=== PATIENT | male | born 1970 | race Hispanic/Latino ===

== ENCOUNTER → 2020-02-02 | Day surgery (SDC) | payer MEDICARE, OTHER ==
[~2020-02-02] MED LIST: ACETAMINOPHEN 1000 MG/100 ML 100 ML IV ONE; Aspirin PO; BUPIVACAINE HCL 0.5% INJ 30 ML VIAL INJ ONE; BYSTOLIC10 MG PO; CEFAZOLIN SOD 1 GM VIAL ONE; DEXTROSE 5% 250ML 250 ML IV ONE; FENTANYL CITRATE/PF 100MCG/2 ML INJ ONE; HEPARIN SOD (PORCINE) 1000 UNIT/ML 30ML ONE; HEPARIN SOD (PORCINE) 5,000 UNIT/ML VIAL ONE; LIDOCAINE HCL 2% LOCAL INJ 5 ML SDV VIAL INJ ONE; LOPRESSOR25 MG PO; LOVASTATIN10 MG PO; METFORMIN HCL500 MG PO; MIDAZOLAM HCL 2 MG/2 ML VIAL ONE; ONDANSETRON HCL INJ 2MG/ML 2ML 2 MG/ML VIAL ONE; PEPCID20 MG PO; PRINIVIL10 MG PO; PROPOFOL IV EMULSION 10 MG/ML 20 ML VIAL ONE; PROTAMINE SULFATE 10 MG/ML 5 ML VIAL ONE; SEVOFLURANE INHAL SOLN 250 ML PEN BTL ONE; SODIUM CHLORIDE 0.9% 500ML 500 ML ONE; THROMBIN FOR SOLN 5,000 UNIT VIAL ONE; VANCOMYCIN 1GM/NS 250 ML 250 ML ONE; ZOCOR40 MG PO
--- OUTSIDE RECORDS SUMMARY | 2020-02-02 11:19 | XMS REPORT | Clinical Summary ---
Author Author [facility] ict Organization [facility] Address Unknown Phone Unavailable Care Team Providers Care Wholesale Account Executive Name Role Phone PCP Unavailable Allergies No Known Allergies Medications End Date Status Medication Sig Dispensed Refills Start Date Active amLODIPine (NORVASC) 10 Take 10 mg by 0 mg tablet mouth daily. Active lovastatin 10 mg tablet Take 40 mg by 0 mouth at bedtime nightly. Active glimepiride (AMARYL) 1 mg Take 1 tablet 30 tablet 0 tabletIndications: KATHLEEN by mouth 8 (acute kidney injury) every morning (before breakfast). Active Problems Problem Noted Date LLQ pain 01/20/2018 Acute renal failure 01/20/2018 KATHLEEN (acute kidney injury) 01/20/2018 Diabetes mellitus type 2 in obese 01/20/2018 Back pain 07/08/2014 Cough 02/06/2014 Diarrhea Hyperkalemia Social History Date Tobacco Use Types Packs/Day Years Used Never Smoker Drinks/Week oz/Week Comments Alcohol Use OCCASSIONAL Yes Sex Assigned at Date Recorded Not on file Industry Job Start Date Occupation Not on file Not on file Not on file Travel End Travel History Travel Start No recent travel history available. Last Filed Vital Signs Not on file Plan of Treatment Health Maintenance Due Date Last Done Comments DM Foot Exam (Yearly) 1989 DM Retinal Exam (Yearly) 1989 DM HGBA1C (Yearly) 01/20/2019 01/20/2018 DM Microalbumin Urine 01/21/2019 01/21/2018, 12/28, 01/21/2018, Scrn (Yearly) Additional history exists IMM Influenza Seasonal 06/28/2020 Oct to November (>/= 19 yrs) Results Not on fileafter 02/01/2019 Insurance Type Payer Benefit Subscriber ID Effective Phone Address Plan / Dates Group [facility] CHOICE xxxxxxxxx 2016-P [phone] [id number] [place] [address] [employer] SELF-PAY SELF-PAY xxxxxx 2016-5 [id number] [place] [address] Guarantor Name Account Relation to Date of Phone Billin g Address Type Patient MORGAN NUNEZ Personal/F Head of 1970 [address] (Home) [place], [place] [address] (Self) Advance Directives Date Inactivated Comments Code Status Date Activated 01/22/2018 8:18 PM Full Code 01/20/2018 3:11 PM
--- OUTSIDE RECORDS SUMMARY | 2020-02-02 11:19 | XMS REPORT | Clinical Summary ---
Author Author [facility] Address Unknown Phone Unavailable Care Team Providers Care Tool Crib Manager Name Role Phone Brandon--Shabbir Langford PCP Allergies No Known Allergies Medications End Date Status Medication Sig Dispensed Refills Start Date Active aspirin 81 MG EC tablet Take 81 mg by 0 mouth daily. Active glimepiride (AMARYL) 4 MG Take 4 mg by 0 tablet mouth every morning before breakfast. Active losartan (COZAAR) 50 MG Take 50 mg by 0 tablet mouth daily. Active sodium bicarbonate 650 MG Take 4 0 tablet tablets by mouth 2 (two) times daily. Active cloNIDine (CATAPRES-TTS) Place 1 patch 0 0.1 mg/24 hr patch onto the skin once a week. Active cloNIDine HCl (CATAPRES) Take 0.1 mg 0 0.1 MG tablet by mouth 2 (two) times daily. Active folic acid (FOLVITE) 1 MG Take 1 mg by 0 tablet mouth daily. Active acetaminophen (TYLENOL) Take 500 mg 0 500 MG tablet by mouth every 6 (six) hours as needed for Pain. Active Problems Problem Noted Date ESRD (end stage renal disease) on dialysis 0 Hypertension 05/17/2019 Last Assessment & Plan: Blood pressure management per primary c are. Diabetes mellitus 05/17/2019 Last Assessment & Plan: He will require aggressive blood glucos e control per primary care. CKD (chronic kidney disease) 05/17/2019 Last Assessment & Plan: Chronic kidney disease secondary to HTN /DM. At this time he does not require diaylsis. Obesity 05/17/2019 Last Assessment & Plan: His current BMI is 42. We will set his goal BMI at 40. He will meet with our transplant nursing instructor for assistance with dieting and weight loss. Encounters Care Team Description Date Type Specialty Irwin Ashton MD ESRD (end stage renal disease) on dialys is (HCC) 01/11/2020 Office Visit Cardiology Flores Sims MD Rana, Abbas Aba Bucker, MD ESRD (end stage renal disease) on dialys is (HCC) (Primary Dx) 05/17/2019 Office Visit Transplant Flores Sims MD 05/17/2019 Office Visit Transplant Ethan Muñoz 04/28/2019 Abstract Transplant after 02/01/2019 Social History Date Tobacco Use Types Packs/Day Years Used Never Smoker Smokeless Tobacco: Never Used Sex Assigned at Date Recorded Not on file Industry Job Start Date Occupation Not on file Not on file Not on file Travel End Travel History Travel Start No recent travel history available. Last Filed Vital Signs Time Taken Vital Sign Reading 01/11/2020 1:27 PM CDT Blood Pressure 178/82 01/11/2020 1:27 PM CDT Pulse 71 01/11/2020 1:27 PM CDT Temperature 37 C (98.6 F) 01/11/2020 1:27 PM CDT Respiratory Rate 18 01/11/2020 1:27 PM CDT Oxygen Saturation 98% - Inhaled Oxygen - Concentration 01/11/2020 1:27 PM CDT Weight 110.7 kg (244 lb) 01/11/2020 1:27 PM CDT Height 165.1 cm (5' 5") 01/11/2020 1:27 PM CDT Body Mass Index 40.6 Plan of Treatment Health Maintenance Due Date Last Done Comments PNEUMOCOCCAL VACCINE 2-64 1976 YEARS AT RISK (1 of 3 - PCV13) HEMOGLOBIN A1C 05/17/2019 INFLUENZA VACCINE (Season 05/29/2020 Ended) Results Not on fileafter 02/01/2019 Insurance Payer Benefit Subscriber ID Type Phone Address Plan / Group [employer] xxxxxxxxx Trans plant [facility] [place] [facility] xxxxxxxxx [employer] (Home) [place] [address]
--- OUTSIDE RECORDS SUMMARY | 2020-02-02 11:20 | XMS REPORT ---
Author Author [facility] Organization [facility] Address Unknown Phone Unavailable Care Team Providers Care Devulcanizer Tender Name Role Phone Unavailable Unavailable Payers Payer Name Policy Type Policy Number Effective Date Expiration D ate Problems This patient has no known problems. Allergies, Adverse Reactions, Alerts Allergy Name Allergy Type Status Severity Reaction(s) Onset Date Inacti ve Date Treating Clinician Comments No Known Allergies DA Active U 2019-04-12 00:00:00 No Known Allergies DA Active U 2015-09-11 00:00:00 Medications This patient has no known medications. Encounters Start Date/Time End Date/Time Encounter Type Admission Type [facility] Care Department Encounter ID 2018-01-21 03:35:12 Inpatient [facility] [id number] 2019-11-01 07:38:00 2019-11-01 07:38:00 Outpatient [facility] [id number] 2019-09-06 05:07:00 2019-09-06 05:07:00 [id number] 2018-01-20 09:54:57 2018-01-20 09:54:57 Emergency [facility] [id number] 2018-01-20 07:54:55 2018-01-20 07:54:55 Outpatient [facility] [id number] 2018-01-20 00:00:00 2018-01-20 00:00:00 Emergency [facility] [id number] Results Test Description Test Time Test Comments Text Results Atomic Results Result Comments GLUBED 2019-10-24 19:56:00 GLUBED (test code = GLUBED) 162 mg/dL 74-106 Perf ormed by certified liquefied natural gas operator at [facility] [id number] 17:20:00* Test Item Value Reference Range Comments GLUBED (test code = GLUBED) 138 mg/dL 74-106 Perf ormed by certified liquefied natural gas operator at [facility] BASIC METABOLIC [id number] 13:53:00* Test Item Value Reference Range Comments SODIUM (test code = NA) 139 mmol/L 136-145 POTASSIUM (test code = K) 4.9 mmol/L 3.5-5.1 CHLORIDE (test code = CL) 101.0 mmol/L 98-107 CARBON DIOXIDE (test code = CO2) 26.0 mmol/L 21-32 ANION GAP (test code = GAP) 16.9 10-20 GLUCOSE (test code = GLU) 159 mg/dL 74-106 BLOOD UREA NITROGEN (test code = BUN) 57 mg/dL 7-18 GLOMERULAR FILTRATION RATE (test code = GFR) 4 mL/min >=6 0 Estimated GFR by using Modified MDRD formula.Chronic kidney disease is defined as either kidney damageor GFR <60 mL/min/1.73 m2 for >3 months. CREATININE (test code = CREAT) 13.40 mg/dL 0.7-1.3 BUN/CREATININE RATIO (test code = BUN/CREA) 4.3 10-2 0 CALCIUM (test code = CA) 7.4 mg/dL 8.5-10.1 BASIC METABOLIC [id number] 13:48:00* Test Item Value Reference Range Comments SODIUM (test code = NA) 139 mmol/L 136-145 POTASSIUM (test code = K) 4.9 mmol/L 3.5-5.1 CHLORIDE (test code = CL) 101.0 mmol/L 98-107 CARBON DIOXIDE (test code = CO2) mmol/L 21-32 ANION GAP (test code = GAP) 10-20 GLUCOSE (test code = GLU) mg/dL 74-106 BLOOD UREA NITROGEN (test code = BUN) mg/dL 7-18 GLOMERULAR FILTRATION RATE (test code = GFR) mL/min >=6 0 CREATININE (test code = CREAT) mg/dL 0.7-1.3 BUN/CREATININE RATIO (test code = BUN/CREA) 10-2 0 CALCIUM (test code = CA) mg/dL 8.5-10.1 CBC W/AUTO [id number] 13:42:00* Test Item Value Reference Range Comments WHITE BLOOD CELL (test code = WBC) 9.5 K/mm3 4.5-12.5 RED BLOOD CELL (test code = RBC) 3.91 mill/mm3 4.0-5.8 HEMOGLOBIN (test code = HGB) 11.7 gram/dL 13.0-17.5 HEMATOCRIT (test code = HCT) 37.4 % 42.0-52.0 MEAN CELL VOLUME (test code = MCV) 95.7 fL 80-98 MEAN CELL HGB (test code = MCH) 29.9 picogram 27.0-33.0 MEAN CELL HGB CONCETRATION (test code = MCHC) 31.3 gram/dL 33 .0-36.0 RED CELL DISTRIBUTION WIDTH (test code = RDW) 14.7 % 11 .6-16.2 RED CELL DISTRIBUTION WIDTH SD (test code = RDW-SD) 51.6 fL 37.0-51.0 PLATELET COUNT (test code = PLT) 217 K/mm3 150-450 MEAN PLATELET VOLUME (test code = MPV) 10.2 fL 6.7-11.0 NEUTROPHIL % (test code = NT%) 67.5 % 39.0-69.0 IMMATURE GRANULOCYTE % (test code = IG%) 0.6 % 0.0-5.0 LYMPHOCYTE % (test code = LY%) 14.2 % 25.0-55.0 MONOCYTE % (test code = MO%) 10.5 % 0.0-10.0 EOSINOPHIL % (test code = EO%) 6.7 % 0.0-5.0 BASOPHIL % (test code = BA%) 0.5 % 0.0-1.0 NUCLEATED RBC % (test code = NRBC%) 0.0 % 0-0 NEUTROPHIL # (test code = NT#) 6.39 K/mm3 1.8-7.7 IMMATURE GRANULOCYTE # (test code = IG#) 0.06 x10 3/uL 0-0.03 LYMPHOCYTE # (test code = LY#) 1.34 K/mm3 1.0-5.0 MONOCYTE # (test code = MO#) 0.99 K/mm3 0-0.8 EOSINOPHIL # (test code = EO#) 0.63 K/mm3 0.0-0.5 BASOPHIL # (test code = BA#) 0.05 K/mm3 0.0-0.2 NUCLEATED RBC # (test code = NRBC#) 0.00 K/mm3 0.0-0.1 MANUAL DIFF REQUIRED (test code = MDIFF) NO [id number] 11:49:00* Test Item Value Reference Range Comments GLUBED (test code = GLUBED) 139 mg/dL 74-106 Perf ormed by certified liquefied natural gas operator at [facility] [id number] 06:20:00* Test Item Value Reference Range Comments GLUBED (test code = GLUBED) 86 mg/dL 74-106 Perf ormed by certified liquefied natural gas operator at [facility] [id number] 20:24:00* Test Item Value Reference Range Comments GLUBED (test code = GLUBED) 148 mg/dL 74-106 Perf ormed by certified liquefied natural gas operator at [facility] [id number] 17:03:00* Test Item Value Reference Range Comments GLUBED (test code = GLUBED) 103 mg/dL 74-106 Perf ormed by certified liquefied natural gas operator at [facility] [id number] 13:08:00* Test Item Value Reference Range Comments GLUBED (test code = GLUBED) 97 mg/dL 74-106 Perf ormed by certified liquefied natural gas operator at [facility] [id number] 06:50:00* Test Item Value Reference Range Comments GLUBED (test code = GLUBED) 115 mg/dL 74-106 Perf ormed by certified liquefied natural gas operator at [facility] BASIC METABOLIC [id number] 05:20:00* Test Item Value Reference Range Comments SODIUM (test code = NA) 140 mmol/L 136-145 POTASSIUM (test code = K) 3.9 mmol/L 3.5-5.1 CHLORIDE (test code = CL) 104.0 mmol/L 98-107 CARBON DIOXIDE (test code = CO2) 26.0 mmol/L 21-32 ANION GAP (test code = GAP) 13.9 10-20 GLUCOSE (test code = GLU) 138 mg/dL 74-106 BLOOD UREA NITROGEN (test code = BUN) 49 mg/dL 7-18 RESULT VERIFIED BY REPEAT ANALYSIS GLOMERULAR FILTRATION RATE (test code = GFR) 5 mL/min >=6 0 Estimated GFR by using Modified MDRD formula.Chronic kidney disease is defined as either kidney damageor GFR <60 mL/min/1.73 m2 for >3 months. CREATININE (test code = CREAT) 11.30 mg/dL 0.7-1.3 BUN/CREATININE RATIO (test code = BUN/CREA) 4.3 10-2 0 CALCIUM (test code = CA) 7.7 mg/dL 8.5-10.1 THYROID PROFILE [id number] 05:20:00* Test Item Value Reference Range Comments T3 UPTAKE (test code = T3UP) 34.0 % 30.0-40.0 T4 (THYROXINE) (test code = T4) 7.6 ug/dL 4.5-13.9 T7 (FREE THYROXINE INDEX) (test code = T7) 2.58 FTI 1.3-5 .1 THYROID STIMULATING HORMONE (test code = TSH) 3.080 uIU/mL 0. 36-3.74 TSH REFERENCE RANGES: EUTHYROID: 0.35 - 4.3 mIU/mL HYPO : > 5.5 mIU/mL HYPER : < 0.35 mIU/mL BASIC METABOLIC [id number] 05:03:00* Test Item Value Reference Range Comments SODIUM (test code = NA) 140 mmol/L 136-145 POTASSIUM (test code = K) 3.9 mmol/L 3.5-5.1 CHLORIDE (test code = CL) 104.0 mmol/L 98-107 CARBON DIOXIDE (test code = CO2) mmol/L 21-32 ANION GAP (test code = GAP) 10-20 GLUCOSE (test code = GLU) mg/dL 74-106 BLOOD UREA NITROGEN (test code = BUN) mg/dL 7-18 GLOMERULAR FILTRATION RATE (test code = GFR) mL/min >=6 0 CREATININE (test code = CREAT) mg/dL 0.7-1.3 BUN/CREATININE RATIO (test code = BUN/CREA) 10-2 0 CALCIUM (test code = CA) mg/dL 8.5-10.1 THYROID PROFILE [id number] 05:03:00* Test Item Value Reference Range Comments T3 UPTAKE (test code = T3UP) % 30.0-40.0 T4 (THYROXINE) (test code = T4) ug/dL 4.5-13.9 T7 (FREE THYROXINE INDEX) (test code = T7) FTI 1.3-5 .1 THYROID STIMULATING HORMONE (test code = TSH) uIU/mL 0. 36-3.74 [id number] 04:51:00* Test Item Value Reference Range Comments GLYCOSYLATED HEMOGLOBIN (HA1C) (test code = GLYHGB) 5.6 % HbA1 SUGGESTED DIAGNOSIS: HbA1C (%) Diabetic >6.4Prediabetes 5.7 - 6.4Normal <5.7 ESTIMATED AVERAGE GLUCOSE (test code = EAG) 114 MG/DL CBC W/AUTO [id number] 04:29:00* Test Item Value Reference Range Comments WHITE BLOOD CELL (test code = WBC) 10.7 K/mm3 4.5-12.5 RED BLOOD CELL (test code = RBC) 4.20 mill/mm3 4.0-5.8 HEMOGLOBIN (test code = HGB) 12.7 gram/dL 13.0-17.5 HEMATOCRIT (test code = HCT) 39.7 % 42.0-52.0 MEAN CELL VOLUME (test code = MCV) 94.5 fL 80-98 MEAN CELL HGB (test code = MCH) 30.2 picogram 27.0-33.0 MEAN CELL HGB CONCETRATION (test code = MCHC) 32.0 gram/dL 33 .0-36.0 RED CELL DISTRIBUTION WIDTH (test code = RDW) 15.0 % 11 .6-16.2 RED CELL DISTRIBUTION WIDTH SD (test code = RDW-SD) 51.6 fL 37.0-51.0 PLATELET COUNT (test code = PLT) 215 K/mm3 150-450 MEAN PLATELET VOLUME (test code = MPV) 10.4 fL 6.7-11.0 NEUTROPHIL % (test code = NT%) 65.3 % 39.0-69.0 IMMATURE GRANULOCYTE % (test code = IG%) 0.4 % 0.0-5.0 LYMPHOCYTE % (test code = LY%) 15.1 % 25.0-55.0 MONOCYTE % (test code = MO%) 12.1 % 0.0-10.0 EOSINOPHIL % (test code = EO%) 6.6 % 0.0-5.0 BASOPHIL % (test code = BA%) 0.5 % 0.0-1.0 NUCLEATED RBC % (test code = NRBC%) 0.0 % 0-0 NEUTROPHIL # (test code = NT#) 6.96 K/mm3 1.8-7.7 IMMATURE GRANULOCYTE # (test code = IG#) 0.04 x10 3/uL 0-0.03 LYMPHOCYTE # (test code = LY#) 1.61 K/mm3 1.0-5.0 MONOCYTE # (test code = MO#) 1.29 K/mm3 0-0.8 EOSINOPHIL # (test code = EO#) 0.70 K/mm3 0.0-0.5 BASOPHIL # (test code = BA#) 0.05 K/mm3 0.0-0.2 NUCLEATED RBC # (test code = NRBC#) 0.00 K/mm3 0.0-0.1 [id number] 21:05:00* Test Item Value Reference Range Comments GLUBED (test code = GLUBED) 169 mg/dL 74-106 Perf ormed by certified liquefied natural gas operator at [facility] - MRI BRAIN W/O [id number] 21:03:00 FAX: Shabbir Chopra [phone] [place]: B St: [facility] FAX: Keny Hairston [phone] Name: ZACH GUZMAN [facility] : 1970 Age/S: 49/M [address] Unit #: [id number] Loc: V.2065 [place] [address] Phys: Keny Green MD Acct: [id number] Dis Date: Status: ADM IN PHONE #: [phone] Exam Date: 10/22/20192035 FAX #: [phone] Reason: RT SIDE WEAKNESS EXAMS: CPT CODE: [id number] MRI BRAIN W/O CONTRAST [id number] REASON FOR EXAM: RT SIDE WEAKNESS Exam Order Date: 10/22/2019 11:07 PM Attending MPatrice: Keny Dominguez MD Procedure: - MRI BRAIN W/O CONTRAST Comparison: Noncontrast CT of the brain the previous evening FINDINGS: Axial, sagittal, and coronal images of the head were obtained using T1, T2 weighted, inver rachele recovery, diffusion weighted, and gradient echo sequences. No intrav enous gadolinium was given. The sagittal images show normal pituitary, cerebellum, and brain stem. No evidence of suprasellar mass. The axial T2, inversion recovery, and gradient echo images show no evidence of intra or extra axial mass. The ventricles, cisterns, and sulci are unremarkable. No evidence of hemorrhage. The cerebellar pontine angle area is within normal limits. There is no evidence of mass n oted. The axial T1 images show no evidence of mass. No acute infarction is seen. There are microvascular ischemic changes of t he periventricular white matter. The coronal images show normal op tic chiasm. IMPRESSION: No acute intracranial process. 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 Location: RR at 2103 Reported and signed by: Chino Loredo MD PAGE 1 Signed Report (CONTINUED) FAX: Marilyn Shabbir Duncan [phone] [place]: St: [facility] FAX: Keny Hairston [phone] Name: LESLY GUZMAN ANNIEZoe REYNOSO [facility] : 1970 Age/S: 49 /M [address] [facility] Unit #: [id number] Loc: [place] [address] Phys: Keny Green MD Acct: [id number] Dis Date: atus: ADM IN PHONE #: [phone] Exam Date : 10/22/20192035 FAX #: [phone] Reason: RT S TEQUILA WEAKNESS EXAMS: CPT CODE: [id number] MRI BRAIN W/O CONTRAST [id number] <Continued> CC: Shabbir Duncan MD; Keny Green Technologist: [place] RT(R)(MR) Trnscrd Date/Time/By: 10/22/2019 (2102) : By: [email or web address] Orig Print D/T: S: 10/22/2019 (2105) PAGE 2 Signed Report [id number] 18:15:00* Test Item Value Reference Range Comments GLUBED (test code = GLUBED) 154 mg/dL 74-106 Perf ormed by certified liquefied natural gas operator at [facility] AG HEPAT B [id number] 15:11:00* Test Item Value Reference Range Comments AG HEPAT B SURF (test code = HBSAG) Nonreactive Index Nonreactiv e BASIC METABOLIC [id number] 14:49:00* Test Item Value Reference Range Comments SODIUM (test code = NA) 144 mmol/L 136-145 POTASSIUM (test code = K) 4.6 mmol/L 3.5-5.1 CHLORIDE (test code = CL) 107.0 mmol/L 98-107 CARBON DIOXIDE (test code = CO2) 24.0 mmol/L 21-32 ANION GAP (test code = GAP) 17.6 10-20 GLUCOSE (test code = GLU) 167 mg/dL 74-106 BLOOD UREA NITROGEN (test code = BUN) 64 mg/dL 7-18 GLOMERULAR FILTRATION RATE (test code = GFR) 4 mL/min >=6 0 Estimated GFR by using Modified MDRD formula.Chronic kidney disease is defined as either kidney damageor GFR <60 mL/min/1.73 m2 for >3 months. CREATININE (test code = CREAT) 13.40 mg/dL 0.7-1.3 BUN/CREATININE RATIO (test code = BUN/CREA) 4.8 10-2 0 CALCIUM (test code = CA) 7.0 mg/dL 8.5-10.1 BASIC METABOLIC [id number] 14:45:00* Test Item Value Reference Range Comments SODIUM (test code = NA) 144 mmol/L 136-145 POTASSIUM (test code = K) 4.6 mmol/L 3.5-5.1 CHLORIDE (test code = CL) 107.0 mmol/L 98-107 CARBON DIOXIDE (test code = CO2) mmol/L 21-32 ANION GAP (test code = GAP) 10-20 GLUCOSE (test code = GLU) mg/dL 74-106 BLOOD UREA NITROGEN (test code = BUN) mg/dL 7-18 GLOMERULAR FILTRATION RATE (test code = GFR) mL/min >=6 0 CREATININE (test code = CREAT) mg/dL 0.7-1.3 BUN/CREATININE RATIO (test code = BUN/CREA) 10-2 0 CALCIUM (test code = CA) 7.0 mg/dL 8.5-10.1 BASIC METABOLIC [id number] 14:44:00* Test Item Value Reference Range Comments SODIUM (test code = NA) 144 mmol/L 136-145 POTASSIUM (test code = K) 4.6 mmol/L 3.5-5.1 CHLORIDE (test code = CL) 107.0 mmol/L 98-107 CARBON DIOXIDE (test code = CO2) mmol/L 21-32 ANION GAP (test code = GAP) 10-20 GLUCOSE (test code = GLU) mg/dL 74-106 BLOOD UREA NITROGEN (test code = BUN) mg/dL 7-18 GLOMERULAR FILTRATION RATE (test code = GFR) mL/min >=6 0 CREATININE (test code = CREAT) mg/dL 0.7-1.3 BUN/CREATININE RATIO (test code = BUN/CREA) 10-2 0 CALCIUM (test code = CA) mg/dL 8.5-10.1 CBC W/AUTO [id number] 14:12:00* Test Item Value Reference Range Comments WHITE BLOOD CELL (test code = WBC) 10.7 K/mm3 4.5-12.5 RED BLOOD CELL (test code = RBC) 4.05 mill/mm3 4.0-5.8 HEMOGLOBIN (test code = HGB) 12.2 gram/dL 13.0-17.5 HEMATOCRIT (test code = HCT) 38.2 % 42.0-52.0 MEAN CELL VOLUME (test code = MCV) 94.3 fL 80-98 MEAN CELL HGB (test code = MCH) 30.1 picogram 27.0-33.0 MEAN CELL HGB CONCETRATION (test code = MCHC) 31.9 gram/dL 33 .0-36.0 RED CELL DISTRIBUTION WIDTH (test code = RDW) 15.0 % 11 .6-16.2 RED CELL DISTRIBUTION WIDTH SD (test code = RDW-SD) 51.8 fL 37.0-51.0 PLATELET COUNT (test code = PLT) 204 K/mm3 150-450 MEAN PLATELET VOLUME (test code = MPV) 10.1 fL 6.7-11.0 NEUTROPHIL % (test code = NT%) 70.1 % 39.0-69.0 IMMATURE GRANULOCYTE % (test code = IG%) 0.5 % 0.0-5.0 LYMPHOCYTE % (test code = LY%) 14.2 % 25.0-55.0 MONOCYTE % (test code = MO%) 10.9 % 0.0-10.0 EOSINOPHIL % (test code = EO%) 3.9 % 0.0-5.0 BASOPHIL % (test code = BA%) 0.4 % 0.0-1.0 NUCLEATED RBC % (test code = NRBC%) 0.0 % 0-0 NEUTROPHIL # (test code = NT#) 7.50 K/mm3 1.8-7.7 IMMATURE GRANULOCYTE # (test code = IG#) 0.05 x10 3/uL 0-0.03 LYMPHOCYTE # (test code = LY#) 1.52 K/mm3 1.0-5.0 MONOCYTE # (test code = MO#) 1.17 K/mm3 0-0.8 EOSINOPHIL # (test code = EO#) 0.42 K/mm3 0.0-0.5 BASOPHIL # (test code = BA#) 0.04 K/mm3 0.0-0.2 NUCLEATED RBC # (test code = NRBC#) 0.00 K/mm3 0.0-0.1 MANUAL DIFF REQUIRED (test code = MDIFF) NO [id number] 13:15:00* Test Item Value Reference Range Comments GLUBED (test code = GLUBED) 168 mg/dL 74-106 Perf ormed by certified liquefied natural gas operator at [facility] [id number] 06:40:00* Test Item Value Reference Range Comments GLUBED (test code = GLUBED) 195 mg/dL 74-106 Perf ormed by certified liquefied natural gas operator at [facility] URINALYSIS [id number] 21:24:00* Test Item Value Reference Range Comments UA COLOR (test code = COLU) Light-Yellow YELLOW UA APPEARANCE (test code = APPU) CLEAR CLEAR UA GLUCOSE DIPSTICK (test code = DGLUU) 1000 (3+) mg/dL NEGATIVE UA BILIRUBIN DIPSTICK (test code = BILU) NEGATIVE mg/dL NEGATIV E UA KETONE DIPSTICK (test code = KETU) TRACE mg/dL NEGATIVE UA SPECIFIC GRAVITY (test code = SGU) 1.021 1.001-1.03 5 UA BLOOD DIPSTICK (test code = VARGAS) 0.1 mg/dL (1+) mg/dL NEGATIV E UA PH DIPSTICK (test code = KELLI) 6.5 5.0-8.0 UA PROTEIN DIPSTICK (test code = PROU) 600 (3+) mg/dL NEGATIVE UA UROBILINIOGEN DIPSTICK (test code = URO) Normal mg/dL NEGA TIVE UA NITRITE DIPSTICK (test code = SUSAN) NEGATIVE NEGATIVE UA LEUKOCYTE ESTERASE W REFLEX (test code = LEUUR) NEGATIVE Jose Luis/ uL NEGATIVE UA WBC (test code = WBCU) 11-20 per HPF 0-5 UA RBC (test code = RBCU) 3-5 #/HPF 0-5 UA EPITHELIAL CELLS (test code = EPIU) FEW per HPF FEW UA BACTERIA (test code = BACU) FEW #/HPF NONE UA MUCUS (test code = MUCU) FEW #/LPF FEW Urine Source? Clean CatchHEPATIC FUNCTION [id number] 21:08:00* Test Item Value Reference Range Comments TOTAL PROTEIN (test code = PROT) 7.8 gram/dL 6.4-8.2 ALBUMIN (test code = ALB) 3.4 g/dL 3.4-5.0 GLOBULIN (test code = GLOB) 4.4 gram/dL 2.7-4.2 ALBUMIN/GLOBULIN RATIO (test code = A/G) 0.8 0.75-1. 50 BILIRUBIN TOTAL (test code = BILT) 0.50 mg/dL 0.0-1.0 BILIRUBIN DIRECT (test code = BILD) 0.17 mg/dL 0.0-0.20 SGOT/AST (test code = AST) 10 IUnit/L 15-37 SGPT/ALT (test code = ALT) 17 IUnit/L 12-78 ALKALINE PHOSPHATASE TOTAL (test code = ALKP) 90 IUnit/L 45 -117 Note change in reference range due to change in reagent. [id number] 21:08:00* Test Item Value Reference Range Comments LIPASE (test code = LIP) 250 U/L 73.0-393.0 [id number] 21:08:00* Test Item Value Reference Range Comments TROPONIN-I (test code = TROPI) <0.015 ng/mL 0-0.045 BASIC METABOLIC [id number] 21:03:00* Test Item Value Reference Range Comments SODIUM (test code = NA) 141 mmol/L 136-145 POTASSIUM (test code = K) 4.3 mmol/L 3.5-5.1 CHLORIDE (test code = CL) 105.0 mmol/L 98-107 CARBON DIOXIDE (test code = CO2) 23.0 mmol/L 21-32 ANION GAP (test code = GAP) 17.3 10-20 GLUCOSE (test code = GLU) 255 mg/dL 74-106 BLOOD UREA NITROGEN (test code = BUN) 60 mg/dL 7-18 GLOMERULAR FILTRATION RATE (test code = GFR) 4 mL/min >=6 0 Estimated GFR by using Modified MDRD formula.Chronic kidney disease is defined as either kidney damageor GFR <60 mL/min/1.73 m2 for >3 months. CREATININE (test code = CREAT) 12.90 mg/dL 0.7-1.3 BUN/CREATININE RATIO (test code = BUN/CREA) 4.7 10-2 0 CALCIUM (test code = CA) 7.6 mg/dL 8.5-10.1 PROTHROMBIN [id number] 21:00:00* Test Item Value Reference Range Comments PROTHROMBIN TIME PATIENT (test code = PTP) 11.2 seconds 9.0-1 4.0 INTERNATIONAL NORMAL RATIO (test code = INR) 0.9 0.8 -1.2 The therapeutic range for oral anticoagulant therapy formost indications is an international normalized ratio (INR)of between 2.0 and 3.0. The recommended therapeutic INRrange for various clinical situations is listed below: Clinical Situation INR range Pulmonary e mbolism treatment (2.0-3.0)Venous thrombosis treatmentVenous thrombosis prophylaxis (high risk surgery)Prevention of systemic embolism from: Acute myocardial infarction Valvular heart disease Atrial fibrillation Mechanical prosthetic heart valves (2.5-3.5) IS PATIENT ON ANTICOAGULANTS? NTHROMBOPLASTIN TIME [id number] 21:00:00* Test Item Value Reference Range Comments THROMBOPLASTIN TIME PARTIAL (test code = PTT) 37.0 seconds 25 .0-36.5 IS PATIENT ON ANTICOAGULANTS? NBASIC METABOLIC [id number] 20:57:00* Test Item Value Reference Range Comments SODIUM (test code = NA) 141 mmol/L 136-145 POTASSIUM (test code = K) 4.3 mmol/L 3.5-5.1 CHLORIDE (test code = CL) 105.0 mmol/L 98-107 CARBON DIOXIDE (test code = CO2) mmol/L 21-32 ANION GAP (test code = GAP) 10-20 GLUCOSE (test code = GLU) mg/dL 74-106 BLOOD UREA NITROGEN (test code = BUN) mg/dL 7-18 GLOMERULAR FILTRATION RATE (test code = GFR) mL/min >=6 0 CREATININE (test code = CREAT) mg/dL 0.7-1.3 BUN/CREATININE RATIO (test code = BUN/CREA) 10-2 0 CALCIUM (test code = CA) mg/dL 8.5-10.1 - CT ABD PELVIS [id number] 20:52:00 Name: ZACH GUZMAN [facility] : 1970 Age/S: 49 / M [address] [facility] Unit #: [id number] Loc: [place] [address] Phys: Sung Persaudmartina CHAN Acct: [id number] Dis Date: Status: REG ER PHONE #: [phone] Exam Date: 10/21/20192046 FAX #: [phone] Reason: abd pain EXAMS: CPT CODE: [id number] CT ABD PELVIS W/CONT 39566 REASON FOR EXAM: abd pain EXAM ORDER DATE: 10/21/2019 6:02 PM Ordering: Shantel Persaud DO Attending:Shantel Persaud DO Location: PROCEDURE: - CT ABD PELVIS W/CONT COMPARISON: FINDINGS: CT images of the abdomen and pelvis were obtained with IV and without oral contrast at 5mm. Dose modulation, iterative reconstruction, and/or weight based adjustment of the MA/KV was utilized to reduce the radiation dose to as low as reasonably achievable. Intravenous contrast: 100cc of Omnipaque 370. The liver, spleen, pancreas are grossly within normal limits. The gallbladder is unremarkable by CT The kidneys are within normal limits. The urinary bladder is partially contracted The colon, small bowel, and stomach are within normal limits without evidence of obstruction. The appendix is unremarkable. A peritoneal dialysis catheter noted. No evidence of free air or free fluid. IMPRESSION: Small pericardial effusion. No acute findings in the abdomen at 2051 Reported and signed by: Ralf Jamison M.D. PAGE 1 Signed Report (CONTINUED) Name: ZACH GUZMAN [facility] : 1970 Age/S: 49 / M [address] [facility] Unit #: [id number] Loc: [place] [address] Phys: Shantel Persaud DO Acct: [id number] Dis Date: Status: REG ER PHONE #: [phone] Exam Date: 10/21/20192046 FAX #: [phone] Reason: abd pain EXAMS: CPT CODE: [id number] CT ABD PELVIS W/CONT 45717 < Continued> CC: Shabbir Duncan MD; Shantel Persaud DO Technologist:PHAM STEPHEN RT(R) CT CTDI: DLP: Trnscb Date/Time: 10/21/2019 (2051) JevonL Orig Print D/T: S: 10/21/2019 (2054) PAGE 2 Signed Report CBC W/AUTO [id number] 20:35:00* Test Item Value Reference Range Comments WHITE BLOOD CELL (test code = WBC) 11.3 K/mm3 4.5-12.5 RED BLOOD CELL (test code = RBC) 4.32 mill/mm3 4.0-5.8 HEMOGLOBIN (test code = HGB) 13.1 gram/dL 13.0-17.5 HEMATOCRIT (test code = HCT) 41.2 % 42.0-52.0 MEAN CELL VOLUME (test code = MCV) 95.4 fL 80-98 MEAN CELL HGB (test code = MCH) 30.3 picogram 27.0-33.0 MEAN CELL HGB CONCETRATION (test code = MCHC) 31.8 gram/dL 33 .0-36.0 RED CELL DISTRIBUTION WIDTH (test code = RDW) 14.9 % 11 .6-16.2 RED CELL DISTRIBUTION WIDTH SD (test code = RDW-SD) 52.6 fL 37.0-51.0 PLATELET COUNT (test code = PLT) 198 K/mm3 150-450 MEAN PLATELET VOLUME (test code = MPV) 9.8 fL 6.7-11.0 NEUTROPHIL % (test code = NT%) 75.6 % 39.0-69.0 IMMATURE GRANULOCYTE % (test code = IG%) 0.4 % 0.0-5.0 LYMPHOCYTE % (test code = LY%) 11.6 % 25.0-55.0 MONOCYTE % (test code = MO%) 8.3 % 0.0-10.0 EOSINOPHIL % (test code = EO%) 3.8 % 0.0-5.0 BASOPHIL % (test code = BA%) 0.3 % 0.0-1.0 NUCLEATED RBC % (test code = NRBC%) 0.0 % 0-0 NEUTROPHIL # (test code = NT#) 8.50 K/mm3 1.8-7.7 IMMATURE GRANULOCYTE # (test code = IG#) 0.05 x10 3/uL 0-0.03 LYMPHOCYTE # (test code = LY#) 1.31 K/mm3 1.0-5.0 MONOCYTE # (test code = MO#) 0.93 K/mm3 0-0.8 EOSINOPHIL # (test code = EO#) 0.43 K/mm3 0.0-0.5 BASOPHIL # (test code = BA#) 0.03 K/mm3 0.0-0.2 NUCLEATED RBC # (test code = NRBC#) 0.00 K/mm3 0.0-0.1 MANUAL DIFF REQUIRED (test code = MDIFF) NO - CT HEAD/BRAIN W/O [id number] 20:11:00 Name: ZACH GUZMAN [facility] : 1970 Age/S: 49 / M [address] [facility] Unit #: [id number] Loc: [place] [address] Phys: Shantel Persaud DO Acct: [id number] Dis Date: Status: REG ER PHONE #: [phone] Exam Date: 10/21/20191944 FAX #: [phone] Reason: Headache EXAMS: CPT CODE: [id number] CT HEAD/BRAIN W/O CONT 72108 REASON FOR EXAM: Headache EXAM ORDER DATE: 10/21/2019 5:45 PM Ordering: Shantel Persaud DO Attending:Shantel Persaud DO Location: PROCEDURE: - CT HEAD/BRAIN W/O CONT COMPARISON: FINDINGS: CT images of the brain were obtained without IV contrast. Dose modulation, iterative reconstruction, and/or weight based adjustment of the MA/KV was utilized to reduce the radiation dose to as low as reasonably achievable. The brain parenchyma is within normal limits. The easley-white matter delineation is unremarkable. The ventricles, cisterns, and sulci are unremarkable. There is no evidence of hemorrhage, mass, mass effect. There is no evidence of acute infarct. The calvarium is intact. 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 No acute findings at 2010 Reported and signed by: Ralf Jamison M.D. CC: Shabbir Duncan MD; Shantel Persaud DO Technologist:Estella REIS(R); PHAM Almaraz CTDI: DLP: Trnscb Date/Time: 10/21/2019 (2010) Junior Orig Print D/T: S: 10/21/2019 (2013) PAGE 1 Signed Report [id number] 10:08:00* Test Item Value Reference Range Comments GLUBED (test code = GLUBED) 113 mg/dL 74-106 Perf ormed by certified liquefied natural gas operator at [facility] [id number] 11:20:00* Test Item Value Reference Range Comments GLUBED (test code = GLUBED) 234 mg/dL 74-106 Perf ormed by certified liquefied natural gas operator at [facility] BASIC METABOLIC [id number] 09:43:00* Test Item Value Reference Range Comments SODIUM (test code = NA) 140 mmol/L 136-145 POTASSIUM (test code = K) 3.8 mmol/L 3.5-5.1 CHLORIDE (test code = CL) 105.0 mmol/L 98-107 CARBON DIOXIDE (test code = CO2) 26.0 mmol/L 21-32 ANION GAP (test code = GAP) 12.8 10-20 GLUCOSE (test code = GLU) 158 mg/dL 74-106 BLOOD UREA NITROGEN (test code = BUN) 41 mg/dL 7-18 RESULT VERIFIED BY REPEAT ANALYSIS GLOMERULAR FILTRATION RATE (test code = GFR) 8 mL/min >=6 0 Estimated GFR by using Modified MDRD formula.Chronic kidney disease is defined as either kidney damageor GFR <60 mL/min/1.73 m2 for >3 months. CREATININE (test code = CREAT) 7.30 mg/dL 0.7-1.3 BUN/CREATININE RATIO (test code = BUN/CREA) 5.6 10-2 0 CALCIUM (test code = CA) 7.1 mg/dL 8.5-10.1 CBC W/O [id number] 07:59:00* Test Item Value Reference Range Comments WHITE BLOOD CELL (test code = WBC) 12.6 K/mm3 4.5-12.5 RED BLOOD CELL (test code = RBC) 3.00 mill/mm3 4.0-5.8 HEMOGLOBIN (test code = HGB) 9.0 gram/dL 13.0-17.5 HEMATOCRIT (test code = HCT) 27.5 % 42.0-52.0 MEAN CELL VOLUME (test code = MCV) 91.7 fL 80-98 MEAN CELL HGB (test code = MCH) 30.0 picogram 27.0-33.0 MEAN CELL HGB CONCETRATION (test code = MCHC) 32.7 gram/dL 33 .0-36.0 RED CELL DISTRIBUTION WIDTH (test code = RDW) 12.5 % 11 .6-16.2 PLATELET COUNT (test code = PLT) 200 K/mm3 150-450 MEAN PLATELET VOLUME (test code = MPV) 10.2 fL 6.7-11.0 [id number] 07:52:00* Test Item Value Reference Range Comments GLUBED (test code = GLUBED) 153 mg/dL 74-106 Perf ormed by certified liquefied natural gas operator at [facility] [id number] 21:11:00* Test Item Value Reference Range Comments GLUBED (test code = GLUBED) 140 mg/dL 74-106 Perf ormed by certified liquefied natural gas operator at [facility] [id number] 21:11:00* Test Item Value Reference Range Comments GLUBED (test code = GLUBED) 336 mg/dL 74-106 Perf ormed by certified liquefied natural gas operator at [facility] [id number] 15:51:00* Test Item Value Reference Range Comments GLUBED (test code = GLUBED) 304 mg/dL 74-106 Perf ormed by certified liquefied natural gas operator at [facility] BASIC METABOLIC [id number] 11:17:00* Test Item Value Reference Range Comments SODIUM (test code = NA) 141 mmol/L 136-145 POTASSIUM (test code = K) 4.1 mmol/L 3.5-5.1 CHLORIDE (test code = CL) 107.0 mmol/L 98-107 CARBON DIOXIDE (test code = CO2) 22.0 mmol/L 21-32 ANION GAP (test code = GAP) 16.1 10-20 GLUCOSE (test code = GLU) 198 mg/dL 74-106 BLOOD UREA NITROGEN (test code = BUN) 80 mg/dL 7-18 GLOMERULAR FILTRATION RATE (test code = GFR) 5 mL/min >=6 0 Estimated GFR by using Modified MDRD formula.Chronic kidney disease is defined as either kidney damageor GFR <60 mL/min/1.73 m2 for >3 months. CREATININE (test code = CREAT) 10.50 mg/dL 0.7-1.3 BUN/CREATININE RATIO (test code = BUN/CREA) 7.6 10-2 0 CALCIUM (test code = CA) 6.2 mg/dL 8.5-10.1 Results called to [id number] by V.LAB.QD 08/26/19 1116Critical results verified and read back by Nurse? YES CBC W/O [id number] 10:33:00* Test Item Value Reference Range Comments WHITE BLOOD CELL (test code = WBC) 14.5 K/mm3 4.5-12.5 RED BLOOD CELL (test code = RBC) 2.93 mill/mm3 4.0-5.8 HEMOGLOBIN (test code = HGB) 8.9 gram/dL 13.0-17.5 HEMATOCRIT (test code = HCT) 26.3 % 42.0-52.0 MEAN CELL VOLUME (test code = MCV) 89.8 fL 80-98 MEAN CELL HGB (test code = MCH) 30.4 picogram 27.0-33.0 MEAN CELL HGB CONCETRATION (test code = MCHC) 33.8 gram/dL 33 .0-36.0 RED CELL DISTRIBUTION WIDTH (test code = RDW) 12.7 % 11 .6-16.2 PLATELET COUNT (test code = PLT) 217 K/mm3 150-450 MEAN PLATELET VOLUME (test code = MPV) 11.1 fL 6.7-11.0 [id number] 07:19:00* Test Item Value Reference Range Comments GLUBED (test code = GLUBED) 186 mg/dL 74-106 Perf ormed by certified liquefied natural gas operator at [facility] [id number] 01:25:00* Test Item Value Reference Range Comments GLUBED (test code = GLUBED) 301 mg/dL 74-106 Perf ormed by certified liquefied natural gas operator at [facility] [id number] 20:51:00* Test Item Value Reference Range Comments GLUBED (test code = GLUBED) 353 mg/dL 74-106 Perf ormed by certified liquefied natural gas operator at [facility] [id number] 20:51:00* Test Item Value Reference Range Comments GLUBED (test code = GLUBED) 294 mg/dL 74-106 Perf ormed by certified liquefied natural gas operator at [facility] - US GUIDANCE VASC [id number] 13:23:00 [facility] 1970 Age/S: 49 / M [address] Unit #: [id number] Loc: [place] [address] Phys: Keny Green MD Acct: [id number] Dis Date: Status: ADM IN PHONE #: [phone] Exam Date: 08/24/2019 1100 FAX #: [phone] Reason: EXAMS: CPT CODE: [id number] US GUIDANCE VASC ACCESS [id number] Fluoro Time: DAP (Gy m2): Air Kerma (mGy): EXAM: Insertion of a tunneled hemodialysis catheter with sonographic and fluoroscopic guidance and conscious sedation; CPT: 69081, 07632, 74249, 61349; INFORMATION: End-stage renal disease; TECHNIQUE AND FINDINGS: Conscious sedation start time: 1024 hours; completion time: 1100 hours; Under physician supervision 2 mg of Versed and 50 mcg of fentanyl were administered intravenously for sedation. The patient's heart rate, blood pressure and pulse oximetry were continuously monitored by a trained registered nurse. Physician yhyc-jz-fpkk sedation time was 36 minutes. Benefits and risks of the procedure including risks of hemorrhage and infection, were explained to the patient and informed consent was obtained. The patient was placed supine on the fluoroscopy table and sonography of the right neck region was performed. It demonstrated a patent and compressible right internal jugular vein. Sonographic images were stored in PACS. Co nscious sedation was initiated with Versed and Fentanyl. The patient's ski n in the right neck and chest region was then prepped and draped in the us ual sterile fashion, using all elements of maximal sterile barrier techniq ue. Xylocaine was administered and using real-time sonographic guidance the right internal jugular vein was accessed with a micropuncture sys tem, followed by insertion of an 035 guidewire. Under fluoroscopic guidanc e, sequential dilatation was performed followed by insertion of a 15 Frenc h peel-away sheath. A subcutaneous tunnel was then created in the usual st erile fashion and a 15 Lao tunneled hemodialysis catheter was inserted and positioned fluoroscopically with its tip in the cranial aspect of the right atrium. Good blood return was noticed; the catheter was sutured to the skin and flushed with heparinized saline. There were no com plications. IMPRESSION: Successful insertion of a tunnel ed hemodialysis catheter with sonographic and fluoroscopic guidance and conscious sedation. Fluoroscopy Time: 57 s ec PAGE 1 Signed Report (CONTINUED ) Name: ZACH GUZMAN [facility] D OB: 1970 Age/S: 49 / M [address] Unit #: [id number] Loc: [place] [address] Phys: Oumar Green MD Acct: [id number] Dis Date: Status: ADM IN PHONE #: [phone] Exam Date: 08/24/2019 1100 FAX #: [phone] Reason: EXAMS: CPT CODE: [id number] US GUIDANCE V ASC ACCESS 75698 Fluoro Time: DAP (Gy m2): Air Kerma (mGy): <Continued> CAK : 13 mGy DAP : 5260 mGy sq cm Location code: [facility] at 1323 Reported and signed by: Melquiades Lane M.D. CC: Shabbir Duncan MD; Keny Green Technologist: Saleem Benito RT(R) Trnnhb Date/Time: 08/25/2019 (1323) tPENG Orig Print D/T: S: 08/25/2019 (1326) PAGE 2 Signed Report - SP FLUORO GUID CTRL ACC [id number] 13:23:00 Name: ZACH GUZMAN [facility] : 1970 Age/S: 49 / M [address] [facility] Unit #: [id number] Loc: [place] [address] Phys: Keny Green MD Acct: [id number] Dis Date: Status: ADM IN PHONE #: [phone] Exam Date: 08/24/2019 1100 FAX #: [phone] Reason: EXAMS: CPT CODE: [id number] SP FLUORO GUID CTRL ACC DEV 02615 Fluoro Time: 57 DAP (Gy m2): 5.2 Air Kerma (mGy): 14 EXAM: Insertion of a tunneled hemodialysis catheter with sonographic and fluoroscopic guidance and conscious sedation; CPT: 45307, 95312, 31513, 37913; INFORMATION: End-stage renal disease; TECHNIQUE AND FINDINGS: Conscious sedation start time: 1024 hours; completion time: 1100 hours; Under physician supervision 2 mg of Versed and 50 mcg of fentanyl were administered intravenously for sedation. The patient's heart rate, blood pressure and pulse oximetry were continuously monitored by a trained registered nurse. Physician lqqd-kg-fqao sedation time was 36 minutes. Benefits and risks of the procedure including risks of hemorrhage and infection, were explained to the patient and informed consent was obtained. The patient was placed supine on the fluoroscopy table and sonography of the right neck region was performed. It demonstrated a patent and compressible right internal jugular vein. Sonographic images were stored in PACS. Co nscious sedation was initiated with Versed and Fentanyl. The patient's ski n in the right neck and chest region was then prepped and draped in the us ua sterile fashion, using all elements of maximal sterile barrier techniq ue. Xylocaine was administered and using real-time sonographic guidance the right internal jugular vein was accessed with a micropuncture sys tem, followed by insertion of an 035 guidewire. Under fluoroscopic guidanc e, sequential dilatation was performed followed by insertion of a 15 Frenc h peel-away sheath. A subcutaneous tunnel was then created in the usual st erile fashion and a 15 Lao tunneled hemodialysis catheter was inserted and positioned fluoroscopically with its tip in the cranial aspect of the right atrium. Good blood return was noticed; the catheter was sutured to the skin and flushed with heparinized saline. There were no com plications. IMPRESSION: Successful insertion of a tunnel ed hemodialysis catheter with sonographic and fluoroscopic guidance and conscious sedation. Fluoroscopy Time: 57 s ec PAGE 1 Signed Report (CONTINUED ) Name: REGINA NUNEZZACH [facility] SP D OB: 1970 Age/S: 49 / M [address] [facility]: [id number] Loc: [place] [address] Phys: Oumar Green MD Acct: [id number] Dis Date: Status: ADM IN PHONE #: [phone] Exam Date: 08/24/2019 1100 FAX #: Reason: EXAMS: CPT CODE: [id number] SP FLUORO GUID CTRL ACC DEV 42523 Fluoro Time: 57 DAP (Gy m2): 5.2 Air Kerma (mGy): 14 <Continued> CAK : 13 mGy DAP : 5260 mGy sq cm Location code: [facility] at 1323 Reported and signed by: Melquiades Lane M.D. CC: Shabbir Duncan MD; Keny Green Technologist: Saleem Benito RT(R) Trnscb Date/Time: 08/25/2019 (1323) t.GRW Orig Print D/T: S: 08/25/2019 (1529) PAGE 2 Signed Report GLUBED 2019-08-25 11:13:00* Test Item Value Reference Range Comments GLUBED (test code = GLUBED) 222 mg/dL 74-106 Perf ormed by certified liquefied natural gas operator at [facility] [id number] 07:34:00* Test Item Value Reference Range Comments GLUBED (test code = GLUBED) 162 mg/dL 74-106 Perf ormed by certified liquefied natural gas operator at [facility] AB HEPATITIS B [id number] 07:12:00* Test Item Value Reference Range Comments AB HEPATITIS B SURFACE (test code = HBSAB) Non Reactive () Non Reactive: Inconsistent with immunity, less than 10 mIU/mL Reactive: Consistent with immunity, greater than 9.9 mIU/mLPerformed At: [facility] [id number] Sloan MD Ph:[phone] HEPATITIS B CORE ANTIBODY,[id number] 07:12:00* Test Item Value Reference Range Comments HEPATITIS B CORE ANTIBODY,TOT (test code = HBCAB) Negative Negative Performed At: [facility] [id number] Sloan MD Ph:[phone] RENAL FUNCTION [id number] 06:24:00* Test Item Value Reference Range Comments SODIUM (test code = NA) 141 mmol/L 136-145 POTASSIUM (test code = K) 4.3 mmol/L 3.5-5.1 CHLORIDE (test code = CL) 110.0 mmol/L 98-107 CARBON DIOXIDE (test code = CO2) 22.0 mmol/L 21-32 ANION GAP (test code = GAP) 13.3 10-20 GLUCOSE (test code = GLU) 169 mg/dL 74-106 BLOOD UREA NITROGEN (test code = BUN) 78 mg/dL 7-18 RESULT VERIFIED BY REPEAT ANALYSIS CREATININE (test code = CREAT) 9.60 mg/dL 0.7-1.3 ALBUMIN (test code = ALB) 2.5 g/dL 3.4-5.0 CALCIUM (test code = CA) 6.7 mg/dL 8.5-10.1 PHOSPHORUS (test code = PHOS) 6.9 mg/dL 2.5-4.9 FE W/TOTAL IRON BINDING CAP.2019-08-25 06:24:00* Test Item Value Reference Range Comments SERUM IRON (test code = IRON) 58 ug/dL 50-175 TOTAL IRON BINDING CAPACITY (test code = TIBC) 221 mcg/dL 2 50-450 IRON SATURATION (test code = FESAT) 26.24 % 13-45 [id number] 06:24:00* Test Item Value Reference Range Comments FERRITIN (test code = LEONARDO) 287 ng/mL 8-388 RENAL FUNCTION [id number] 06:09:00* Test Item Value Reference Range Comments SODIUM (test code = NA) 141 mmol/L 136-145 POTASSIUM (test code = K) 4.3 mmol/L 3.5-5.1 CHLORIDE (test code = CL) 110.0 mmol/L 98-107 CARBON DIOXIDE (test code = CO2) mmol/L 21-32 ANION GAP (test code = GAP) 10-20 GLUCOSE (test code = GLU) mg/dL 74-106 BLOOD UREA NITROGEN (test code = BUN) mg/dL 7-18 CREATININE (test code = CREAT) mg/dL 0.7-1.3 ALBUMIN (test code = ALB) g/dL 3.4-5.0 CALCIUM (test code = CA) mg/dL 8.5-10.1 PHOSPHORUS (test code = PHOS) mg/dL 2.5-4.9 FE W/TOTAL IRON BINDING CAP.2019-08-25 06:09:00* Test Item Value Reference Range Comments SERUM IRON (test code = IRON) ug/dL 50-175 TOTAL IRON BINDING CAPACITY (test code = TIBC) mcg/dL 2 50-450 IRON SATURATION (test code = FESAT) % 13-45 [id number] 06:09:00* Test Item Value Reference Range Comments FERRITIN (test code = LEONARDO) ng/mL 8-388 CBC W/AUTO [id number] 05:48:00* Test Item Value Reference Range Comments WHITE BLOOD CELL (test code = WBC) 9.9 K/mm3 4.5-12.5 RED BLOOD CELL (test code = RBC) 2.88 mill/mm3 4.0-5.8 HEMOGLOBIN (test code = HGB) 8.7 gram/dL 13.0-17.5 HEMATOCRIT (test code = HCT) 26.0 % 42.0-52.0 MEAN CELL VOLUME (test code = MCV) 90.3 fL 80-98 MEAN CELL HGB (test code = MCH) 30.2 picogram 27.0-33.0 MEAN CELL HGB CONCETRATION (test code = MCHC) 33.5 gram/dL 33 .0-36.0 RED CELL DISTRIBUTION WIDTH (test code = RDW) 12.7 % 11 .6-16.2 RED CELL DISTRIBUTION WIDTH SD (test code = RDW-SD) 41.9 fL 37.0-51.0 PLATELET COUNT (test code = PLT) 174 K/mm3 150-450 MEAN PLATELET VOLUME (test code = MPV) 10.7 fL 6.7-11.0 NEUTROPHIL % (test code = NT%) 77.1 % 39.0-69.0 IMMATURE GRANULOCYTE % (test code = IG%) 0.5 % 0.0-5.0 LYMPHOCYTE % (test code = LY%) 9.2 % 25.0-55.0 MONOCYTE % (test code = MO%) 10.5 % 0.0-10.0 EOSINOPHIL % (test code = EO%) 2.3 % 0.0-5.0 BASOPHIL % (test code = BA%) 0.4 % 0.0-1.0 NUCLEATED RBC % (test code = NRBC%) 0.0 % 0-0 NEUTROPHIL # (test code = NT#) 7.66 K/mm3 1.8-7.7 IMMATURE GRANULOCYTE # (test code = IG#) 0.05 x10 3/uL 0-0.03 LYMPHOCYTE # (test code = LY#) 0.91 K/mm3 1.0-5.0 MONOCYTE # (test code = MO#) 1.04 K/mm3 0-0.8 EOSINOPHIL # (test code = EO#) 0.23 K/mm3 0.0-0.5 BASOPHIL # (test code = BA#) 0.04 K/mm3 0.0-0.2 NUCLEATED RBC # (test code = NRBC#) 0.00 K/mm3 0.0-0.1 MANUAL DIFF REQUIRED (test code = MDIFF) NO [id number] 20:00:00* Test Item Value Reference Range Comments GLUBED (test code = GLUBED) 118 mg/dL 74-106 Perf ormed by certified liquefied natural gas operator at [facility] [id number] 14:16:00* Test Item Value Reference Range Comments TROPONIN-I (test code = TROPI) <0.015 ng/mL 0-0.045 COMMENTS TO LITIGATION SECRETARY: COLLECT 3 HOURS AFTER PREVIOUS [id number] 12:15:00* Test Item Value Reference Range Comments GLUBED (test code = GLUBED) 81 mg/dL 74-106 Perf ormed by certified liquefied natural gas operator at [facility] - XR CHEST 1 [id number] 11:30:00 FAX: Shabbir Chopra [phone] [place]: B St: [facility] FAX: Keny Hairston [facility] [phone] Name: ZACH GUZMAN [facility] : 1970 Age/S: 49/M [address] Unit #: [id number] Loc: [place] [address] Phys: Melquiades Lane MD Acct: [id number] Dis Date: Status: ADM IN PHONE #: [phone] Exam Date: 08/24/2019 1108 FAX #: [phone] Reason: ESRD; [facility]; EXAMS: CPT CODE: [id number] XR CHEST 1 V 90362 REASON FOR EXAM: ESRD; [facility]; Exam Order Date: 08/24/2019 11:09 AM Ordering Chance: Melquiades Lane MD PROCEDURE: - XR CHEST 1 V COMPARISON: Chest x-ray the previous day FINDINGS: The lungs are clear. There is no pleural effusion or pneumothorax. Pulmonary vascularity is within normal limits. Cardiomediastinal silhouette is normal prominent but stable in size. The mediastinal contours are within normal limits. Interval placement of right IJ dialysis catheter proximal SVC. Degenerative changes are present in the spine. The visualized upper abdomen is within normal limits. IMPRESSION: No pneumothorax following placement of right IJ dialysis catheter into the proximal SVC. Lungs are clear. Location: [facility] at 1130 Reported and signed by: Samuel Loredo MD CC: Shabbir Duncan MD; [place] Technologist: Lidia REIS(R); Malinda Patel(R) Trnscrd Date/Time/By: 08/24/2019 (1130) : By: [email or web address] [facility] Print D/T: S: 08/24/2019 (2419) PAGE 1 Signed Report [id number] 10:08:00* Test Item Value Reference Range Comments PHOSPHORUS (test code = PHOS) 8.1 mg/dL 2.5-4.9 BASIC METABOLIC [id number] 09:47:00* Test Item Value Reference Range Comments SODIUM (test code = NA) 143 mmol/L 136-145 POTASSIUM (test code = K) 5.3 mmol/L 3.5-5.1 CHLORIDE (test code = CL) 112.0 mmol/L 98-107 CARBON DIOXIDE (test code = CO2) 17.0 mmol/L 21-32 ANION GAP (test code = GAP) 19.3 10-20 GLUCOSE (test code = GLU) 69 mg/dL 74-106 BLOOD UREA NITROGEN (test code = BUN) 110 mg/dL 7-18 GLOMERULAR FILTRATION RATE (test code = GFR) 5 mL/min >=6 0 Estimated GFR by using Modified MDRD formula.Chronic kidney disease is defined as either kidney damageor GFR <60 mL/min/1.73 m2 for >3 months. CREATININE (test code = CREAT) 11.70 mg/dL 0.7-1.3 BUN/CREATININE RATIO (test code = BUN/CREA) 9.4 10-2 0 CALCIUM (test code = CA) 6.3 mg/dL 8.5-10.1 Results called to [id number] by XIMENA 08/24/19 0945Critical results verified and read back by Nurse? YES PROTHROMBIN [id number] 08:51:00* Test Item Value Reference Range Comments PROTHROMBIN TIME PATIENT (test code = PTP) 12.1 seconds 9.0-1 4.0 INTERNATIONAL NORMAL RATIO (test code = INR) 1.0 0.8 -1.2 The therapeutic range for oral anticoagulant therapy formost indications is an international normalized ratio (INR)of between 2.0 and 3.0. The recommended therapeutic INRrange for various clinical situations is listed below: Clinical Situation INR range Pulmonary e mbolism treatment (2.0-3.0)Venous thrombosis treatmentVenous thrombosis prophylaxis (high risk surgery)Prevention of systemic embolism from: Acute myocardial infarction Valvular heart disease Atrial fibrillation Mechanical prosthetic heart valves (2.5-3.5) IS PATIENT ON ANTICOAGULANTS? NTHROMBOPLASTIN TIME [id number] 08:51:00* Test Item Value Reference Range Comments THROMBOPLASTIN TIME PARTIAL (test code = PTT) 32.6 seconds 25 .0-36.5 IS PATIENT ON ANTICOAGULANTS? NBASIC METABOLIC [id number] 08:49:00* Test Item Value Reference Range Comments SODIUM (test code = NA) 143 mmol/L 136-145 POTASSIUM (test code = K) 5.3 mmol/L 3.5-5.1 CHLORIDE (test code = CL) 112.0 mmol/L 98-107 CARBON DIOXIDE (test code = CO2) mmol/L 21-32 ANION GAP (test code = GAP) 10-20 GLUCOSE (test code = GLU) mg/dL 74-106 BLOOD UREA NITROGEN (test code = BUN) mg/dL 7-18 GLOMERULAR FILTRATION RATE (test code = GFR) mL/min >=6 0 CREATININE (test code = CREAT) mg/dL 0.7-1.3 BUN/CREATININE RATIO (test code = BUN/CREA) 10-2 0 CALCIUM (test code = CA) mg/dL 8.5-10.1 CBC W/AUTO [id number] 08:14:00* Test Item Value Reference Range Comments WHITE BLOOD CELL (test code = WBC) 11.6 K/mm3 4.5-12.5 RED BLOOD CELL (test code = RBC) 2.87 mill/mm3 4.0-5.8 HEMOGLOBIN (test code = HGB) 8.7 gram/dL 13.0-17.5 HEMATOCRIT (test code = HCT) 27.3 % 42.0-52.0 MEAN CELL VOLUME (test code = MCV) 95.1 fL 80-98 MEAN CELL HGB (test code = MCH) 30.3 picogram 27.0-33.0 MEAN CELL HGB CONCETRATION (test code = MCHC) 31.9 gram/dL 33 .0-36.0 RED CELL DISTRIBUTION WIDTH (test code = RDW) 13.0 % 11 .6-16.2 RED CELL DISTRIBUTION WIDTH SD (test code = RDW-SD) 44.7 fL 37.0-51.0 PLATELET COUNT (test code = PLT) 182 K/mm3 150-450 MEAN PLATELET VOLUME (test code = MPV) 10.7 fL 6.7-11.0 NEUTROPHIL % (test code = NT%) 76.4 % 39.0-69.0 IMMATURE GRANULOCYTE % (test code = IG%) 0.5 % 0.0-5.0 LYMPHOCYTE % (test code = LY%) 6.7 % 25.0-55.0 MONOCYTE % (test code = MO%) 11.4 % 0.0-10.0 EOSINOPHIL % (test code = EO%) 4.7 % 0.0-5.0 BASOPHIL % (test code = BA%) 0.3 % 0.0-1.0 NUCLEATED RBC % (test code = NRBC%) 0.0 % 0-0 NEUTROPHIL # (test code = NT#) 8.85 K/mm3 1.8-7.7 IMMATURE GRANULOCYTE # (test code = IG#) 0.06 x10 3/uL 0-0.03 LYMPHOCYTE # (test code = LY#) 0.78 K/mm3 1.0-5.0 MONOCYTE # (test code = MO#) 1.32 K/mm3 0-0.8 EOSINOPHIL # (test code = EO#) 0.54 K/mm3 0.0-0.5 BASOPHIL # (test code = BA#) 0.04 K/mm3 0.0-0.2 NUCLEATED RBC # (test code = NRBC#) 0.00 K/mm3 0.0-0.1 MANUAL DIFF REQUIRED (test code = MDIFF) NO [id number] 07:32:00* Test Item Value Reference Range Comments GLUBED (test code = GLUBED) 91 mg/dL 74-106 Perf ormed by certified liquefied natural gas operator at [facility] [id number] 07:32:00* Test Item Value Reference Range Comments GLUBED (test code = GLUBED) 52 mg/dL 74-106 Perf ormed by certified liquefied natural gas operator at [facility] AG HEPAT B [id number] 05:31:00* Test Item Value Reference Range Comments AG HEPAT B SURF (test code = HBSAG) Nonreactive Index Nonreactiv e [id number] 02:00:00* Test Item Value Reference Range Comments TROPONIN-I (test code = TROPI) <0.015 ng/mL 0-0.045 COMMENTS TO LITIGATION SECRETARY: COLLECT 3 HOURS AFTER PREVIOUS [id number] 01:50:00* Test Item Value Reference Range Comments POTASSIUM (test code = K) 5.2 mmol/L 3.5-5.1 [id number] 23:23:00* Test Item Value Reference Range Comments GLUBED (test code = GLUBED) 145 mg/dL 74-106 Perf ormed by certified liquefied natural gas operator at [facility] [id number] 20:37:00* Test Item Value Reference Range Comments GLUBED (test code = GLUBED) 48 mg/dL 74-106 Perf ormed by certified liquefied natural gas [facility]~ [id number] 20:37:00* Test Item Value Reference Range Comments GLUBED (test code = GLUBED) 40 mg/dL 74-106 Perf ormed by certified liquefied natural gas operator [facility]~ BASIC METABOLIC [id number] 17:18:00* Test Item Value Reference Range Comments SODIUM (test code = NA) 144 mmol/L 136-145 POTASSIUM (test code = K) 6.2 mmol/L 3.5-5.1 Result s called to [id number] by [facility] 08/23/19 1717Critical results verified and read back by Nurse? Y CHLORIDE (test code = CL) 118.0 mmol/L 98-107 CARBON DIOXIDE (test code = CO2) 17.0 mmol/L 21-32 ANION GAP (test code = GAP) 15.2 10-20 GLUCOSE (test code = GLU) 59 mg/dL 74-106 BLOOD UREA NITROGEN (test code = BUN) 119 mg/dL 7-18 GLOMERULAR FILTRATION RATE (test code = GFR) 4 mL/min >=6 0 Estimated GFR by using Modified MDRD formula.Chronic kidney disease is defined as either kidney damageor GFR <60 mL/min/1.73 m2 for >3 months. CREATININE (test code = CREAT) 12.20 mg/dL 0.7-1.3 BUN/CREATININE RATIO (test code = BUN/CREA) 9.8 10-2 0 CALCIUM (test code = CA) 5.6 mg/dL 8.5-10.1 Results called to [id number] by [facility] 08/23/19 1717Critical results verified and read back by Nurse? Y [id number] 17:18:00* Test Item Value Reference Range Comments TROPONIN-I (test code = TROPI) <0.015 ng/mL 0-0.045 [id number] 16:52:00* Test Item Value Reference Range Comments MAGNESIUM (test code = MAG) 2.1 mg/dL 1.8-2.4 CBC W/O [id number] 16:29:00* Test Item Value Reference Range Comments WHITE BLOOD CELL (test code = WBC) 10.8 K/mm3 4.5-12.5 RED BLOOD CELL (test code = RBC) 2.66 mill/mm3 4.0-5.8 HEMOGLOBIN (test code = HGB) 8.2 gram/dL 13.0-17.5 HEMATOCRIT (test code = HCT) 25.6 % 42.0-52.0 MEAN CELL VOLUME (test code = MCV) 96.2 fL 80-98 MEAN CELL HGB (test code = MCH) 30.8 picogram 27.0-33.0 MEAN CELL HGB CONCETRATION (test code = MCHC) 32.0 gram/dL 33 .0-36.0 RED CELL DISTRIBUTION WIDTH (test code = RDW) 13.1 % 11 .6-16.2 PLATELET COUNT (test code = PLT) 170 K/mm3 150-450 MEAN PLATELET VOLUME (test code = MPV) 10.4 fL 6.7-11.0 - XR CHEST 1 [id number] 15:45:00 FAX: Jose Daniel Godwin MD [place]: [address] St: REG FAX: Marilyn LangfordShabbir [phone] Name: ZACH GUZMAN [facility] : 1970 Age/S: 49/M [address] [facility] Unit #: [id number] Loc: [place] [address] Phys: Jose Daniel Godwin MD Acct: [id number] Dis Date: Status: REG ER PHONE #: [phone] Exam Date: 08/23/2019 1544 FAX #: [phone] Reason: CHEST PAIN EXAMS: CPT CODE: [id number] XR CHEST 1 V 13108 REASON FOR EXAM: CHEST PAIN EXAM ORDER DATE: 08/23/2019 3:35 PM Ordering: Jose Daniel Godwin MD Attending:Jose Daniel Godwin MD Location:[facility] PROCEDURE: - XR CHEST 1 V COMPARISON: 04/12/2019 FINDINGS: Portable AP frontal view of the chest obtained at 3:42 PM shows clear lungs without evidence of consolidation. There is no evidence of effusion. The heart size is within normal limits. Pulmonary vasculatures are unremarkable. IMPRESSION: No active disease. at 7028 Reported and signed by: Ralf Jamison M.D. CC: Jose Daniel Godwin MD; Shabbir Duncan MD Technologist: DENNIS KEITA RDMS(AB,[employer]AM MEMBER) Trnscrd Date/Time/By: 08/23/2019 (1546) : By: Junior Orig Print D/T: S: 08/23/2019 (1549) PAGE 1 Signed Report COMPREHENSIVE METABOLIC [id number] 15:05:00* Test Item Value Reference Range Comments SODIUM (test code = NA) 142 mmol/L 136-145 POTASSIUM (test code = K) 5.4 mmol/L 3.5-5.1 CHLORIDE (test code = CL) 112.0 mmol/L 98-107 CARBON DIOXIDE (test code = CO2) 21.0 mmol/L 21-32 ANION GAP (test code = GAP) 14.4 10-20 GLUCOSE (test code = GLU) 145 mg/dL 74-106 BLOOD UREA NITROGEN (test code = BUN) 83 mg/dL 7-18 GLOMERULAR FILTRATION RATE (test code = GFR) 7 mL/min >=6 0 Estimated GFR by using Modified MDRD formula.Chronic kidney disease is defined as either kidney damageor GFR <60 mL/min/1.73 m2 for >3 months. CREATININE (test code = CREAT) 8.10 mg/dL 0.7-1.3 BUN/CREATININE RATIO (test code = BUN/CREA) 10.2 10-2 0 TOTAL PROTEIN (test code = PROT) 6.6 gram/dL 6.4-8.2 ALBUMIN (test code = ALB) 2.8 g/dL 3.4-5.0 GLOBULIN (test code = GLOB) 3.8 gram/dL 2.7-4.2 ALBUMIN/GLOBULIN RATIO (test code = A/G) 0.7 0.75-1. 50 CALCIUM (test code = CA) 6.5 mg/dL 8.5-10.1 BILIRUBIN TOTAL (test code = BILT) 0.50 mg/dL 0.0-1.0 SGOT/AST (test code = AST) 10 IUnit/L 15-37 SGPT/ALT (test code = ALT) 14 IUnit/L 12-78 ALKALINE PHOSPHATASE TOTAL (test code = ALKP) 78 IUnit/L 45 -117 Note change in reference range due to change in reagent. COMPREHENSIVE METABOLIC [id number] 14:59:00* Test Item Value Reference Range Comments SODIUM (test code = NA) 142 mmol/L 136-145 POTASSIUM (test code = K) 5.4 mmol/L 3.5-5.1 CHLORIDE (test code = CL) 112.0 mmol/L 98-107 CARBON DIOXIDE (test code = CO2) mmol/L 21-32 ANION GAP (test code = GAP) 10-20 GLUCOSE (test code = GLU) mg/dL 74-106 BLOOD UREA NITROGEN (test code = BUN) mg/dL 7-18 GLOMERULAR FILTRATION RATE (test code = GFR) mL/min >=6 0 CREATININE (test code = CREAT) mg/dL 0.7-1.3 BUN/CREATININE RATIO (test code = BUN/CREA) 10-2 0 TOTAL PROTEIN (test code = PROT) gram/dL 6.4-8.2 ALBUMIN (test code = ALB) g/dL 3.4-5.0 GLOBULIN (test code = GLOB) gram/dL 2.7-4.2 ALBUMIN/GLOBULIN RATIO (test code = A/G) 0.75-1. 50 CALCIUM (test code = CA) mg/dL 8.5-10.1 BILIRUBIN TOTAL (test code = BILT) mg/dL 0.0-1.0 SGOT/AST (test code = AST) IUnit/L 15-37 SGPT/ALT (test code = ALT) IUnit/L 12-78 ALKALINE PHOSPHATASE TOTAL (test code = ALKP) IUnit/L 45 -117 CBC W/AUTO [id number] 14:53:00* Test Item Value Reference Range Comments WHITE BLOOD CELL (test code = WBC) 7.7 K/mm3 4.5-12.5 RED BLOOD CELL (test code = RBC) 3.15 mill/mm3 4.0-5.8 HEMOGLOBIN (test code = HGB) 9.6 gram/dL 13.0-17.5 HEMATOCRIT (test code = HCT) 29.0 % 42.0-52.0 MEAN CELL VOLUME (test code = MCV) 92.1 fL 80-98 MEAN CELL HGB (test code = MCH) 30.5 picogram 27.0-33.0 MEAN CELL HGB CONCETRATION (test code = MCHC) 33.1 gram/dL 33 .0-36.0 RED CELL DISTRIBUTION WIDTH (test code = RDW) 13.2 % 11 .6-16.2 RED CELL DISTRIBUTION WIDTH SD (test code = RDW-SD) 44.9 fL 37.0-51.0 PLATELET COUNT (test code = PLT) 161 K/mm3 150-450 MEAN PLATELET VOLUME (test code = MPV) 11.7 fL 6.7-11.0 NEUTROPHIL % (test code = NT%) 69.3 % 39.0-69.0 IMMATURE GRANULOCYTE % (test code = IG%) 0.4 % 0.0-5.0 LYMPHOCYTE % (test code = LY%) 13.7 % 25.0-55.0 MONOCYTE % (test code = MO%) 10.6 % 0.0-10.0 EOSINOPHIL % (test code = EO%) 5.6 % 0.0-5.0 BASOPHIL % (test code = BA%) 0.4 % 0.0-1.0 NUCLEATED RBC % (test code = NRBC%) 0.0 % 0-0 NEUTROPHIL # (test code = NT#) 5.32 K/mm3 1.8-7.7 IMMATURE GRANULOCYTE # (test code = IG#) 0.03 x10 3/uL 0-0.03 LYMPHOCYTE # (test code = LY#) 1.05 K/mm3 1.0-5.0 MONOCYTE # (test code = MO#) 0.81 K/mm3 0-0.8 EOSINOPHIL # (test code = EO#) 0.43 K/mm3 0.0-0.5 BASOPHIL # (test code = BA#) 0.03 K/mm3 0.0-0.2 NUCLEATED RBC # (test code = NRBC#) 0.00 K/mm3 0.0-0.1 CBC W/AUTO [id number] 20:25:00* Test Item Value Reference Range Comments WHITE BLOOD CELL (test code = WBC) 8.2 K/mm3 4.5-12.5 RED BLOOD CELL (test code = RBC) 2.30 mill/mm3 4.0-5.8 HEMOGLOBIN (test code = HGB) 7.2 gram/dL 13.0-17.5 HEMATOCRIT (test code = HCT) 22.4 % 42.0-52.0 MEAN CELL VOLUME (test code = MCV) 97.4 fL 80-98 MEAN CELL HGB (test code = MCH) 31.3 picogram 27.0-33.0 MEAN CELL HGB CONCETRATION (test code = MCHC) 32.1 gram/dL 33 .0-36.0 RED CELL DISTRIBUTION WIDTH (test code = RDW) 13.1 % 11 .6-16.2 RED CELL DISTRIBUTION WIDTH SD (test code = RDW-SD) 46.1 fL 37.0-51.0 PLATELET COUNT (test code = PLT) 189 K/mm3 150-450 MEAN PLATELET VOLUME (test code = MPV) 11.3 fL 6.7-11.0 NEUTROPHIL % (test code = NT%) 68.5 % 39.0-69.0 IMMATURE GRANULOCYTE % (test code = IG%) 0.5 % 0.0-5.0 LYMPHOCYTE % (test code = LY%) 16.7 % 25.0-55.0 MONOCYTE % (test code = MO%) 8.5 % 0.0-10.0 EOSINOPHIL % (test code = EO%) 5.4 % 0.0-5.0 BASOPHIL % (test code = BA%) 0.4 % 0.0-1.0 NUCLEATED RBC % (test code = NRBC%) 0.0 % 0-0 NEUTROPHIL # (test code = NT#) 5.59 K/mm3 1.8-7.7 IMMATURE GRANULOCYTE # (test code = IG#) 0.04 x10 3/uL 0-0.03 LYMPHOCYTE # (test code = LY#) 1.36 K/mm3 1.0-5.0 MONOCYTE # (test code = MO#) 0.69 K/mm3 0-0.8 EOSINOPHIL # (test code = EO#) 0.44 K/mm3 0.0-0.5 BASOPHIL # (test code = BA#) 0.03 K/mm3 0.0-0.2 NUCLEATED RBC # (test code = NRBC#) 0.00 K/mm3 0.0-0.1 MANUAL DIFF REQUIRED (test code = MDIFF) NO [id number] 21:51:00* Test Item Value Reference Range Comments GLUBED (test code = GLUBED) 185 mg/dL 74-106 Perf ormed by certified liquefied natural gas operator at [facility] [id number] 12:15:00* Test Item Value Reference Range Comments GLUBED (test code = GLUBED) 130 mg/dL 74-106 Perf ormed by certified liquefied natural gas operator at [facility] BASIC METABOLIC [id number] 10:52:00* Test Item Value Reference Range Comments SODIUM (test code = NA) 142 mmol/L 136-145 POTASSIUM (test code = K) 4.5 mmol/L 3.5-5.1 CHLORIDE (test code = CL) 112.0 mmol/L 98-107 CARBON DIOXIDE (test code = CO2) 22.0 mmol/L 21-32 ANION GAP (test code = GAP) 12.5 10-20 GLUCOSE (test code = GLU) 169 mg/dL 74-106 BLOOD UREA NITROGEN (test code = BUN) 70 mg/dL 7-18 GLOMERULAR FILTRATION RATE (test code = GFR) 12 mL/min >=6 0 Estimated GFR by using Modified MDRD formula.Chronic kidney disease is defined as either kidney damageor GFR <60 mL/min/1.73 m2 for >3 months. CREATININE (test code = CREAT) 5.20 mg/dL 0.7-1.3 BUN/CREATININE RATIO (test code = BUN/CREA) 13.5 10-2 0 CALCIUM (test code = CA) 8.1 mg/dL 8.5-10.1 CBC W/AUTO [id number] 10:16:00* Test Item Value Reference Range Comments WHITE BLOOD CELL (test code = WBC) 9.5 K/mm3 4.5-12.5 RED BLOOD CELL (test code = RBC) 2.78 mill/mm3 4.0-5.8 HEMOGLOBIN (test code = HGB) 8.8 gram/dL 13.0-17.5 HEMATOCRIT (test code = HCT) 26.9 % 42.0-52.0 MEAN CELL VOLUME (test code = MCV) 96.8 fL 80-98 MEAN CELL HGB (test code = MCH) 31.7 picogram 27.0-33.0 MEAN CELL HGB CONCETRATION (test code = MCHC) 32.7 gram/dL 33 .0-36.0 RED CELL DISTRIBUTION WIDTH (test code = RDW) 12.7 % 11 .6-16.2 RED CELL DISTRIBUTION WIDTH SD (test code = RDW-SD) 44.9 fL 37.0-51.0 PLATELET COUNT (test code = PLT) 226 K/mm3 150-450 MEAN PLATELET VOLUME (test code = MPV) 11.0 fL 6.7-11.0 NEUTROPHIL % (test code = NT%) 71.5 % 39.0-69.0 IMMATURE GRANULOCYTE % (test code = IG%) 0.6 % 0.0-5.0 LYMPHOCYTE % (test code = LY%) 15.0 % 25.0-55.0 MONOCYTE % (test code = MO%) 9.0 % 0.0-10.0 EOSINOPHIL % (test code = EO%) 3.7 % 0.0-5.0 BASOPHIL % (test code = BA%) 0.2 % 0.0-1.0 NUCLEATED RBC % (test code = NRBC%) 0.0 % 0-0 NEUTROPHIL # (test code = NT#) 6.81 K/mm3 1.8-7.7 IMMATURE GRANULOCYTE # (test code = IG#) 0.06 x10 3/uL 0-0.03 LYMPHOCYTE # (test code = LY#) 1.43 K/mm3 1.0-5.0 MONOCYTE # (test code = MO#) 0.86 K/mm3 0-0.8 EOSINOPHIL # (test code = EO#) 0.35 K/mm3 0.0-0.5 BASOPHIL # (test code = BA#) 0.02 K/mm3 0.0-0.2 NUCLEATED RBC # (test code = NRBC#) 0.00 K/mm3 0.0-0.1 MANUAL DIFF REQUIRED (test code = MDIFF) NO [id number] 08:35:00* Test Item Value Reference Range Comments GLUBED (test code = GLUBED) 199 mg/dL 74-106 Perf ormed by certified liquefied natural gas operator at [facility] AG HEPAT B [id number] 22:13:00* Test Item Value Reference Range Comments AG HEPAT B SURF (test code = HBSAG) Nonreactive Index Nonreactiv e [id number] 19:36:00* Test Item Value Reference Range Comments GLUBED (test code = GLUBED) 214 mg/dL 74-106 Perf ormed by certified liquefied natural gas operator at [facility] UR CREATININE CLEARANCE [id number] 19:11:00* Test Item Value Reference Range Comments CREATININE CLEARANCE RESULT (test code = CREATCLR) 24 mL/min 100-120 CREATININE (test code = CREAT) 5.90 mg/dL 0.7-1.3 UR CREATININE RANDOM (test code = CREATU) 57.0 mg/dL 30-125 UR VOLUME 24HR (test code = VOL) 3525 mL/24hrs 9016-8910 VOLUME- 3525VOLUME CAME FROM 2 CONTAINERSUR CREATININE CLEARANCE [id number] 18:55:00* Test Item Value Reference Range Comments CREATININE CLEARANCE RESULT (test code = CREATCLR) mL/min 100-120 CREATININE (test code = CREAT) mg/dL 0.7-1.3 UR CREATININE RANDOM (test code = CREATU) mg/dL 30-125 UR VOLUME 24HR (test code = VOL) 3525 mL/24hrs 9932-1073 VOLUME- 3525VOLUME CAME FROM 2 [id number] 17:51:00* Test Item Value Reference Range Comments GLUBED (test code = GLUBED) 225 mg/dL 74-106 Perf ormed by certified liquefied natural gas operator at [facility] [id number] 15:58:00* Test Item Value Reference Range Comments GLUBED (test code = GLUBED) 218 mg/dL 74-106 Perf ormed by certified liquefied natural gas operator at [facility] [id number] 14:53:00* Test Item Value Reference Range Comments GLUBED (test code = GLUBED) 153 mg/dL 74-106 Perf ormed by certified liquefied natural gas operator at [facility] [id number] 11:11:00* Test Item Value Reference Range Comments GLUBED (test code = GLUBED) 136 mg/dL 74-106 Perf ormed by certified liquefied natural gas operator at [facility] [id number] 07:48:00* Test Item Value Reference Range Comments GLUBED (test code = GLUBED) 132 mg/dL 74-106 Perf ormed by certified liquefied natural gas operator at [facility] COMPREHENSIVE METABOLIC [id number] 05:55:00* Test Item Value Reference Range Comments SODIUM (test code = NA) 144 mmol/L 136-145 POTASSIUM (test code = K) 5.3 mmol/L 3.5-5.1 CHLORIDE (test code = CL) 117.0 mmol/L 98-107 CARBON DIOXIDE (test code = CO2) 18.0 mmol/L 21-32 ANION GAP (test code = GAP) 14.3 10-20 GLUCOSE (test code = GLU) 146 mg/dL 74-106 BLOOD UREA NITROGEN (test code = BUN) 78 mg/dL 7-18 GLOMERULAR FILTRATION RATE (test code = GFR) 12 mL/min >=6 0 Estimated GFR by using Modified MDRD formula.Chronic kidney disease is defined as either kidney damageor GFR <60 mL/min/1.73 m2 for >3 months. CREATININE (test code = CREAT) 5.30 mg/dL 0.7-1.3 BUN/CREATININE RATIO (test code = BUN/CREA) 14.7 10-2 0 TOTAL PROTEIN (test code = PROT) 6.5 gram/dL 6.4-8.2 ALBUMIN (test code = ALB) 3.2 g/dL 3.4-5.0 GLOBULIN (test code = GLOB) 3.3 gram/dL 2.7-4.2 ALBUMIN/GLOBULIN RATIO (test code = A/G) 1.0 0.75-1. 50 CALCIUM (test code = CA) 7.9 mg/dL 8.5-10.1 BILIRUBIN TOTAL (test code = BILT) 0.20 mg/dL 0.0-1.0 SGOT/AST (test code = AST) 10 IUnit/L 15-37 SGPT/ALT (test code = ALT) 22 IUnit/L 12-78 ALKALINE PHOSPHATASE TOTAL (test code = ALKP) 93 IUnit/L 45 -117 Note change in reference range due to change in reagent. COMPREHENSIVE METABOLIC [id number] 05:35:00* Test Item Value Reference Range Comments SODIUM (test code = NA) 144 mmol/L 136-145 POTASSIUM (test code = K) 5.3 mmol/L 3.5-5.1 CHLORIDE (test code = CL) 117.0 mmol/L 98-107 CARBON DIOXIDE (test code = CO2) mmol/L 21-32 ANION GAP (test code = GAP) 10-20 GLUCOSE (test code = GLU) mg/dL 74-106 BLOOD UREA NITROGEN (test code = BUN) mg/dL 7-18 GLOMERULAR FILTRATION RATE (test code = GFR) mL/min >=6 0 CREATININE (test code = CREAT) mg/dL 0.7-1.3 BUN/CREATININE RATIO (test code = BUN/CREA) 10-2 0 TOTAL PROTEIN (test code = PROT) gram/dL 6.4-8.2 ALBUMIN (test code = ALB) g/dL 3.4-5.0 GLOBULIN (test code = GLOB) gram/dL 2.7-4.2 ALBUMIN/GLOBULIN RATIO (test code = A/G) 0.75-1. 50 CALCIUM (test code = CA) mg/dL 8.5-10.1 BILIRUBIN TOTAL (test code = BILT) mg/dL 0.0-1.0 SGOT/AST (test code = AST) IUnit/L 15-37 SGPT/ALT (test code = ALT) IUnit/L 12-78 ALKALINE PHOSPHATASE TOTAL (test code = ALKP) IUnit/L 45 -117 CBC W/AUTO [id number] 05:04:00* Test Item Value Reference Range Comments WHITE BLOOD CELL (test code = WBC) 8.5 K/mm3 4.5-12.5 RED BLOOD CELL (test code = RBC) 2.69 mill/mm3 4.0-5.8 HEMOGLOBIN (test code = HGB) 8.2 gram/dL 13.0-17.5 HEMATOCRIT (test code = HCT) 25.7 % 42.0-52.0 MEAN CELL VOLUME (test code = MCV) 95.5 fL 80-98 MEAN CELL HGB (test code = MCH) 30.5 picogram 27.0-33.0 MEAN CELL HGB CONCETRATION (test code = MCHC) 31.9 gram/dL 33 .0-36.0 RED CELL DISTRIBUTION WIDTH (test code = RDW) 12.9 % 11 .6-16.2 RED CELL DISTRIBUTION WIDTH SD (test code = RDW-SD) 44.9 fL 37.0-51.0 PLATELET COUNT (test code = PLT) 220 K/mm3 150-450 MEAN PLATELET VOLUME (test code = MPV) 11.9 fL 6.7-11.0 NEUTROPHIL % (test code = NT%) 65.0 % 39.0-69.0 IMMATURE GRANULOCYTE % (test code = IG%) 0.5 % 0.0-5.0 LYMPHOCYTE % (test code = LY%) 18.6 % 25.0-55.0 MONOCYTE % (test code = MO%) 11.4 % 0.0-10.0 EOSINOPHIL % (test code = EO%) 4.3 % 0.0-5.0 BASOPHIL % (test code = BA%) 0.2 % 0.0-1.0 NUCLEATED RBC % (test code = NRBC%) 0.0 % 0-0 NEUTROPHIL # (test code = NT#) 5.50 K/mm3 1.8-7.7 IMMATURE GRANULOCYTE # (test code = IG#) 0.04 x10 3/uL 0-0.03 LYMPHOCYTE # (test code = LY#) 1.57 K/mm3 1.0-5.0 MONOCYTE # (test code = MO#) 0.96 K/mm3 0-0.8 EOSINOPHIL # (test code = EO#) 0.36 K/mm3 0.0-0.5 BASOPHIL # (test code = BA#) 0.02 K/mm3 0.0-0.2 NUCLEATED RBC # (test code = NRBC#) 0.00 K/mm3 0.0-0.1 [id number] 19:56:00* Test Item Value Reference Range Comments GLUBED (test code = GLUBED) 151 mg/dL 74-106 Perf ormed by certified liquefied natural gas operator at [facility] TROPONIN I [id number] 12:57:00* Test Item Value Reference Range Comments TROPONIN I RAPID (test code = TROPIRAP) 0.01 ng/mL <0.08 Please Note New Reference Range 0.00-0.079 ng/mL - Negative>or= 0.08 ng/mL - Positive The use of serial sampling and testing protocol is arecommended practice.An elevated troponin level alone is often not sufficient fordiagnosis of myocardial infarction. Troponin results obtained by different assays may vary.Evaluation of the extent of myocardial damage based onincrease of troponin would be valid only if similarmethodology is used. [id number] 12:23:00* Test Item Value Reference Range Comments GLUBED (test code = GLUBED) 46 mg/dL 74-106 Perf ormed by certified liquefied natural gas operator [facility] - CT ABD PELVIS W/O [id number] 11:51:00 Name: REGINA NUNEZJAYDEN [facility] : 1970 Age/S: 49 / M [address] [facility] Unit #: [id number] Loc: [place] [address] Phys: Keny Green MD Acct: [id number] Dis Date: Status: ADM IN PHONE #: [phone] Exam Date: 04/12/2019 1031 FAX #: [phone] Reason: RENAL FAILURE EXAMS: CPT CODE: [id number] CT ABD PELVIS W/O CONT 86267 HISTORY: Renal failure. COMPARISON: September 11, 2015 CT abdomen and pelvis: Stone protocol. Automated exposure control. CT ABDOMEN: The lung bases are clear. Dependent changes. Hepatic parenchyma is unremarkable on this noncontrast exam. The liver is not enlarged. Gallbladder is without radiopaque stones. The spleen is not enlarged either. Stomach is well distended with food and contrast and air. Noncontrast pancreas and adrenals are normal. Both kidneys are free from hydroureteronephrosis. No calyceal stones. Chronic perinephric fat stranding. No pathologic adenopathy. Unremarkable unopacified vasculature. No bowel obstruction or colitis or diverticulitis or enteritis. Constipation. CT PELVIS: Appendix is normal. Pelvic bowel loops are unobstructed. Constipation. Unr emarkable urinary bladder. The prostate is not enlarged. No pelvic patholo gic adenopathy. No free fluid or free air. No pelvic pathologic adenopathy . Subcutaneous tissues and the musculature are in appearance. No l ytic or blastic lesions are noted within the bony skeleton DJD. IMPRESSION: No hydroureteronephrosis. No calyceal stones. Chronic perinephric fat stranding. Unremarkable urinary bladder. Normal appendix without bowel obstruction or colitis or diverticulitis or enteritis. No free fluid or free air. PAGE 1 Signed Report (CONTINUED) Name: ZACH GUZMAN [facility] : 1970 Age/S: 49 / M [address] [facility] Unit #: [id number] Loc: [place] [address] Phys: Keny Green MD Acct: [id number] Dis Date: Status: ADM IN PHONE #: [phone] Exam Date: 04/12/2019 1031 FAX #: [phone] Reason: RENAL FAIL URE EXAMS: CPT CODE: [id number] CT ABD PELVIS W/O CONT 43296 <Continued> at 1151 Reported and signed by: Sourav Vail M.D. CC: Shabbir Duncan MD; Keny Green Technologist:Yoni Sun RT(R),(MR),(CT) CTDI: DLP: Trnscb Date/Time: 04/12/2019 (7671) [email or web address] Orig Print D/T: S: 04/12/2019 (8803) PAGE 2 Signed Report VITAMIN B12 2019-04-12 11:18:00* Test Item Value Reference Range Comments VITAMIN B12 (test code = VITB12) 431 pg/mL 193-986 FOLIC [id number] 11:18:00* Test Item Value Reference Range Comments FOLIC ACID (test code = FOL) 22.0 ng/mL 3.10-17.50 THYROID PROFILE [id number] 11:18:00* Test Item Value Reference Range Comments T3 UPTAKE (test code = T3UP) 36.0 % 30.0-40.0 T4 (THYROXINE) (test code = T4) 5.9 ug/dL 4.5-13.9 T7 (FREE THYROXINE INDEX) (test code = T7) 2.12 FTI 1.3-5 .1 THYROID STIMULATING HORMONE (test code = TSH) 2.050 uIU/mL 0. 36-3.74 TSH REFERENCE RANGES: EUTHYROID: 0.35 - 4.3 mIU/mL HYPO : > 5.5 mIU/mL HYPER : < 0.35 mIU/mL [id number] 11:14:00* Test Item Value Reference Range Comments GLUBED (test code = GLUBED) 138 mg/dL 74-106 Perf ormed by certified liquefied natural gas operator at [facility] FE W/TOTAL IRON BINDING CAP.2019-04-12 10:48:00* Test Item Value Reference Range Comments SERUM IRON (test code = IRON) 70 ug/dL 50-175 TOTAL IRON BINDING CAPACITY (test code = TIBC) 262 mcg/dL 2 50-450 IRON SATURATION (test code = FESAT) 26.72 % 13-45 [id number] 10:48:00* Test Item Value Reference Range Comments GLYCOSYLATED HEMOGLOBIN (HA1C) (test code = GLYHGB) 6.2 % HbA1 4.8-6.0 ESTIMATED AVERAGE GLUCOSE (test code = EAG) 131 MG/DL [id number] 10:45:00* Test Item Value Reference Range Comments CKMB (test code = CKMBT) 1.8 ng/mL 0-6.0 - US RETROPERITONEAL [id number] 10:10:00 Name: ZACH GUZMAN [facility] : 1970 Age/S: 49 / M [address] [facility] Unit #: [id number] Loc: [place] [address] 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 COMPARISON: CT scan from September 11, 2015 and ultrasound from same day. Both kidneys are hyperechogenic with slight loss of corticomedullary differentiation consistent with chronic medical renal disease. This appears worse from 2014 exam. No hydronephrosis or calyceal stones. No perinephric collections. Right kidney measured 13.4 x 7.1 x 7.1 cm. Left kidney measured 11.6 x 6.7 x 5.5 cm. Unremarkable urinary bladder distended incompletely. No wall thickening or mural nodules. IMPRESSION: Chronic medical renal disease with slight loss of corticomedullary differentiation without hydronephrosis or calyceal stones. Unremarkable incompletely distended urinary bladder. at 1010 Reported and signed by: Sourav holm M.D. CC: Shabbir Duncan MD; Shantel Persaud DO; Woodrow Carmichael NP Technologist: LESLI RAMOS RT(R),RDMS Trn scb Date/Time: 04/12/2019 (1010) t.SDR.TH4 Orig Print D/T : S: 04/12/2019 (1014) Probe: PAGE 1 Signed Report CBC W/O [id number] 07:51:00 * Test Item Value Reference Range Comments WHITE BLOOD CELL (test code = WBC) 9.2 K/mm3 4.5-12.5 RED BLOOD CELL (test code = RBC) 2.66 mill/mm3 4.0-5.8 HEMOGLOBIN (test code = HGB) 8.3 gram/dL 13.0-17.5 HEMATOCRIT (test code = HCT) 25.2 % 42.0-52.0 MEAN CELL VOLUME (test code = MCV) 94.7 fL 80-98 MEAN CELL HGB (test code = MCH) 31.2 picogram 27.0-33.0 MEAN CELL HGB CONCETRATION (test code = MCHC) 32.9 gram/dL 33 .0-36.0 RED CELL DISTRIBUTION WIDTH (test code = RDW) 12.8 % 11 .6-16.2 PLATELET COUNT (test code = PLT) 226 K/mm3 150-450 MEAN PLATELET VOLUME (test code = MPV) 11.5 fL 6.7-11.0 BASIC METABOLIC [id number] 07:43:00* Test Item Value Reference Range Comments SODIUM (test code = NA) 140 mmol/L 136-145 POTASSIUM (test code = K) 4.7 mmol/L 3.5-5.1 CHLORIDE (test code = CL) 112.0 mmol/L 98-107 CARBON DIOXIDE (test code = CO2) 19.0 mmol/L 21-32 ANION GAP (test code = GAP) 13.7 10-20 GLUCOSE (test code = GLU) 85 mg/dL 74-106 BLOOD UREA NITROGEN (test code = BUN) 80 mg/dL 7-18 GLOMERULAR FILTRATION RATE (test code = GFR) 10 mL/min >=6 0 Estimated GFR by using Modified MDRD formula.Chronic kidney disease is defined as either kidney damageor GFR <60 mL/min/1.73 m2 for >3 months. CREATININE (test code = CREAT) 5.90 mg/dL 0.7-1.3 BUN/CREATININE RATIO (test code = BUN/CREA) 13.6 10-2 0 CALCIUM (test code = CA) 7.8 mg/dL 8.5-10.1 [id number] 07:43:00* Test Item Value Reference Range Comments TROPONIN-I (test code = TROPI) <0.015 ng/mL 0-0.045 BASIC METABOLIC [id number] 07:33:00* Test Item Value Reference Range Comments SODIUM (test code = NA) 140 mmol/L 136-145 POTASSIUM (test code = K) 4.7 mmol/L 3.5-5.1 CHLORIDE (test code = CL) 112.0 mmol/L 98-107 CARBON DIOXIDE (test code = CO2) mmol/L 21-32 ANION GAP (test code = GAP) 10-20 GLUCOSE (test code = GLU) mg/dL 74-106 BLOOD UREA NITROGEN (test code = BUN) mg/dL 7-18 GLOMERULAR FILTRATION RATE (test code = GFR) mL/min >=6 0 CREATININE (test code = CREAT) mg/dL 0.7-1.3 BUN/CREATININE RATIO (test code = BUN/CREA) 10-2 0 CALCIUM (test code = CA) 7.8 mg/dL 8.5-10.1 [id number] 07:33:00* Test Item Value Reference Range Comments TROPONIN-I (test code = TROPI) ng/mL 0-0.045 - XR CHEST 1 [id number] 07:32:00 FAX: Wily Bustillo MD [phone] [place]: [address]: REG FAX: Woodrow Carmichael NP [phone] Name: ZACH GUZMAN [facility] : 1970 Age/S: 49/[facility] [address] [facility] #: [id number] Loc: [place] [address] Phys: Woodrow Carmichael NP Acct: [id number] Dis Date: Status: REG ER PHONE #: [phone] Exam Date: 04/12/2019721 FAX #: [phone] Reason: CHEST PAIN EXAMS: CPT CODE: [id number] XR CHEST 1 V 34963 HISTORY: CHEST PAIN TECHNIQUE: AP chest x-ray COMPARISON: None FINDINGS: No airspace consolidation or pleural effusion. Normal heart size. Mediastinal silhouette is unremarkable. Visualized osseous structures are grossly intact. IMPRESSION: No radiographic evidence of acute cardiopulmonary process. at 0732 Reported and signed by: Judy Addison D.O. CC: Wily Bustillo MD; Woodrow Carmichael NP chnologist: Vidya Ruth) Trnscrd Date/ Time/By: 04/12/2019 (0732) : By: [email or web address] Orig Print D/T: S: 04/12/20 19 (0728) PAGE 1 Signed Report TROPONIN I [id number] 07:18:00* Test Item Value Reference Range Comments TROPONIN I RAPID (test code = TROPIRAP) 0.00 ng/mL <0.08 Please Note New Reference Range 0.00-0.079 ng/mL - Negative>or= 0.08 ng/mL - Positive The use of serial sampling and testing protocol is arecommended practice.An elevated troponin level alone is often not sufficient fordiagnosis of myocardial infarction. Troponin results obtained by different assays may vary.Evaluation of the extent of myocardial damage based onincrease of troponin would be valid only if similarmethodology is used.
[2020-02-02 11:53] LABS: BASOPHILS # (AUTO) 0.1 (0.0-0.1); BASOPHILS % 0.5 % (0.0-1.0); EOSINOPHILS # (AUTO) 0.5 (0.0-0.4); EOSINOPHILS % 5.9 % (0.0-6.0); HEMATOCRIT 31.9 % (38.2-49.6); HEMOGLOBIN 10.3 g/dL (14.0-18.0); LYMPHOCYTES # (AUTO) 1.8 (1.0-3.2); LYMPHOCYTES % 20.1 % (18.0-39.1); MEAN CORPUSCULAR HEMOGLOBIN 29.2 pg (28-32); MEAN CORPUSCULAR HGB CONC 32.3 g/dL (31-35); MEAN CORPUSCULAR VOLUME 90.4 fL (81-99); MONOCYTES # (AUTO) 1.1 (0.2-0.8); MONOCYTES % 12.5 % (4.4-11.3); NEUTROPHILS # (AUTO) 5.6 (2.1-6.9); NEUTROPHILS % 60.7 % (38.7-80.0); PLATELET COUNT 222 x10e3/uL (140-360); RED BLOOD COUNT 3.53 x10e6/uL (4.3-5.7); RED CELL DISTRIBUTION WIDTH 16.8 % (11.7-14.4)
[2020-02-02 12:07] LABS: INR 0.97; PROTHROMBIN TIME 13.5 seconds (11.9-14.5)
[2020-02-02 12:08] LABS: PARTIAL THROMBOPLASTIN TIME 29.8 seconds (23.8-35.5)
[2020-02-02 12:16] LABS: ANION GAP 16.5 mmol/L (8-16); CALCIUM 9.5 mg/dL (8.4-10.2); CREATININE, SERUM 8.7 mg/dL (0.72-1.25); POTASSIUM 4.5 mmol/L (3.5-5.1)
[2020-02-02 18:00] VITALS: BP 163/84
--- NOTE | 2020-02-02 22:30 | Operative Report ---
DATE OF PROCEDURE: 02/02/2020 SURGEON: Iriwn Ashton MD PREOPERATIVE DIAGNOSES: End-stage renal failure, need for permanent dialysis access, hypertension, adult onset diabetes. POSTOPERATIVE DIAGNOSES: End-stage renal failure, need for permanent dialysis access, hypertension, adult onset diabetes. OPERATIVE PROCEDURE: Creation left brachial artery to cephalic vein AV fistula with transposition of cephalic vein to subcutaneous location. TRACK EQUIPMENT OPERATOR: Nursing. ANESTHESIA: General endotracheal. INDICATIONS: This is a very nice 49-year-old male with end-stage renal failure, who requires permanent dialysis access. Preoperative noninvasive mapping suggested that a left upper extremity fistula would be his best option. Prior to surgery, I described the operation to him and his . I told them that the risks of surgery would include , bleeding, infection, heart attack, stroke, pneumonia, prolonged ICU stay, mechanical ventilation, tracheostomy, permanent hand/limb muscle or nerve damage, hand/limb amputation, hand/limb chronic pain, a 10% to 15% chance of the fistula might not mature appropriately and require replacement, further surgery, a revision, etc. The patient and his each stated that they understood, no further question, and wanted to proceed. FINDINGS: Uneventful creation left brachial artery to cephalic vein AV fistula. There was an excellent thrill and bruit from the mid forearm to the shoulder at the completion of surgery. Outflow cephalic vein was of good caliber and quality in the forearm and in the upper arm. Radial artery pulse had a strong Doppler signal both prior to and at completion. DESCRIPTION OF PROCEDURE: The patient was taken to the operative room on February 02, 2020 and placed supine upon the operating room table. General endotracheal anesthesia was smoothly induced. The left upper extremity was sterilely prepped and draped in the usual fashion using an alcohol prewash and Betadine scrub and solution. Time-out was performed appropriately. An incision was made distal to the antebrachial crease. The cephalic vein was isolated and controlled as was the sand miller vein. The median antecubital vein was divided. The proximal valve in the forearm cephalic vein was disrupted. There was excellent backbleeding from the forearm vein and from the upper arm vein. A 4.0 mm dilator passed easily into the cephalic vein via the sand miller vein. The brachial, radial, and ulnar arteries were dissected from the surrounding tissues. The radial artery was the best site for anastomosis. It was isolated and controlled. The patient was systemically heparinized. Radial artery was opened longitudinally. It had excellent arterial inflow and backbleeding. A 3.0 mm dilator passed easily proximally and a 2.5 mm dilator passed easily distally. End-to-side anastomosis of the divided sand miller vein to the radial artery just beyond the bifurcation of the brachial into the radial and ulnar arteries was performed. Two running 7-0 Prolenes were used. Prior to completing the anastomosis, a 3.0 mm dilator passed easily proximally into the radial artery, a 2.5 mm dilator passed easily into the distal artery, and a 4.0 mm dilator passed easily into the sand miller vein. The anastomosis was completed uneventfully. Occluding instruments were removed. The fistula filled promptly. There was an excellent palpable thrill in the cephalic vein. The patient has been systemically heparinized using 1 mg/kg of heparin intravenously prior to occluding any another vascular structures. This was now reversed with a half dose of protamine. There was excellent hemostasis. The wound was closed in layers using absorbable suture. Local anesthetic (0.5% Marcaine) was administered. Sterile dressings were applied. Sponge, instrument, and needle counts were correct both prior to and after wound closure. Independent search of the operative field by both operating surgeons and nurse revealed no retained instruments or sponges. The patient tolerated the procedure well, was extubated in the operating room and taken to the recovery room in good condition. MD JENNIFER Thomas/MODL /[id number]
== END | disposition home or self-care (01) ==
LOC: OR 11:00
PROVIDERS: ATTEND Surgery
DX: E11.22 Type 2 diabetes mellitus with diabetic chronic kidney disease (principal); I12.0 Hypertensive chronic kidney disease with stage 5 chronic kidney disease or end stage renal disease; N18.6 End stage renal disease; K21.9 Gastro-esophageal reflux disease without esophagitis; Z79.82 Long term (current) use of aspirin; Z99.2 Dependence on renal dialysis
CPT/HCPCS: 36415; 36821; 80048; 82948; 85025; 85610; 85730; 87635; 93005; C1713; J0131; J0690; J1644 ×2; J2001; J2250; J2405; J2704; J2720; J3010; J3370; J7040; J7070

== ENCOUNTER 2020-02-19 17:19 | Inpatient (IN) | payer OTHER, MEDICARE ==
[~2020-02-19] VITALS: Ht 165.1 cm; Wt 109.8 kg
[~2020-02-19 17:19] MED LIST changes: -ACETAMINOPHEN 1000 MG/100 ML 100 ML IV ONE; -BUPIVACAINE HCL 0.5% INJ 30 ML VIAL INJ ONE; -CEFAZOLIN SOD 1 GM VIAL ONE; -DEXTROSE 5% 250ML 250 ML IV ONE; -FENTANYL CITRATE/PF 100MCG/2 ML INJ ONE; -HEPARIN SOD (PORCINE) 1000 UNIT/ML 30ML ONE; -HEPARIN SOD (PORCINE) 5,000 UNIT/ML VIAL ONE; -LIDOCAINE HCL 2% LOCAL INJ 5 ML SDV VIAL INJ ONE; -MIDAZOLAM HCL 2 MG/2 ML VIAL ONE; -ONDANSETRON HCL INJ 2MG/ML 2ML 2 MG/ML VIAL ONE; -PROPOFOL IV EMULSION 10 MG/ML 20 ML VIAL ONE; -PROTAMINE SULFATE 10 MG/ML 5 ML VIAL ONE; -SEVOFLURANE INHAL SOLN 250 ML PEN BTL ONE; -SODIUM CHLORIDE 0.9% 500ML 500 ML ONE; -THROMBIN FOR SOLN 5,000 UNIT VIAL ONE; -VANCOMYCIN 1GM/NS 250 ML 250 ML ONE
--- OUTSIDE RECORDS SUMMARY | 2020-02-19 17:24 | XMS REPORT | Clinical Summary ---
Author Author [facility] Organization [facility] Address Unknown Phone Unavailable Care Team Providers Care Top Tile Decorator Name Role Phone PCP Unavailable Allergies No [...] (>/= 19 yrs) Results Not on fileafter 02/18/2019 Insurance Type Payer Benefit Subscriber ID Effective Phone Address Plan / Dates Group [facility] CHOICE xxxxxxxxx 2016-P [phone] [id number] [place] [address] HC SELF-PAY SELF-PAY xxxxxx 2016-5 [address] [place] [address] Guarantor Name Account Relation to Date of Phone Billin g Address Type Patient MORGAN NUNEZ Personal/F Head of 1970 [address] (Home) [place], [place] [address] (Self) Advance Directives Date Inactivated Comments Code Status Date Activated 01/22/2018 8:18 PM Full Code 01/20/2018 3:11 PM
--- OUTSIDE RECORDS SUMMARY | 2020-02-19 17:24 | XMS REPORT | Clinical Summary ---
Author Author [email or web address] Address Unknown Phone Unavailable Care Team Providers Care Tail Board Man Name Role Phone Brandon--Shabbir Langford PCP Allergies [...] 41. He will meet with our transplant gas main fitter helper for assistance with dieting and weight loss. [...] Transplant Ethan Muñoz 04/28/2019 Abstract Transplant after 02/18/2019 Social History Date Tobacco Use Types Packs/Day [...] Body Mass Index 40.6 Plan of Treatment Care Team Description Date Type Specialty Irwin Ashton MD [address] [address] 02/22/2020 Video - Cardiology Telemedicine 03/06/2020 Office Visit Transplant Health Maintenance Due Date Last Done Comments PNEUMOCOCCAL VACCINE 2-64 1976 YEARS AT RISK (1 of 3 - PCV13) DIABETIC FOOT EXAM 1981 HEMOGLOBIN A1C 05/17/2019 INFLUENZA VACCINE (Season 05/29/2020 Ended) Results Not on fileafter 02/18/2019 Insurance Payer Benefit Subscriber ID Type Phone Address Plan / Group [employer] xxxxxxxxx Trans plant MGD CARE [facility] - [facility]GD UN xxxxxxxxx CARE COMMERCIAL [employer]CARE INDEMNITY
--- OUTSIDE RECORDS SUMMARY | 2020-02-19 17:25 | XMS REPORT ---
Author Author [facility] t Organization [facility] Address [address] [place] [address] Phone Unavailable Care Team Providers Care [employer] Supervisor Name Role Phone Unavailable Unavailable Payers Payer Name Policy Type Policy Number Effective Date Expiration Date S ource Problems Condition Name Condition Details Condition Category Status Onset Date Resolution Date Last Treatment Date Treating Clinician Comments Source LLQ pain LLQ pain Disease Active 2018-01-20 00:00:00 [facility] Acute renal failure Acute renal failure Disease Active 2018-01-20 00:00 :00 [facility] KATHLEEN (acute kidney injury) KATHLEEN (acute kidney injury) Disease Ac tive 2018-01-20 00:00:00 [facility] Diabetes mellitus type 2 in obese Diabetes mellitus type 2 in ob camilo Disease Active 2018-01-20 00:00:00 [facility] Back pain Back pain Disease Active 2014-07-08 00:00:00 [facility] Cough Cough Disease Active 2014-02-06 00:00:00 [facility] Diarrhea Diarrhea Disease Active [facility] Hyperkalemia Hyperkalemia Disease Active [facility] Allergies, Adverse Reactions, Alerts Allergy Name Allergy Type Status Severity Reaction(s) Onset Date Inacti ve Date Treating Clinician Comments Source No Known Allergies DA Active U 2019-04-12 00:00:00 [facility] No Known Allergies DA Active U 2015-09-11 00:00:00 [facility] Social History Social Habit Start Date Stop Date Quantity Comments Source Sex Assigned At [facility] Alcohol intake 2018-01-21 00:00:00 2018-01-21 00:00:00 [facility] Alcohol Comment 2014-07-06 00:00:00 2014-07-06 00:00:[address] [facility] Smoking Status Start Date Stop Date Source Never smoker [facility] Medications Ordered Medication Name Filled Medication Name Start Date Stop Da te Current Medication? Ordering Clinician Indication Dosage Frequency Signature (SIG) Comments Components Source amLODIPine (NORVASC) 10 mg tablet 2018-01-22 18:13:21 Yes 10mg QD Take 10 mg by mouth daily. [facility] lovastatin 10 mg tablet 2018-01-22 18:13:21 Yes 40mg Take 40 mg by mouth at bedtime nightly. [facility] glimepiride (AMARYL) 1 mg tablet 2018-01-22 00:00:00 Yes KATHLEEN (acute kidney injury) 1mg QD Take 1 tablet by mouth every morning (before br eakfast). [facility] Procedures This patient has no known procedures. Plan of Care Planned Activity Planned Date Details Comments Source [facility] Scheduled Test 2020-06-28 00:00:00 IMM Influenza Seas onal Jun to November (>/= 19 yrs) [code = IMM Influenza Seasonal Jun to November (>/= 19 yrs)] [facility] Scheduled Test 2019-01-21 00:00:00 DM Microalbumin Ur ine Scrn (Yearly) [code = DM Microalbumin Urine Scrn (Yearly)] [facility] Scheduled Test 2019-01-20 00:00:00 DM HGBA1C (Yearly) [code = DM HGBA1C (Yearly)] [facility] Scheduled Test 1989 00:00:00 DM Foot Exam (Year ly) [code = DM Foot Exam (Yearly)] [facility] Scheduled Test 1989 00:00:00 DM Retinal Exam (Y early) [code = DM Retinal Exam (Yearly)] [facility] Encounters Start Date/Time End Date/Time Encounter Type Admission Type [facility] Facility Care Department Encounter ID Source 2018-01-21 03:35:12 Inpatient [facility] [id number] [facility] 2019-11-01 07:38:00 2019-11-01 07:38:00 Outpatient [id number] 2019-09-06 05:07:00 2019-09-06 05:07:00 Outpatient [id number] 2018-01-20 09:54:57 2018-01-20 09:54:57 Emergency [facility] [id number] [facility] 2018-01-20 07:54:55 2018-01-20 07:54:55 Outpatient [facility] [id number] [facility] 2018-01-20 00:00:00 2018-01-20 00:00:00 Emergency [facility] [id number] [facility] Results Test Description Test Time Test Comments Results Result Comments Source GLUBED 2019-10-24 19:56:00 Test Item GLUBED (test code = GLUBED) 162 mg/dL 74-106 H Performed by certified hoist operator at [facility] [id number] 17:20:00* Test Item Value Reference Range Interpretation Comments GLUBED (test code = GLUBED) 138 mg/dL 74-106 H Performed by certified hoist operator at [facility] BASIC METABOLIC [id number] 13:53:00* Test Item Value Reference Range Interpretation Comments SODIUM (test code = NA) 139 mmol/L 136-145 N POTASSIUM (test code = K) 4.9 mmol/L 3.5-5.1 N CHLORIDE (test code = CL) 101.0 mmol/L 98-107 N CARBON DIOXIDE (test code = CO2) 26.0 mmol/L 21-32 N ANION GAP (test code = GAP) 16.9 10-20 N GLUCOSE (test code = GLU) 159 mg/dL 74-106 H BLOOD UREA NITROGEN (test code = BUN) 57 mg/dL 7-18 H GLOMERULAR FILTRATION RATE (test code = GFR) 4 mL/min >=60 Estimated GFR by using Modified MDRD formula.Chronic kidney disease is defined as either kidney damageor GFR <60 mL/min/1.73 m2 for >3 months. CREATININE (test code = CREAT) 13.40 mg/dL 0.7-1.3 H BUN/CREATININE RATIO (test code = BUN/CREA) 4.3 10-20 L CALCIUM (test code = CA) 7.4 mg/dL 8.5-10.1 L BASIC METABOLIC [id number] 13:48:00* Test Item Value Reference Range Interpretation Comments SODIUM (test code = NA) 139 mmol/L 136-145 N POTASSIUM (test code = K) 4.9 mmol/L 3.5-5.1 N CHLORIDE (test code = CL) 101.0 mmol/L 98-107 N CARBON DIOXIDE (test code = CO2) mmol/L 21-32 ANION GAP (test code = GAP) 10-20 GLUCOSE (test code = GLU) mg/dL 74-106 BLOOD UREA NITROGEN (test code = BUN) mg/dL 7-18 GLOMERULAR FILTRATION RATE (test code = GFR) mL/min >=60 CREATININE (test code = CREAT) mg/dL 0.7-1.3 BUN/CREATININE RATIO (test code = BUN/CREA) 10-20 CALCIUM (test code = CA) mg/dL 8.5-10.1 CBC W/AUTO [id number] 13:42:00* Test Item Value Reference Range Interpretation Comments WHITE BLOOD CELL (test code = WBC) 9.5 K/mm3 4.5-12.5 N RED BLOOD CELL (test code = RBC) 3.91 mill/mm3 4.0-5.8 L HEMOGLOBIN (test code = HGB) 11.7 gram/dL 13.0-17.5 L HEMATOCRIT (test code = HCT) 37.4 % 42.0-52.0 L MEAN CELL VOLUME (test code = MCV) 95.7 fL 80-98 N MEAN CELL HGB (test code = MCH) 29.9 picogram 27.0-33.0 N MEAN CELL HGB CONCETRATION (test code = MCHC) 31.3 gram/dL 33.0-36. 0 L RED CELL DISTRIBUTION WIDTH (test code = RDW) 14.7 % 11.6-16. 2 N RED CELL DISTRIBUTION WIDTH SD (test code = RDW-SD) 51.6 fL 37 .0-51.0 H PLATELET COUNT (test code = PLT) 217 K/mm3 150-450 N MEAN PLATELET VOLUME (test code = MPV) 10.2 fL 6.7-11.0 N NEUTROPHIL % (test code = NT%) 67.5 % 39.0-69.0 N IMMATURE GRANULOCYTE % (test code = IG%) 0.6 % 0.0-5.0 N LYMPHOCYTE % (test code = LY%) 14.2 % 25.0-55.0 L MONOCYTE % (test code = MO%) 10.5 % 0.0-10.0 H EOSINOPHIL % (test code = EO%) 6.7 % 0.0-5.0 H BASOPHIL % (test code = BA%) 0.5 % 0.0-1.0 N NUCLEATED RBC % (test code = NRBC%) 0.0 % 0-0 N NEUTROPHIL # (test code = NT#) 6.39 K/mm3 1.8-7.7 N IMMATURE GRANULOCYTE # (test code = IG#) 0.06 x10 3/uL 0-0.03 H LYMPHOCYTE # (test code = LY#) 1.34 K/mm3 1.0-5.0 N MONOCYTE # (test code = MO#) 0.99 K/mm3 0-0.8 H EOSINOPHIL # (test code = EO#) 0.63 K/mm3 0.0-0.5 H BASOPHIL # (test code = BA#) 0.05 K/mm3 0.0-0.2 N NUCLEATED RBC # (test code = NRBC#) 0.00 K/mm3 0.0-0.1 N MANUAL DIFF REQUIRED (test code = MDIFF) NO [id number] 11:49:00* Test Item Value Reference Range Interpretation Comments GLUBED (test code = GLUBED) 139 mg/dL 74-106 H Performed by certified hoist operator at [facility] [id number] 06:20:00* Test Item Value Reference Range Interpretation Comments GLUBED (test code = GLUBED) 86 mg/dL 74-106 N Performed by certified hoist operator at [facility] [id number] 20:24:00* Test Item Value Reference Range Interpretation Comments GLUBED (test code = GLUBED) 148 mg/dL 74-106 H Performed by certified hoist operator at [facility] [id number] 17:03:00* Test Item Value Reference Range Interpretation Comments GLUBED (test code = GLUBED) 103 mg/dL 74-106 N Performed by certified hoist operator at [facility] [id number] 13:08:00* Test Item Value Reference Range Interpretation Comments GLUBED (test code = GLUBED) 97 mg/dL 74-106 N Performed by certified hoist operator at [facility] [id number] 06:50:00* Test Item Value Reference Range Interpretation Comments GLUBED (test code = GLUBED) 115 mg/dL 74-106 H Performed by certified hoist operator at [facility] BASIC METABOLIC [id number] 05:20:00* Test Item Value Reference Range Interpretation Comments SODIUM (test code = NA) 140 mmol/L 136-145 N POTASSIUM (test code = K) 3.9 mmol/L 3.5-5.1 N CHLORIDE (test code = CL) 104.0 mmol/L 98-107 N CARBON DIOXIDE (test code = CO2) 26.0 mmol/L 21-32 N ANION GAP (test code = GAP) 13.9 10-20 N GLUCOSE (test code = GLU) 138 mg/dL 74-106 H BLOOD UREA NITROGEN (test code = BUN) 49 mg/dL 7-18 H RESULT VERIFIED BY REPEAT ANALYSIS GLOMERULAR FILTRATION RATE (test code = GFR) 5 mL/min >=60 Estimated GFR by using Modified MDRD formula.Chronic kidney disease is defined as either kidney damageor GFR <60 mL/min/1.73 m2 for >3 months. CREATININE (test code = CREAT) 11.30 mg/dL 0.7-1.3 H BUN/CREATININE RATIO (test code = BUN/CREA) 4.3 10-20 L CALCIUM (test code = CA) 7.7 mg/dL 8.5-10.1 L THYROID PROFILE [id number] 05:20:00* Test Item Value Reference Range Interpretation Comments T3 UPTAKE (test code = T3UP) 34.0 % 30.0-40.0 N T4 (THYROXINE) (test code = T4) 7.6 ug/dL 4.5-13.9 N T7 (FREE THYROXINE INDEX) (test code = T7) 2.58 FTI 1.3-5.1 N THYROID STIMULATING HORMONE (test code = TSH) 3.080 uIU/mL 0.36-3.7 4 N TSH REFERENCE RANGES: EUTHYROID: 0.35 - 4.3 mIU/mL HYPO : > 5.5 mIU/mL HYPER : < 0.35 mIU/mL BASIC METABOLIC [id number] 05:03:00* Test Item Value Reference Range Interpretation Comments SODIUM (test code = NA) 140 mmol/L 136-145 N POTASSIUM (test code = K) 3.9 mmol/L 3.5-5.1 N CHLORIDE (test code = CL) 104.0 mmol/L 98-107 N CARBON DIOXIDE (test code = CO2) mmol/L 21-32 ANION GAP (test code = GAP) 10-20 GLUCOSE (test code = GLU) mg/dL 74-106 BLOOD UREA NITROGEN (test code = BUN) mg/dL 7-18 GLOMERULAR FILTRATION RATE (test code = GFR) mL/min >=60 CREATININE (test code = CREAT) mg/dL 0.7-1.3 BUN/CREATININE RATIO (test code = BUN/CREA) 10-20 CALCIUM (test code = CA) mg/dL 8.5-10.1 THYROID PROFILE [id number] 05:03:00* Test Item Value Reference Range Interpretation Comments T3 UPTAKE (test code = T3UP) % 30.0-40.0 T4 (THYROXINE) (test code = T4) ug/dL 4.5-13.9 T7 (FREE THYROXINE INDEX) (test code = T7) FTI 1.3-5.1 THYROID STIMULATING HORMONE (test code = TSH) uIU/mL 0.36-3.7 4 [id number] 04:51:00* Test Item Value Reference Range Interpretation Comments GLYCOSYLATED HEMOGLOBIN (HA1C) (test code = GLYHGB) 5.6 % HbA1 SUGGESTED DIAGNOSIS: HbA1C (%) Diabetic >6.4Prediabetes 5.7 - 6.4Normal <5.7 ESTIMATED AVERAGE GLUCOSE (test code = EAG) 114 MG/DL CBC W/AUTO [id number] 04:29:00* Test Item Value Reference Range Interpretation Comments WHITE BLOOD CELL (test code = WBC) 10.7 K/mm3 4.5-12.5 N RED BLOOD CELL (test code = RBC) 4.20 mill/mm3 4.0-5.8 N HEMOGLOBIN (test code = HGB) 12.7 gram/dL 13.0-17.5 L HEMATOCRIT (test code = HCT) 39.7 % 42.0-52.0 L MEAN CELL VOLUME (test code = MCV) 94.5 fL 80-98 N MEAN CELL HGB (test code = MCH) 30.2 picogram 27.0-33.0 N MEAN CELL HGB CONCETRATION (test code = MCHC) 32.0 gram/dL 33.0-36. 0 L RED CELL DISTRIBUTION WIDTH (test code = RDW) 15.0 % 11.6-16. 2 N RED CELL DISTRIBUTION WIDTH SD (test code = RDW-SD) 51.6 fL 37 .0-51.0 H PLATELET COUNT (test code = PLT) 215 K/mm3 150-450 N MEAN PLATELET VOLUME (test code = MPV) 10.4 fL 6.7-11.0 N NEUTROPHIL % (test code = NT%) 65.3 % 39.0-69.0 N IMMATURE GRANULOCYTE % (test code = IG%) 0.4 % 0.0-5.0 N LYMPHOCYTE % (test code = LY%) 15.1 % 25.0-55.0 L MONOCYTE % (test code = MO%) 12.1 % 0.0-10.0 H EOSINOPHIL % (test code = EO%) 6.6 % 0.0-5.0 H BASOPHIL % (test code = BA%) 0.5 % 0.0-1.0 N NUCLEATED RBC % (test code = NRBC%) 0.0 % 0-0 N NEUTROPHIL # (test code = NT#) 6.96 K/mm3 1.8-7.7 N IMMATURE GRANULOCYTE # (test code = IG#) 0.04 x10 3/uL 0-0.03 H LYMPHOCYTE # (test code = LY#) 1.61 K/mm3 1.0-5.0 N MONOCYTE # (test code = MO#) 1.29 K/mm3 0-0.8 H EOSINOPHIL # (test code = EO#) 0.70 K/mm3 0.0-0.5 H BASOPHIL # (test code = BA#) 0.05 K/mm3 0.0-0.2 N NUCLEATED RBC # (test code = NRBC#) 0.00 K/mm3 0.0-0.1 N [id number] 21:05:00* Test Item Value Reference Range Interpretation Comments GLUBED (test code = GLUBED) 169 mg/dL 74-106 H Performed by certified hoist operator at [facility] - MRI BRAIN W/O [id number] 21:03:00 FAX: Shabbir Chopra [phone] [place]: St: ADM FAX: Y Keny Green [phone] Name: ZACH GUZMAN [facility] : 1970 Age/S: 49/M [address] [facility] Unit #: [id number] Loc: [place] [address] Phys: Keny Green MD Acct: [id number] Dis Date: Status: ADM IN PHONE #: [phone] Exam Date: 10/22/20192035 FAX #: [phone] Reason: RT SIDE WEAKNESS EXAMS: CPT CODE: [id number] MRI BRAIN W/O CONTRAST [id number] REASON FOR EXAM: RT SIDE WEAKNESS Exam Order Date: 10/22/2019 11:07 PM Attending M.D.: Keny Dominguez MD Procedure: - MRI BRAIN [...] are likely chr onic. Location: RR at 2102 Reported and signed by: Chino Loredo MD PAGE 1 Signed Report (CONTINUED) FAX: Shabbir Chopra [phone] [place]: St: ADM FAX: Keny Hairston [phone] Name: LESLY GUZMAN [facility]ES [facility] : 1970 Age/S: 49 /M [address] [facility] Unit #: [id number] Loc: [place] [address] Phys: Keny Green MD Acct: [id number] Dis Date: atus: ADM IN PHONE #: [phone] Exam Date : 10/22/20192035 FAX #: [phone] Reason: RT S TEQUILA WEAKNESS EXAMS: CPT CODE: [id number] MRI BRAIN W/O CONTRAST [id number] <Continued> CC: Shabbir Duncan MD; Keny Green Technologist: [place] RT(R)(MR) Trnscrd Date/Time/By: 10/22/2019 (2102) : By: [email or web address] Orig Print D/T: S: 10/22/2019 (2105) PAGE 2 Signed Report [id number] 18:15:00* Test Item Value Reference Range Interpretation Comments GLUBED (test code = GLUBED) 154 mg/dL 74-106 H Performed by certified hoist operator at [facility] AG HEPAT B [id number] 15:11:00* Test Item Value Reference Range Interpretation Comments AG HEPAT B SURF (test code = HBSAG) Nonreactive Index Nonreactive BASIC METABOLIC [id number] 14:49:00* Test Item Value Reference Range Interpretation Comments SODIUM (test code = NA) 144 mmol/L 136-145 N POTASSIUM (test code = K) 4.6 mmol/L 3.5-5.1 N CHLORIDE (test code = CL) 107.0 mmol/L 98-107 N CARBON DIOXIDE (test code = CO2) 24.0 mmol/L 21-32 N ANION GAP (test code = GAP) 17.6 10-20 N GLUCOSE (test code = GLU) 167 mg/dL 74-106 H BLOOD UREA NITROGEN (test code = BUN) 64 mg/dL 7-18 H GLOMERULAR FILTRATION RATE (test code = GFR) 4 mL/min >=60 Estimated GFR by using Modified MDRD formula.Chronic kidney disease is defined as either kidney damageor GFR <60 mL/min/1.73 m2 for >3 months. CREATININE (test code = CREAT) 13.40 mg/dL 0.7-1.3 H BUN/CREATININE RATIO (test code = BUN/CREA) 4.8 10-20 L CALCIUM (test code = CA) 7.0 mg/dL 8.5-10.1 L BASIC METABOLIC [id number] 14:45:00* Test Item Value Reference Range Interpretation Comments SODIUM (test code = NA) 144 mmol/L 136-145 N POTASSIUM (test code = K) 4.6 mmol/L 3.5-5.1 N CHLORIDE (test code = CL) 107.0 mmol/L 98-107 N CARBON DIOXIDE (test code = CO2) mmol/L 21-32 ANION GAP (test code = GAP) 10-20 GLUCOSE (test code = GLU) mg/dL 74-106 BLOOD UREA NITROGEN (test code = BUN) mg/dL 7-18 GLOMERULAR FILTRATION RATE (test code = GFR) mL/min >=60 CREATININE (test code = CREAT) mg/dL 0.7-1.3 BUN/CREATININE RATIO (test code = BUN/CREA) 10-20 CALCIUM (test code = CA) 7.0 mg/dL 8.5-10.1 L BASIC METABOLIC [id number] 14:44:00* Test Item Value Reference Range Interpretation Comments SODIUM (test code = NA) 144 mmol/L 136-145 N POTASSIUM (test code = K) 4.6 mmol/L 3.5-5.1 N CHLORIDE (test code = CL) 107.0 mmol/L 98-107 N CARBON DIOXIDE (test code = CO2) mmol/L 21-32 ANION GAP (test code = GAP) 10-20 GLUCOSE (test code = GLU) mg/dL 74-106 BLOOD UREA NITROGEN (test code = BUN) mg/dL 7-18 GLOMERULAR FILTRATION RATE (test code = GFR) mL/min >=60 CREATININE (test code = CREAT) mg/dL 0.7-1.3 BUN/CREATININE RATIO (test code = BUN/CREA) 10-20 CALCIUM (test code = CA) mg/dL 8.5-10.1 CBC W/AUTO [id number] 14:12:00* Test Item Value Reference Range Interpretation Comments WHITE BLOOD CELL (test code = WBC) 10.7 K/mm3 4.5-12.5 N RED BLOOD CELL (test code = RBC) 4.05 mill/mm3 4.0-5.8 N HEMOGLOBIN (test code = HGB) 12.2 gram/dL 13.0-17.5 L HEMATOCRIT (test code = HCT) 38.2 % 42.0-52.0 L MEAN CELL VOLUME (test code = MCV) 94.3 fL 80-98 N MEAN CELL HGB (test code = MCH) 30.1 picogram 27.0-33.0 N MEAN CELL HGB CONCETRATION (test code = MCHC) 31.9 gram/dL 33.0-36. 0 L RED CELL DISTRIBUTION WIDTH (test code = RDW) 15.0 % 11.6-16. 2 N RED CELL DISTRIBUTION WIDTH SD (test code = RDW-SD) 51.8 fL 37 .0-51.0 H PLATELET COUNT (test code = PLT) 204 K/mm3 150-450 N MEAN PLATELET VOLUME (test code = MPV) 10.1 fL 6.7-11.0 N NEUTROPHIL % (test code = NT%) 70.1 % 39.0-69.0 H IMMATURE GRANULOCYTE % (test code = IG%) 0.5 % 0.0-5.0 N LYMPHOCYTE % (test code = LY%) 14.2 % 25.0-55.0 L MONOCYTE % (test code = MO%) 10.9 % 0.0-10.0 H EOSINOPHIL % (test code = EO%) 3.9 % 0.0-5.0 N BASOPHIL % (test code = BA%) 0.4 % 0.0-1.0 N NUCLEATED RBC % (test code = NRBC%) 0.0 % 0-0 N NEUTROPHIL # (test code = NT#) 7.50 K/mm3 1.8-7.7 N IMMATURE GRANULOCYTE # (test code = IG#) 0.05 x10 3/uL 0-0.03 H LYMPHOCYTE # (test code = LY#) 1.52 K/mm3 1.0-5.0 N MONOCYTE # (test code = MO#) 1.17 K/mm3 0-0.8 H EOSINOPHIL # (test code = EO#) 0.42 K/mm3 0.0-0.5 N BASOPHIL # (test code = BA#) 0.04 K/mm3 0.0-0.2 N NUCLEATED RBC # (test code = NRBC#) 0.00 K/mm3 0.0-0.1 N MANUAL DIFF REQUIRED (test code = MDIFF) NO [id number] 13:15:00* Test Item Value Reference Range Interpretation Comments GLUBED (test code = GLUBED) 168 mg/dL 74-106 H Performed by certified hoist operator at [facility] [id number] 06:40:00* Test Item Value Reference Range Interpretation Comments GLUBED (test code = GLUBED) 195 mg/dL 74-106 H Performed by certified hoist operator at [facility] URINALYSIS [id number] 21:24:00* Test Item Value Reference Range Interpretation Comments UA COLOR (test code = COLU) Light-Yellow YELLOW UA APPEARANCE (test code = APPU) CLEAR CLEAR UA GLUCOSE DIPSTICK (test code = DGLUU) 1000 (3+) mg/dL NEGATIVE A UA BILIRUBIN DIPSTICK (test code = BILU) NEGATIVE mg/dL NEGATIVE UA KETONE DIPSTICK (test code = KETU) TRACE mg/dL NEGATIVE A UA SPECIFIC GRAVITY (test code = SGU) 1.021 1.001-1.035 UA BLOOD DIPSTICK (test code = VARGAS) 0.1 mg/dL (1+) mg/dL NEGATIVE A UA PH DIPSTICK (test code = KELLI) 6.5 5.0-8.0 UA PROTEIN DIPSTICK (test code = PROU) 600 (3+) mg/dL NEGATIVE A UA UROBILINIOGEN DIPSTICK (test code = URO) Normal mg/dL NEGATIVE UA NITRITE DIPSTICK (test code = SUSAN) NEGATIVE NEGATIVE UA LEUKOCYTE ESTERASE W REFLEX (test code = LEUUR) NEGATIVE Jose Luis/uL NEGATIVE UA WBC (test code = WBCU) 11-20 per HPF 0-5 A UA RBC (test code = RBCU) 3-5 #/HPF 0-5 UA EPITHELIAL CELLS (test code = EPIU) FEW per HPF FEW UA BACTERIA (test code = BACU) FEW #/HPF NONE A UA MUCUS (test code = MUCU) FEW #/LPF FEW Urine Source? Clean CatchHEPATIC FUNCTION [id number] 21:08:00* Test Item Value Reference Range Interpretation Comments TOTAL PROTEIN (test code = PROT) 7.8 gram/dL 6.4-8.2 N ALBUMIN (test code = ALB) 3.4 g/dL 3.4-5.0 N GLOBULIN (test code = GLOB) 4.4 gram/dL 2.7-4.2 H ALBUMIN/GLOBULIN RATIO (test code = A/G) 0.8 0.75-1.50 N BILIRUBIN TOTAL (test code = BILT) 0.50 mg/dL 0.0-1.0 N BILIRUBIN DIRECT (test code = BILD) 0.17 mg/dL 0.0-0.20 N SGOT/AST (test code = AST) 10 IUnit/L 15-37 L SGPT/ALT (test code = ALT) 17 IUnit/L 12-78 N ALKALINE PHOSPHATASE TOTAL (test code = ALKP) 90 IUnit/L 45-117 N Note change in reference range due to change in reagent. [id number] 21:08:00* Test Item Value Reference Range Interpretation Comments LIPASE (test code = LIP) 250 U/L 73.0-393.0 N [id number] 21:08:00* Test Item Value Reference Range Interpretation Comments TROPONIN-I (test code = TROPI) <0.015 ng/mL 0-0.045 N BASIC METABOLIC [id number] 21:03:00* Test Item Value Reference Range Interpretation Comments SODIUM (test code = NA) 141 mmol/L 136-145 N POTASSIUM (test code = K) 4.3 mmol/L 3.5-5.1 N CHLORIDE (test code = CL) 105.0 mmol/L 98-107 N CARBON DIOXIDE (test code = CO2) 23.0 mmol/L 21-32 N ANION GAP (test code = GAP) 17.3 10-20 N GLUCOSE (test code = GLU) 255 mg/dL 74-106 H BLOOD UREA NITROGEN (test code = BUN) 60 mg/dL 7-18 H GLOMERULAR FILTRATION RATE (test code = GFR) 4 mL/min >=60 Estimated GFR by using Modified MDRD formula.Chronic kidney disease is defined as either kidney damageor GFR <60 mL/min/1.73 m2 for >3 months. CREATININE (test code = CREAT) 12.90 mg/dL 0.7-1.3 H BUN/CREATININE RATIO (test code = BUN/CREA) 4.7 10-20 L CALCIUM (test code = CA) 7.6 mg/dL 8.5-10.1 L PROTHROMBIN [id number] 21:00:00* Test Item Value Reference Range Interpretation Comments PROTHROMBIN TIME PATIENT (test code = PTP) 11.2 seconds 9.0-14.0 N INTERNATIONAL NORMAL RATIO (test code = INR) 0.9 0.8-1.2 N The therapeutic range for oral anticoagulant therapy [...] (2.5-3.5) IS PATIENT ON ANTICOAGULANTS? NTHROMBOPLASTIN TIME [id number] 21:00:00* Test Item Value Reference Range Interpretation Comments THROMBOPLASTIN TIME PARTIAL (test code = PTT) 37.0 seconds 25.0-36. 5 H IS PATIENT ON ANTICOAGULANTS? NBASIC METABOLIC [id number] 20:57:00* Test Item Value Reference Range Interpretation Comments SODIUM (test code = NA) 141 mmol/L 136-145 N POTASSIUM (test code = K) 4.3 mmol/L 3.5-5.1 N CHLORIDE (test code = CL) 105.0 mmol/L 98-107 N CARBON DIOXIDE (test code = CO2) mmol/L 21-32 ANION GAP (test code = GAP) 10-20 GLUCOSE (test code = GLU) mg/dL 74-106 BLOOD UREA NITROGEN (test code = BUN) mg/dL 7-18 GLOMERULAR FILTRATION RATE (test code = GFR) mL/min >=60 CREATININE (test code = CREAT) mg/dL 0.7-1.3 BUN/CREATININE RATIO (test code = BUN/CREA) 10-20 CALCIUM (test code = CA) mg/dL 8.5-10.1 - CT ABD PELVIS [id number] 20:52:00 Name: ZACH GUZMAN [facility] : 1970 Age/S: 49 / M [address] [facility] Unit #: [id number] Loc: [place], [place] [address] Phys: Shantel Persaud DO Acct: [id number] Dis Date: Status: REG ER PHONE #: [phone] Exam Date: 10/21/20192046 FAX #: [phone] Reason: abd pain EXAMS: CPT CODE: [id number] CT ABD PELVIS W/CONT 02099 REASON FOR EXAM: abd pain EXAM ORDER [...] 1 Signed Report (CONTINUED) Name: ZACH GUZMAN [facility] : 1970 Age/S: 49 / M [address] [facility] Unit #: [id number] Loc: [place] [address] Phys: Shantel Persaud DO Acct: [id number] Dis Date: Status: REG ER PHONE #: [phone] Exam Date: 10/21/20192046 FAX #: [phone] Reason: abd pain EXAMS: CPT CODE: [id number] CT ABD PELVIS W/CONT 05805 < Continued> CC: Shabbir Duncan MD; Shantel Persaud DO Technologist:PHAM STEPHEN, RT(R) CT CTDI: DLP: Trnscb Date/Time: 10/21/2019 (2051) [email or web address] Orig Print D/T: S: 10/21/2019 (2054) PAGE 2 Signed Report CBC W/AUTO [id number] 20:35:00* Test Item Value Reference Range Interpretation Comments WHITE BLOOD CELL (test code = WBC) 11.3 K/mm3 4.5-12.5 N RED BLOOD CELL (test code = RBC) 4.32 mill/mm3 4.0-5.8 N HEMOGLOBIN (test code = HGB) 13.1 gram/dL 13.0-17.5 N HEMATOCRIT (test code = HCT) 41.2 % 42.0-52.0 L MEAN CELL VOLUME (test code = MCV) 95.4 fL 80-98 N MEAN CELL HGB (test code = MCH) 30.3 picogram 27.0-33.0 N MEAN CELL HGB CONCETRATION (test code = MCHC) 31.8 gram/dL 33.0-36. 0 L RED CELL DISTRIBUTION WIDTH (test code = RDW) 14.9 % 11.6-16. 2 N RED CELL DISTRIBUTION WIDTH SD (test code = RDW-SD) 52.6 fL 37 .0-51.0 H PLATELET COUNT (test code = PLT) 198 K/mm3 150-450 N MEAN PLATELET VOLUME (test code = MPV) 9.8 fL 6.7-11.0 N NEUTROPHIL % (test code = NT%) 75.6 % 39.0-69.0 H IMMATURE GRANULOCYTE % (test code = IG%) 0.4 % 0.0-5.0 N LYMPHOCYTE % (test code = LY%) 11.6 % 25.0-55.0 L MONOCYTE % (test code = MO%) 8.3 % 0.0-10.0 N EOSINOPHIL % (test code = EO%) 3.8 % 0.0-5.0 N BASOPHIL % (test code = BA%) 0.3 % 0.0-1.0 N NUCLEATED RBC % (test code = NRBC%) 0.0 % 0-0 N NEUTROPHIL # (test code = NT#) 8.50 K/mm3 1.8-7.7 H IMMATURE GRANULOCYTE # (test code = IG#) 0.05 x10 3/uL 0-0.03 H LYMPHOCYTE # (test code = LY#) 1.31 K/mm3 1.0-5.0 N MONOCYTE # (test code = MO#) 0.93 K/mm3 0-0.8 H EOSINOPHIL # (test code = EO#) 0.43 K/mm3 0.0-0.5 N BASOPHIL # (test code = BA#) 0.03 K/mm3 0.0-0.2 N NUCLEATED RBC # (test code = NRBC#) 0.00 K/mm3 0.0-0.1 N MANUAL DIFF REQUIRED (test code = MDIFF) NO - CT HEAD/BRAIN W/O [id number] 20:11:00 Name: ZACH GUZMAN [facility] : 1970 Age/S: 49 / M [address] [facility] Unit #: [id number] Loc: [place] [address] Phys: Shantel Persaud DO Acct: [id number] Dis Date: Status: REG ER PHONE #: [phone] Exam Date: 10/21/20191944 FAX #: [phone] Reason: Headache EXAMS: CPT CODE: [id number] CT HEAD/BRAIN W/O CONT 92254 REASON FOR EXAM: Headache EXAM ORDER DATE: [...] Almaraz CTDI: DLP: Trnscb Date/Time: 10/21/2019 (2010) t.VTL Orig Print D/T: S: 10/21/2019 (2013) PAGE 1 Signed Report [id number] 10:08:00* Test Item Value Reference Range Interpretation Comments GLUBED (test code = GLUBED) 113 mg/dL 74-106 H Performed by certified hoist operator at [facility] [id number] 11:20:00* Test Item Value Reference Range Interpretation Comments GLUBED (test code = GLUBED) 234 mg/dL 74-106 H Performed by certified hoist operator at [facility] BASIC METABOLIC [id number] 09:43:00* Test Item Value Reference Range Interpretation Comments SODIUM (test code = NA) 140 mmol/L 136-145 N POTASSIUM (test code = K) 3.8 mmol/L 3.5-5.1 N CHLORIDE (test code = CL) 105.0 mmol/L 98-107 N CARBON DIOXIDE (test code = CO2) 26.0 mmol/L 21-32 N ANION GAP (test code = GAP) 12.8 10-20 N GLUCOSE (test code = GLU) 158 mg/dL 74-106 H BLOOD UREA NITROGEN (test code = BUN) 41 mg/dL 7-18 H RESULT VERIFIED BY REPEAT ANALYSIS GLOMERULAR FILTRATION RATE (test code = GFR) 8 mL/min >=60 Estimated GFR by using Modified MDRD formula.Chronic kidney disease is defined as either kidney damageor GFR <60 mL/min/1.73 m2 for >3 months. CREATININE (test code = CREAT) 7.30 mg/dL 0.7-1.3 H BUN/CREATININE RATIO (test code = BUN/CREA) 5.6 10-20 L CALCIUM (test code = CA) 7.1 mg/dL 8.5-10.1 L CBC W/O [id number] 07:59:00* Test Item Value Reference Range Interpretation Comments WHITE BLOOD CELL (test code = WBC) 12.6 K/mm3 4.5-12.5 H RED BLOOD CELL (test code = RBC) 3.00 mill/mm3 4.0-5.8 L HEMOGLOBIN (test code = HGB) 9.0 gram/dL 13.0-17.5 L HEMATOCRIT (test code = HCT) 27.5 % 42.0-52.0 L MEAN CELL VOLUME (test code = MCV) 91.7 fL 80-98 N MEAN CELL HGB (test code = MCH) 30.0 picogram 27.0-33.0 N MEAN CELL HGB CONCETRATION (test code = MCHC) 32.7 gram/dL 33.0-36. 0 L RED CELL DISTRIBUTION WIDTH (test code = RDW) 12.5 % 11.6-16. 2 N PLATELET COUNT (test code = PLT) 200 K/mm3 150-450 N MEAN PLATELET VOLUME (test code = MPV) 10.2 fL 6.7-11.0 N [id number] 07:52:00* Test Item Value Reference Range Interpretation Comments GLUBED (test code = GLUBED) 153 mg/dL 74-106 H Performed by certified hoist operator at [facility] [id number] 21:11:00* Test Item Value Reference Range Interpretation Comments GLUBED (test code = GLUBED) 140 mg/dL 74-106 H Performed by certified hoist operator at [facility] [id number] 21:11:00* Test Item Value Reference Range Interpretation Comments GLUBED (test code = GLUBED) 336 mg/dL 74-106 H Performed by certified hoist operator at [facility] [id number] 15:51:00* Test Item Value Reference Range Interpretation Comments GLUBED (test code = GLUBED) 304 mg/dL 74-106 H Performed by certified hoist operator at [facility] BASIC METABOLIC [id number] 11:17:00* Test Item Value Reference Range Interpretation Comments SODIUM (test code = NA) 141 mmol/L 136-145 N POTASSIUM (test code = K) 4.1 mmol/L 3.5-5.1 N CHLORIDE (test code = CL) 107.0 mmol/L 98-107 N CARBON DIOXIDE (test code = CO2) 22.0 mmol/L 21-32 N ANION GAP (test code = GAP) 16.1 10-20 N GLUCOSE (test code = GLU) 198 mg/dL 74-106 H BLOOD UREA NITROGEN (test code = BUN) 80 mg/dL 7-18 H GLOMERULAR FILTRATION RATE (test code = GFR) 5 mL/min >=60 Estimated GFR by using Modified MDRD formula.Chronic kidney disease is defined as either kidney damageor GFR <60 mL/min/1.73 m2 for >3 months. CREATININE (test code = CREAT) 10.50 mg/dL 0.7-1.3 H BUN/CREATININE RATIO (test code = BUN/CREA) 7.6 10-20 L CALCIUM (test code = CA) 6.2 mg/dL 8.5-10.1 LL Res ults called to [id number] by V.[facility].S[facility]TON 08/26/19 1116Critical results verified and read back by Nurse? YES CBC W/O [id number] 10:33:00* Test Item Value Reference Range Interpretation Comments WHITE BLOOD CELL (test code = WBC) 14.5 K/mm3 4.5-12.5 H RED BLOOD CELL (test code = RBC) 2.93 mill/mm3 4.0-5.8 L HEMOGLOBIN (test code = HGB) 8.9 gram/dL 13.0-17.5 L HEMATOCRIT (test code = HCT) 26.3 % 42.0-52.0 L MEAN CELL VOLUME (test code = MCV) 89.8 fL 80-98 N MEAN CELL HGB (test code = MCH) 30.4 picogram 27.0-33.0 N MEAN CELL HGB CONCETRATION (test code = MCHC) 33.8 gram/dL 33.0-36. 0 N RED CELL DISTRIBUTION WIDTH (test code = RDW) 12.7 % 11.6-16. 2 N PLATELET COUNT (test code = PLT) 217 K/mm3 150-450 N MEAN PLATELET VOLUME (test code = MPV) 11.1 fL 6.7-11.0 H [id number] 07:19:00* Test Item Value Reference Range Interpretation Comments GLUBED (test code = GLUBED) 186 mg/dL 74-106 H Performed by certified hoist operator at [facility] [id number] 01:25:00* Test Item Value Reference Range Interpretation Comments GLUBED (test code = GLUBED) 301 mg/dL 74-106 H Performed by certified hoist operator at [facility] [id number] 20:51:00* Test Item Value Reference Range Interpretation Comments GLUBED (test code = GLUBED) 353 mg/dL 74-106 H Performed by certified hoist operator at [facility] [id number] 20:51:00* Test Item Value Reference Range Interpretation Comments GLUBED (test code = GLUBED) 294 mg/dL 74-106 H Performed by certified hoist operator at [facility] - US GUIDANCE VASC [id number] 13:23:00 Name: ZACH GUZMAN [facility] : 1970 Age/S: 49 / M [address] [facility] [id number] [place] [address] Phys: Keny Green MD Acct: [id number] Dis Date: Status: ADM IN PHONE #: [phone] Exam Date: 08/24/2019 1100 FAX #: [phone] Reason: EXAMS: CPT CODE: [id number] US GUIDANCE VASC ACCESS 05733 Fluoro Time: DAP (Gy m2): Air Kerma (mGy): EXAM: Insertion of a tunneled hemodialysis catheter with sonographic and fluoroscopic guidance and conscious sedation; CPT: 98690, 80846, 51178, 55120; INFORMATION: End-stage renal disease; TECHNIQUE AND FINDINGS: Conscious sedation start time: 1024 hours; completion time: 1100 hours; Under physician supervision 2 mg of Versed and 50 mcg of fentanyl were administered intravenously for sedation. The patient's heart rate, blood pressure and pulse oximetry were continuously monitored by a trained registered nurse. Physician phfi-if-lsxr sedation time was 36 minutes. Benefits and [...] usual st erile fashion and a 15 Armenian tunneled hemodialysis catheter was inserted and positioned [...] Signed Report (CONTINUED ) Name: REGINA NUNEZZACH [facility] SP D OB: 1970 Age/S: 49 / M [address] [facility] Unit #: [id number] Loc: [place] [address] Phys: Oumar Green MD Acct: [id number] Dis Date: Status: ADM IN PHONE #: [phone] Exam Date: 08/24/2019 1100 FAX #: [phone] Reason: EXAMS: CPT CODE: [id number] US GUIDANCE V ASC ACCESS 02521 Fluoro Time: DAP (Gy m2): Air Kerma (mGy): <Continued> CAK : 13 mGy DAP : 5260 mGy sq cm Location code: [facility] at 1323 Reported and signed by: Melquiades Lane M.D. CC: Shabbir Duncan MD; Keny Green Technologist: Saleem Benito RT(R) Trnscb Date/Time: 08/25/2019 (1323) t.GRW Orig Print D/T: S: 08/25/2019 (8408) PAGE 2 Signed Report - SP FLUORO GUID CTRL ACC [id number] 13:23:00 Name: ZACH GUZMAN [facility] : 1970 Age/S: 49 / M [address] [facility] [id number] Loc: [place] [address] Phys: Keny Green MD Acct: [id number] Dis Date: Status: ADM IN PHONE #: [phone] Exam Date: 08/24/2019 1100 FAX #: [phone] Reason: EXAMS: CPT CODE: [id number] SP FLUORO GUID CTRL ACC DEV 10645 Fluoro Time: 57 DAP (Gy m2): 5.2 Air Kerma (mGy): 14 EXAM: Insertion of a tunneled hemodialysis catheter with sonographic and fluoroscopic guidance and conscious sedation; CPT: 83464, 56318, 08459, 71834; INFORMATION: End-stage renal disease; TECHNIQUE AND FINDINGS: Conscious sedation start time: 1024 hours; completion time: 1100 hours; Under physician supervision 2 mg of Versed and 50 mcg of fentanyl were administered intravenously for sedation. The patient's heart rate, blood pressure and pulse oximetry were continuously monitored by a trained registered nurse. Physician ahfj-wh-wuma sedation time was 36 minutes. Benefits and [...] usual st erile fashion and a 15 Armenian tunneled hemodialysis catheter was inserted and positioned [...] 1 Signed Report (CONTINUED ) Name: REGINA NUNEZMEHRAN [facility] SP D OB: 1970 Age/S: 49 / M [address] [facility] Unit #: [id number] Loc: [place] [address] Phys: Oumar Green MD Acct: [id number] Dis Date: Status: ADM IN PHONE #: [phone] Exam Date: 08/24/2019 1100 FAX #: Reason: EXAMS: CPT CODE: [id number] SP FLUORO GUID CTRL ACC DEV 15198 Fluoro Time: 57 DAP (Gy m2): 5.2 Air Kerma (mGy): 14 <Continued> CAK : 13 mGy DAP : 5260 mGy sq cm Location code: [facility] at 1323 Reported and signed by: Melquiades Lane M.D. CC: Shabbir Duncan MD; Keny Green Technologist: Saleem Benito RT(R) Trnscb Date/Time: 08/25/2019 (1323) tNOAH.GRW Orig Print D/T: S: 08/25/2019 (4683) PAGE 2 Signed Report GLUBED 2019-08-25 11:13:00* Test Item Value Reference Range Interpretation Comments GLUBED (test code = GLUBED) 222 mg/dL 74-106 H Performed by certified hoist operator at [facility] [id number] 07:34:00* Test Item Value Reference Range Interpretation Comments GLUBED (test code = GLUBED) 162 mg/dL 74-106 H Performed by certified hoist operator at [facility] AB HEPATITIS B [id number] 07:12:00* Test Item Value Reference Range Interpretation Comments AB HEPATITIS B SURFACE (test code = HBSAB) Non Reactive () Non Reactive: Inconsistent with immunity, less than 10 mIU/mL Reactive: Consistent with immunity, greater than 9.9 mIU/mLPerformed At: [facility] [address] [id number] Sloan MD Ph:[phone] HEPATITIS B CORE ANTIBODY,[id number] 07:12:00* Test Item Value Reference Range Interpretation Comments HEPATITIS B CORE ANTIBODY,TOT (test code = HBCAB) Negative Nega tive Performed At: HD [facility] [address] [id number] Sloan MD Ph:[phone] RENAL FUNCTION [id number] 06:24:00* Test Item Value Reference Range Interpretation Comments SODIUM (test code = NA) 141 mmol/L 136-145 N POTASSIUM (test code = K) 4.3 mmol/L 3.5-5.1 N CHLORIDE (test code = CL) 110.0 mmol/L 98-107 H CARBON DIOXIDE (test code = CO2) 22.0 mmol/L 21-32 N ANION GAP (test code = GAP) 13.3 10-20 N GLUCOSE (test code = GLU) 169 mg/dL 74-106 H BLOOD UREA NITROGEN (test code = BUN) 78 mg/dL 7-18 H RESULT VERIFIED BY REPEAT ANALYSIS CREATININE (test code = CREAT) 9.60 mg/dL 0.7-1.3 H ALBUMIN (test code = ALB) 2.5 g/dL 3.4-5.0 L CALCIUM (test code = CA) 6.7 mg/dL 8.5-10.1 L PHOSPHORUS (test code = PHOS) 6.9 mg/dL 2.5-4.9 H FE W/TOTAL IRON BINDING CAP.2019-08-25 06:24:00* Test Item Value Reference Range Interpretation Comments SERUM IRON (test code = IRON) 58 ug/dL 50-175 N TOTAL IRON BINDING CAPACITY (test code = TIBC) 221 mcg/dL 250-450 L IRON SATURATION (test code = FESAT) 26.24 % 13-45 N [id number] 06:24:00* Test Item Value Reference Range Interpretation Comments FERRITIN (test code = LEONARDO) 287 ng/mL 8-388 N RENAL FUNCTION [id number] 06:09:00* Test Item Value Reference Range Interpretation Comments SODIUM (test code = NA) 141 mmol/L 136-145 N POTASSIUM (test code = K) 4.3 mmol/L 3.5-5.1 N CHLORIDE (test code = CL) 110.0 mmol/L 98-107 H CARBON DIOXIDE (test code = CO2) mmol/L [...] CAP.2019-08-25 06:09:00* Test Item Value Reference Range Interpretation Comments SERUM IRON (test code = IRON) ug/dL 50-175 TOTAL IRON BINDING CAPACITY (test code = TIBC) mcg/dL 250-450 IRON SATURATION (test code = FESAT) % 13-45 [id number] 06:09:00* Test Item Value Reference Range Interpretation Comments FERRITIN (test code = LEONARDO) ng/mL 8-388 CBC W/AUTO [id number] 05:48:00* Test Item Value Reference Range Interpretation Comments WHITE BLOOD CELL (test code = WBC) 9.9 K/mm3 4.5-12.5 N RED BLOOD CELL (test code = RBC) 2.88 mill/mm3 4.0-5.8 L HEMOGLOBIN (test code = HGB) 8.7 gram/dL 13.0-17.5 L HEMATOCRIT (test code = HCT) 26.0 % 42.0-52.0 L MEAN CELL VOLUME (test code = MCV) 90.3 fL 80-98 MEAN CELL HGB (test code = MCH) 30.2 picogram 27.0-33.0 N MEAN CELL HGB CONCETRATION (test code = MCHC) 33.5 gram/dL 33.0-36. 0 N RED CELL DISTRIBUTION WIDTH (test code = RDW) 12.7 % 11.6-16. 2 N RED CELL DISTRIBUTION WIDTH SD (test code = RDW-SD) 41.9 fL 37 .0-51.0 N PLATELET COUNT (test code = PLT) 174 K/mm3 150-450 N MEAN PLATELET VOLUME (test code = MPV) 10.7 fL 6.7-11.0 N NEUTROPHIL % (test code = NT%) 77.1 % 39.0-69.0 H IMMATURE GRANULOCYTE % (test code = IG%) 0.5 % 0.0-5.0 N LYMPHOCYTE % (test code = LY%) 9.2 % 25.0-55.0 L MONOCYTE % (test code = MO%) 10.5 % 0.0-10.0 H EOSINOPHIL % (test code = EO%) 2.3 % 0.0-5.0 N BASOPHIL % (test code = BA%) 0.4 % 0.0-1.0 N NUCLEATED RBC % (test code = NRBC%) 0.0 % 0-0 N NEUTROPHIL # (test code = NT#) 7.66 K/mm3 1.8-7.7 N IMMATURE GRANULOCYTE # (test code = IG#) 0.05 x10 3/uL 0-0.03 H LYMPHOCYTE # (test code = LY#) 0.91 K/mm3 1.0-5.0 L MONOCYTE # (test code = MO#) 1.04 K/mm3 0-0.8 H EOSINOPHIL # (test code = EO#) 0.23 K/mm3 0.0-0.5 N BASOPHIL # (test code = BA#) 0.04 K/mm3 0.0-0.2 N NUCLEATED RBC # (test code = NRBC#) 0.00 K/mm3 0.0-0.1 N MANUAL DIFF REQUIRED (test code = MDIFF) NO [id number] 20:00:00* Test Item Value Reference Range Interpretation Comments GLUBED (test code = GLUBED) 118 mg/dL 74-106 H Performed by certified hoist operator at [facility] [id number] 14:16:00* Test Item Value Reference Range Interpretation Comments TROPONIN-I (test code = TROPI) <0.015 ng/mL 0-0.045 N COMMENTS TO MANAGER HEALTH: COLLECT 3 HOURS AFTER PREVIOUS [id number] 12:15:00* Test Item Value Reference Range Interpretation Comments GLUBED (test code = GLUBED) 81 mg/dL 74-106 N Performed by certified hoist operator at [facility] - XR CHEST 1 [id number] 11:30:00 FAX: Shabbir Chopra [phone] [place]: St: ADM FAX: Keny Hairston [facility] [phone] Name: REGINA NUNEZZACH [facility] : 1970 Age/S: 49/M [address] [facility] Unit #: [id number] Loc: V.[address] [place] [address] Phys: Melquiades Lane MD Acct: [id number] Dis Date: Status: ADM IN PHONE #: [phone] Exam Date: 08/24/2019 1108 FAX #: [phone] Reason: ESRD; [facility]; EXAMS: CPT CODE: [id number] XR CHEST 1 V 68380 REASON FOR EXAM: ESRD; [facility]; Exam Order Date: 08/24/2019 11:09 AM Ordering M.D.: Melquiades Lane MD PROCEDURE: - XR CHEST [...] Lidia REIS(R); Malinda Patel(R) Trnscrd Date/Time/By: 08/24/2019 (0503) : By: [email or web address] Orig Print D/T: S: 08/24/2019 (7097) PAGE 1 Signed Report [id number] 10:08:00* Test Item Value Reference Range Interpretation Comments PHOSPHORUS (test code = PHOS) 8.1 mg/dL 2.5-4.9 H BASIC METABOLIC [id number] 09:47:00* Test Item Value Reference Range Interpretation Comments SODIUM (test code = NA) 143 mmol/L 136-145 N POTASSIUM (test code = K) 5.3 mmol/L 3.5-5.1 H CHLORIDE (test code = CL) 112.0 mmol/L 98-107 H CARBON DIOXIDE (test code = CO2) 17.0 mmol/L 21-32 L ANION GAP (test code = GAP) 19.3 10-20 N GLUCOSE (test code = GLU) 69 mg/dL 74-106 L BLOOD UREA NITROGEN (test code = BUN) 110 mg/dL 7-18 H GLOMERULAR FILTRATION RATE (test code = GFR) 5 mL/min >=60 Estimated GFR by using Modified MDRD formula.Chronic kidney disease is defined as either kidney damageor GFR <60 mL/min/1.73 m2 for >3 months. CREATININE (test code = CREAT) 11.70 mg/dL 0.7-1.3 H BUN/CREATININE RATIO (test code = BUN/CREA) 9.4 10-20 L CALCIUM (test code = CA) 6.3 mg/dL 8.5-10.1 LL Res ults called to [id number] by XIMENA 08/24/19 0945Critical results verified and read back by Nurse? YES PROTHROMBIN [id number] 08:51:00* Test Item Value Reference Range Interpretation Comments PROTHROMBIN TIME PATIENT (test code = PTP) 12.1 seconds 9.0-14.0 N INTERNATIONAL NORMAL RATIO (test code = INR) 1.0 0.8-1.2 N The therapeutic range for oral anticoagulant therapy [...] (2.5-3.5) IS PATIENT ON ANTICOAGULANTS? NTHROMBOPLASTIN TIME [id number] 08:51:00* Test Item Value Reference Range Interpretation Comments THROMBOPLASTIN TIME PARTIAL (test code = PTT) 32.6 seconds 25.0-36. 5 N IS PATIENT ON ANTICOAGULANTS? NBASIC METABOLIC [id number] 08:49:00* Test Item Value Reference Range Interpretation Comments SODIUM (test code = NA) 143 mmol/L 136-145 N POTASSIUM (test code = K) 5.3 mmol/L 3.5-5.1 H CHLORIDE (test code = CL) 112.0 mmol/L 98-107 H CARBON DIOXIDE (test code = CO2) mmol/L 21-32 ANION GAP (test code = GAP) 10-20 GLUCOSE (test code = GLU) mg/dL 74-106 BLOOD UREA NITROGEN (test code = BUN) mg/dL 7-18 GLOMERULAR FILTRATION RATE (test code = GFR) mL/min >=60 CREATININE (test code = CREAT) mg/dL 0.7-1.3 BUN/CREATININE RATIO (test code = BUN/CREA) 10-20 CALCIUM (test code = CA) mg/dL 8.5-10.1 CBC W/AUTO [id number] 08:14:00* Test Item Value Reference Range Interpretation Comments WHITE BLOOD CELL (test code = WBC) 11.6 K/mm3 4.5-12.5 N RED BLOOD CELL (test code = RBC) 2.87 mill/mm3 4.0-5.8 L HEMOGLOBIN (test code = HGB) 8.7 gram/dL 13.0-17.5 L HEMATOCRIT (test code = HCT) 27.3 % 42.0-52.0 L MEAN CELL VOLUME (test code = MCV) 95.1 fL 80-98 N MEAN CELL HGB (test code = MCH) 30.3 picogram 27.0-33.0 N MEAN CELL HGB CONCETRATION (test code = MCHC) 31.9 gram/dL 33.0-36. 0 L RED CELL DISTRIBUTION WIDTH (test code = RDW) 13.0 % 11.6-16. 2 N RED CELL DISTRIBUTION WIDTH SD (test code = RDW-SD) 44.7 fL 37 .0-51.0 N PLATELET COUNT (test code = PLT) 182 K/mm3 150-450 N MEAN PLATELET VOLUME (test code = MPV) 10.7 fL 6.7-11.0 N NEUTROPHIL % (test code = NT%) 76.4 % 39.0-69.0 H IMMATURE GRANULOCYTE % (test code = IG%) 0.5 % 0.0-5.0 N LYMPHOCYTE % (test code = LY%) 6.7 % 25.0-55.0 L MONOCYTE % (test code = MO%) 11.4 % 0.0-10.0 H EOSINOPHIL % (test code = EO%) 4.7 % 0.0-5.0 N BASOPHIL % (test code = BA%) 0.3 % 0.0-1.0 N NUCLEATED RBC % (test code = NRBC%) 0.0 % 0-0 N NEUTROPHIL # (test code = NT#) 8.85 K/mm3 1.8-7.7 H IMMATURE GRANULOCYTE # (test code = IG#) 0.06 x10 3/uL 0-0.03 H LYMPHOCYTE # (test code = LY#) 0.78 K/mm3 1.0-5.0 L MONOCYTE # (test code = MO#) 1.32 K/mm3 0-0.8 H EOSINOPHIL # (test code = EO#) 0.54 K/mm3 0.0-0.5 H BASOPHIL # (test code = BA#) 0.04 K/mm3 0.0-0.2 N NUCLEATED RBC # (test code = NRBC#) 0.00 K/mm3 0.0-0.1 N MANUAL DIFF REQUIRED (test code = MDIFF) NO [id number] 07:32:00* Test Item Value Reference Range Interpretation Comments GLUBED (test code = GLUBED) 91 mg/dL 74-106 N Performed by certified hoist operator at [facility] [id number] 07:32:00* Test Item Value Reference Range Interpretation Comments GLUBED (test code = GLUBED) 52 mg/dL 74-106 L Performed by certified hoist operator at [facility] AG HEPAT B [id number] 05:31:00* Test Item Value Reference Range Interpretation Comments AG HEPAT B SURF (test code = HBSAG) Nonreactive Index Nonreactive [id number] 02:00:00* Test Item Value Reference Range Interpretation Comments TROPONIN-I (test code = TROPI) <0.015 ng/mL 0-0.045 N COMMENTS TO MANAGER HEALTH: COLLECT 3 HOURS AFTER PREVIOUS [id number] 01:50:00* Test Item Value Reference Range Interpretation Comments POTASSIUM (test code = K) 5.2 mmol/L 3.5-5.1 H [id number] 23:23:00* Test Item Value Reference Range Interpretation Comments GLUBED (test code = GLUBED) 145 mg/dL 74-106 H Performed by certified hoist operator at [facility] [id number] 20:37:00* Test Item Value Reference Range Interpretation Comments GLUBED (test code = GLUBED) 48 mg/dL 74-106 LL [facility]~ [id number] 20:37:00* Test Item Value Reference Range Interpretation Comments GLUBED (test code = GLUBED) 40 mg/dL 74-106 LL [facility]~ BASIC METABOLIC [id number] 17:18:00* Test Item Value Reference Range Interpretation Comments SODIUM (test code = NA) 144 mmol/L 136-145 N POTASSIUM (test code = K) 6.2 mmol/L 3.5-5.1 HH Re sults called to [id number] by [facility] 08/23/19 1717Critical results verified and read back by Nurse? Y CHLORIDE (test code = CL) 118.0 mmol/L 98-107 H CARBON DIOXIDE (test code = CO2) 17.0 mmol/L 21-32 L ANION GAP (test code = GAP) 15.2 10-20 N GLUCOSE (test code = GLU) 59 mg/dL 74-106 L BLOOD UREA NITROGEN (test code = BUN) 119 mg/dL 7-18 H GLOMERULAR FILTRATION RATE (test code = GFR) 4 mL/min >=60 Estimated GFR by using Modified MDRD formula.Chronic kidney disease is defined as either kidney damageor GFR <60 mL/min/1.73 m2 for >3 months. CREATININE (test code = CREAT) 12.20 mg/dL 0.7-1.3 H BUN/CREATININE RATIO (test code = BUN/CREA) 9.8 10-20 L CALCIUM (test code = CA) 5.6 mg/dL 8.5-10.1 LL Res ults called to [id number] by [facility] 08/23/19 1717Critical results verified and read back by Nurse? Y [id number] 17:18:00* Test Item Value Reference Range Interpretation Comments TROPONIN-I (test code = TROPI) <0.015 ng/mL 0-0.045 N [id number] 16:52:00* Test Item Value Reference Range Interpretation Comments MAGNESIUM (test code = MAG) 2.1 mg/dL 1.8-2.4 N CBC W/O [id number] 16:29:00* Test Item Value Reference Range Interpretation Comments WHITE BLOOD CELL (test code = WBC) 10.8 K/mm3 4.5-12.5 N RED BLOOD CELL (test code = RBC) 2.66 mill/mm3 4.0-5.8 L HEMOGLOBIN (test code = HGB) 8.2 gram/dL 13.0-17.5 L HEMATOCRIT (test code = HCT) 25.6 % 42.0-52.0 L MEAN CELL VOLUME (test code = MCV) 96.2 fL 80-98 N MEAN CELL HGB (test code = MCH) 30.8 picogram 27.0-33.0 N MEAN CELL HGB CONCETRATION (test code = MCHC) 32.0 gram/dL 33.0-36. 0 L RED CELL DISTRIBUTION WIDTH (test code = RDW) 13.1 % 11.6-16. 2 N PLATELET COUNT (test code = PLT) 170 K/mm3 150-450 N MEAN PLATELET VOLUME (test code = MPV) 10.4 fL 6.7-11.0 N - XR CHEST 1 [id number] 15:45:00 FAX: Jose Daniel Godwin MD [place]: [address] St: [facility] FAX: America LangfordShabbir [phone] Name: ZACH GUZMAN [facility] : 1970 Age/S: 49/M [address] [facility] Unit #: [id number] Loc: [place] [address] Phys: Jose Daniel Godwin MD Acct: [id number] Dis Date: Status: REG ER PHONE #: [phone] Exam Date: 08/23/2019 1543 FAX #: [phone] Reason: CHEST PAIN EXAMS: CPT CODE: [id number] XR CHEST 1 V [id number] REASON FOR EXAM: CHEST PAIN EXAM ORDER DATE: 08/23/2019 3:35 PM Ordering: Jose Daniel Godwin MD Attending:Jose Daniel Godwin MD Location:[facility] [place], [place] PROCEDURE: - XR CHEST 1 V COMPARISON: 04/12/2019 FINDINGS: Portable AP frontal view of the chest obtained at 3:42 PM shows clear lungs without evidence of consolidation. There is no evidence of effusion. The heart size is within normal limits. Pulmonary vasculatures are unremarkable. IMPRESSION: No active disease. at 3377 Reported and signed by: Ralf Jamison M.D. CC: Jose Daniel Godwin MD; Shabbir Duncan MD Technologist: DENNIS KEITA RDMS(AB,CLOTH BLEACHING RANGE TENDER) Trnscrd Date/Time/By: 08/23/2019 (6376) : By: MaureenVTL Orig Print D/T: S: 08/23/2019 (1933) PAGE 1 Signed Report COMPREHENSIVE METABOLIC [id number] 15:05:00* Test Item Value Reference Range Interpretation Comments SODIUM (test code = NA) 142 mmol/L 136-145 N POTASSIUM (test code = K) 5.4 mmol/L 3.5-5.1 H CHLORIDE (test code = CL) 112.0 mmol/L 98-107 H CARBON DIOXIDE (test code = CO2) 21.0 mmol/L 21-32 N ANION GAP (test code = GAP) 14.4 10-20 N GLUCOSE (test code = GLU) 145 mg/dL 74-106 H BLOOD UREA NITROGEN (test code = BUN) 83 mg/dL 7-18 H GLOMERULAR FILTRATION RATE (test code = GFR) 7 mL/min >=60 Estimated GFR by using Modified MDRD formula.Chronic kidney disease is defined as either kidney damageor GFR <60 mL/min/1.73 m2 for >3 months. CREATININE (test code = CREAT) 8.10 mg/dL 0.7-1.3 H BUN/CREATININE RATIO (test code = BUN/CREA) 10.2 10-20 N TOTAL PROTEIN (test code = PROT) 6.6 gram/dL 6.4-8.2 N ALBUMIN (test code = ALB) 2.8 g/dL 3.4-5.0 L GLOBULIN (test code = GLOB) 3.8 gram/dL 2.7-4.2 N ALBUMIN/GLOBULIN RATIO (test code = A/G) 0.7 0.75-1.50 L CALCIUM (test code = CA) 6.5 mg/dL 8.5-10.1 L BILIRUBIN TOTAL (test code = BILT) 0.50 mg/dL 0.0-1.0 N SGOT/AST (test code = AST) 10 IUnit/L 15-37 L SGPT/ALT (test code = ALT) 14 IUnit/L 12-78 N ALKALINE PHOSPHATASE TOTAL (test code = ALKP) 78 IUnit/L 45-117 N Note change in reference range due to change in reagent. COMPREHENSIVE METABOLIC [id number] 14:59:00* Test Item Value Reference Range Interpretation Comments SODIUM (test code = NA) 142 mmol/L 136-145 N POTASSIUM (test code = K) 5.4 mmol/L 3.5-5.1 H CHLORIDE (test code = CL) 112.0 mmol/L 98-107 H CARBON DIOXIDE (test code = CO2) mmol/L 21-32 ANION GAP (test code = GAP) 10-20 GLUCOSE (test code = GLU) mg/dL 74-106 BLOOD UREA NITROGEN (test code = BUN) mg/dL 7-18 GLOMERULAR FILTRATION RATE (test code = GFR) mL/min >=60 CREATININE (test code = CREAT) mg/dL 0.7-1.3 BUN/CREATININE RATIO (test code = BUN/CREA) 10-20 TOTAL PROTEIN (test code = PROT) gram/dL 6.4-8.2 ALBUMIN (test code = ALB) g/dL 3.4-5.0 GLOBULIN (test code = GLOB) gram/dL 2.7-4.2 ALBUMIN/GLOBULIN RATIO (test code = A/G) 0.75-1.50 CALCIUM (test code = CA) mg/dL 8.5-10.1 BILIRUBIN TOTAL (test code = BILT) mg/dL 0.0-1.0 SGOT/AST (test code = AST) IUnit/L 15-37 SGPT/ALT (test code = ALT) IUnit/L 12-78 ALKALINE PHOSPHATASE TOTAL (test code = ALKP) IUnit/L 45-117 CBC W/AUTO [id number] 14:53:00* Test Item Value Reference Range Interpretation Comments WHITE BLOOD CELL (test code = WBC) 7.7 K/mm3 4.5-12.5 N RED BLOOD CELL (test code = RBC) 3.15 mill/mm3 4.0-5.8 L HEMOGLOBIN (test code = HGB) 9.6 gram/dL 13.0-17.5 L HEMATOCRIT (test code = HCT) 29.0 % 42.0-52.0 L MEAN CELL VOLUME (test code = MCV) 92.1 fL 80-98 MEAN CELL HGB (test code = MCH) 30.5 picogram 27.0-33.0 N MEAN CELL HGB CONCETRATION (test code = MCHC) 33.1 gram/dL 33.0-36. 0 N RED CELL DISTRIBUTION WIDTH (test code = RDW) 13.2 % 11.6-16. 2 N RED CELL DISTRIBUTION WIDTH SD (test code = RDW-SD) 44.9 fL 37 .0-51.0 N PLATELET COUNT (test code = PLT) 161 K/mm3 150-450 N MEAN PLATELET VOLUME (test code = MPV) 11.7 fL 6.7-11.0 H NEUTROPHIL % (test code = NT%) 69.3 % 39.0-69.0 H IMMATURE GRANULOCYTE % (test code = IG%) 0.4 % 0.0-5.0 N LYMPHOCYTE % (test code = LY%) 13.7 % 25.0-55.0 L MONOCYTE % (test code = MO%) 10.6 % 0.0-10.0 H EOSINOPHIL % (test code = EO%) 5.6 % 0.0-5.0 H BASOPHIL % (test code = BA%) 0.4 % 0.0-1.0 N NUCLEATED RBC % (test code = NRBC%) 0.0 % 0-0 N NEUTROPHIL # (test code = NT#) 5.32 K/mm3 1.8-7.7 N IMMATURE GRANULOCYTE # (test code = IG#) 0.03 x10 3/uL 0-0.03 N LYMPHOCYTE # (test code = LY#) 1.05 K/mm3 1.0-5.0 N MONOCYTE # (test code = MO#) 0.81 K/mm3 0-0.8 H EOSINOPHIL # (test code = EO#) 0.43 K/mm3 0.0-0.5 N BASOPHIL # (test code = BA#) 0.03 K/mm3 0.0-0.2 N NUCLEATED RBC # (test code = NRBC#) 0.00 K/mm3 0.0-0.1 N CBC W/AUTO [id number] 20:25:00* Test Item Value Reference Range Interpretation Comments WHITE BLOOD CELL (test code = WBC) 8.2 K/mm3 4.5-12.5 N RED BLOOD CELL (test code = RBC) 2.30 mill/mm3 4.0-5.8 L HEMOGLOBIN (test code = HGB) 7.2 gram/dL 13.0-17.5 L HEMATOCRIT (test code = HCT) 22.4 % 42.0-52.0 L MEAN CELL VOLUME (test code = MCV) 97.4 fL 80-98 N MEAN CELL HGB (test code = MCH) 31.3 picogram 27.0-33.0 N MEAN CELL HGB CONCETRATION (test code = MCHC) 32.1 gram/dL 33.0-36. 0 L RED CELL DISTRIBUTION WIDTH (test code = RDW) 13.1 % 11.6-16. 2 N RED CELL DISTRIBUTION WIDTH SD (test code = RDW-SD) 46.1 fL 37 .0-51.0 N PLATELET COUNT (test code = PLT) 189 K/mm3 150-450 N MEAN PLATELET VOLUME (test code = MPV) 11.3 fL 6.7-11.0 H NEUTROPHIL % (test code = NT%) 68.5 % 39.0-69.0 N IMMATURE GRANULOCYTE % (test code = IG%) 0.5 % 0.0-5.0 N LYMPHOCYTE % (test code = LY%) 16.7 % 25.0-55.0 L MONOCYTE % (test code = MO%) 8.5 % 0.0-10.0 N EOSINOPHIL % (test code = EO%) 5.4 % 0.0-5.0 H BASOPHIL % (test code = BA%) 0.4 % 0.0-1.0 N NUCLEATED RBC % (test code = NRBC%) 0.0 % 0-0 N NEUTROPHIL # (test code = NT#) 5.59 K/mm3 1.8-7.7 N IMMATURE GRANULOCYTE # (test code = IG#) 0.04 x10 3/uL 0-0.03 H LYMPHOCYTE # (test code = LY#) 1.36 K/mm3 1.0-5.0 N MONOCYTE # (test code = MO#) 0.69 K/mm3 0-0.8 N EOSINOPHIL # (test code = EO#) 0.44 K/mm3 0.0-0.5 N BASOPHIL # (test code = BA#) 0.03 K/mm3 0.0-0.2 N NUCLEATED RBC # (test code = NRBC#) 0.00 K/mm3 0.0-0.1 N MANUAL DIFF REQUIRED (test code = MDIFF) NO [id number] 21:51:00* Test Item Value Reference Range Interpretation Comments GLUBED (test code = GLUBED) 185 mg/dL 74-106 H Performed by certified hoist operator at [facility] [id number] 12:15:00* Test Item Value Reference Range Interpretation Comments GLUBED (test code = GLUBED) 130 mg/dL 74-106 H Performed by certified hoist operator at [facility] BASIC METABOLIC [id number] 10:52:00* Test Item Value Reference Range Interpretation Comments SODIUM (test code = NA) 142 mmol/L 136-145 N POTASSIUM (test code = K) 4.5 mmol/L 3.5-5.1 N CHLORIDE (test code = CL) 112.0 mmol/L 98-107 H CARBON DIOXIDE (test code = CO2) 22.0 mmol/L 21-32 N ANION GAP (test code = GAP) 12.5 10-20 N GLUCOSE (test code = GLU) 169 mg/dL 74-106 H BLOOD UREA NITROGEN (test code = BUN) 70 mg/dL 7-18 H GLOMERULAR FILTRATION RATE (test code = GFR) 12 mL/min >=60 Estimated GFR by using Modified MDRD formula.Chronic kidney disease is defined as either kidney damageor GFR <60 mL/min/1.73 m2 for >3 months. CREATININE (test code = CREAT) 5.20 mg/dL 0.7-1.3 H BUN/CREATININE RATIO (test code = BUN/CREA) 13.5 10-20 N CALCIUM (test code = CA) 8.1 mg/dL 8.5-10.1 L CBC W/AUTO [id number] 10:16:00* Test Item Value Reference Range Interpretation Comments WHITE BLOOD CELL (test code = WBC) 9.5 K/mm3 4.5-12.5 N RED BLOOD CELL (test code = RBC) 2.78 mill/mm3 4.0-5.8 L HEMOGLOBIN (test code = HGB) 8.8 gram/dL 13.0-17.5 L HEMATOCRIT (test code = HCT) 26.9 % 42.0-52.0 L MEAN CELL VOLUME (test code = MCV) 96.8 fL 80-98 N MEAN CELL HGB (test code = MCH) 31.7 picogram 27.0-33.0 N MEAN CELL HGB CONCETRATION (test code = MCHC) 32.7 gram/dL 33.0-36. 0 L RED CELL DISTRIBUTION WIDTH (test code = RDW) 12.7 % 11.6-16. 2 N RED CELL DISTRIBUTION WIDTH SD (test code = RDW-SD) 44.9 fL 37 .0-51.0 N PLATELET COUNT (test code = PLT) 226 K/mm3 150-450 N MEAN PLATELET VOLUME (test code = MPV) 11.0 fL 6.7-11.0 N NEUTROPHIL % (test code = NT%) 71.5 % 39.0-69.0 H IMMATURE GRANULOCYTE % (test code = IG%) 0.6 % 0.0-5.0 N LYMPHOCYTE % (test code = LY%) 15.0 % 25.0-55.0 L MONOCYTE % (test code = MO%) 9.0 % 0.0-10.0 N EOSINOPHIL % (test code = EO%) 3.7 % 0.0-5.0 N BASOPHIL % (test code = BA%) 0.2 % 0.0-1.0 N NUCLEATED RBC % (test code = NRBC%) 0.0 % 0-0 N NEUTROPHIL # (test code = NT#) 6.81 K/mm3 1.8-7.7 N IMMATURE GRANULOCYTE # (test code = IG#) 0.06 x10 3/uL 0-0.03 H LYMPHOCYTE # (test code = LY#) 1.43 K/mm3 1.0-5.0 N MONOCYTE # (test code = MO#) 0.86 K/mm3 0-0.8 H EOSINOPHIL # (test code = EO#) 0.35 K/mm3 0.0-0.5 N BASOPHIL # (test code = BA#) 0.02 K/mm3 0.0-0.2 N NUCLEATED RBC # (test code = NRBC#) 0.00 K/mm3 0.0-0.1 N MANUAL DIFF REQUIRED (test code = MDIFF) NO [id number] 08:35:00* Test Item Value Reference Range Interpretation Comments GLUBED (test code = GLUBED) 199 mg/dL 74-106 H Performed by certified hoist operator at [facility] AG HEPAT B [id number] 22:13:00* Test Item Value Reference Range Interpretation Comments AG HEPAT B SURF (test code = HBSAG) Nonreactive Index Nonreactive [id number] 19:36:00* Test Item Value Reference Range Interpretation Comments GLUBED (test code = GLUBED) 214 mg/dL 74-106 H Performed by certified hoist operator at [facility] UR CREATININE CLEARANCE [id number] 19:11:00* Test Item Value Reference Range Interpretation Comments CREATININE CLEARANCE RESULT (test code = CREATCLR) 24 mL/min 100 -120 L CREATININE (test code = CREAT) 5.90 mg/dL 0.7-1.3 H UR CREATININE RANDOM (test code = CREATU) 57.0 mg/dL 30-125 N UR VOLUME 24HR (test code = VOL) 3525 mL/24hrs [id number] VOLUME- 3525VOLUME CAME FROM 2 CONTAINERSUR CREATININE CLEARANCE [id number] 18:55:00* Test Item Value Reference Range Interpretation Comments CREATININE CLEARANCE RESULT (test code = CREATCLR) mL/min 100 -120 CREATININE (test code = CREAT) mg/dL 0.7-1.3 UR CREATININE RANDOM (test code = CREATU) mg/dL 30-125 UR VOLUME 24HR (test code = VOL) 3525 mL/24hrs 4013-9197 VOLUME- 3525VOLUME CAME FROM 2 [id number] 17:51:00* Test Item Value Reference Range Interpretation Comments GLUBED (test code = GLUBED) 225 mg/dL 74-106 H Performed by certified hoist operator at [facility] [id number] 15:58:00* Test Item Value Reference Range Interpretation Comments GLUBED (test code = GLUBED) 218 mg/dL 74-106 H Performed by certified hoist operator at [facility] [id number] 14:53:00* Test Item Value Reference Range Interpretation Comments GLUBED (test code = GLUBED) 153 mg/dL 74-106 H Performed by certified hoist operator at [facility] [id number] 11:11:00* Test Item Value Reference Range Interpretation Comments GLUBED (test code = GLUBED) 136 mg/dL 74-106 H Performed by certified hoist operator at [facility] [id number] 07:48:00* Test Item Value Reference Range Interpretation Comments GLUBED (test code = GLUBED) 132 mg/dL 74-106 H Performed by certified hoist operator at [facility] COMPREHENSIVE METABOLIC [id number] 05:55:00* Test Item Value Reference Range Interpretation Comments SODIUM (test code = NA) 144 mmol/L 136-145 N POTASSIUM (test code = K) 5.3 mmol/L 3.5-5.1 H CHLORIDE (test code = CL) 117.0 mmol/L 98-107 H CARBON DIOXIDE (test code = CO2) 18.0 mmol/L 21-32 L ANION GAP (test code = GAP) 14.3 10-20 N GLUCOSE (test code = GLU) 146 mg/dL 74-106 H BLOOD UREA NITROGEN (test code = BUN) 78 mg/dL 7-18 H GLOMERULAR FILTRATION RATE (test code = GFR) 12 mL/min >=60 Estimated GFR by using Modified MDRD formula.Chronic kidney disease is defined as either kidney damageor GFR <60 mL/min/1.73 m2 for >3 months. CREATININE (test code = CREAT) 5.30 mg/dL 0.7-1.3 H BUN/CREATININE RATIO (test code = BUN/CREA) 14.7 10-20 N TOTAL PROTEIN (test code = PROT) 6.5 gram/dL 6.4-8.2 N ALBUMIN (test code = ALB) 3.2 g/dL 3.4-5.0 L GLOBULIN (test code = GLOB) 3.3 gram/dL 2.7-4.2 N ALBUMIN/GLOBULIN RATIO (test code = A/G) 1.0 0.75-1.50 N CALCIUM (test code = CA) 7.9 mg/dL 8.5-10.1 L BILIRUBIN TOTAL (test code = BILT) 0.20 mg/dL 0.0-1.0 N SGOT/AST (test code = AST) 10 IUnit/L 15-37 L SGPT/ALT (test code = ALT) 22 IUnit/L 12-78 N ALKALINE PHOSPHATASE TOTAL (test code = ALKP) 93 IUnit/L 45-117 N Note change in reference range due to change in reagent. COMPREHENSIVE METABOLIC [id number] 05:35:00* Test Item Value Reference Range Interpretation Comments SODIUM (test code = NA) 144 mmol/L 136-145 N POTASSIUM (test code = K) 5.3 mmol/L 3.5-5.1 H CHLORIDE (test code = CL) 117.0 mmol/L 98-107 H CARBON DIOXIDE (test code = CO2) mmol/L 21-32 ANION GAP (test code = GAP) 10-20 GLUCOSE (test code = GLU) mg/dL 74-106 BLOOD UREA NITROGEN (test code = BUN) mg/dL 7-18 GLOMERULAR FILTRATION RATE (test code = GFR) mL/min >=60 CREATININE (test code = CREAT) mg/dL 0.7-1.3 BUN/CREATININE RATIO (test code = BUN/CREA) 10-20 TOTAL PROTEIN (test code = PROT) gram/dL 6.4-8.2 ALBUMIN (test code = ALB) g/dL 3.4-5.0 GLOBULIN (test code = GLOB) gram/dL 2.7-4.2 ALBUMIN/GLOBULIN RATIO (test code = A/G) 0.75-1.50 CALCIUM (test code = CA) mg/dL 8.5-10.1 BILIRUBIN TOTAL (test code = BILT) mg/dL 0.0-1.0 SGOT/AST (test code = AST) IUnit/L 15-37 SGPT/ALT (test code = ALT) IUnit/L 12-78 ALKALINE PHOSPHATASE TOTAL (test code = ALKP) IUnit/L 45-117 CBC W/AUTO [id number] 05:04:00* Test Item Value Reference Range Interpretation Comments WHITE BLOOD CELL (test code = WBC) 8.5 K/mm3 4.5-12.5 N RED BLOOD CELL (test code = RBC) 2.69 mill/mm3 4.0-5.8 L HEMOGLOBIN (test code = HGB) 8.2 gram/dL 13.0-17.5 L HEMATOCRIT (test code = HCT) 25.7 % 42.0-52.0 L MEAN CELL VOLUME (test code = MCV) 95.5 fL 80-98 N MEAN CELL HGB (test code = MCH) 30.5 picogram 27.0-33.0 N MEAN CELL HGB CONCETRATION (test code = MCHC) 31.9 gram/dL 33.0-36. 0 L RED CELL DISTRIBUTION WIDTH (test code = RDW) 12.9 % 11.6-16. 2 N RED CELL DISTRIBUTION WIDTH SD (test code = RDW-SD) 44.9 fL 37 .0-51.0 N PLATELET COUNT (test code = PLT) 220 K/mm3 150-450 N MEAN PLATELET VOLUME (test code = MPV) 11.9 fL 6.7-11.0 H NEUTROPHIL % (test code = NT%) 65.0 % 39.0-69.0 N IMMATURE GRANULOCYTE % (test code = IG%) 0.5 % 0.0-5.0 N LYMPHOCYTE % (test code = LY%) 18.6 % 25.0-55.0 L MONOCYTE % (test code = MO%) 11.4 % 0.0-10.0 H EOSINOPHIL % (test code = EO%) 4.3 % 0.0-5.0 N BASOPHIL % (test code = BA%) 0.2 % 0.0-1.0 N NUCLEATED RBC % (test code = NRBC%) 0.0 % 0-0 N NEUTROPHIL # (test code = NT#) 5.50 K/mm3 1.8-7.7 N IMMATURE GRANULOCYTE # (test code = IG#) 0.04 x10 3/uL 0-0.03 H LYMPHOCYTE # (test code = LY#) 1.57 K/mm3 1.0-5.0 N MONOCYTE # (test code = MO#) 0.96 K/mm3 0-0.8 H EOSINOPHIL # (test code = EO#) 0.36 K/mm3 0.0-0.5 N BASOPHIL # (test code = BA#) 0.02 K/mm3 0.0-0.2 N NUCLEATED RBC # (test code = NRBC#) 0.00 K/mm3 0.0-0.1 N [id number] 19:56:00* Test Item Value Reference Range Interpretation Comments GLUBED (test code = GLUBED) 151 mg/dL 74-106 H Performed by certified hoist operator at [facility] TROPONIN I [id number] 12:57:00* Test Item Value Reference Range Interpretation Comments TROPONIN I RAPID (test code = [...] be valid only if similarmethodology is used. [id number] 12:23:00* Test Item Value Reference Range Interpretation Comments GLUBED (test code = GLUBED) 46 mg/dL 74-106 LL [facility] - CT ABD PELVIS W/O [id number] 11:51:00 Name: ZACH GUZMAN [facility] : 1970 Age/S: 49 / M [address] [facility] Unit #: [id number] Loc: [place] [address] Phys: Keny Green MD Acct: [id number] Dis Date: Status: ADM IN PHONE #: [phone] Exam Date: 04/12/2019 1031 FAX #: [phone] Reason: RENAL FAILURE EXAMS: CPT CODE: [id number] CT ABD PELVIS W/O CONT 77277 HISTORY: Renal failure. COMPARISON: September 11, 2015 [...] air. PAGE 1 Signed Report (CONTINUED) Name: REGINA KAURZACH Navarrete [facility] : 1970 Age/S: 49 / M [address] [facility] Unit #: [id number] Loc: [place] [address] Phys: Keny Green MD Acct: [id number] Dis Date: Status: ADM IN PHONE #: [phone] Exam Date: 04/12/2019 1031 FAX #: [phone] Reason: RENAL FAIL URE EXAMS: CPT CODE: [id number] CT ABD PELVIS W/O CONT 70022 <Continued> at 1151 Reported and signed by: Sourav Vail M.D. CC: Shabbir Duncan MD; Keny Green Technologist:Yoni Sun RT(R),(MR),(CT) CTDI: DLP: Trnscb Date/Time: 04/12/2019 (9261) [email or web address] Orig Print D/T: S: 04/12/2019 (5885) PAGE 2 Signed Report VITAMIN B12 2019-04-12 11:18:00* Test Item Value Reference Range Interpretation Comments VITAMIN B12 (test code = VITB12) 431 pg/mL 193-986 N FOLIC [id number] 11:18:00* Test Item Value Reference Range Interpretation Comments FOLIC ACID (test code = FOL) 22.0 ng/mL 3.10-17.50 H THYROID PROFILE [id number] 11:18:00* Test Item Value Reference Range Interpretation Comments T3 UPTAKE (test code = T3UP) 36.0 % 30.0-40.0 N T4 (THYROXINE) (test code = T4) 5.9 ug/dL 4.5-13.9 N T7 (FREE THYROXINE INDEX) (test code = T7) 2.12 FTI 1.3-5.1 N THYROID STIMULATING HORMONE (test code = TSH) 2.050 uIU/mL 0.36-3.7 4 N TSH REFERENCE RANGES: EUTHYROID: 0.35 - 4.3 mIU/mL HYPO : > 5.5 mIU/mL HYPER : < 0.35 mIU/mL [id number] 11:14:00* Test Item Value Reference Range Interpretation Comments GLUBED (test code = GLUBED) 138 mg/dL 74-106 H Performed by certified hoist operator at [facility] FE W/TOTAL IRON BINDING CAP.2019-04-12 10:48:00* Test Item Value Reference Range Interpretation Comments SERUM IRON (test code = IRON) 70 ug/dL 50-175 N TOTAL IRON BINDING CAPACITY (test code = TIBC) 262 mcg/dL 250-450 N IRON SATURATION (test code = FESAT) 26.72 % 13-45 N [id number] 10:48:00* Test Item Value Reference Range Interpretation Comments GLYCOSYLATED HEMOGLOBIN (HA1C) (test code = GLYHGB) 6.2 % HbA1 4. 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 COMPARISON: CT scan [...] DO; Woodrow Carmichael NP Technologist: LESLI RAMOS RT(R),[facility] Date/Time: 04/12/2019 (1010) [email or web address] Orig Print D/T : S: 04/12/2019 (1014) Probe: PAGE 1 Signed Report CBC W/O [id number] 07:51:00 * Test Item Value Reference Range Interpretation Comments WHITE BLOOD CELL (test code = WBC) 9.2 K/mm3 4.5-12.5 N RED BLOOD CELL (test code = RBC) 2.66 mill/mm3 4.0-5.8 L HEMOGLOBIN (test code = HGB) 8.3 gram/dL 13.0-17.5 L HEMATOCRIT (test code = HCT) 25.2 % 42.0-52.0 L MEAN CELL VOLUME (test code = MCV) 94.7 fL 80-98 N MEAN CELL HGB (test code = MCH) 31.2 picogram 27.0-33.0 N MEAN CELL HGB CONCETRATION (test code = MCHC) 32.9 gram/dL 33.0-36. 0 L RED CELL DISTRIBUTION WIDTH (test code = RDW) 12.8 % 11.6-16. 2 N PLATELET COUNT (test code = PLT) 226 K/mm3 150-450 N MEAN PLATELET VOLUME (test code = MPV) 11.5 fL 6.7-11.0 H BASIC METABOLIC [id number] 07:43:00* Test Item Value Reference Range Interpretation Comments SODIUM (test code = NA) 140 mmol/L 136-145 N POTASSIUM (test code = K) 4.7 mmol/L 3.5-5.1 N CHLORIDE (test code = CL) 112.0 mmol/L 98-107 H CARBON DIOXIDE (test code = CO2) 19.0 mmol/L 21-32 L ANION GAP (test code = GAP) 13.7 10-20 N GLUCOSE (test code = GLU) 85 mg/dL 74-106 N BLOOD UREA NITROGEN (test code = BUN) 80 mg/dL 7-18 H GLOMERULAR FILTRATION RATE (test code = GFR) 10 mL/min >=60 Estimated GFR by using Modified MDRD formula.Chronic kidney disease is defined as either kidney damageor GFR <60 mL/min/1.73 m2 for >3 months. CREATININE (test code = CREAT) 5.90 mg/dL 0.7-1.3 H BUN/CREATININE RATIO (test code = BUN/CREA) 13.6 10-20 N CALCIUM (test code = CA) 7.8 mg/dL 8.5-10.1 L [id number] 07:43:00* Test Item Value Reference Range Interpretation Comments TROPONIN-I (test code = TROPI) <0.015 ng/mL 0-0.045 N BASIC METABOLIC [id number] 07:33:00* Test Item Value Reference Range Interpretation Comments SODIUM (test code = NA) 140 mmol/L 136-145 N POTASSIUM (test code = K) 4.7 mmol/L 3.5-5.1 N CHLORIDE (test code = CL) 112.0 mmol/L 98-107 H CARBON DIOXIDE (test code = CO2) mmol/L 21-32 ANION GAP (test code = GAP) 10-20 GLUCOSE (test code = GLU) mg/dL 74-106 BLOOD UREA NITROGEN (test code = BUN) mg/dL 7-18 GLOMERULAR FILTRATION RATE (test code = GFR) mL/min >=60 CREATININE (test code = CREAT) mg/dL 0.7-1.3 BUN/CREATININE RATIO (test code = BUN/CREA) 10-20 CALCIUM (test code = CA) 7.8 mg/dL 8.5-10.1 L [id number] 07:33:00* Test Item Value Reference Range Interpretation Comments TROPONIN-I (test code = TROPI) ng/mL 0-0.045 - XR CHEST 1 [id number] 07:32:00 FAX: Wily Bustillo MD [phone] [place]: St: [facility] FAX: Woodrow Carmichael NP [phone] Name: ZACH GUZMAN [facility] : 1970 Age/S: 49/M [address] [facility] Unit #: [id number] Loc: [place] [address] Phys: Woodrow Carmichael NP Acct: [id number] Dis Date: Status: REG ER PHONE #: [phone] Exam Date: 04/12/2019721 FAX #: [phone] Reason: CHEST PAIN EXAMS: CPT CODE: [id number] XR CHEST 1 V 97259 HISTORY: CHEST PAIN TECHNIQUE: AP chest x-ray COMPARISON: None FINDINGS: No airspace consolidation or pleural effusion. Normal heart size. Mediastinal silhouette is unremarkable. Visualized osseous structures are grossly intact. IMPRESSION: No radiographic evidence of acute cardiopulmonary process. at 0732 Reported and signed by: Judy Addison D.O. CC: Wily Bustillo MD; Woodrow Carmichael NP Te chnologist: Vidya Patel([place]) Trnscrd Date/ Time/By: 04/12/2019 (0732) : By: [email or web address] Orig Print D/T: S: 04/12/20 (0735) PAGE 1 Signed Report TROPONIN I [id number] 07:18:00* Test Item Value Reference Range Interpretation Comments TROPONIN I RAPID (test code = [...]
[2020-02-19] MEDS ORDERED: HYDRALAZINE HCL 20 MG/ML VIAL IV STA (17:30)
[2020-02-19 18:02] LABS: BASOPHILS % 0.4 % (0.0-1.0); EOSINOPHILS # (AUTO) 0.7 (0.0-0.4); EOSINOPHILS % 8.6 % (0.0-6.0); HEMATOCRIT 29.2 % (38.2-49.6); HEMOGLOBIN 9.3 g/dL (14.0-18.0); LYMPHOCYTES # (AUTO) 1.5 (1.0-3.2); LYMPHOCYTES % 18.4 % (18.0-39.1); MEAN CORPUSCULAR HEMOGLOBIN 30.2 pg (28-32); MEAN CORPUSCULAR HGB CONC 31.8 g/dL (31-35); MEAN CORPUSCULAR VOLUME 94.8 fL (81-99); MONOCYTES # (AUTO) 0.8 (0.2-0.8); MONOCYTES % 9.9 % (4.4-11.3); NEUTROPHILS % 62.3 % (38.7-80.0); PLATELET COUNT 168 x10e3/uL (140-360); RED BLOOD COUNT 3.08 x10e6/uL (4.3-5.7); RED CELL DISTRIBUTION WIDTH 16.3 % (11.7-14.4)
[2020-02-19 18:09] LABS: INR 0.98; PROTHROMBIN TIME 13.6 seconds (11.9-14.5)
[2020-02-19 18:16] LABS: ALBUMIN/GLOBULIN RATIO 1.1 (0.8-2.0); ANION GAP 20.4 mmol/L (8-16); CALCIUM 9.2 mg/dL (8.4-10.2); CREATININE, SERUM 13.76 mg/dL (0.72-1.25); POTASSIUM 4.4 mmol/L (3.5-5.1)
[2020-02-19 18:35] LABS: CLARITY,URINE CLEAR (CLEAR); COLOR,URINE YELLOW (YELLOW); KETONES,URINE NEGATIVE (NEGATIVE); LEUKOCYTE ESTERASE ,URINE TRACE (NEGATIVE); NITRITE,URINE NEGATIVE (NEGATIVE); PROTEIN,URINE DIPSTICK >=300 (NEGATIVE)
[2020-02-19 18:36] LABS: BILIRUBIN,URINE NEGATIVE (NEGATIVE); RBC,URINE 0-5 /HPF (0-5); URINE UROBILINOGEN 0.2 mg/dL (0.2 - 1); WBC,URINE (MAN) 21-50 /HPF (0-5)
[2020-02-19 18:37] LABS: BACTERIA,URINE RARE /HPF; EPITHELIAL CELLS,URINE FEW /LPF; TRANSITIONAL EPI CELLS,URINE FEW
[2020-02-19] MEDS ORDERED: IOPAMIDOL 370 MG/ML 200 ML INFUS..BTL INJ ONE (18:47)
[2020-02-19] MEDS ORDERED: SODIUM CHLORIDE 0.9% 50ML 50 ML ONE (18:47)
[2020-02-19] MEDS ORDERED: CEFTRIAXONE SOD 1 GM/NS 50 ML 50 ML IV ONE (19:20)
[2020-02-19] MEDS: CEFTRIAXONE SOD 1 GM/NS 50 ML 50 ML IV SCH (19:26)
[2020-02-19] MEDS ORDERED: HYDRALAZINE HCL 20 MG/ML VIAL IV PRN (19:30)
[2020-02-19] MEDS ORDERED: SODIUM CHLORIDE FLUSH 10 ML SYR INJ PRN (19:30)
--- OUTSIDE RECORDS SUMMARY | 2020-02-19 19:50 | XMS REPORT | Clinical Summary ---
Author Author [facility] Organization [facility] ict Address Unknown Phone Unavailable Care Team Providers Care Rate Analyst Name Role Phone PCP Unavailable Allergies No [...] Effective Phone Address Plan / Dates Group [facility] xxxxxxxxx 2016-P [phone] [id number] [place] [address] HC SELF-PAY SELF-PAY xxxxxx 2016-5 [address] [place] [address] Guarantor Name Account Relation to Date of Phone Billin g Address Type Patient MORGAN NUNEZ Personal/F Head of 1970 [address] (Home) [place], [place] [address] (Self) Advance Directives Date Inactivated Comments Code Status Date Activated 01/22/2018 8:18 PM Full Code 01/20/2018 3:11 PM
--- OUTSIDE RECORDS SUMMARY | 2020-02-19 19:50 | XMS REPORT | Clinical Summary ---
Author Author SH[facility]IR[facility] Beh[facility]St[facility] CenterBe[facility] CollegeH[facility] Address Unknown Phone Unavailable Care Team Providers Care Fine Arts Model Name Role Phone Brandon--Shabbir Langford PCP Allergies [...] 41. He will meet with our transplant leather finisher for assistance with dieting and weight loss. [...] Date Type Specialty Irwin Ashton MD One [address] [address] 02/22/2020 Video - Cardiology Telemedicine 03/06/2020 Office Visit Transplant Health Maintenance Due Date Last Done Comments PNEUMOCOCCAL VACCINE 2-64 1976 YEARS AT RISK (1 of 3 - PCV13) DIABETIC FOOT EXAM 1981 HEMOGLOBIN A1C 05/17/2019 INFLUENZA VACCINE (Season 05/29/2020 Ended) Results Not on fileafter 02/18/2019 Insurance Payer Benefit Subscriber ID Type Phone Address Plan / Group [employer] xxxxxxxxx Trans plant [facility] CARE [facility] - [facility] UN xxxxxxxxx CARE COMMERCIAL [employer] INDEMNITY
--- OUTSIDE RECORDS SUMMARY | 2020-02-19 19:50 | XMS REPORT ---
Author Author [facility] t Organization [facility] Address [address] [place] [address] Phone Unavailable Care Team Providers Care Museum Specialist Name Role Phone Unavailable Unavailable Payers Payer Name Policy Type Policy Number Effective Date Expiration Date S ource Problems Condition Name Condition Details Condition Category Status Onset Date Resolution Date Last Treatment Date Treating Clinician Comments Source LLQ pain LLQ pain Disease Active 2018-01-20 00:00:00 [facility] Acute renal failure Acute renal failure Disease Active 2018-01-20 00:00 :00 [facility] KATHLEEN (acute kidney injury) KATHLEEN (acute kidney injury) Disease Ac tive 2018-01-20 00:00:00 [facility] Diabetes mellitus type 2 in obese Diabetes mellitus type 2 in ob camilo Disease Active 2018-01-20 00:00:00 [facility] Back pain Back pain Disease Active 2014-07-08 00:00:00 [facility] Cough Cough Disease Active 2014-02-06 00:00:00 [facility] Diarrhea Diarrhea Disease Active [facility] Hyperkalemia Hyperkalemia Disease Active [facility] Allergies, Adverse Reactions, Alerts Allergy Name Allergy Type Status Severity Reaction(s) Onset Date Inacti ve Date Treating Clinician Comments Source No Known Allergies DA Active U 2019-04-12 00:00:00 [facility] No Known Allergies DA Active U 2015-09-11 00:00:00 [facility] Social History Social Habit Start Date Stop Date Quantity Comments Source Sex Assigned At [facility] Alcohol intake 2018-01-21 00:00:00 2018-01-21 00:00:00 [facility] Alcohol Comment 2014-07-06 00:00:00 2014-07-06 00:00:00 OCCASSIONAL [facility] Smoking Status Start Date Stop Date Source Never smoker [facility] Medications Ordered Medication Name Filled Medication Name Start Date Stop Da te Current Medication? Ordering Clinician Indication Dosage Frequency Signature (SIG) Comments Components Source amLODIPine (NORVASC) 10 mg tablet 2018-01-22 18:13:21 Yes 10mg QD Take 10 mg by mouth daily. [facility] lovastatin 10 mg tablet 2018-01-22 18:13:21 Yes 40mg Take 40 mg by mouth at bedtime nightly. [facility] glimepiride (AMARYL) 1 mg tablet 2018-01-22 00:00:00 Yes KATHLEEN (acute kidney injury) 1mg QD Take 1 tablet by mouth every morning (before br eakfast). [facility] Procedures This patient has no known procedures. Plan of Care Planned Activity Planned Date Details Comments Source Future Scheduled Test 2020-06-28 00:00:00 IMM Influenza Seas onal Jun to November (>/= 19 yrs) [code = IMM Influenza Seasonal Jun to November (>/= 19 yrs)] [facility] Scheduled Test 2019-01-21 00:00:00 DM Microalbumin Ur ine Scrn (Yearly) [code = DM Microalbumin Urine Scrn (Yearly)] [facility] Scheduled Test 2019-01-20 00:00:00 DM HGBA1C (Yearly) [code = DM HGBA1C (Yearly)] [facility] Scheduled Test 1989 00:00:00 DM Foot Exam (Year ly) [code = DM Foot Exam (Yearly)] [facility] Scheduled Test 1989 00:00:00 DM Retinal Exam (Y early) [code = DM Retinal Exam (Yearly)] [facility] Encounters Start Date/Time End Date/Time Encounter Type Admission Type [facility] Care Department Encounter ID Source 2018-01-21 03:35:12 Inpatient [facility] [id number] [facility] 2019-11-01 07:38:00 2019-11-01 07:38:00 Outpatient [facility] [facility] 2019-09-06 05:07:00 2019-09-06 05:07:00 Outpatient [id number] 2018-01-20 09:54:57 2018-01-20 09:54:57 Emergency [facility] [id number] [facility] 2018-01-20 07:54:55 2018-01-20 07:54:55 Outpatient [facility] [id number] [facility] 2018-01-20 00:00:00 2018-01-20 00:00:00 Emergency [facility] [id number] [facility] Results Test Description Test Time Test Comments Results Result Comments Source GLUBED 2019-10-24 19:56:00 Test Item GLUBED (test code = GLUBED) 162 mg/dL 74-106 H Performed by certified double needle operator at [facility] [id number] 17:20:00* Test Item Value Reference Range Interpretation Comments GLUBED (test code = GLUBED) 138 mg/dL 74-106 H Performed by certified double needle operator at [facility] BASIC METABOLIC [id number] 13:53:00* Test Item Value Reference Range Interpretation [...] CA) 7.4 mg/dL 8.5-10.1 L BASIC METABOLIC [id number] 13:48:00* Test Item Value Reference Range Interpretation [...] code = CA) mg/dL 8.5-10.1 CBC W/AUTO [id number] 13:42:00* Test Item Value Reference Range Interpretation [...] DIFF REQUIRED (test code = MDIFF) NO [id number] 11:49:00* Test Item Value Reference Range Interpretation Comments GLUBED (test code = GLUBED) 139 mg/dL 74-106 H Performed by certified double needle operator at [facility] [id number] 06:20:00* Test Item Value Reference Range Interpretation Comments GLUBED (test code = GLUBED) 86 mg/dL 74-106 N Performed by certified double needle operator at [facility] [id number] 20:24:00* Test Item Value Reference Range Interpretation Comments GLUBED (test code = GLUBED) 148 mg/dL 74-106 H Performed by certified double needle operator at [facility] [id number] 17:03:00* Test Item Value Reference Range Interpretation Comments GLUBED (test code = GLUBED) 103 mg/dL 74-106 N Performed by certified double needle operator at [facility] [id number] 13:08:00* Test Item Value Reference Range Interpretation Comments GLUBED (test code = GLUBED) 97 mg/dL 74-106 N Performed by certified double needle operator at [facility] [id number] 06:50:00* Test Item Value Reference Range Interpretation Comments GLUBED (test code = GLUBED) 115 mg/dL 74-106 H Performed by certified double needle operator at [facility] BASIC METABOLIC [id number] 05:20:00* Test Item Value Reference Range Interpretation [...] CA) 7.7 mg/dL 8.5-10.1 L THYROID PROFILE [id number] 05:20:00* Test Item Value Reference Range Interpretation [...] HYPER : < 0.35 mIU/mL BASIC METABOLIC [id number] 05:03:00* Test Item Value Reference Range Interpretation [...] code = CA) mg/dL 8.5-10.1 THYROID PROFILE [id number] 05:03:00* Test Item Value Reference Range Interpretation Comments T3 UPTAKE (test code = T3UP) % 30.0-40.0 T4 (THYROXINE) (test code = T4) ug/dL 4.5-13.9 T7 (FREE THYROXINE INDEX) (test code = T7) FTI 1.3-5.1 THYROID STIMULATING HORMONE (test code = TSH) uIU/mL 0.36-3.7 4 [id number] 04:51:00* Test Item Value Reference Range Interpretation Comments GLYCOSYLATED HEMOGLOBIN (HA1C) (test code = GLYHGB) 5.6 % HbA1 SUGGESTED DIAGNOSIS: HbA1C (%) Diabetic >6.4Prediabetes 5.7 - 6.4Normal <5.7 ESTIMATED AVERAGE GLUCOSE (test code = EAG) 114 MG/DL CBC W/AUTO [id number] 04:29:00* Test Item Value Reference Range Interpretation [...] code = NRBC#) 0.00 K/mm3 0.0-0.1 N [id number] 21:05:00* Test Item Value Reference Range Interpretation Comments GLUBED (test code = GLUBED) 169 mg/dL 74-106 H Performed by certified double needle operator at [facility] - MRI BRAIN W/O [id number] 21:03:00 FAX: Shabbir Chopra [phone] [place]: St: ADM FAX: [place] Keny Green [phone] Name: ZACH GUZMAN [facility] : 1970 Age/S: 49/M [address] [facility] Unit #: [id number] Loc: [place] [address] Phys: Keny Green MD Acct: [id number] Dis Date: Status: ADM IN PHONE #: [phone] Exam Date: 10/22/20192035 FAX #: [phone] Reason: RT SIDE WEAKNESS EXAMS: CPT CODE: [id number] MRI BRAIN W/O CONTRAST 98460 REASON FOR EXAM: RT SIDE WEAKNESS Exam [...] 1 Signed Report (CONTINUED) FAX: Shabbir Chopra [phone] [place]: St: ADM FAX: Keny Hairston [phone] Name: LESLY GUZMAN ANGELES [facility] : 1970 Age/S: 49 /M [address] [facility] Unit #: [id number] Loc: V[address] [place] [address] Phys: Keny Green MD Acct: [id number] Dis Date: St atus: ADM IN PHONE #: [phone] Exam Date : 10/22/20192035 FAX #: [phone] Reason: RT S TEQUILA WEAKNESS EXAMS: CPT CODE: [id number] MRI BRAIN W/O CONTRAST 88656 <Continued> CC: Shabbir Duncan MD; Keny Green Technologist: aSnta Banuelos RT(R)(MR) Trnscrd Date/Time/By: 10/22/2019 (2102) : By: MaureenRR31 Orig Print D/T: S: 10/22/2019 (2105) PAGE 2 Signed Report [id number] 18:15:00* Test Item Value Reference Range Interpretation Comments GLUBED (test code = GLUBED) 154 mg/dL 74-106 H Performed by certified double needle operator at [facility] AG HEPAT B [id number] 15:11:00* Test Item Value Reference Range Interpretation Comments AG HEPAT B SURF (test code = HBSAG) Nonreactive Index Nonreactive BASIC METABOLIC [id number] 14:49:00* Test Item Value Reference Range Interpretation [...] CA) 7.0 mg/dL 8.5-10.1 L BASIC METABOLIC [id number] 14:45:00* Test Item Value Reference Range Interpretation [...] CA) 7.0 mg/dL 8.5-10.1 L BASIC METABOLIC [id number] 14:44:00* Test Item Value Reference Range Interpretation [...] code = CA) mg/dL 8.5-10.1 CBC W/AUTO [id number] 14:12:00* Test Item Value Reference Range Interpretation [...] DIFF REQUIRED (test code = MDIFF) NO [id number] 13:15:00* Test Item Value Reference Range Interpretation Comments GLUBED (test code = GLUBED) 168 mg/dL 74-106 H Performed by certified double needle operator at [facility] [id number] 06:40:00* Test Item Value Reference Range Interpretation Comments GLUBED (test code = GLUBED) 195 mg/dL 74-106 H Performed by certified double needle operator at [facility] URINALYSIS [id number] 21:24:00* Test Item Value Reference Range Interpretation [...] W REFLEX (test code = LEUUR) NEGATIVE Joes Luis/uL NEGATIVE UA WBC (test code = WBCU) 11-20 per HPF 0-5 A UA RBC (test code = RBCU) 3-5 #/HPF 0-5 UA EPITHELIAL CELLS (test code = EPIU) FEW per HPF FEW UA BACTERIA (test code = BACU) FEW #/HPF NONE A UA MUCUS (test code = MUCU) FEW #/LPF FEW Urine Source? Clean CatchHEPATIC FUNCTION [id number] 21:08:00* Test Item Value Reference Range Interpretation [...] reference range due to change in reagent. [id number] 21:08:00* Test Item Value Reference Range Interpretation Comments LIPASE (test code = LIP) 250 U/L 73.0-393.0 N [id number] 21:08:00* Test Item Value Reference Range Interpretation Comments TROPONIN-I (test code = TROPI) <0.015 ng/mL 0-0.045 N BASIC METABOLIC [id number] 21:03:00* Test Item Value Reference Range Interpretation [...] = CA) 7.6 mg/dL 8.5-10.1 L PROTHROMBIN [id number] 21:00:00* Test Item Value Reference Range Interpretation [...] (2.5-3.5) IS PATIENT ON ANTICOAGULANTS? NTHROMBOPLASTIN TIME [id number] 21:00:00* Test Item Value Reference Range Interpretation Comments THROMBOPLASTIN TIME PARTIAL (test code = PTT) 37.0 seconds 25.0-36. 5 H IS PATIENT ON ANTICOAGULANTS? NBASIC METABOLIC [id number] 20:57:00* Test Item Value Reference Range Interpretation [...] CA) mg/dL 8.5-10.1 - CT ABD PELVIS [id number] 20:52:00 Name: ZACH GUZMAN [facility] : 1970 Age/S: 49 / M [address] [facility] Unit #: [id number] Loc: [place] [address] Phys: Shantel Persaud DO Acct: [id number] Dis Date: Status: REG ER PHONE #: [phone] Exam Date: 10/21/20192046 FAX #: [phone] Reason: abd pain EXAMS: CPT CODE: [id number] CT ABD PELVIS W/CONT 05379 REASON FOR EXAM: abd pain EXAM ORDER [...] 1 Signed Report (CONTINUED) Name: ZACH GUZMAN [facility] : 1970 Age/S: 49 / M [address] [facility] Unit #: [id number] Loc: [place], [place] [address] Phys: Shantel Persaud DO Acct: [id number] Dis Date: Status: REG ER PHONE #: [phone] Exam Date: 10/21/20192046 FAX #: [phone] Reason: abd pain EXAMS: CPT CODE: [id number] CT ABD PELVIS W/CONT 57465 < Continued> CC: Shabbir Duncan MD; Shantel Persaud DO Technologist:PHAM STEPHEN, RT(R) CT CTDI: DLP: Trnscb Date/Time: 10/21/2019 (2051) t.[email or web address].VTL Orig Print D/T: S: 10/21/2019 (2054) PAGE 2 Signed Report CBC W/AUTO [id number] 20:35:00* Test Item Value Reference Range Interpretation [...] = MDIFF) NO - CT HEAD/BRAIN W/O [id number] 20:11:00 Name: ZACH GUZMAN [facility] : 1970 Age/S: 49 / M [address] Unit #: [id number] Loc: [place] [address] Phys: Shantel Persaud DO Acct: [id number] Dis Date: Status: REG ER PHONE #: [phone] Exam Date: 10/21/20191944 FAX #: [phone] Reason: Headache EXAMS: CPT CODE: [id number] CT HEAD/BRAIN W/O CONT 24662 REASON FOR EXAM: Headache EXAM ORDER DATE: [...] Almaraz CTDI: DLP: Trnscb Date/Time: 10/21/2019 (2010) MaureenVTL Orig Print D/T: S: 10/21/2019 (2013) PAGE 1 Signed Report [id number] 10:08:00* Test Item Value Reference Range Interpretation Comments GLUBED (test code = GLUBED) 113 mg/dL 74-106 H Performed by certified double needle operator at [facility] [id number] 11:20:00* Test Item Value Reference Range Interpretation Comments GLUBED (test code = GLUBED) 234 mg/dL 74-106 H Performed by certified double needle operator at [facility] BASIC METABOLIC [id number] 09:43:00* Test Item Value Reference Range Interpretation [...] CA) 7.1 mg/dL 8.5-10.1 L CBC W/O [id number] 07:59:00* Test Item Value Reference Range Interpretation [...] code = MPV) 10.2 fL 6.7-11.0 N [id number] 07:52:00* Test Item Value Reference Range Interpretation Comments GLUBED (test code = GLUBED) 153 mg/dL 74-106 H Performed by certified double needle operator at [facility] [id number] 21:11:00* Test Item Value Reference Range Interpretation Comments GLUBED (test code = GLUBED) 140 mg/dL 74-106 H Performed by certified double needle operator at [facility] [id number] 21:11:00* Test Item Value Reference Range Interpretation Comments GLUBED (test code = GLUBED) 336 mg/dL 74-106 H Performed by certified double needle operator at [facility] [id number] 15:51:00* Test Item Value Reference Range Interpretation Comments GLUBED (test code = GLUBED) 304 mg/dL 74-106 H Performed by certified double needle operator at [facility] BASIC METABOLIC [id number] 11:17:00* Test Item Value Reference Range Interpretation [...] mg/dL 8.5-10.1 LL Res ults called to [id number] by V.LAB.QD 08/26/19 1116Critical results verified and read back by Nurse? YES CBC W/O [id number] 10:33:00* Test Item Value Reference Range Interpretation [...] code = MPV) 11.1 fL 6.7-11.0 H [id number] 07:19:00* Test Item Value Reference Range Interpretation Comments GLUBED (test code = GLUBED) 186 mg/dL 74-106 H Performed by certified double needle operator at [facility] [id number] 01:25:00* Test Item Value Reference Range Interpretation Comments GLUBED (test code = GLUBED) 301 mg/dL 74-106 H Performed by certified double needle operator at [facility] [id number] 20:51:00* Test Item Value Reference Range Interpretation Comments GLUBED (test code = GLUBED) 353 mg/dL 74-106 H Performed by certified double needle operator at [facility] [id number] 20:51:00* Test Item Value Reference Range Interpretation Comments GLUBED (test code = GLUBED) 294 mg/dL 74-106 H Performed by certified double needle operator at [facility] - US GUIDANCE VASC [id number] 13:23:00 Name: ZACH GUZMAN [facility] : 1970 Age/S: 49 / M [address] [facility] Unit #: [id number] Loc: [facility] [place] [address] Phys: Keny Green MD Acct: [id number] Dis Date: Status: ADM IN PHONE #: [phone] Exam Date: 08/24/2019 1100 FAX #: [phone] Reason: EXAMS: CPT CODE: [id number] US GUIDANCE VASC ACCESS 23179 Fluoro Time: DAP (Gy m2): Air Kerma (mGy): EXAM: Insertion of a tunneled hemodialysis catheter with sonographic and fluoroscopic guidance and conscious sedation; CPT: 72482, 16089, 14711, 05428; INFORMATION: End-stage renal disease; TECHNIQUE AND FINDINGS: Conscious sedation start time: 1024 hours; completion time: 1100 hours; Under physician supervision 2 mg of Versed and 50 mcg of fentanyl were administered intravenously for sedation. The patient's heart rate, blood pressure and pulse oximetry were continuously monitored by a trained registered nurse. Physician ffkj-ti-hlze sedation time was 36 minutes. Benefits and [...] usual st erile fashion and a 15 Moroccan tunneled hemodialysis catheter was inserted and positioned [...] Signed Report (CONTINUED ) Name: REGINA NUNEZMEHRAN [facility] SP D OB: 1970 Age/S: 49 / M [address] [facility] Unit #: [id number] Loc: [place] [address] Phys: Oumar Green MD Acct: [id number] Dis Date: Status: ADM IN PHONE #: [phone] Exam Date: 08/24/2019 1100 FAX #: Reason: EXAMS: CPT CODE: [id number] US GUIDANCE V ASC ACCESS 48836 Fluoro Time: DAP (Gy m2): Air Kerma (mGy): <Continued> CAK : 13 mGy DAP : 5260 mGy sq cm Location code: [facility] at 1323 Reported and signed by: Melquiades Lane M.D. CC: Shabbir Duncan MD; Keny Green Technologist: Saleem Benito RT(R) Trnscb Date/Time: 08/25/2019 (1323) t.GRW Orig Print D/T: S: 08/25/2019 (4516) PAGE 2 Signed Report - SP FLUORO GUID CTRL ACC [id number] 13:23:00 Name: ZACH GUZMAN [facility] : 1970 Age/S: 49 / M [address] [facility] Unit #: [id number] Loc: [place] [address] Phys: Keny Green MD Acct: [id number] Dis Date: Status: ADM IN PHONE #: [phone] Exam Date: 08/24/2019 1100 FAX #: [phone] Reason: EXAMS: CPT CODE: [id number] SP FLUORO GUID CTRL ACC DEV 55239 Fluoro Time: 57 DAP (Gy m2): 5.2 Air Kerma (mGy): 14 EXAM: Insertion of a tunneled hemodialysis catheter with sonographic and fluoroscopic guidance and conscious sedation; CPT: 46885, 29889, 88098, 46421; INFORMATION: End-stage renal disease; TECHNIQUE AND FINDINGS: Conscious sedation start time: 1024 hours; completion time: 1100 hours; Under physician supervision 2 mg of Versed and 50 mcg of fentanyl were administered intravenously for sedation. The patient's heart rate, blood pressure and pulse oximetry were continuously monitored by a trained registered nurse. Physician hbgc-ic-mvav sedation time was 36 minutes. Benefits and [...] usual st erile fashion and a 15 Moroccan tunneled hemodialysis catheter was inserted and positioned [...] Signed Report (CONTINUED ) Name: ZACH GUZMAN [facility] SP D OB: 1970 Age/S: 49 / M [address] [facility] Unit #: [id number] Loc: [place] [address] Phys: Oumar Green MD Acct: [id number] Dis Date: Status: ADM IN PHONE #: [phone] Exam Date: 08/24/2019 1100 FAX #: [phone] Reason: EXAMS: CPT CODE: [id number] SP FLUORO GUID CTRL ACC DEV 75744 Fluoro Time: 57 DAP (Gy m2): 5.2 Air Kerma (mGy): 14 <Continued> CAK : 13 mGy DAP : 5260 mGy sq cm Location code: [facility] at 1323 Reported and signed by: Melquiades Lane M.D. CC: Shabbir Duncan MD; Keny Green Technologist: Saleem REIS(R) Trnscb Date/Time: 08/25/2019 (1323) t.[email or web address].GRW Orig Print D/T: S: 08/25/2019 (9155) PAGE 2 Signed Report GLUBED 2019-08-25 11:13:00* Test Item Value Reference Range Interpretation Comments GLUBED (test code = GLUBED) 222 mg/dL 74-106 H Performed by certified double needle operator at [facility] [id number] 07:34:00* Test Item Value Reference Range Interpretation Comments GLUBED (test code = GLUBED) 162 mg/dL 74-106 H Performed by certified double needle operator at [facility] AB HEPATITIS B [id number] 07:12:00* Test Item Value Reference Range Interpretation Comments AB HEPATITIS B SURFACE (test code = HBSAB) Non Reactive () Non Reactive: Inconsistent with immunity, less than 10 mIU/mL Reactive: Consistent with immunity, greater than 9.9 mIU/mLPerformed At: [facility] [address] [id number] Sloan MD Ph:[phone] HEPATITIS B CORE ANTIBODY,[id number] 07:12:00* Test Item Value Reference Range Interpretation Comments HEPATITIS B CORE ANTIBODY,TOT (test code = HBCAB) Negative Nega tive Performed At: HD [facility] [address] [id number] Sloan MD Ph:[phone] RENAL FUNCTION [id number] 06:24:00* Test Item Value Reference Range Interpretation [...] code = FESAT) 26.24 % 13-45 N [id number] 06:24:00* Test Item Value Reference Range Interpretation Comments FERRITIN (test code = LEONARDO) 287 ng/mL 8-388 N RENAL FUNCTION [id number] 06:09:00* Test Item Value Reference Range Interpretation [...] SATURATION (test code = FESAT) % 13-45 [id number] 06:09:00* Test Item Value Reference Range Interpretation Comments FERRITIN (test code = LEONARDO) ng/mL 8-388 CBC W/AUTO [id number] 05:48:00* Test Item Value Reference Range Interpretation [...] DIFF REQUIRED (test code = MDIFF) NO [id number] 20:00:00* Test Item Value Reference Range Interpretation Comments GLUBED (test code = GLUBED) 118 mg/dL 74-106 H Performed by certified double needle operator at [facility] [id number] 14:16:00* Test Item Value Reference Range Interpretation Comments TROPONIN-I (test code = TROPI) <0.015 ng/mL 0-0.045 N COMMENTS TO INSTRUCTOR DECORATING: COLLECT 3 HOURS AFTER PREVIOUS [id number] 12:15:00* Test Item Value Reference Range Interpretation Comments GLUBED (test code = GLUBED) 81 mg/dL 74-106 N Performed by certified double needle operator at [facility] - XR CHEST 1 [id number] 11:30:00 FAX: Shabbir Chopra [phone] [place]: St: ADM FAX: Keny Hairston [facility] [phone] Name: REGINA NUNEZZACH [facility] : 1970 Age/S: 49/M [address] [facility] Unit #: [id number] Loc: [address] [place] [address] Phys: Melquiades Lane MD Acct: [id number] Dis Date: Status: ADM IN PHONE #: [phone] Exam Date: 08/24/2019 1108 FAX #: [phone] Reason: ESRD; [facility]; EXAMS: CPT CODE: [id number] XR CHEST 1 V 58320 REASON FOR EXAM: ESRD; [facility]; Exam [...] Trnscrd Date/Time/By: 08/24/2019 (1130) : By: MaureenRR31 Orig Print D/T: S: 08/24/2019 (1360) PAGE 1 Signed Report [id number] 10:08:00* Test Item Value Reference Range Interpretation Comments PHOSPHORUS (test code = PHOS) 8.1 mg/dL 2.5-4.9 H BASIC METABOLIC [id number] 09:47:00* Test Item Value Reference Range Interpretation [...] mg/dL 8.5-10.1 LL Res ults called to [id number] by XIMENA 08/24/19 0945Critical results verified and read back by Nurse? YES PROTHROMBIN [id number] 08:51:00* Test Item Value Reference Range Interpretation [...] (2.5-3.5) IS PATIENT ON ANTICOAGULANTS? NTHROMBOPLASTIN TIME [id number] 08:51:00* Test Item Value Reference Range Interpretation Comments THROMBOPLASTIN TIME PARTIAL (test code = PTT) 32.6 seconds 25.0-36. 5 N IS PATIENT ON ANTICOAGULANTS? NBASIC METABOLIC [id number] 08:49:00* Test Item Value Reference Range Interpretation [...] code = CA) mg/dL 8.5-10.1 CBC W/AUTO [id number] 08:14:00* Test Item Value Reference Range Interpretation [...] DIFF REQUIRED (test code = MDIFF) NO [id number] 07:32:00* Test Item Value Reference Range Interpretation Comments GLUBED (test code = GLUBED) 91 mg/dL 74-106 N Performed by certified double needle operator at [facility] [id number] 07:32:00* Test Item Value Reference Range Interpretation Comments GLUBED (test code = GLUBED) 52 mg/dL 74-106 L Performed by certified double needle operator at [facility] AG HEPAT B [id number] 05:31:00* Test Item Value Reference Range Interpretation Comments AG HEPAT B SURF (test code = HBSAG) Nonreactive Index Nonreactive [id number] 02:00:00* Test Item Value Reference Range Interpretation Comments TROPONIN-I (test code = TROPI) <0.015 ng/mL 0-0.045 N COMMENTS TO INSTRUCTOR DECORATING: COLLECT 3 HOURS AFTER PREVIOUS [id number] 01:50:00* Test Item Value Reference Range Interpretation Comments POTASSIUM (test code = K) 5.2 mmol/L 3.5-5.1 H [id number] 23:23:00* Test Item Value Reference Range Interpretation Comments GLUBED (test code = GLUBED) 145 mg/dL 74-106 H Performed by certified double needle operator at [facility] [id number] 20:37:00* Test Item Value Reference Range Interpretation Comments GLUBED (test code = GLUBED) 48 mg/dL 74-106 LL Performed by certified double needle operator at [facility]Notified Nurse~ [id number] 20:37:00* Test Item Value Reference Range Interpretation Comments GLUBED (test code = GLUBED) 40 mg/dL 74-106 LL Performed by certified double needle operator at [facility]Notified Nurse~ BASIC METABOLIC [id number] 17:18:00* Test Item Value Reference Range Interpretation Comments SODIUM (test code = NA) 144 mmol/L 136-145 N POTASSIUM (test code = K) 6.2 mmol/L 3.5-5.1 HH Re sults called to [id number] by [facility] 08/23/19 1717Critical results verified and read back [...] mg/dL 8.5-10.1 LL Res ults called to [id number] by [facility] 08/23/19 1717Critical results verified and read back by Nurse? Y [id number] 17:18:00* Test Item Value Reference Range Interpretation Comments TROPONIN-I (test code = TROPI) <0.015 ng/mL 0-0.045 N [id number] 16:52:00* Test Item Value Reference Range Interpretation Comments MAGNESIUM (test code = MAG) 2.1 mg/dL 1.8-2.4 N CBC W/O [id number] 16:29:00* Test Item Value Reference Range Interpretation [...] fL 6.7-11.0 N - XR CHEST 1 [id number] 15:45:00 FAX: Jose Daniel Godwin MD [place]: St: [facility] FAX: America Taylor [employer] [phone] Name: ZACH GUZMAN [facility] : 1970 Age/S: 49/M [address] [facility] Unit #: [id number] Loc: [place] [address] Phys: Jose Daniel Godwin MD Acct: [id number] Dis Date: Status: REG ER PHONE #: [phone] Exam Date: 08/23/2019 1543 FAX #: [phone] Reason: CHEST PAIN EXAMS: CPT CODE: [id number] XR CHEST 1 V 71890 REASON FOR EXAM: CHEST PAIN EXAM ORDER DATE: 08/23/2019 3:35 PM Ordering: Jose Daniel Godwin MD Attending:Jose Daniel Godwin MD Location:[facility] PROCEDURE: - XR CHEST 1 V COMPARISON: 04/12/2019 FINDINGS: Portable AP frontal view of the chest obtained at 3:42 PM shows clear lungs without evidence of consolidation. There is no evidence of effusion. The heart size is within normal limits. Pulmonary vasculatures are unremarkable. IMPRESSION: No active disease. at 6155 Reported and signed by: Ralf Jamison M.D. CC: Jose Daniel Godwin MD; Shabbir Duncan MD Technologist: DENNIS KEITA RDMS(AB,ARMORED VEHICLE OFFICER) Trnscrd Date/Time/By: 08/23/2019 (2152) : By: Junior Orig Print D/T: S: 08/23/2019 (0285) PAGE 1 Signed Report COMPREHENSIVE METABOLIC [id number] 15:05:00* Test Item Value Reference Range Interpretation [...] due to change in reagent. COMPREHENSIVE METABOLIC [id number] 14:59:00* Test Item Value Reference Range Interpretation [...] code = ALKP) IUnit/L 45-117 CBC W/AUTO [id number] 14:53:00* Test Item Value Reference Range Interpretation [...] NRBC#) 0.00 K/mm3 0.0-0.1 N CBC W/AUTO [id number] 20:25:00* Test Item Value Reference Range Interpretation [...] DIFF REQUIRED (test code = MDIFF) NO [id number] 21:51:00* Test Item Value Reference Range Interpretation Comments GLUBED (test code = GLUBED) 185 mg/dL 74-106 H Performed by certified double needle operator at [facility] [id number] 12:15:00* Test Item Value Reference Range Interpretation Comments GLUBED (test code = GLUBED) 130 mg/dL 74-106 H Performed by certified double needle operator at [facility] BASIC METABOLIC [id number] 10:52:00* Test Item Value Reference Range Interpretation [...] CA) 8.1 mg/dL 8.5-10.1 L CBC W/AUTO [id number] 10:16:00* Test Item Value Reference Range Interpretation [...] DIFF REQUIRED (test code = MDIFF) NO [id number] 08:35:00* Test Item Value Reference Range Interpretation Comments GLUBED (test code = GLUBED) 199 mg/dL 74-106 H Performed by certified double needle operator at [facility] AG HEPAT B [id number] 22:13:00* Test Item Value Reference Range Interpretation Comments AG HEPAT B SURF (test code = HBSAG) Nonreactive Index Nonreactive [id number] 19:36:00* Test Item Value Reference Range Interpretation Comments GLUBED (test code = GLUBED) 214 mg/dL 74-106 H Performed by certified double needle operator at [facility] UR CREATININE CLEARANCE [id number] 19:11:00* Test Item Value Reference Range Interpretation Comments CREATININE CLEARANCE RESULT (test code = CREATCLR) 24 mL/min 100 -120 L CREATININE (test code = CREAT) 5.90 mg/dL 0.7-1.3 H UR CREATININE RANDOM (test code = CREATU) 57.0 mg/dL 30-125 N UR VOLUME 24HR (test code = VOL) 3525 mL/24hrs 6906-1428 VOLUME- 3525VOLUME CAME FROM 2 CONTAINERSUR CREATININE CLEARANCE [id number] 18:55:00* Test Item Value Reference Range Interpretation Comments CREATININE CLEARANCE RESULT (test code = CREATCLR) mL/min 100 -120 CREATININE (test code = CREAT) mg/dL 0.7-1.3 UR CREATININE RANDOM (test code = CREATU) mg/dL 30-125 UR VOLUME 24HR (test code = VOL) 3525 mL/24hrs 8315-4519 VOLUME- 3525VOLUME CAME FROM 2 [id number] 17:51:00* Test Item Value Reference Range Interpretation Comments GLUBED (test code = GLUBED) 225 mg/dL 74-106 H Performed by certified double needle operator at [facility] [id number] 15:58:00* Test Item Value Reference Range Interpretation Comments GLUBED (test code = GLUBED) 218 mg/dL 74-106 H Performed by certified double needle operator at [facility] [id number] 14:53:00* Test Item Value Reference Range Interpretation Comments GLUBED (test code = GLUBED) 153 mg/dL 74-106 H Performed by certified double needle operator at [facility] [id number] 11:11:00* Test Item Value Reference Range Interpretation Comments GLUBED (test code = GLUBED) 136 mg/dL 74-106 H Performed by certified double needle operator at [facility] [id number] 07:48:00* Test Item Value Reference Range Interpretation Comments GLUBED (test code = GLUBED) 132 mg/dL 74-106 H Performed by certified double needle operator at [facility] COMPREHENSIVE METABOLIC [id number] 05:55:00* Test Item Value Reference Range Interpretation [...] due to change in reagent. COMPREHENSIVE METABOLIC [id number] 05:35:00* Test Item Value Reference Range Interpretation [...] code = ALKP) IUnit/L 45-117 CBC W/AUTO [id number] 05:04:00* Test Item Value Reference Range Interpretation [...] code = NRBC#) 0.00 K/mm3 0.0-0.1 N [id number] 19:56:00* Test Item Value Reference Range Interpretation Comments GLUBED (test code = GLUBED) 151 mg/dL 74-106 H Performed by certified double needle operator at [facility] TROPONIN I [id number] 12:57:00* Test Item Value Reference Range Interpretation [...] be valid only if similarmethodology is used. [id number] 12:23:00* Test Item Value Reference Range Interpretation Comments GLUBED (test code = GLUBED) 46 mg/dL 74-106 LL Performed by certified double needle operator at [facility]Doctor Notified~ - CT ABD PELVIS W/O [id number] 11:51:00 Name: ZACH GUZMAN [facility] : 1970 Age/S: 49 / M [address] [facility] Unit #: [id number] Loc: [place] [address] Phys: Keny Green MD Acct: [id number] Dis Date: Status: ADM IN PHONE #: [phone] Exam Date: 04/12/2019 1031 FAX #: [phone] Reason: RENAL FAILURE EXAMS: CPT CODE: [id number] CT ABD PELVIS W/O CONT 81115 HISTORY: Renal failure. COMPARISON: September 11, 2015 [...] PAGE 1 Signed Report (CONTINUED) Name: REGINA NUNEZZACH [facility] : 1970 Age/S: 49 / M [address] [facility] Unit #: [id number] Loc: [place] [address] Phys: Keny Green MD Acct: [id number] Dis Date: Status: ADM IN PHONE #: [phone] Exam Date: 04/12/2019 1031 FAX #: [phone] Reason: RENAL FAIL URE EXAMS: CPT CODE: [id number] CT ABD PELVIS W/O CONT 26427 <Continued> at 1151 Reported and signed by: Sourav Vail M.D. CC: Shabbir Duncan MD; Keny Green Technologist:Yoni Sun RT(R),(MR),(CT) CTDI: DLP: Trnscb Date/Time: 04/12/2019 (1151) t.DANIELR.TH4 Orig Print D/T: S: 04/12/2019 (9913) PAGE 2 Signed Report VITAMIN B12 2019-04-12 11:18:00* Test Item Value Reference Range Interpretation Comments VITAMIN B12 (test code = VITB12) 431 pg/mL 193-986 N FOLIC [id number] 11:18:00* Test Item Value Reference Range Interpretation Comments FOLIC ACID (test code = FOL) 22.0 ng/mL 3.10-17.50 H THYROID PROFILE [id number] 11:18:00* Test Item Value Reference Range Interpretation [...] 5.5 mIU/mL HYPER : < 0.35 mIU/mL [id number] 11:14:00* Test Item Value Reference Range Interpretation Comments GLUBED (test code = GLUBED) 138 mg/dL 74-106 H Performed by certified double needle operator at [facility] FE W/TOTAL IRON BINDING CAP.2019-04-12 10:48:00* Test Item Value Reference Range Interpretation Comments SERUM IRON (test code = IRON) 70 ug/dL 50-175 N TOTAL IRON BINDING CAPACITY (test code = TIBC) 262 mcg/dL 250-450 N IRON SATURATION (test code = FESAT) 26.72 % 13-45 N [id number] 10:48:00* Test Item Value Reference Range Interpretation Comments GLYCOSYLATED HEMOGLOBIN (HA1C) (test code = GLYHGB) 6.2 % HbA1 4. 8-6.0 H ESTIMATED AVERAGE GLUCOSE (test code = EAG) 131 MG/DL [id number] 10:45:00* Test Item Value Reference Range Interpretation Comments CKMB (test code = CKMBT) 1.8 ng/mL 0-6.0 N - US RETROPERITONEAL [id number] 10:10:00 Name: ZACH GUZMAN [facility] : 1970 Age/S: 49 / M [address] [facility] Unit #: [id number] Loc: [place] [address] Phys: Woodrow Carmichael SALES ATTENDANT Acct: [id number] Dis Date: Status: ADM IN PHONE #: [phone] Exam Date: 04/12/2019929 FAX #: [phone] Reason: FLANK- RENAL FAILURE EXAMS: CPT CODE: [id number] US RETROPERITONEAL COM 89973 HISTORY: Flank renal failure. COMPARISON: CT scan [...] Woodrow Carmichael NP Technologist: LESLI RAMOS RT(R),SARAH Trn scb Date/Time: 04/12/2019 (1010) t.SDR.TH4 Orig Print D/T : S: 04/12/2019 (1014) Probe: PAGE 1 Signed Report CBC W/O [id number] 07:51:00 * Test Item Value Reference Range [...] MPV) 11.5 fL 6.7-11.0 H BASIC METABOLIC [id number] 07:43:00* Test Item Value Reference Range Interpretation [...] code = CA) 7.8 mg/dL 8.5-10.1 L [id number] 07:43:00* Test Item Value Reference Range Interpretation Comments TROPONIN-I (test code = TROPI) <0.015 ng/mL 0-0.045 N BASIC METABOLIC [id number] 07:33:00* Test Item Value Reference Range Interpretation [...] code = CA) 7.8 mg/dL 8.5-10.1 L [id number] 07:33:00* Test Item Value Reference Range Interpretation Comments TROPONIN-I (test code = TROPI) ng/mL 0-0.045 - XR CHEST 1 [id number] 07:32:00 FAX: Wily Bustillo MD [phone] [place]: St: [facility] FAX: Woodrow Carmichael NP [phone] Name: ZACH GUZMAN [facility] : 1970 Age/S: 49/M [address] [facility] Unit #: [id number] Loc: [place] [address] Phys: Woodrow Carmichael NP Acct: [id number] Dis Date: Status: REG ER PHONE #: [phone] Exam Date: 04/12/2019721 FAX #: [phone] Reason: CHEST PAIN EXAMS: CPT CODE: [id number] XR CHEST 1 V 24503 HISTORY: CHEST PAIN TECHNIQUE: AP chest x-ray [...] (0735) PAGE 1 Signed Report TROPONIN I [id number] 07:18:00* Test Item Value Reference Range Interpretation [...]
--- NOTE | 2020-02-19 19:59 | Emergency Department Note ---
History of Present Illnes History of Present Illness Chief Complaint: General Medicine Complaints History of Present Illness This is a 49 year old male . Historian: Patient Arrival Mode: Car Spin Instructor Required: No Onset (how long ago): hour(s) (3) Radiation: non-radiation Severity: moderate Onset quality: sudden Duration (how long): hour(s) Timing of current episode: constant Progression: worsening Relieving factors: none Exacerbating factors: none Treatments prior to arrival: none (SUNDEEP TOMPKINS NP) Past Medical/Family History Physician Review I have reviewed the patient's past medical and family history. Any updates have been documented here. (SUNDEEP TOMPKINS NP) Past Medical History Recent Fever: No Clinical Suspicion of Infectio: No New/Unexplained Change in Ment: No Past Medical History: Hypertension, Diabetes, [place], ESRD, Hemodyalisis Other Surgery: LEFT ARM FISTULA PERITONEAL DIALYSIS (SUNDEEP TOMPKINS NP) Social History Smoking Cessation: Never Smoker Alcohol Use: Occasional Any Illegal Drug Use: No TB Exposure/Symptoms: No Physically hurt or threatened: No (SUNDEEP TOMPKINS NP) Family History Family history of heart diseas: No (SUNDEEP TOMPKINS NP) Other Last Tetanus: 2014 Any Pre-Existing Lines (PICC,: No Is patient up to date on immun: Yes Last Flu: utd Last Pneumovax: utd (SUNDEEP TOMPKINS NP) Review of Systems Review of Systems Constitutional: weakness EENTM: blurred vision Cardiovascular: no symptoms Respiratory: no symptoms Gastrointestinal: no symptoms Genitourinary: no symptoms Musculoskeletal: no symptoms Neurological: weakness, other (DIZZINESS) Psychological: no symptoms Endocrine: no symptoms, excessive sweating Hematological/Lymphatic: no symptoms Review of other systems All other systems reviewed and negative. (SUNDEEP TOMPKINS NP) Physical Exam Related Data Allergies: Coded Allergies: No Known Drug Allergies (Verified Allergy, 05/04/16) Triage Vital Signs Vital Signs Date Time Temp Pulse Resp B/P (MAP) Pulse Ox O2 Delivery O2 Flow Rate FiO2 02/19/20 17:21 98.3 61 18 207/99 99 Vital signs reviewed: Yes (SUNDEEP TOMPKINS NP) Physical Exam CONSTITUTIONAL Constitutional: well-developed, well-nourished HENT HENT: normocephalic, atraumatic, oropharynx clear/moist, nose normal HENT L/R: left ext ear normal, right ext ear normal EYES Eyes: PERRL (LEFT CONJUCTIVAL HEMMORAHGE ) NECK Neck: ROM normal PULMONARY Pulmonary: effort normal, other (DECREASED BREATH SOUNDS BG) CARDIOVASCULAR Cardiovascular: regular rhythm, heart sounds normal, capillary refill normal, normal rate GASTROINTESTINAL Abdominal: soft, nontender, bowel sounds normal GENITOURINARY Genitourinary: exam deferred SKIN Skin: warm, dry MUSCULOSKELETAL Musculoskeletal: ROM normal NEUROLOGICAL Neurological: alert, oriented x 3, no gross motor or sensory deficits, weakness PSYCHOLOGICAL Psychological: mood/affect normal, judgement normal (SUNDEEP TOMPKINS NP) Results Laboratory Result Diagram: 02/19/20 1740 02/19/20 1730 Laboratory Laboratory Tests Test 02/19/20 17:40 02/19/20 17:30 White Blood Count 7.94 x10e3/uL (4.8-10.8) Red Blood Count 3.08 x10e6/uL (4.3-5.7) Hemoglobin 9.3 g/dL (14.0-18.0) Hematocrit 29.2 % (38.2-49.6) Mean Corpuscular Volume 94.8 fL (81-99) Mean Corpuscular Hemoglobin 30.2 pg (28-32) Mean Corpuscular Hemoglobin Concent 31.8 g/dL (31-35) Red Cell Distribution Width 16.3 % (11.7-14.4) Platelet Count 168 x10e3/uL (140-360) Neutrophils (%) (Auto) 62.3 % (38.7-80.0) Lymphocytes (%) (Auto) 18.4 % (18.0-39.1) Monocytes (%) (Auto) 9.9 % (4.4-11.3) Eosinophils (%) (Auto) 8.6 % (0.0-6.0) Basophils (%) (Auto) 0.4 % (0.0-1.0) Neutrophils # (Auto) 5.0 (2.1-6.9) Lymphocytes # (Auto) 1.5 (1.0-3.2) Monocytes # (Auto) 0.8 (0.2-0.8) Eosinophils # (Auto) 0.7 (0.0-0.4) Basophils # (Auto) 0.0 (0.0-0.1) Absolute Immature Granulocyte (auto 0.03 x10e3/uL (0-0.1) Prothrombin Time 13.6 seconds (11.9-14.5) Prothromb Time International Ratio 0.98 Activated Partial Thromboplast Time 31.0 seconds (23.8-35.5) Urine Color Yellow (YELLOW) Urine Clarity Clear (CLEAR) Urine pH 8.5 (5 - 7) Urine Specific [place] 1.020 (1.010-1.025) Urine Protein >=300 (NEGATIVE) Urine Glucose (UA) 2+ (NEGATIVE) Urine Ketones Negative (NEGATIVE) Urine Blood Moderate (NEGATIVE) Urine Nitrite Negative (NEGATIVE) Urine Bilirubin Negative (NEGATIVE) Urine Urobilinogen 0.2 mg/dL (0.2 - 1) Urine Leukocyte Esterase Trace (NEGATIVE) Urine RBC 0-5 /HPF (0-5) Urine WBC 21-50 /HPF (0-5) Urine Epithelial Cells Few /LPF (NONE) Urine Transitional Epithelial Cells Few (NONE) Urine Bacteria Rare /HPF (NONE) Sodium Level 141 mmol/L (136-145) Potassium Level 4.4 mmol/L (3.5-5.1) Chloride Level 98 mmol/L (98-107) Carbon Dioxide Level 27 mmol/L (22-29) Anion Gap 20.4 mmol/L (8-16) Blood Urea Nitrogen 58 mg/dL (7-26) Creatinine 13.76 mg/dL (0.72-1.25) Estimat Glomerular Filtration Rate 4 ML/MIN (60-) BUN/Creatinine Ratio 4 (6-25) Glucose Level 153 mg/dL (74-118) Calcium Level 9.2 mg/dL (8.4-10.2) Total Bilirubin 0.8 mg/dL (0.2-1.2) Aspartate Amino Transf (AST/SGOT) 14 IU/L (5-34) Alanine Aminotransferase (ALT/SGPT) 11 IU/L (0-55) Alkaline Phosphatase 52 IU/L (40-150) Creatine Kinase 85 IU/L (30-200) Creatine Kinase MB 1.00 ng/mL (0-5.0) Troponin I 0.026 ng/mL (0-0.300) Total Protein 7.7 g/dL (6.5-8.1) Albumin 4.0 g/dL (3.5-5.0) Globulin 3.7 g/dL (2.3-3.5) Albumin/Globulin Ratio 1.1 (0.8-2.0) Lab results reviewed: Yes (SUNDEEP TOMPKINS NP) Imaging Imaging results reviewed: Yes (SUNDEEP TOMPKINS NP) Critical Care Time Subsequent provider I assumed direction of critical care for this patient from another provider of my specialty. (SUNDEEP TOMPKINS NP) Assessment & Plan Reassessment Reassessment time: 19:11 Reassessment PATIENT STATES HE FEELS BETTER, BLOOD PRESSURE BETTER. PATIENT RESTING, AWAITING CT RESULTS (SUNDEEP TOMPKINS NP) Assessment & Plan Final Impression: (1) Dizziness (2) Diabetes (3) Hypertension (4) Obesity Assessment & Plan BLOOD WORK, CXR,EKG AND CT CHEST ORDERED 1834- LAB WORK DISCUSSED WITH DR ALCAZAR- WILL ADMIT PATIENT TO DR PULIDO SERVICE 1899- ABX ORDERED, ORTHOSTATICS ORDERED AND NEGATIVE 1914- SPOKE TO DR PULIDO AND DR SANCHEZ 1999- AWAITING DELAYED CT SCAN READING (SUNDEEP TOMPKINS NP) Depart Disposition: ADMITTED Last Vital Signs Date Time Temp Pulse Resp B/P (MAP) Pulse Ox O2 Delivery O2 Flow Rate FiO2 02/19/20 19:01 98.0 72 18 166/78 100 (SUNDEEP TOMPKINS NP) Home Meds Active Scripts Famotidine (PEPCID) 20 Mg Tablet, 20 MG PO BID, #60 TAB 1 Refill Prov:SHANNA SAAVEDRA MD 05/06/16 [Aspirin] 325 MG TABEC No Conflict Check, 81 MG PO QAM, #30 2 Refills Prov:SHANNA SAAVEDRA MD 05/06/16 Reported Medications Lovastatin (LOVASTATIN) 10 Mg Tablet, PO HS 01/30/20 Nebivolol Hcl (BYSTOLIC) 10 Mg Tablet, 10 MG PO DAILY, TAB 01/30/20 Medications in the ED Hydralazine HCl 10 mg NOW STAT IV Last administered on 02/19/20at 18:37; Admin Dose 10 MG; Start 02/19/20 at 17:30; Stop 02/19/20 at 17:42; Status DC Sodium Chloride 50 ml @ STK-MED ONCE .ROUTE ; Start 02/19/20 at 18:47; Stop 02/19/20 at 18:41; Status DC Iopamidol 74,000 mg STK-MED ONCE INJ ; Start 02/19/20 at 18:47; Stop 02/19/20 at 18:42; Status DC (SUNDEEP TOMPKINS NP) Physician Attestation Provider Attestation The patient's history, exam findings, diagnostics, and a summary of any interventions or procedures was reviewed in detail with our CLAUDIA. I personally i nterviewed and examined the patient, and I have reviewed and agree with the HPI andexam. My personal exam shows [ no neurological deficits, lungs cta bilateral, i spoke with dr sim radiologist about ct chest, findings mild pulmonary edema, no pe, small pericardial effusion(related to volume overload), ]. I confirm the diagnosis as documented by the CLAUDIA. I have reviewed and agree with the care plan articulated in the disposition section. (AUGUSTO SIMMS MD) SUNDEEP TOMPKINS NP February 19, 2020 19:18 AUGUSTO SIMMS MD February 19, 2020 20:04
--- NOTE | 2020-02-19 20:18 | Diagnostic Imaging Report ---
EXAM: CT Chest WITH contrast- Pulmonary Embolism Protocol INDICATION: Dizziness. COMPARISON: None TECHNIQUE: Chest was scanned utilizing a multidetector helical scanner from the lung apex through the level of the diaphragm after administration of IV contrast. Thin section reconstructions were obtained with special concentration on the pulmonary arteries. Coronal and sagittal reformations were obtained. Pulmonary embolism protocol was performed. IV CONTRAST: 100 cc of Isovue 370 RADIATION DOSE: Total DLP: 551 mGy*cm Dose modulation, iterative reconstruction, and/or weight based adjustment of the mA/kV was utilized to reduce the radiation dose to as low as reasonably achievable. COMPLICATIONS: None FINDINGS: LINES/ TUBES: Right IJ tunneled hemodialysis catheter terminates in the right atrium. PULMONARY ARTERIES: No filling defect is identified within the pulmonary arteries to the segmental level. The subsegmental pulmonary arteries are not well opacified. Main pulmonary artery measures 2.8 cm in diameter. LUNGS AND AIRWAYS: Bilateral mosaic attenuation with diffuse ground glass opacities. Multifocal linear opacities, likely subsegmental atelectasis. Smooth interlobular septal thickening at the lung bases. PLEURA: The pleural spaces are clear. HEART AND MEDIASTINUM: The thyroid gland is normal. Prominent mediastinal lymph nodes, including an enlarged right paratracheal lymph node, measuring up to 1.9 cm (series 2, image 37). Mild cardiomegaly. Small pericardial effusion, measuring up to 1.8 cm. Coronary atherosclerosis (LAD). UPPER ABDOMEN: Limited contrast-enhanced views of the upper abdomen. Mild nonspecific bilateral perinephric stranding. Nonobstructing 2 mm right mid pole renal stone. BONES: No acute osseous abnormality. 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 SOFT TISSUES: Diffuse anasarca. IMPRESSION: No evidence of pulmonary embolism to the level of the segmental pulmonary arteries. Findings most compatible with pulmonary interstitial edema in this patient on dialysis. Infectious process is considered less likely. Additional findings of volume overload including small pericardial effusion and diffuse anasarca. Coronary atherosclerosis (LAD). Prominent mediastinal lymph nodes, including an enlarged right paratracheal lymph node, measuring up to 1.9 cm, is likely reactive or reflective of volume overload. A follow-up chest CT may be considered in 3 months. Nonspecific partially visualized bilateral perinephric stranding may reflect volume status versus pyelonephritis in this patient with reported UTI. Nonobstructing 2 mm right mid pole renal stone. The above findings were discussed with Dr. Gupta on 02/19/2020 at 8:08 PM. Signed by: Dr. Mohsen Clay MD on 02/19/2020 8:15 PM
[2020-02-19 20:40] VITALS: BP 193/82
--- NOTE | 2020-02-19 21:00 | NUR ---
patient is a new admit that arrived vis stretcher. patient is awake and talking. patient has been transferred into the bed. telemetry is attached. bed is in lowest position and call light is within reach. Will continue to monitor patient.
[2020-02-19 21:12] VITALS: BP 193/82
[2020-02-19 21:18] VITALS: BP 193/82
--- NOTE | 2020-02-19 21:30 | NUR ---
Attending physician notified about patients elevated blood pressure. received new order to give 10mg hydralazine IV and also to give 10mg amlodopine tablet. will continue to monitor patient.
[2020-02-19] MEDS ORDERED: AMLODIPINE BESYLATE 10 MG TAB PO ONE (22:00)
--- NOTE | 2020-02-19 22:00 | NUR ---
attending physician is on unit rounding on patient. New orders entered for patient.
[2020-02-19] MEDS ORDERED: DEXTROSE 50% SYRINGE 50 ML IV PRN (23:15)
[2020-02-20] VITALS (8 sets, daily range): BP systolic 153–176; BP diastolic 70–84
--- NOTE | 2020-02-20 01:49 | History and Physical ---
CHIEF COMPLAINT: Dizziness. HISTORY OF PRESENT ILLNESS: Mr. Marcel Troy is a very pleasant 49-year-old gentleman with a known history of hypertension, end-stage renal disease, and hyperlipidemia, who presented to the emergency department complaining of severe dizziness. The patient stated that while he was coming from [place] and on his way to [place], he started complaining of severe dizziness. He stated that he ate a hamburger and since then he has not been feeling better and has been advised in the past by his primary care physician to have an elevated blood pressure, which seemed to cause dizziness. On arrival to the emergency department, a BP systolic was in the 200s and so far he has been given several doses of hydralazine IV intravenously 10 mg IV x2 doses with persistent elevated blood pressure, now in the 190s. Consequently, we added Norvasc 10 mg p.o. x1 dose to the regimen of treatment and the patient denies having chest pain. No shortness of breath. No abdominal pain. No nausea or vomiting. No focal weakness. No slurred speech. No confusion. PAST MEDICAL HISTORY: Significant for hypertension, diabetes mellitus; end stage renal disease, on hemodialysis. He denies of any cardiac stenting. He denies to me previous myocardial infarction. There is no history of CVA. PAST SURGICAL HISTORY: Left arm fistula. The patient presently is on AV fistula for hemodialysis. SOCIAL HISTORY: No tobacco, no alcohol abuse. FAMILY HISTORY: There is no family history of heart disease. ALLERGIES: PER CHART. MEDICATIONS: At time of admission, on lovastatin, amlodipine, Tylenol No.3, Bystolic, glimepiride, Singulair. REVIEW OF SYSTEMS: CONSTITUTIONAL: Denies fever or chills. CARDIOVASCULAR: No palpitations. No swelling in the legs. No blackout spells. RESPIRATORY: No cough. No hemoptysis. No shortness of breath. GI: No nausea, vomiting. No diarrhea. No hematemesis and no melena. No abdominal pain. GENITOURINARY: No dysuria, hematuria, or frequency. NEUROLOGIC: Feeling dizzy. No focal weakness. No compulsive disorders or ataxia. SKIN: Negative. PHYSICAL EXAMINATION: GENERAL: The patient was alert, oriented to person, time, and place. The patient did not appear to be in distress at the time of my evaluation. VITAL SIGNS: Latest blood pressure 193/82, respirations 18, pulse 68, temperature 97.6. HEENT: Head is normocephalic and atraumatic. Extraocular movements intact. NECK: Supple. No JVD. Thyroid was not enlarged. LUNGS: Clear to auscultation. HEART: Rate and rhythm. No murmurs, rubs, or gallops. ABDOMEN: Soft, nontender. No organomegaly. EXTREMITIES: No edema. NEUROLOGIC: Nonfocal. The patient does have a left arm AV fistula. LABORATORY DATA: Noted. CBC revealed hemoglobin 9.3, white blood cell count 7.94, platelet count 168,000. Sodium 141, potassium 4.4, chloride 98, BUN 58, creatinine 13.76 BNP 680.3, blood sugar 181. IMAGING STUDIES: CT of the chest. Results noted no evidence of pulmonary embolism. Findings most compatible with pulmonary interstitial edema. These are findings of volume overload including small pericardial effusion, diffuse anasarca. ASSESSMENT: 1. Dizziness. 2. Uncontrolled hypertension. 3. Diabetes mellitus type 2. 4. End-stage renal disease. 5. Hyperlipidemia. PLAN OF CARE: Monitor blood pressure. Reconcile home medications. Glycemic control. DVT prophylaxis. Consult renal for continuation of hemodialysis. Further recommendations depending on the patient's ER course. MD HENRIK Araujo/NANCY /[id number] MTDD
[2020-02-20 03:22] LABS: CREATINE KINASE MB 1.9 ng/mL (0-5.0)
[2020-02-20 06:05] LABS: BASOPHILS % 0.4 % (0.0-1.0); EOSINOPHILS # (AUTO) 0.7 (0.0-0.4); EOSINOPHILS % 8.2 % (0.0-6.0); HEMATOCRIT 28.8 % (38.2-49.6); LYMPHOCYTES # (AUTO) 1.2 (1.0-3.2); LYMPHOCYTES % 14.6 % (18.0-39.1); MEAN CORPUSCULAR HEMOGLOBIN 29.6 pg (28-32); MEAN CORPUSCULAR HGB CONC 31.3 g/dL (31-35); MEAN CORPUSCULAR VOLUME 94.7 fL (81-99); MONOCYTES # (AUTO) 0.7 (0.2-0.8); MONOCYTES % 8.9 % (4.4-11.3); NEUTROPHILS # (AUTO) 5.4 (2.1-6.9); NEUTROPHILS % 67.5 % (38.7-80.0); PLATELET COUNT 156 x10e3/uL (140-360); RED BLOOD COUNT 3.04 x10e6/uL (4.3-5.7); RED CELL DISTRIBUTION WIDTH 16.4 % (11.7-14.4)
--- NOTE | 2020-02-20 06:40 | NUR ---
REPORT GIVEN TO DAY NURSE. PATIENT IS RESTING COMFORTABLY IN THE BED. NO DISTRESS NOTED.
[2020-02-20 06:45] LABS: ANION GAP 20.3 mmol/L (8-16); CALCIUM 8.7 mg/dL (8.4-10.2); CREATININE, SERUM 14.62 mg/dL (0.72-1.25); POTASSIUM 4.3 mmol/L (3.5-5.1)
[2020-02-20] MEDS: INSULIN LISPRO 100 UNIT/1 ML 3ML VIAL SQ SCH ×4 (07:30→21:00)
--- NOTE | 2020-02-20 07:46 | NUR ---
PATIENT BED RESTING WITH HEAD OF BED ELEVATED, NO DISTRESS NOTED. NEW FISTULA TO LEFT ARM AND TUNNELLED CATHETER TO RIGHT CHEST. BED IN LOWER POSITION, CALL LIGHT AT REACH.
[2020-02-20] MEDS: GLIMEPIRIDE 2 MG TAB PO SCH (08:00)
[2020-02-20] MEDS: ONDANSETRON HCL INJ 2MG/ML 2ML 2 MG/ML VIAL IV PRN (08:36)
[2020-02-20] MEDS: FAMOTIDINE 20 MG TAB PO SCH ×2 (09:00→17:00)
[2020-02-20] MEDS ORDERED: AMLODIPINE BESYLATE 5 MG TAB PO SCH (09:00)
[2020-02-20] MEDS: NEBIVOLOL 10 MG TAB PO SCH (09:05)
[2020-02-20] MEDS: ASPIRIN 81 MG CHEW TAB PO SCH (09:05)
--- NOTE | 2020-02-20 09:30 | NUR ---
RENAL MD NOTIFIED OF CONSULT. ORDER RECEIVED AND IMPLEMENTED
--- NOTE | 2020-02-20 09:38 | Diagnostic Imaging Report ---
Examination: Single AP view of the chest. COMPARISON: CT chest 02/19/2020 INDICATION: Dizziness, weakness, shortness of breath IMPRESSION: 1. Lines and Tubes: Right IJ tunnel dialysis catheter with tip projecting in the right atrium. 2. Lungs are well-inflated. Bilateral interstitial opacities extending from the susan consistent with interstitial pulmonary edema. No consolidation. Findings consistent with fluid overload. 3. Enlarged cardiac silhouette. Central pulmonary venous congestion. 4. No acute bony abnormalities. Signed by: Dr. Zia Alvares M.D. on 02/20/2020 9:34 AM
[2020-02-20 11:54] LABS: CREATINE KINASE MB 0.8 ng/mL (0-5.0)
[2020-02-20] MEDS ORDERED: EPOETIN ALFA-EPBX 10,000 UNIT/ML VIAL SC SCH (12:15)
--- NOTE | 2020-02-20 12:43 | NUR ---
[id number] Progress note dictated
[2020-02-20] MEDS: HYDRALAZINE HCL 25 MG TAB PO SCH ×3 (12:45→21:43)
--- NOTE | 2020-02-20 13:27 | Progress Note ---
DATE: 02/20/2020 SUBJECTIVE: The patient is doing fine. The patient denies having chest pain or shortness of breath. No fever. No chills. No pain. No nausea, no vomiting. No dizziness. No focal weakness. No slurred speech. OBJECTIVE: GENERAL: The patient is alert, oriented to person, time, place. The patient is in no distress. VITAL SIGNS: This morning, blood pressure 176/84, respirations 20, pulse 68, temp is 97.9. HEENT: Head is normocephalic and atraumatic. NECK: Supple. No JVD. LUNGS: Clear to auscultation. HEART: Regular rate and rhythm. ABDOMEN: Soft, nontender. EXTREMITIES: No edema. NEURO: No focal. ASSESSMENT: 1. Dizziness. 2. Uncontrolled hypertension. 3. Diabetes mellitus type 2. 4. End-stage renal disease. 5. Hyperlipidemia. PLAN: We will add hydralazine 50 mg p.o. 3 times a day. Continue present care. May consider increasing amlodipine up to 10 mg p.o. daily. A renal consultation has been requested. Monitor lytes. MD HENRIK Araujo/NANCY /[id number]
[2020-02-20] MEDS: EPOETIN ALFA-EPBX 10,000 UNIT/ML VIAL SC SCH (13:58)
[2020-02-20] MEDS ORDERED: SODIUM CHLORIDE 0.9% 1000ML 2,000 ML ONE (14:02)
--- NOTE | 2020-02-20 15:54 | NUR ---
BED SIDE HEMODIALYSIS TREATMENT IN PROGRESS. PT IN BED RESTING WITH NO S/S OF DISTRESS.
[2020-02-20] MEDS ORDERED: SODIUM CHLORIDE 0.9% 1000ML 2,000 ML IV PRN (17:30)
[2020-02-20] MEDS ORDERED: HEPARIN SOD (PORCINE) 1000 UNIT/ML SDV IV PRN (17:30)
--- NOTE | 2020-02-20 19:25 | NUR ---
BEDSIDE SHIFT REPORT RECEIVED FROM DAY RN. DIALYSIS COMPLETED. TECH SAYS TOOK 2.5 L OFF TODAY. B/P AFTER DIALYSIS 162/71 HR 64. PT ALERT AND ORIENTED X3. RESPIRATIONS ARE EVEN AND UNLABORED. TELE #20 ON. AV FISTULA IN LEFT ARM - NOT TO BE USED FOR 3 MONTHS. RT TUNNEL CATH USED FOR DIALYSIS- CAPPED WITH DRY DRESSING. VOIDNG PER BATHROOM.CALL LIGHT WITHIN REACH. BED IN LOW POSITION.
[2020-02-20] MEDS ORDERED: ACETAMINOPHEN 325 MG TAB PO PRN (19:45)
--- NOTE | 2020-02-20 20:05 | NUR ---
PT C/ OF HEADACHE. DR JEONG CALLED FOR TYLENOL ORDER. TYLENOL 2 TABS GIVEN FOR H/A. NEW ORDER FOR AMLODIPINE 5 MG Q 12 HRS.WILL MONITOR B/P.PT REFUSED INSULIN FOR ACCUCHEK OF 133. PT REPORTS HIS BLOOD SUGAR GOES LOW AT NIGHT.
[2020-02-20] MEDS ORDERED: SODIUM CHLORIDE 0.9% 50ML 50 ML ONE (20:19)
[2020-02-20] MEDS: CEFTRIAXONE SOD 1 GM/NS 50 ML 50 ML IV SCH (20:39)
[2020-02-20] MEDS: ACETAMINOPHEN 325 MG TAB PO PRN (21:01)
[2020-02-20] MEDS: AMLODIPINE BESYLATE 5 MG TAB PO SCH (21:43)
[2020-02-21] VITALS (7 sets, daily range): BP systolic 145–176; BP diastolic 68–80
--- NOTE | 2020-02-21 07:14 | NUR ---
PATIENT IN BED RESTING WITH HEAD OF BED ELEVATED. DIALYSIS CATHETER TO RIGHT CHEST WITH DRESSING DRY AND INTACT. BED IN LOWER POSITION, CALL LIGHT AT REACH.
[2020-02-21] MEDS: INSULIN LISPRO 100 UNIT/1 ML 3ML VIAL SQ SCH ×4 (07:30→21:00)
[2020-02-21] MEDS: GLIMEPIRIDE 2 MG TAB PO SCH (08:00)
[2020-02-21] MEDS: HYDRALAZINE HCL 25 MG TAB PO SCH ×3 (08:51→21:42)
[2020-02-21] MEDS: NEBIVOLOL 10 MG TAB PO SCH (08:51)
[2020-02-21] MEDS: ASPIRIN 81 MG CHEW TAB PO SCH (08:51)
[2020-02-21] MEDS: AMLODIPINE BESYLATE 5 MG TAB PO SCH ×2 (08:52→17:16)
[2020-02-21] MEDS: FAMOTIDINE 20 MG TAB PO SCH ×2 (08:52→17:00)
--- NOTE | 2020-02-21 15:28 | NUR ---
MD IN TO SEE PATIENT, NEW ORDERS RECEIVED.
--- NOTE | 2020-02-21 16:16 | Diagnostic Imaging Report ---
History: Blurry Vision Comparison studies: None Technique: Axial images were obtained from the skull base to the vertex. Coronal and sagittal images reconstructed from the axial data. Dose modulation, iterative reconstruction, and/or weight based adjustment of the mA/kV was utilized to reduce the radiation dose to as low as reasonably achievable. Intravenous contrast: None Findings: Scalp/skull: No abnormalities. Extra-axial spaces: No masses. No fluid collections. Brain sulci: Appropriate for age Ventricles: Normal in size or configuration. No hydrocephalus. Parenchyma: No abnormal densities. No masses, hemorrhage, acute or chronic cortical vascular insults. Sellar/suprasellar region: No abnormalities. Craniocervical junction: Patent foramen magnum. No Chiari one malformation. Incidental findings: Subtle atherosclerotic calcifications in the carotid siphons . Impression: No intracranial abnormalities. Signed by: Dr. Doc Moran M.D. on 02/21/2020 4:13 PM
--- NOTE | 2020-02-21 18:37 | Progress Note ---
DATE: 02/21/2020 SUBJECTIVE: The patient is complaining of blurry vision and has been feeling dizzy, although symptoms have improved. Denies slurred speech. No focal weakness. The patient is quite concerned about his ongoing blurry vision. The patient denies having chest pain or shortness of breath. No fever. No chills. No nausea, no vomiting. OBJECTIVE: GENERAL: The patient is alert, oriented to person, time, place. The patient is in no distress. VITAL SIGNS: Blood pressure 150/72, respirations 17, pulse is 62, temp is 98.0. HEENT: Head is normocephalic and atraumatic. NECK: Supple. No JVD. Thyroid was not enlarged. LUNGS: Clear to auscultation. HEART: Regular rate and rhythm. No murmurs, no gallops. ABDOMEN: Soft, nontender. EXTREMITIES: No edema. NEURO: No focal. LAB DATA: As of today, February 20, 2020, hemoglobin 9.0, white blood cell count 7.7, platelet count 156,000. Sodium 139, potassium 4.3, chloride 100, CO2 of 23, BUN 63, creatinine is . ASSESSMENT: 1. Dizziness. 2. Uncontrolled hypertension. 3. Diabetes mellitus type 2. 4. Blurry vision. 5. End-stage renal disease. 6. Hyperlipidemia. PLAN OF CARE: blood pressure medication have been done. Hydralazine was started 50 mg p.o. three times a day, 5 mg p.o. b.i.d. Renal consultation has been requested. Continue hemodialysis as advised Consult Neurology in view of ongoing blurred vision. Imaging studies were requested on admission per the patient's dizziness. Images, CT of the head. MD HENRIK Araujo/NANCY /[id number]
[2020-02-21] MEDS: ACETAMINOPHEN 325 MG TAB PO PRN (19:02)
[2020-02-21] MEDS: ONDANSETRON HCL INJ 2MG/ML 2ML 2 MG/ML VIAL IV PRN (20:08)
[2020-02-21] MEDS: CEFTRIAXONE SOD 1 GM/NS 50 ML 50 ML IV SCH (21:43)
[2020-02-22] VITALS (8 sets, daily range): BP systolic 129–164; BP diastolic 57–77
[2020-02-22] MEDS: INSULIN LISPRO 100 UNIT/1 ML 3ML VIAL SQ SCH ×4 (07:30→20:57)
[2020-02-22] MEDS: GLIMEPIRIDE 2 MG TAB PO SCH (08:00)
[2020-02-22 08:15] LABS: BASOPHILS % 0.3 % (0.0-1.0); EOSINOPHILS # (AUTO) 0.6 (0.0-0.4); EOSINOPHILS % 9.5 % (0.0-6.0); HEMATOCRIT 27.3 % (38.2-49.6); HEMOGLOBIN 8.8 g/dL (14.0-18.0); LYMPHOCYTES # (AUTO) 1.2 (1.0-3.2); MEAN CORPUSCULAR HEMOGLOBIN 29.9 pg (28-32); MEAN CORPUSCULAR HGB CONC 32.2 g/dL (31-35); MEAN CORPUSCULAR VOLUME 92.9 fL (81-99); MONOCYTES # (AUTO) 0.8 (0.2-0.8); MONOCYTES % 11.9 % (4.4-11.3); NEUTROPHILS # (AUTO) 3.9 (2.1-6.9); NEUTROPHILS % 59.8 % (38.7-80.0); PLATELET COUNT 159 x10e3/uL (140-360); RED BLOOD COUNT 2.94 x10e6/uL (4.3-5.7); RED CELL DISTRIBUTION WIDTH 15.9 % (11.7-14.4)
[2020-02-22 08:33] LABS: ALBUMIN 3.4 g/dL (3.5-5.0); ALBUMIN/GLOBULIN RATIO 1.1 (0.8-2.0); ANION GAP 17.4 mmol/L (8-16); CALCIUM 8.3 mg/dL (8.4-10.2); CREATININE, SERUM 11.56 mg/dL (0.72-1.25); POTASSIUM 4.4 mmol/L (3.5-5.1)
[2020-02-22] MEDS: NEBIVOLOL 10 MG TAB PO SCH (09:00)
[2020-02-22] MEDS: FAMOTIDINE 20 MG TAB PO SCH ×2 (09:00→17:00)
[2020-02-22] MEDS: HYDRALAZINE HCL 25 MG TAB PO SCH ×3 (09:00→20:56)
[2020-02-22] MEDS: AMLODIPINE BESYLATE 5 MG TAB PO SCH ×2 (09:00→17:32)
[2020-02-22] MEDS: ASPIRIN 81 MG CHEW TAB PO SCH (09:33)
[2020-02-22] MEDS: EPOETIN ALFA-EPBX 10,000 UNIT/ML VIAL SC SCH (11:58)
--- NOTE | 2020-02-22 13:19 | NUR ---
DATE: 02/22/2020 SUBJECTIVE: CXR last had mild overload, will repeat HTN better HD today telemetry unremarkable persistent vision changes, persistent dizziness on mobilization that was distracting OBJECTIVE: VITAL SIGNS: reviewed per EMR GENERAL: The patient is alert, oriented to person, time, place. HEENT: Head is normocephalic and atraumatic. NECK: Supple. No JVD. Thyroid was not enlarged. LUNGS: Clear to auscultation. No wheezes HEART: Regular rate and rhythm. No murmurs, no gallops. ABDOMEN: Soft, nontender. EXTREMITIES: No edema. Mobile NEURO: Non focal extremities LAB DATA: 4.4 k, cr 11.66, wbc 6.6. ASSESSMENT: 1. Dizziness. Persistent 2. Vision changes. Persistent. 2. Uncontrolled hypertension. 3. Diabetes mellitus type 2. 4. Blurry vision. 5. End-stage renal disease. 6. Hyperlipidemia. PLAN OF CARE: PT consult for persistent symptoms Carotid dopplers today CT head reviewed. Further workup as per neurology Continue HD per renal expert. Recheck CXR, ensure improvement Thank you Dr Taylor and Dr Grider. Please call with questions.
--- NOTE | 2020-02-22 13:30 | Consultation ---
DATE OF CONSULTATION: Neurology Consultation HISTORY OF PRESENT ILLNESS: Mr. Morgan Troy comes to my attention for dizziness. He is a 49-year-old male, who has history of hypertension, end-stage renal disease, and hyperlipidemia, who presented complaining of severe dizziness, in which he has vertigo. The patient stated that when he was coming from [place], started complaining of dizziness, room spinning, and nausea. Denies emesis at that time. Denies headache. Denies double vision. Endorses blurry vision at this time, but the dizziness is resolved and this lasted for a little bit. He went to primary care physician, found to have hypertension, and he was sent to the emergency room with systolic blood pressure less than 200s. Denies focal numbness or weakness or ataxia. No disturbance in gait that can be improved with supportive measures able to walk, he does not seem to be ataxic. PAST MEDICAL HISTORY: Includes diabetes, hypertension, end-stage renal disease, and disabled left arm fistula for dialysis. SOCIAL HISTORY: Denies tobacco or alcohol. FAMILY HISTORY: Positive for hypertension. MEDICATIONS: At home include: 1. Lovastatin. 2. Amlodipine. REVIEW OF SYSTEMS: Denies fevers or chills. Endorses dizziness versus blurred vision. Endorses nausea. Denies vomiting. Denies chest pain. Denies abdominal pain or distention. Denies ataxia. Fourteen-point review of systems is otherwise negative. PHYSICAL EXAMINATION: VITAL SIGNS: Temperature 97.1, blood pressure 160/77, heart rate 63 and regular. HEENT: Shows extraocular muscles intact. Face symmetric. Tongue is midline. Speech is clear. No nuchal rigidity. ABDOMEN: Soft and nontender. CARDIOVASCULAR: Regular rate and rhythm. PULMONARY: Clear to auscultation. NEUROLOGIC: The patient is alert and oriented x3. He is calm, responsive, and fluent. Extraocular muscles are intact. Not able to elicit nystagmus. He has no ataxia on exam. Strength is 5/5 in uppers and lowers. Reflexes are diminished, 1/4 throughout, but they are present - symmetric. ASSESSMENT AND PLAN: The patient comes in with hypertensive encephalopathy for urgency, who presenting with dizziness and blurred vision, possibly has thrush. We are not going to get but an MRI or CT would be helpful to evaluate for possible posterior reversible encephalopathy. Physical therapy for the dizziness will be helpful. Otherwise, it does not really suggest ischemic etiology, however, the patient is already on aspirin and statin, continue those medications. MD CAPRI MONTOYA/MODL /[id number]
--- NOTE | 2020-02-22 14:35 | NUR ---
Per information technology associate patient refused MRI. Patient states "I am claustrophobic and I would like to have it done tomorrow or have something for anxiety prior to test." Paged to notify of situation. Awaiting call back.
--- NOTE | 2020-02-22 15:50 | NUR ---
R aware of patient's status. See orders
[2020-02-22] MEDS ORDERED: DIAZEPAM INJ 5 MG/ML 2 ML IV ONE (16:00)
[2020-02-22] MEDS: ACETAMINOPHEN 325 MG TAB PO PRN (17:55)
--- NOTE | 2020-02-22 19:10 | NUR ---
Bedside nursing shift report with morning nurse. Pt alert and orient, lying in bed HOB 30 degrees. c/o mild MCCANN, previously medicated. Call light within reach. Bed low and locked.
--- NOTE | 2020-02-22 19:39 | NUR ---
Report given to oncoming nurse of patient's status. Resting in bed. No s/s of acute distress noted. Side rails upx2, call light within reach.
[2020-02-22] MEDS: CEFTRIAXONE SOD 1 GM/NS 50 ML 50 ML IV SCH (19:45)
[2020-02-22] MEDS: FAMOTIDINE 20 MG/2 ML VIAL IV SCH (20:41)
[2020-02-22] MEDS ORDERED: MAGNESIUM HYDROXIDE 30 ML UDC PO ONE (20:45)
[2020-02-23] VITALS: BP 151/70
[2020-02-23 04:00] VITALS: BP 152/72
[2020-02-23 05:30] VITALS: BP 149/71
[2020-02-23 05:31] VITALS: BP 143/69
--- NOTE | 2020-02-23 06:43 | NUR ---
no acute overnight events MRI negative 98.1 67 151/70 HEENT: Shows extraocular muscles intact. Face symmetric. Tongue is midline. Speech is clear. No nuchal rigidity. ABDOMEN: Soft and nontender. CARDIOVASCULAR: Regular rate and rhythm. PULMONARY: Clear to auscultation. NEUROLOGIC: The patient is alert and oriented x3. He is calm, responsive, and fluent. Extraocular muscles are intact. Not able to elicit nystagmus. He has no ataxia on exam. Strength is 5/5 in uppers and lowers. Reflexes are diminished, 1/4 throughout, but they are present - symmetric. ASSESSMENT AND PLAN: The patient comes in with hypertensive encephalopathy or urgency, who presenting with dizziness and blurred vision mri reasuring exam wnl etiology of symptoms PRES blood pressure control, ASA and statin ok to dc no evidence of stroke or tia
--- NOTE | 2020-02-23 07:02 | NUR ---
Report given to morning nurse, Pt resting in bed. No s/s of acute distress noted. Call light within reach.
[2020-02-23] MEDS: INSULIN LISPRO 100 UNIT/1 ML 3ML VIAL SQ SCH ×2 (07:30→11:30)
[2020-02-23 08:01] VITALS: BP 159/79
--- NOTE | 2020-02-23 08:01 | Diagnostic Imaging Report ---
Examination: MRI BRAIN WO History: Dizziness; weakness Comparison studies: Head CT dated 02/21/2020 Technique: Sagittal T2; axial DWI, FLAIR, GRE or SWI, T1, Coronal FLAIR. Intravenous contrast: None Findings: Scalp: No abnormal signal. No masses. Bone marrow: Normal in signal intensity. Brain volume: Adequate for age. No volume loss. Ventricles: Normal in size and configuration. No hydrocephalus. Extra-axial spaces: No abnormalities. Parenchyma: There are patchy and confluent areas of T2/FLAIR hyperintensity in the periventricular and subcortical white matter, nonspecific. No masses, hemorrhage, or acute vascular insults. Suprasellar and sellar region: No abnormalities. Craniocervical junction: No abnormalities. The foramen magnum is patent. No Chiari malformations. Vessels: Normal flow-voids in the arteries and sinuses. Additional findings:None. IMPRESSION: No acute intracranial abnormalities. Chronic microvascular ischemic change. Signed by: Dr. Rosa Hamm M.D. on 02/23/2020 7:57 AM
[2020-02-23 08:05] VITALS: BP 159/79
[2020-02-23] MEDS: GLIMEPIRIDE 2 MG TAB PO SCH (09:23)
[2020-02-23] MEDS: ASPIRIN 81 MG CHEW TAB PO SCH (09:24)
[2020-02-23] MEDS: FAMOTIDINE 20 MG/2 ML VIAL IV SCH (09:24)
[2020-02-23] MEDS: AMLODIPINE BESYLATE 5 MG TAB PO SCH (09:24)
[2020-02-23] MEDS: HYDRALAZINE HCL 25 MG TAB PO SCH (09:24)
[2020-02-23] MEDS: NEBIVOLOL 10 MG TAB PO SCH (09:24)
[2020-02-23] MEDS ORDERED: AMARYL2 MG PO (14:03)
[2020-02-23] MEDS ORDERED: NORVASC5 MG PO (14:03)
[2020-02-23] MEDS ORDERED: ASPIRIN CHEW81 MG PO (14:03)
[2020-02-23] MEDS ORDERED: HYDRALAZINE HCL25 MG PO (14:03)
--- NOTE | 2020-02-23 14:30 | NUR ---
Patient received discharge order from Dr. Hyde with new prescriptions for BP. Dr. Hyde and this scenario writer explained new medications and side effects. Patient had no questions. Patient was given discharge paperwork and explained who and when to follow up with. Patient and verbalized understanding. Patient's IV was removed at 1420. Patient was walked to the front door at 1430, patient had no issues.
== END 2020-02-23 14:30 | disposition home or self-care (01) | DRG 77 ==
LOC: ER 17:22 → ERHOLD 19:47 → MED/SURG3 21:00 → OBSVTOIN 02-21 15:05
PROVIDERS: ADMIT Internal Medicine; ATTEND Internal Medicine
PROC: 5A1D70Z Performance of Urinary Filtration, Intermittent, Less than 6 Hours Per Day (ICD-10-PCS; principal; 2020-02-21)
DX: I67.4 Hypertensive encephalopathy (principal); N18.6 End stage renal disease; I31.3 Pericardial effusion (noninflammatory); I12.0 Hypertensive chronic kidney disease with stage 5 chronic kidney disease or end stage renal disease; I16.0 Hypertensive urgency; H53.8 Other visual disturbances; E78.5 Hyperlipidemia, unspecified; B37.9 Candidiasis, unspecified; D64.9 Anemia, unspecified; Z11.59 Encounter for screening for other viral diseases
CPT/HCPCS: 36415; 70450; 70551; 71045; 71260; 80048; 80053; 81001; 82550; 82553; 82948; 83880; 84100; 84484; 85025; 85610; 85730; 86704; 86706; 87340; 87635; 90962; 93005; 93306; 93880; 97139; 99284; G0378; J0360; J0696; J1644; J2405; J3360; J7030; Q9967

== ENCOUNTER 2020-05-05 14:53 | Emergency (ER) | payer MEDICARE, OTHER ==
[~2020-05-05] VITALS: Ht 165.1 cm; Wt 109.8 kg
[~2020-05-05 14:53] MED LIST changes: +AMARYL2 MG PO; +ASPIRIN CHEW81 MG PO; +HYDRALAZINE HCL25 MG PO; +NORVASC5 MG PO
--- OUTSIDE RECORDS SUMMARY | 2020-05-05 15:28 | XMS REPORT | Clinical Summary ---
Author Author [facility] ict Organization [facility] ict Address Unknown Phone Unavailable Care Team Providers Care Validation Architect Name Role Phone PCP Unavailable Allergies No [...] 01/20/2019 01/20/2018 DM Microalbumin Urine 01/21/2019 01/21/2018, Scrn (Yearly) 01/21/2018, 01/21/2018, Additional history exists IMM Influenza Seasonal 06/28/2020 Oct to November (>/= 19 yrs) Results Not on fileafter 05/05/2019 Insurance Type Payer Benefit Subscriber ID Effective Phone Address Plan / Dates Group [facility] xxxxxxxxx 2016-P [phone] [id number] [place] [address] [facility] SELF-PAY SELF-PAY xxxxxx 2016-5 [address] [place] [address] Guarantor Name Account Relation to Date of Phone Billin g Address Type Patient MORGAN NUNEZ Personal/F Head of 1970 [address] (Home) [place], [place] [address] (Self) Advance Directives Date Inactivated Comments Code Status Date Activated 01/22/2018 8:18 PM Full Code 01/20/2018 3:11 PM
--- OUTSIDE RECORDS SUMMARY | 2020-05-05 15:28 | XMS REPORT | Clinical Summary ---
Author Author [facility] Address Unknown Phone Unavailable Care Team Providers Care Balling Head Tender Name Role Phone Brandon--Shabbir Langford PCP Allergies [...] mouth 2 (two) times daily. Active cloNIDine HCl (CATAPRES) Take 0.1 mg 0 0.1 MG tablet by mouth 2 (two) times daily. Active folic acid (FOLVITE) 1 MG Take 1 mg by 0 tablet mouth daily. Active acetaminophen (TYLENOL) Take 500 mg 0 500 MG tablet by mouth every 6 (six) hours as needed for Pain. Active amLODIPine (NORVASC) 5 MG Take 5 mg by 0 tablet mouth daily. Active hydroCHLOROthiazide Take 12.5 mg 0 (MICROZIDE) 12.5 mg by mouth capsule every morning. Active lisinopriL Take 40 mg by 0 (PRINIVIL,ZESTRIL) 40 MG mouth 2 (two) tablet times daily. Active hydrALAZINE (APRESOLINE) Take 50 mg by 0 02/22 50 MG tablet mouth 3 0 (three) times daily. 03/06/2020 Discontinued cloNIDine (CATAPRES-TTS) Place 1 patch 0 0.1 mg/24 hr patch onto the skin once a week. Active Problems Problem Noted Date ESRD (end [...] 41. He will meet with our transplant parking meter servicer for assistance with dieting and weight loss. Encounters Care Team Description Date Type Specialty Sofiya Neville RN 03/08/2020 Abstract Transplant Irwin Ashton MD ESRD (end stage renal disease) on dialys is (HCC) (Primary Dx); Encounter regarding vascular access for dialysis for end-stage renal disease (HCC) 03/07/2020 Audio - Cardiology Telemedicine Sofiya Neville RN ESRD (end stage renal disease) on dialys is (HCC) (Primary Dx); Essential hypertension; Diabetes mellitus due to underlying condition with chronic kidney disease on chronic dialysis, without long-term current use of insulin (HCC); Pre-transplant evaluation for chronic kidney disease 03/07/2020 Orders Only Transplant Starr Trinidad RN Pre-transplant evaluation for chronic ki dney disease (Primary Dx) 03/06/2020 Office Visit Transplant Irwin Ashton MD ESRD (end stage renal disease) on dialys is (HCC) 01/11/2020 Office Visit Cardiology Flores Sims MD Rana, Abbas Aba Bucker, MD ESRD (end stage renal disease) on dialys is (HCC) (Primary Dx) 05/17/2019 Office Visit Transplant Flores Sims MD 05/17/2019 Office Visit Transplant after 05/05/2019 Family History Medical History Relation Name Comments Diabetes Sister Relation Name Status Comments Father Mother Alive Sister Social History Date Tobacco Use Types Packs/Day Years Used Never Smoker Smokeless Tobacco: Never Used Alcohol Use Drinks/Week oz/Week Comments No Alcohol Habits Answer Date Recorded How often do you have a drink containing alcohol? Never 03/06/2020 How many drinks containing alcohol do you have on No t asked a typical day when you are drinking? How often do you have six or more drinks on one Not asked occasion? Sex Assigned at Date Recorded Not on [...] RISK (1 of 3 - PCV13) DIABETIC EYE EXAM 1980 DIABETIC FOOT EXAM 1981 URINE MICROALBUMIN 01/20/2019 01/20/2018 HEMOGLOBIN A1C 05/17/2019 INFLUENZA VACCINE (#1) 2020 LIPID PANEL 01/20/2021 01/20/2018 Results Not on fileafter 05/05/2019 Insurance Payer Benefit Subscriber ID Type Phone Address Plan / Group [employer] xxxxxxxxx Trans plant [facility] ONLY [facility] xxxxxxxxx CARE [employer] INDEMNITY
--- OUTSIDE RECORDS SUMMARY | 2020-05-05 15:29 | XMS REPORT | Continuity of Care Document ---
Author Author [facility] t Organization [facility] Address [address] [place] [address] [address] [place] [address] Phone Unavailable Care Team Providers [employer] First Officer Name Role Phone MD Rosalba BURGESS PCP Daisha YOUSIF, Yeyo Gayle Attphys [phone] Jamin RN, Caroline Arriaza Attphys Unavailable Amos MARTÍNEZ, Starr Attphys Unavailable Codi MEDEIROS Attphys Unavailable Bethany YOUSIF, SRoger Tanner Attphys Mary YOUSIF, Joaquin Rivera Attphys [phone] Codi MEDEIROS Admphys Unavailable Payers Payer Name Policy Type Policy Number Effective Date Expiration Date S ource [facility] LY[facility] xxxxxxxxx [facility] [employer] [employer] INDEMNI TYxxxxxxxxx xxxxxxxxx [facility] Star Com NA 2019 00:00 :00 [facility] Medicare A & B NA 2019 00:00:00 [facility] Problems Condition Name Condition Details Condition Category Status Onset Date Resolution Date Last Treatment Date Treating Clinician Comments Source ESRD (end stage renal disease) on dialysis ESRD (end s tage renal disease) on dialysis Disease Active 2020-01-11 00:00:00 [facility] Hypertension Hypertension Disease Active 2019-05-17 00:00:00 Last Assessment & Plan: Blood pressure management per primary care. [facility] Diabetes mellitus Diabetes mellitus Disease Active 2019-05-17 00:00:00 Last Assessment & Plan: He will require aggressive blood glucose control per primary care. [facility] CKD (chronic kidney disease) CKD (chronic kidney disease) Disease Active 2019-05-17 00:00:00 Last Assessm ent & Plan: Chronic kidney disease secondary to HTN/DM. At this time he does not require diaylsis. [facility] Obesity Obesity Disease Active 2019-05-17 00:00:00 Last Assessment & Plan: His current BMI is 42. We will set his goal BMI at 40. He will meet with our transplant front end java developer for assistance with dieting and weight loss. [facility] LLQ pain LLQ pain Disease Active 2018-01-20 00:00:00 [facility] Acute renal failure Acute renal failure Disease Active 2018-01-20 00:00 :00 [facility] KATHLEEN (acute kidney injury) KATHLEEN (acute kidney injury) Disease Ac tive 2018-01-20 00:00:00 [facility] Diabetes mellitus type 2 in obese Diabetes mellitus type 2 in ob camilo Disease Active 2018-01-20 00:00:00 [facility] Chest pain Problem Active 2016-05-04 00:00:00 [facility] Hypertension Problem Active 2016-05-04 00:00:00 [facility] Obesity Problem Active 2016-05-04 00:00:00 [facility] Diabetes mellitus Problem Active 2016-05-04 00:00:00 [facility] Back pain Back pain Disease Active 2014-07-08 00:00:00 [facility] Cough Cough Disease Active 2014-02-06 00:00:00 [facility] Dizziness Problem Active [facility] Diarrhea Diarrhea Disease Active [facility] Hyperkalemia Hyperkalemia Disease Active [facility] Allergies, Adverse Reactions, Alerts Allergy Name Allergy Type Status Severity Reaction(s) Onset Date Inacti ve Date Treating Clinician Comments Source No Known Allergies DA Active U 2019-04-12 00:00:00 [facility] No Known Allergies DA Active U 2015-09-11 00:00:00 [facility] Family History Family Member Diagnosis Comments Start Date Stop Date Source Natural sister Diabetes [facility] Social History Social Habit Start Date Stop Date Quantity Comments Source History SDOH Alcohol Std Drinks [facility] History SDOH Alcohol Binge [facility] Sex Assigned At [facility] History SDOH Alcohol Frequency 2020-03-06 00:00:00 2020-03-06 00:00:0 0 1 [facility] Alcohol intake 2018-01-21 00:00:00 2018-01-21 00:00:00 Current drinker of alcohol (finding) [facility] Alcohol Comment 2014-07-06 00:00:00 2014-07-06 00:00:00 OCCASSIONAL [facility] Smoking Status Start Date Stop Date Source Never smoker [facility] Medications Ordered Medication Name Filled Medication Name Start Date Stop Da te Current Medication? Ordering Clinician Indication Dosage Frequency Signature (SIG) Comments Components Source amLODIPine (NORVASC) 5 MG tablet 2020-03-06 10:24:47 Yes 5mg QD Take 5 mg by mouth daily. [facility] hydroCHLOROthiazide (MICROZIDE) 12.5 mg capsule 2020-03-06 10:24 :47 Yes 12.5mg QD Take 12.5 mg by mouth every morning. [facility] lisinopriL (PRINIVIL,ZESTRIL) 40 MG tablet 2020-03-06 10:24:47 Yes 40mg Q.5D Take 40 mg by mouth 2 (two) times daily. [facility] cloNIDine (CATAPRES-TTS) 0.1 mg/24 hr patch 2019 10:24:44 2020-03-06 00:00:00 No 1{patch} Q7D Place 1 patch onto the skin on ce a week. [facility] Amlodipine Besylate (Norvasc) 5 Mg TAB Amlodipine Besylate ( Norvasc) 5 Mg TAB 2020-02-23 14:03:00 Yes 5 Twice A Day [facility] Aspirin (Aspirin Chew) 81 Mg CHEW Aspirin (Aspirin Chew) 81 Mg CHEW 2020-02-23 14:03:00 Yes 81 Every Morning [facility] Glimepiride (Amaryl) 2 Mg TABLET Glimepiride (Amaryl) 2 Mg T ABLET 2020-02-23 14:03:00 Yes 4 Daily@08 [facility] Hydralazine Hcl Hydralazine Hcl 2020-02-23 14:03:00 Yes 50 Three Times A Day [facility] hydrALAZINE (APRESOLINE) 50 MG tablet 2020-02-23 00:00:00 Yes 50mg [id number] Take 50 mg by mouth 3 (three) times daily. [facility] acetaminophen (TYLENOL) 500 MG tablet 2019-05-17 09:42:10 Y es 500mg Take 500 mg by mouth every 6 (six) hours as needed for Pain. [facility] folic acid (FOLVITE) 1 MG tablet 2019-05-17 09:40:25 Yes 1mg QD Take 1 mg by mouth daily. [facility] glimepiride (AMARYL) 4 MG tablet 2019-05-17 09:40:24 Yes 4mg Take 4 mg by mouth every morning before breakfast. [facility] losartan (COZAAR) 50 MG tablet 2019-05-17 09:40:24 Yes 50mg QD Take 50 mg by mouth daily. [facility] sodium bicarbonate 650 MG tablet 2019-05-17 09:40:24 Yes 4{tbl} Q.5D Take 4 tablets by mouth 2 (two) times daily. [facility] cloNIDine HCl (CATAPRES) 0.1 MG tablet 2019-05-17 09:40:24 Yes .1mg Q.5D Take 0.1 mg by mouth 2 (two) times daily. [facility] aspirin 81 MG EC tablet 2019-05-17 09:40:23 Yes 81mg QD Take 81 mg by mouth daily. [facility] amLODIPine (NORVASC) 10 mg tablet 2018-01-22 18:13:21 Yes 10mg QD Take 10 mg by mouth daily. [facility] lovastatin 10 mg tablet 2018-01-22 18:13:21 Yes 40mg Take 40 mg by mouth at bedtime nightly. [facility] glimepiride (AMARYL) 1 mg tablet 2018-01-22 00:00:00 Yes KATHLEEN (acute kidney injury) 1mg QD Take 1 tablet by mouth every morning (before br eakfast). [facility] Aspirin Aspirin 2016-05-06 07:58:00 Yes 81 Every Mor arturo [facility] Famotidine (Pepcid) 20 Mg TABLET Famotidine (Pepcid) 20 Mg T [facility] 2016-05-06 07:58:00 Yes 20 Twice A Day [facility] Lisinopril (Prinivil) 10 Mg TABLET Lisinopril (Prinivil) 10 Mg TABLET 2016-05-06 07:58:00 2020-01-30 00:00:00 No 10 Daily [facility] Metoprolol Tartrate (Lopressor) 25 Mg TAB Metoprolol T artrate (Lopressor) 25 Mg TAB 2016-05-06 07:58:00 2020-01-30 00:00:00 No 12.5 Ever y 12 Hours [facility] Simvastatin (Zocor) 40 Mg TABLET Simvastatin (Zocor) 40 Mg T [facility] 2016-05-06 07:58:00 2020-01-30 00:00:00 No 40 Bedtime [facility] Lovastatin Lovastatin Yes Bedtime [facility] Nebivolol Hcl (Bystolic) 10 Mg TABLET Nebivolol Hcl (Bystolic) 10 M g TABLET Yes 10 Daily [facility] Metformin Hcl Metformin Hcl 2020-01-30 00:00:00 No 500 Daily [facility] Vital Signs Vital Name Observation Time Observation Value Comments Source Body Temperature 2020-02-23 08:05:00 97.9 [degF] [facility] BMI (Body Mass Index) 2020-02-19 21:13:00 40.3 kg/m2 [facility] Weight 2020-02-19 17:21:00 242 [lb_av] [facility] Systolic blood pressure 2020-01-11 13:27:00 178 mm[Hg] [facility] Diastolic blood pressure 2020-01-11 13:27:00 82 mm[Hg] [facility] Heart rate 2020-01-11 13:27:00 71 /min [facility] Body temperature 2020-01-11 13:27:00 37 Leanne [facility] Respiratory rate 2020-01-11 13:27:00 18 /min [facility] Body height 2020-01-11 13:27:00 165.1 cm [facility] Body weight Measured 2020-01-11 13:27:00 110.678 kg [facility] BMI 2020-01-11 13:27:00 40.60 kg/m2 [facility] Oxygen saturation in Arterial blood by Pulse oximetry 01-10 13:27:00 98 /min [facility] Procedures Procedure Date / Time Performed Performing Clinician [facility] e Magnetic resonance imaging of brain without contrast 2020-02-22 00:00:00 [facility] Computed tomography of brain without radiopaque contrast 2020-01 00:00:00 [facility] Computed tomography of chest with contrast 2020-02-19 00:00:00 [facility] AV FUSION DIRECT ANY SITE 2020-02-02 00:00:00 CH I [facility] Plan of Care Planned Activity Planned Date Details Comments Source Future Scheduled Test 2021-01-20 00:00:00 Lipid [facility] (proce dure) [[facility] = [facility]166719[facility] 2020-06-28 00:00:00 IMM Influenza Seas onal Jun to November (>/= 19 yrs) [code = IMM Influenza Seasonal Jun to November (>/= 19 yrs)] [facility] Future Scheduled Test 2020-05-29 00:00:00 INFLUENZA VACCINE (#1) [code = INFLUENZA VACCINE (#1)] [facility] 2019-05-17 00:00:00 Hemoglobin A1c jennifer surement (procedure) [code = 13256025] [facility] Scheduled Test 2019-01-21 00:00:00 Urine screening fo r protein (procedure) [code = 715219008] [facility] Scheduled Test 2019-01-20 00:00:00 Urine screening fo r protein (procedure) [code = 650735667] [facility] Scheduled Test 2019-01-20 00:00:00 Hemoglobin A1c jennifer surement (procedure) [code = 84195371] [facility] Scheduled Test 1989 00:00:00 DM Foot Exam (Year ly) [code = DM Foot Exam (Yearly)] [facility] Scheduled Test 1989 00:00:00 DM Retinal Exam (Y early) [code = DM Retinal Exam (Yearly)] [facility] Scheduled Test 1981 00:00:00 DIABETIC EYE EXAM [code = DIABETIC EYE EXAM] [facility] Scheduled Test 1981 00:00:00 Diabetic foot exam ination (regime/therapy) [code = 915684724] [facility] Future Scheduled Test 1977 00:00:00 PNEUMOCOCCAL VACCI NE 2-64 YEARS AT RISK (1 of 3 - PCV13) [code = PNEUMOCOCCAL VACCINE 2-64 YEARS AT RISK (1 of 3 - PCV13)] [facility] Instructions Hypertension [facility] Encounters Start Date/Time End Date/Time Encounter Type Admission Type [facility] Facility Care Department Encounter ID Source 2018-01-21 03:35:12 Inpatient [facility] [id number] [facility] 2020-02-21 15:05:00 2020-02-23 14:30:00 Discharged Inpatient 1 PAPITO MEDEIROS [facility] [id number] NURIS Kincaid [facility] 2020-02-02 11:00:00 2020-02-02 11:00:00 Registered Surgical Day Care [facility] [id number] [facility] 2019-11-01 07:38:00 2019-11-01 07:38:00 Outpatient [id number] 2019-09-06 05:07:00 2019-09-06 05:07:00 Outpatient [id number] 2018-01-20 09:54:57 2018-01-20 09:54:57 Emergency [facility] [id number] [facility] 2018-01-20 07:54:55 2018-01-20 07:54:55 Outpatient [facility] [id number] [facility] 2018-01-20 00:00:00 2018-01-20 00:00:00 Emergency [facility] [id number] [facility] Results Test Description Test Time Test Comments Results Result Comments Source MRI BRAIN WO 2020-02-23 07:53:00 [place] [address] Patient Name: ZACH GUZMAN MR #: [id number] : 1970 Age/Sex: 49/M Req #: [id number] Adm Physician: PAPITO MEDEIROS MD Ordered by: MACY ESCOBEDO MD Report #: [id number] Location: MED/SURG3 Room/Bed: [facility] Procedure: [id number] MRI/MRI BRAIN WO Exam Date: Exam Time: REPORT STATUS: Signed Examination: MRI BRAIN WO History: Dizziness; weakness Comparison studies: Head CT dated 02/21/2020 Technique: Sagittal T2; axial DWI, FLAIR, GRE or SWI, T1, Coronal FLAIR. Intravenous contrast: None Findings: Scalp: No abnormal signal. No masses. Bone marrow: Normal in signal intensity. Brain volume: Adequate for age. No volume loss. Ventricles: Normal in size and configuration. No hydrocephalus. Extra-axial spaces: No abnormalities. Parenchyma: There are patchy and confluent areas of T2/FLAIR hyperintensity in the periventricular and subcortical white matter, nonspecific. No masses, hemorrhage, or acute vascular insults. Suprasellar and sellar region: No abnormalities. Craniocervical junction: No abnormalities. The foramen magnum is patent. No Chiari malformations. Vessels: Normal flow-voids in the arteries and sinuses. Additional findings:None. IMPRESSION: No acute intracranial abnormalities. Chronic microvascular ischemic change. Signed by: Dr. Rosa Hamm M.D. on 02/23/2020 7:57 AM Dictated By: ROSA MCKEON MD 6 Transcribed By: FLORA on 02/23/20756 COPY TO: MACY ESCOBEDO MD Capillary blood glucose measurement by glucometer (mas s/volume) 2020-02-23 07:02:00 Test Item Bedside Glucose (test code = 55411-3) 114 70-120 Meter ID: [id number] [facility] leukocytes automated count (number/volume)2020-02-22 08:00:00* Test Item Value Reference Range Interpretation Comments White Blood Count (test code = 6690-2) 6.56 4.8-10.8 [facility] erythrocytes automated count (number/volume)2020-02-22 08:00:00* Test Item Value Reference Range Interpretation Comments Red Blood Count (test code = 789-8) 2.94 4.3-5.7 [facility] hemoglobin measurement (moles/volume)2020-02-22 08:00:00* Test Item Value Reference Range Interpretation Comments Hemoglobin (test code = 76186-2) 8.8 14.0-18.0 [facility] blood hematocrit (volume fraction)2020-02-22 08:00:00* Test Item Value Reference Range Interpretation Comments Hematocrit (test code = 4544-3) 27.3 38.2-49.6 [facility] erythrocyte mean corpuscular [id number] 08:00:00* Test Item Value Reference Range Interpretation Comments Mean Corpuscular Volume (test code = 787-2) 92.9 81-99 [facility] erythrocyte mean corpuscular hemoglobin (mass per erythrocyte)2020-02-22 08:00:00* Test Item Value Reference Range Interpretation Comments Mean Corpuscular Hemoglobin (test code = 785-6) 29.9 28-32 [facility] erythrocyte mean corpuscular hemoglobin concentration measurement (mass/volume)2020-02-22 08:00:00* Test Item Value Reference Range Interpretation Comments Mean Corpuscular Hemoglobin Concent (test code = 786-4) 32.2 31-35 [facility]oundRDW [id number] 08:00:00* Test Item Value Reference Range Interpretation Comments Red Cell Distribution Width (test code = 52553-9) 15.9 11.7 -14.4 [facility] blood platelet count (count/volume)2020-02-22 08:00:00* Test Item Value Reference Range Interpretation Comments Platelet Count (test code = 777-3) 159 140-360 [facility]oundAutomated blood segmented neutrophil count as percentage of total rvtfcynigv7086-96-47 08:00:00* Test Item Value Reference Range Interpretation Comments Neutrophils (%) (Auto) (test code = 98439-3) 59.8 38.7-80.0 [facility]ound[facility]ated blood lymphocyte count as percentage ot total kiwwzqojhx7291-06-15 08:00:00* Test Item Value Reference Range Interpretation Comments Lymphocytes (%) (Auto) (test code = 736-9) 18.0 18.0-39.1 [facility]ound[facility]ated blood monocyte count as percentage of total lmclcnjvnm8641-06-75 08:00:00* Test Item Value Reference Range Interpretation Comments Monocytes (%) (Auto) (test code = 5905-5) 11.9 4.4-11.3 [facility] blood eosinophil count as percentage of total rbbozqbqqv0128-77-37 08:00:00* Test Item Value Reference Range Interpretation Comments Eosinophils (%) (Auto) (test code = 713-8) 9.5 0.0-6.0 [facility] blood basophil count as percentage of total tdngtvolbp5673-21-77 08:00:00* Test Item Value Reference Range Interpretation Comments Basophils (%) (Auto) (test code = 706-2) 0.3 0.0-1.0 [facility]oundFluoroscopic procedure less than one hour [id number] 08:00:00* Test Item Value Reference Range Interpretation Comments IM GRANULOCYTES % (test code = IM GRANULOCYTES %) 0.5 0.0- 1.0 [facility] blood neutrophil count 2020-02-22 08:00:00* Test Item Value Reference Range Interpretation Comments Neutrophils # (Auto) (test code = 751-8) 3.9 2.1-6.9 [facility] lymphocytes count (number/volume) 2020-02-22 08:00:00* Test Item Value Reference Range Interpretation Comments Lymphocytes # (Auto) (test code = 41832-8) 1.2 1.0-3.2 [facility] monocytes automated count (number/volume)2020-02-22 08:00:00* Test Item Value Reference Range Interpretation Comments Monocytes # (Auto) (test code = 742-7) 0.8 0.2-0.8 [facility] blood eosinophil count 2020-02-22 08:00:00* Test Item Value Reference Range Interpretation Comments Eosinophils # (Auto) (test code = 711-2) 0.6 0.0-0.4 [facility]ated blood basophil count (count/volume)2020-02-22 08:00:00* Test Item Value Reference Range Interpretation Comments Basophils # (Auto) (test code = 704-7) 0.0 0.0-0.1 [facility]oundFluoroscopic procedure less than one hour [id number] 08:00:00* Test Item Value Reference Range Interpretation Comments Absolute Immature Granulocyte (auto (nuria t code = Absolute Immature Granulocyte (auto) 0.03 0-0.1 [facility] sodium [facility] (moles/volume)2020-02-22 08:00:00* Test Item Value Reference Range Interpretation Comments Sodium Level (test code = 2951-2) 134 136-145 [facility] potassium measurement (moles/volume)2020-02-22 08:00:00* Test Item Value Reference Range Interpretation Comments Potassium Level (test code = 2823-3) 4.4 3.5-5.1 [facility] chloride measurement (moles/volume)2020-02-22 08:00:00* Test Item Value Reference Range Interpretation Comments Chloride Level (test code = 2075-0) 96 98-107 [facility] carbon dioxide, total measurement (moles/volume)2020-02-22 08:00:00* Test Item Value Reference Range Interpretation Comments Carbon Dioxide Level (test code = 2028-9) 25 22-29 [facility] anion [id number] 08:00:00* Test Item Value Reference Range Interpretation Comments Anion Gap (test code = 45808-2) 17.4 8-16 [facility] urea nitrogen measurement (mass/volume)2020-02-22 08:00:00* Test Item Value Reference Range Interpretation Comments Blood Urea Nitrogen (test code = 3094-0) 51 7-26 [facility] creatinine measurement (mass/volume)2020-02-22 08:00:00* Test Item Value Reference Range Interpretation Comments Creatinine (test code = 2160-0) 11.56 0.72-1.25 [facility] urea nitrogen/creatinine mass [id number] 08:00:00* Test Item Value Reference Range Interpretation Comments BUN/Creatinine Ratio (test code = 3097-3) 4 6-25 [facility]oundEstimated glomerular filtration rate (GFR) [id number] 08:00:00* Test Item Value Reference Range Interpretation Comments Estimat Glomerular Filtration Rate (test code = 946349872) 5 >60 Ranges were taken from the National Kidney Disease Education Program and the [facility] literature.Reference ranges:60 or greater: Haokpk31-77 ( for 3 consecutive months): Chronic kidney disease 15 or less: Kidney failureTexas [facility] MoundGlucose zjigjnabktv4187-71-92 08:00:00* Test Item Value Reference Range Interpretation Comments Glucose Level (test code = WIM8726) 108 74-118 [facility] calcium measurement (mass/volume)2020-02-22 08:00:00* Test Item Value Reference Range Interpretation Comments Calcium Level (test code = 81356-4) 8.3 8.4-10.2 [facility] total bilirubin measurement (mass/volume)2020-02-22 08:00:00* Test Item Value Reference Range Interpretation Comments Total Bilirubin (test code = 1975-2) 0.5 0.2-1.2 [facility]oundFluoroscopic procedure less than one hour [id number] 08:00:00* Test Item Value Reference Range Interpretation Comments Aspartate Amino Transf (AST/SGOT) (test code = Aspartate Amino Transf (AST/SGOT)) 10 5-34 [facility] alanine aminotransferase measurement (enzymatic activity/volume)2020-02-22 08:00:00* Test Item Value Reference Range Interpretation Comments Alanine Aminotransferase (ALT/SGPT) (test code = 1742-6) 9 0-55 [facility] protein measurement (mass/volume)2020-02-22 08:00:00* Test Item Value Reference Range Interpretation Comments Total Protein (test code = 2885-2) 6.5 6.5-8.1 [facility] albumin measurement (mass/volume)2020-02-22 08:00:00* Test Item Value Reference Range Interpretation Comments Albumin (test code = 1751-7) 3.4 3.5-5.0 [facility]asma globulin measurement (mass/volume) 2020-02-22 08:00:00* Test Item Value Reference Range Interpretation Comments Globulin (test code = 58965-8) 3.1 2.3-3.5 [facility] albumin/globulin mass [id number] 08:00:00* Test Item Value Reference Range Interpretation Comments Albumin/Globulin Ratio (test code = 1759-0) 1.1 0.8-2.0 [facility] plasma alkaline phosphatase measurement (enzymatic activity/volume)2020-02-22 08:00:00* Test Item Value Reference Range Interpretation Comments Alkaline Phosphatase (test code = 6768-6) 48 40-150 [facility] [facility] [id number] 16:09:00 [facility] [address] [address] Patient Name: ZACH GUZMAN MR #: [id number] : 1970 Age/Sex: 49/M Req #: [id number] Adm Physician: PAPITO MEDEIROS MD Ordered by: PAPITO MEDEIROS MD Report #: [id number] Location: [facility] Room/Bed: [facility] Procedure: [id number] CT/C T BRAIN WO Exam Date: 02/21/20 Exam Time: 1550 REPORT STATUS: Signed History: Blurry Vision Comparison studies: None Technique: Axial images were obta ined from the skull base to the vertex. Coronal and sagittal images reconstruc caroline from the axial data. Dose modulation, iterative reconstruction, and/or rose ght based adjustment of the mA/kV was utilized to reduce the radiation dose t o as low as reasonably achievable. Intravenous contrast: None Findi ngs: Scalp/skull: No abnormalities. Extra-axial spaces: No jonathan s. No fluid collections. Brain sulci: Appropriate for age Ventricles: No rmal in size or configuration. No hydrocephalus. Parenchyma: No abnormal densities. No masses, hemorrhage, acute or chronic cortical vascular insults. Sellar/suprasellar region: No abnormalities. Craniocervical junction: Pa tent foramen magnum. No Chiari one malformation. Incidental findings: Santana btle atherosclerotic calcifications in the carotid siphons . Impression: No intracranial abnormalities. Signed by: Dr. Jigna Rosenberg M.D. on 02/21/2020 4:13 PM Dictated By: JIGNA ROSENBERG MD, MD 12 Transcribed By: FLORA on 02/21/201612 COPY TO: PAPITO MEDEIROS MD Serum hepatitis B virus surface antibody assay by radioimmunoassay (units/volume)2020-02-21 05:58:00* Test Item Value Reference Range Interpretation Comments Hepatitis B Surface Antibody, Quant (test code = 5194-6) 3.2 Immunity>9.9 Status of Immunity Anti-HBs Level Inconsistent with Immunity 0.0 - 9.9Consistent with Immunity >9.9[facility] plasma hepatitis B virus core antibody detection by floaoeerahb4006-16-86 05:58:00* Test Item Value Reference Range Interpretation Comments Hepatitis B Core Total Antibody (test code = 82879-6) Negative Negative Performed at: [facility] [id number] Director: Stevan Valenzuela MD, Phone: [phone] Medical Centererum or plasma hepatitis B virus surface antigen detection by immunoassay 2020-02-21 05:58:00* Test Item Value Reference Range Interpretation Comments Hepatitis B Surface Antigen (test code = 5196-1) Negative Negat alexa [facility] ygvlgsfkfdy6951-45-99 11:16:00 * Test Item Value Reference Range Interpretation Comments Phosphorus Level (test code = EIE5317) 5.8 2.3-4.7 [facility] Cent[facility]rum or plasma creatine kinase measurement (enzymatic activity/volume)2020-02-20 11:16:00* Test Item Value Reference Range Interpretation Comments Creatine Kinase (test code = 2157-6) 57 30-200 [facility]rum or plasma creatine kinase MB measurement (mass/volume)2020-02-20 11:16:00* Test Item Value Reference Range Interpretation Comments Creatine Kinase MB (test code = 19007-0) 0.80 0-5.0 [facility]Troponin I measurement by highly sensitive enzyme ypgynahrbbi0474-07-82 11:16:00* Test Item Value Reference Range Interpretation Comments Troponin I (test code = 02169-2) 0.047 0-0.300 [facility] SING[facility] ([facility]ABLE)2020-02-20 09:33:00 [facility] [address] [address] Patient Name: ZACH GUZMAN MR #: [id number] : 1970 Age/Sex: 49/M Req #: [id number] Adm Physician: PAPITO MEDEIROS MD Ordered by: SUNDEEP TOMPKINS NP Report #: [id number] Location: MED/SURG3 Room/Bed: [facility] Procedure: [id number] DX/CHES T SINGLE (PORTABLE) Exam Date: 02/20/20 Exam Time: 0 610 REPORT STATUS: Signed Examin ation: Single AP view of the chest. COMPARISON: CT chest 02/19/2020 IND ICATION: Dizziness, weakness, shortness of breath IMPRESSION: 1. Lines and Tubes: Right IJ tunnel dialysis catheter with tip projecting in the right atrium. 2. Lungs are well-inflated. Bilateral interstitial opacities e xtending from the susan consistent with interstitial pulmonary edema. No consol idation. Findings consistent with fluid overload. 3. Enlarged cardiac silho uette. Central pulmonary venous congestion. 4. No acute bony abnormalities. Signed by: Dr. Zia Dixon M.D. on 02/20/2020 9:34 AM Dictated By: ZIA DIXON MD 3 Transcribed By: FLORA on 02/20/20933 COPY TO: SUNDEEP TOMPKINS NP CT CHEST [id number] 20:01:[address] [address] Patient Name: ZACH GUZMAN MR #: [id number] : 1970 Age/Sex: 49/M Req #: [id number] Adm Physician: PAPITO MEDEIROS MD Ordered by: SUNDEEP TOMPKINS NP Report #: [id number] Location: [facility] Room/Bed: [address] [address] Procedure: [id number] CT/CT C HEST W Exam Date: 02/19/20 Exam Time: 1820 REPORT STATUS: Signed EXAM: CT Chest WITH contrast- Pulmonary Embolism Protocol INDICATION: Dizziness. COMPARI SON: None TECHNIQUE: Chest was scanned utilizing a multidetector helical scanner from the lung apex through the level of the diaphragm after administra tion of IV contrast. Thin section reconstructions were obtained with special c oncentration on the pulmonary arteries. Coronal and sagittal reformations were obtained. Pulmonary embolism protocol was performed. IV CONTRAST: 100 cc of Isovue 370 RADIATION DOSE: Total DLP: 551 mGy*cm Dose modulation, iterative reconstruction, and/or weight based adjust ment of the mA/kV was utilized to reduce the radiation dose to as low as reaso nably achievable. COMPLICATIONS: None FINDINGS: APARNA ES/ TUBES: Right IJ tunneled hemodialysis catheter terminates in the right atr ium. PULMONARY ARTERIES: No filling defect is identified within the pulmona ry arteries to the segmental level. The subsegmental pulmonary arteries are no t well opacified. Main pulmonary artery measures 2.8 cm in diameter. LUNG S AND AIRWAYS: Bilateral mosaic attenuation with diffuse ground glass opacitie s. Multifocal linear opacities, likely subsegmental atelectasis. Smooth interl obular septal thickening at the lung bases. PLEURA: The pleural spaces are clear. HEART AND MEDIASTINUM: The thyroid gland is normal. Prominent media stinal lymph nodes, including an enlarged right paratracheal lymph node, measu ring up to 1.9 cm (series 2, image 37). Mild cardiomegaly. Small pericardial e ffusion, measuring up to 1.8 cm. Coronary atherosclerosis (LAD). UPPER AB DOMEN: Limited contrast-enhanced views of the upper abdomen. Mild nonspecific bilateral perinephric stranding. Nonobstructing 2 mm right mid pole renal ston e. BONES: No acute osseous abnormality. Ossification of the anterior longit udinal ligament extending from T7 through T11 likely represents DISH. SO FT TISSUES: Diffuse anasarca. IMPRESSION: No evidence of pulmonary embol ism to the level of the segmental pulmonary arteries. Findings most yakelin tible with pulmonary interstitial edema in this patient on dialysis. Infectiou s process is considered less likely. Additional findings of volume overload in cluding small pericardial effusion and diffuse anasarca. Coronary atheroscl erosis (LAD). Prominent mediastinal lymph nodes, including an enlarged righ t paratracheal lymph node, measuring up to 1.9 cm, is likely reactive or refle ctive of volume overload. A follow-up chest CT may be considered in 3 months. Nonspecific partially visualized bilateral perinephric stranding may reflect volume status versus pyelonephritis in this patient with reported UTI. Non obstructing 2 mm right mid pole renal stone. The above findings were discus sed with Dr. Gupta on 02/19/2020 at 8:08 PM. Signed by: Dr. Vishal Briscoe MD on 02/19/2020 8:15 PM Dictated By: NIKUNJ BRISCOE MD Electronica lly Signed By: NIKUNJ BRISCOE MD on 02/19/202014 Transcribed By: FLORA on 2014 COPY TO: SUNDEEP TOMPKINS NP Fluoroscopic procedure less than one hour tmlztigy0898-23-50 19:45:00* Test Item Value Reference Range Interpretation Comments Coronavirus (PCR) (test code = Coronavirus (PCR)) NOT DETECTED NOTD ETECTED SARS-COV-2 (COVID19), HIGHRISK, RT-PCRNegative results do not preclude SARS-CoV- 2 infection and should not be used as the sole basis for patient management deci sions. Negative results must be combined with clinical observations, patient his tory, and epidemiological information. Optimum specimen types and timing for pea k viral levels during infections caused by SARS-CoV-2 have not been determined. Collection of multiple specimens ot types of specimens may be necessary to detec t virus. Improper specimen collection and handling, sequence variability under p rimers/probes, or organism present below the limit of detection may lead to fals e negative results. Positive and negative predictive values of testing are highl y dependent on prevalance. False negative test results are more likely when prev alence is high.The expected result is negative (not detected).The SARS-CoV-2 nuria t is intended for the qualitative detection of nucleic acid from SARS-CoV-2 in n asopharyngeal and oropharyngeal swab samples from patients who meet COVID-19 cli nical and or epidemiological criteria. For lower respiratory tract specimens, th e assay is submitted for authoriztion by FDA under an Emergency Use Authorizatio n (EUA). Testing methodology is real time RT-PCR. If received as separate collec tion devices, nasopharygeal and oropharyngeal specimens are combined for analysi s. Additional specimens may be split to a separate accession for analysi and rep orting as this test includes a single unit of service.Test results must be corre lated with clinical presentation and evaluated in the context of other laborator y and epidemiologic data. Test performance can be affected because the epidemiol ogy and clinical spectrum of infection caused by SARS-CoV-2 is not fully known. For example, the optimum types of specimens to collect and when during the cours e of infection these specimens are most likely to contain detectable viral RNA m ay not be known.This test has not been Food and Drug Administration (FDA) cleare d or approved and has been authorized by FDA under an Emergency Use Authorizatio n (EUA). The test is only authorized for the duration of the declaration that ci rcumstances exist justifying the authorization of emergency use of in vitro diag nostic tests for detection and/or diagnosis of SARS-CoV-2 under section 564(b) o f the Act, 21 U.S.C. section 360bbb-3(b)(1), unless the authorization is termina caroline or revoked sooner. [facility] are certified under the C linical Laboratory Improvement Amendments of 1988 (CLIA), 42 U.S.C. section 263a , to perform high complexity tests.Testing performed by [facility] [address] [id number] Director: Chadnler Cox M.D.CLIA # [id number] Hospitals of [facility] Bam-[id number] 17:40:00* Test Item Value Reference Range Interpretation Comments B-Type Natriuretic Peptide (test code = 61727-7) 680.3 0-100 [facility]Prothrombin time (PT) in platelet poor plasma by coagulation czcua3661-76-36 17:30:00* Test Item Value Reference Range Interpretation Comments Prothrombin Time (test code = 5902-2) 13.6 11.9-14.5 [facility] MoundINR in Platelet poor plasma by Coagulation cewrm8509-56-79 17:30:00* Test Item Value Reference Range Interpretation Comments Prothromb Time International Ratio (test code = 6301-6) 0.98 Oral Anticoagulant Therapy INR Values:1. Low Intensity Therapy 1.5 - 2.02 . Moderate Intensity Therapy 2.0 - 3.03. High Intensity Therapy(1) 2.5 - 3. 54. High Intensity Therapy(2) 3.0 - 4.05. Panic Value INR > 5.0 [facility]oundActivated partial thromboplastin time (aPTT) in platelet poor plasma by coagulation jbnhl4333-79-84 17:30:00* Test Item Value Reference Range Interpretation Comments Activated Partial Thromboplast Time (test code = 91502-0) 31.0 23.8-35.5 [facility]oundUrine color jxdimybdvwhax8968-53-44 17:30:00* Test Item Value Reference Range Interpretation Comments Urine Color (test code = 5778-6) YELLOW YELLOW [facility]oundUrine poebfxn0132-42-98 17:30:00* Test Item Value Reference Range Interpretation Comments Urine Clarity (test code = 45839-8) CLEAR CLEAR [facility] Centerpecific gravity of Urine by Test strip 2020-02-19 17:30:00* Test Item Value Reference Range Interpretation Comments Urine Specific [place] (test code = 5811-5) 1.020 1.010-1.02 5 [facility]ound[facility] pH measurement by automated test [id number] 17:30:00* Test Item Value Reference Range Interpretation Comments Urine pH (test code = 89707-2) 8.5 5-7 [facility]oundUrine leukocyte esterase detection by xseeumqo2821-65-53 17:30:00* Test Item Value Reference Range Interpretation Comments Urine Leukocyte Esterase (test code = 5799-2) TRACE NEGATIVE [facility]oundUrine nitrite abcwblmor4432-11-63 17:30:00* Test Item Value Reference Range Interpretation Comments Urine Nitrite (test code = 35030-9) NEGATIVE NEGATIVE [facility] protein measurement by test strip (mass/volume)2020-02-19 17:30:00* Test Item Value Reference Range Interpretation Comments Urine Protein (test code = 5804-0) >=300 NEGATIVE [facility]oundUrine glucose epizfgbfx0343-70-64 17:30:00* Test Item Value Reference Range Interpretation Comments Urine Glucose (UA) (test code = 2349-9) 2+ NEGATIVE [facility]oundUrine ketones detection by automated test thmiw1936-72-14 17:30:00* Test Item Value Reference Range Interpretation Comments Urine Ketones (test code = 07862-8) NEGATIVE NEGATIVE [facility]oundUrine urobilinogen measurement by test strip (mass/volume)2020-02-19 17:30:00* Test Item Value Reference Range Interpretation Comments Urine Urobilinogen (test code = 66606-9) 0.2 0.2-1 [facility] total bilirubin measurement (mass/volume)2020-02-19 17:30:00* Test Item Value Reference Range Interpretation Comments Urine Bilirubin (test code = 1978-6) NEGATIVE NEGATIVE [facility]oundUrine erythrocytes czdtlmavl1893-90-76 17:30:00* Test Item Value Reference Range Interpretation Comments Urine Blood (test code = 25315-7) MODERATE NEGATIVE [facility]oundAutomated urine sediment leukocyte count by microscopy (number/high power field)2020-02-19 17:30:00* Test Item Value Reference Range Interpretation Comments Urine WBC (test code = 5821-4) 21-50 0-5 [facility]oundErythrocytes detection in urine sediment by light idkmvsibvs3789-55-74 17:30:00* Test Item Value Reference Range Interpretation Comments Urine RBC (test code = 38284-8) 0-5 0-5 [facility]oundBacteria detection in urine sediment by light lvacjlovzf0332-79-69 17:30:00* Test Item Value Reference Range Interpretation Comments Urine Bacteria (test code = 27135-9) RARE NONE [facility] MoundEpithelial cells detection in urine sediment by light ogyictxiyx3938-11-94 17:30:00* Test Item Value Reference Range Interpretation Comments Urine Epithelial Cells (test code = 92864-0) FEW NONE [facility] MoundTransitional cells detection in urine sediment by light gkhgdxabqm6520-86-75 17:30:00* Test Item Value Reference Range Interpretation Comments Urine Transitional Epithelial Cells (test code = 8249-5) FEW NONE [facility] MoundGLUBED2020-01-27 19:56:00* Test Item Value Reference Range Interpretation Comments GLUBED (test code = GLUBED) 162 mg/dL 74-106 H Performed by certified round corner cutter operator at [facility] WPCNTP8232-06-32 17:20:00* Test Item Value Reference Range Interpretation Comments GLUBED (test code = GLUBED) 138 mg/dL 74-106 H Performed by certified round corner cutter operator at [facility] BASIC METABOLIC [id number] 13:53:00* Test Item Value Reference Range Interpretation [...] CA) 7.4 mg/dL 8.5-10.1 L BASIC METABOLIC [id number] 13:48:00* Test Item Value Reference Range Interpretation [...] code = CA) mg/dL 8.5-10.1 CBC W/AUTO [id number] 13:42:00* Test Item Value Reference Range Interpretation [...] DIFF REQUIRED (test code = MDIFF) NO MZMNLW9777-92-13 11:49:00* Test Item Value Reference Range Interpretation Comments GLUBED (test code = GLUBED) 139 mg/dL 74-106 H Performed by certified round corner cutter operator at [facility] AWXLLV9804-06-19 06:20:00* Test Item Value Reference Range Interpretation Comments GLUBED (test code = GLUBED) 86 mg/dL 74-106 N Performed by certified round corner cutter operator at [facility] [id number] 20:24:00* Test Item Value Reference Range Interpretation Comments GLUBED (test code = GLUBED) 148 mg/dL 74-106 H Performed by certified round corner cutter operator at [facility] HPYUES4342-06-29 17:03:00* Test Item Value Reference Range Interpretation Comments GLUBED (test code = GLUBED) 103 mg/dL 74-106 N Performed by certified round corner cutter operator at [facility] TPPEKC2550-21-22 13:08:00* Test Item Value Reference Range Interpretation Comments GLUBED (test code = GLUBED) 97 mg/dL 74-106 N Performed by certified round corner cutter operator at [facility] GQSTXO6319-04-25 06:50:00* Test Item Value Reference Range Interpretation Comments GLUBED (test code = GLUBED) 115 mg/dL 74-106 H Performed by certified round corner cutter operator at [facility] BASIC METABOLIC [id number] 05:20:00* Test Item Value Reference Range Interpretation [...] CA) 7.7 mg/dL 8.5-10.1 L THYROID PROFILE W/[id number] 05:20:00* Test Item Value Reference Range Interpretation [...] HYPER : < 0.35 mIU/mL BASIC METABOLIC [id number] 05:03:00* Test Item Value Reference Range Interpretation [...] code = CA) mg/dL 8.5-10.1 THYROID PROFILE W/[id number] 05:03:00* Test Item Value Reference Range Interpretation Comments T3 UPTAKE (test code = T3UP) % 30.0-40.0 T4 (THYROXINE) (test code = T4) ug/dL 4.5-13.9 T7 (FREE THYROXINE INDEX) (test code = T7) FTI 1.3-5.1 THYROID STIMULATING HORMONE (test code = TSH) uIU/mL 0.36-3.7 4 [id number] 04:51:00* Test Item Value Reference Range Interpretation Comments GLYCOSYLATED HEMOGLOBIN (HA1C) (test code = GLYHGB) 5.6 % HbA1 SUGGESTED DIAGNOSIS: HbA1C (%) Diabetic >6.4Prediabetes 5.7 - 6.4Normal <5.7 ESTIMATED AVERAGE GLUCOSE (test code = EAG) 114 MG/DL CBC W/AUTO [id number] 04:29:00* Test Item Value Reference Range Interpretation [...] code = NRBC#) 0.00 K/mm3 0.0-0.1 N [id number] 21:05:00* Test Item Value Reference Range Interpretation Comments GLUBED (test code = GLUBED) 169 mg/dL 74-106 H Performed by certified round corner cutter operator at [facility] - MRI BRAIN W/O [id number] 21:03:00 FAX: Shabbir Chopra [phone] [place]: B St: ADM FAX: Keny Hairston [phone] Name: ZACH GUZMAN [facility] : 1970 Age/S: 49/M [address] [facility] Unit #: [id number] Loc: V.[address] [place] [address] Phys: Keny Green MD Acct: [id number] Dis Date: Status: ADM IN PHONE #: [phone] Exam Date: 10/22/20192035 FAX #: [phone] Reason: RT SIDE WEAKNESS EXAMS: CPT CODE: [id number] MRI BRAIN W/O CONTRAST 40524 REASON FOR EXAM: RT SIDE WEAKNESS Exam [...] MD PAGE 1 Signed Report (CONTINUED) FAX: America LangfordShabbir [phone] [place]: St: [facility] FAX: Keny Hairstno [phone] Name: LESLY GUZMAN [facility] : 1970 Age/S: 49 /M [address] Unit #: [id number] Loc: [place] [address] Phys: Keny Green MD Acct: [id number] Dis Date: St atus: ADM IN PHONE #: [phone] Exam Date : 10/22/20192035 FAX #: [phone] Reason: RT S TEQUILA WEAKNESS EXAMS: CPT CODE: [id number] MRI BRAIN W/O CONTRAST 07814 <Continued> CC: Shabbir Duncan MD; Keny Green Technologist: [place] RT(R)(MR) Trnscrd Date/Time/By: 10/22/2019 (2102) : By: MaureenRR31 Orig Print D/T: S: 10/22/2019 (2105) PAGE 2 Signed Report [id number] 18:15:00* Test Item Value Reference Range Interpretation Comments GLUBED (test code = GLUBED) 154 mg/dL 74-106 H Performed by certified round corner cutter operator at [facility] AG HEPAT B [id number] 15:11:00* Test Item Value Reference Range Interpretation Comments AG HEPAT B SURF (test code = HBSAG) Nonreactive Index Nonreactive BASIC METABOLIC [id number] 14:49:00* Test Item Value Reference Range Interpretation [...] CA) 7.0 mg/dL 8.5-10.1 L BASIC METABOLIC [id number] 14:45:00* Test Item Value Reference Range Interpretation [...] CA) 7.0 mg/dL 8.5-10.1 L BASIC METABOLIC [id number] 14:44:00* Test Item Value Reference Range Interpretation [...] code = CA) mg/dL 8.5-10.1 CBC W/AUTO [id number] 14:12:00* Test Item Value Reference Range Interpretation [...] DIFF REQUIRED (test code = MDIFF) NO [id number] 13:15:00* Test Item Value Reference Range Interpretation Comments GLUBED (test code = GLUBED) 168 mg/dL 74-106 H Performed by certified round corner cutter operator at [facility] [id number] 06:40:00* Test Item Value Reference Range Interpretation Comments GLUBED (test code = GLUBED) 195 mg/dL 74-106 H Performed by certified round corner cutter operator at [facility] URINALYSIS [id number] 21:24:00* Test Item Value Reference Range Interpretation [...] #/LPF FEW Urine Source? Clean CatchHEPATIC FUNCTION [id number] 21:08:00* Test Item Value Reference Range Interpretation [...] reference range due to change in reagent. [id number] 21:08:00* Test Item Value Reference Range Interpretation Comments LIPASE (test code = LIP) 250 U/L 73.0-393.0 N [id number]-[id number] 21:08:00* Test Item Value Reference Range Interpretation Comments TROPONIN-I (test code = TROPI) <0.015 ng/mL 0-0.045 N BASIC METABOLIC [id number] 21:03:00* Test Item Value Reference Range Interpretation [...] = CA) 7.6 mg/dL 8.5-10.1 L PROTHROMBIN [id number] 21:00:00* Test Item Value Reference Range Interpretation [...] (2.5-3.5) IS PATIENT ON ANTICOAGULANTS? NTHROMBOPLASTIN TIME [id number] 21:00:00* Test Item Value Reference Range Interpretation Comments THROMBOPLASTIN TIME PARTIAL (test code = PTT) 37.0 seconds 25.0-36. 5 H IS PATIENT ON ANTICOAGULANTS? NBASIC METABOLIC [id number] 20:57:00* Test Item Value Reference Range Interpretation [...] CA) mg/dL 8.5-10.1 - CT ABD PELVIS W/[id number] 20:52:00 Name: ZACH GUZMAN [facility] : 1970 Age/S: 49 / M [address] [facility] Unit #: [id number] Loc: [place] [address] Phys: Shantel Persaud DO Acct: [id number] Dis Date: Status: REG ER PHONE #: [phone] Exam Date: 10/21/20192046 FAX #: [phone] Reason: abd pain EXAMS: CPT CODE: [id number] CT ABD PELVIS W/CONT 83215 REASON FOR EXAM: abd pain EXAM ORDER [...] 1 Signed Report (CONTINUED) Name: ZACH GUZMAN [facility] : 1970 Age/S: 49 / M [address] [facility] Unit #: [id number] Loc: [place] [address] Phys: Shantel Persaud DO Acct: [id number] Dis Date: Status: REG ER PHONE #: [phone] Exam Date: 10/21/20192046 FAX #: [phone] Reason: abd pain EXAMS: CPT CODE: [id number] CT ABD PELVIS W/CONT 48942 < Continued> CC: Shabbir Duncan MD; Shantel Persaud DO Technologist:PHAM STEPHEN, RT(R) CT CTDI: DLP: Trnscb Date/Time: 10/21/2019 (2051) Junior Orig Print D/T: S: 10/21/2019 (2054) PAGE 2 Signed Report CBC W/AUTO [id number] 20:35:00* Test Item Value Reference Range Interpretation [...] = MDIFF) NO - CT HEAD/BRAIN W/O [id number] 20:11:00 Name: ZACH GUZMAN [facility] : 1970 Age/S: 49 / M [address] [facility] Unit #: [id number] Loc: [place] [address] Phys: Shantel Persaud DO Acct: [id number] Dis Date: Status: REG ER PHONE #: [phone] Exam Date: 10/21/20191944 FAX #: [phone] Reason: Headache EXAMS: CPT CODE: [id number] CT HEAD/BRAIN W/O CONT 15008 REASON FOR EXAM: Headache EXAM ORDER DATE: [...] basal ganglia infarcts. No acute findings at 2011 Reported and signed by: Ralf Jamison M.D. CC: Shabbir Duncan MD; Shantel Persaud DO Technologist:Estella Osborne RT(R); PHAM Almaraz CTDI: DLP: Trnscb Date/Time: 10/21/2019 (2010) MaureenVTL Orig Print D/T: S: 10/21/2019 (2013) PAGE 1 Signed Report [id number] 10:08:00* Test Item Value Reference Range Interpretation Comments GLUBED (test code = GLUBED) 113 mg/dL 74-106 H Performed by certified round corner cutter operator at [facility] [id number] 11:20:00* Test Item Value Reference Range Interpretation Comments GLUBED (test code = GLUBED) 234 mg/dL 74-106 H Performed by certified round corner cutter operator at [facility] BASIC METABOLIC [id number] 09:43:00* Test Item Value Reference Range Interpretation [...] CA) 7.1 mg/dL 8.5-10.1 L CBC W/O [id number] 07:59:00* Test Item Value Reference Range Interpretation [...] code = MPV) 10.2 fL 6.7-11.0 N [id number] 07:52:00* Test Item Value Reference Range Interpretation Comments GLUBED (test code = GLUBED) 153 mg/dL 74-106 H Performed by certified round corner cutter operator at [facility] [id number] 21:11:00* Test Item Value Reference Range Interpretation Comments GLUBED (test code = GLUBED) 140 mg/dL 74-106 H Performed by certified round corner cutter operator at [facility] [id number] 21:11:00* Test Item Value Reference Range Interpretation Comments GLUBED (test code = GLUBED) 336 mg/dL 74-106 H Performed by certified round corner cutter operator at [facility] [id number] 15:51:00* Test Item Value Reference Range Interpretation Comments GLUBED (test code = GLUBED) 304 mg/dL 74-106 H Performed by certified round corner cutter operator at [facility] BASIC METABOLIC [id number] 11:17:00* Test Item Value Reference Range Interpretation [...] mg/dL 8.5-10.1 LL Res ults called to [id number] by V.LAB.QD 08/26/19 1116Critical results verified and read back by Nurse? YES CBC W/O [id number] 10:33:00* Test Item Value Reference Range Interpretation [...] code = MPV) 11.1 fL 6.7-11.0 H [id number] 07:19:00* Test Item Value Reference Range Interpretation Comments GLUBED (test code = GLUBED) 186 mg/dL 74-106 H Performed by certified round corner cutter operator at [facility] [id number] 01:25:00* Test Item Value Reference Range Interpretation Comments GLUBED (test code = GLUBED) 301 mg/dL 74-106 H Performed by certified round corner cutter operator at [facility] [id number] 20:51:00* Test Item Value Reference Range Interpretation Comments GLUBED (test code = GLUBED) 353 mg/dL 74-106 H Performed by certified round corner cutter operator at [facility] [id number] 20:51:00* Test Item Value Reference Range Interpretation Comments GLUBED (test code = GLUBED) 294 mg/dL 74-106 H Performed by certified round corner cutter operator at [facility] - US GUIDANCE VASC [id number] 13:23:00 Name: ZACH GUZMAN [facility] : 1970 Age/S: 49 / M [address] Unit #: [id number] Loc: [place] [address] Phys: Keny Green MD Acct: [id number] Dis Date: Status: ADM IN PHONE #: [phone] Exam Date: 08/24/2019 1100 FAX #: [phone] Reason: EXAMS: CPT CODE: [id number] US GUIDANCE VASC ACCESS 86209 Fluoro Time: DAP (Gy m2): Air Kerma (mGy): EXAM: Insertion of a tunneled hemodialysis catheter with sonographic and fluoroscopic guidance and conscious sedation; CPT: 35039, 02049, 10961, 85000; INFORMATION: End-stage renal disease; TECHNIQUE AND FINDINGS: Conscious sedation start time: 1024 hours; completion time: 1100 hours; Under physician supervision 2 mg of Versed and 50 mcg of fentanyl were administered intravenously for sedation. The patient's heart rate, blood pressure and pulse oximetry were continuously monitored by a trained registered nurse. Physician ezrm-kp-hqnh sedation time was 36 minutes. Benefits and [...] usual st erile fashion and a 15 Spanish tunneled hemodialysis catheter was inserted and positioned [...] Signed Report (CONTINUED ) Name: ZACH GUZMAN [facility] SP D OB: 1970 Age/S: 49 / M [address] Unit #: [id number] Loc: [place] [address] Phys: Oumar Green MD Acct: [id number] Dis Date: Status: ADM IN PHONE #: [phone] Exam Date: 08/24/2019 1100 FAX #: Reason: EXAMS: CPT CODE: [id number] US GUIDANCE V ASC ACCESS 63178 Fluoro Time: DAP (Gy m2): Air Kerma (mGy): <Continued> CAK : 13 mGy DAP : 5260 mGy sq cm Location code: [facility] at 1323 Reported and signed by: Melquiades Lane M.D. CC: Shabbir Duncan MD; Keny Green Technologist: Saleem Benito RT(R) Trnscb Date/Time: 08/25/2019 (1323) tPENG Orig Print D/T: S: 08/25/2019 (1326) PAGE 2 Signed Report - SP FLUORO GUID CTRL ACC [id number] 13:23:00 Name: ZACH GUZMAN [facility] SP : 1970 Age/S: 49 / M [address] Unit #: [id number] Loc: [place] [address] Phys: Keny Green MD Acct: [id number] Dis Date: Status: ADM IN PHONE #: [phone] Exam Date: 08/24/2019 1100 FAX #: [phone] Reason: EXAMS: CPT CODE: [id number] SP FLUORO GUID CTRL ACC DEV 50805 Fluoro Time: 57 DAP (Gy m2): 5.2 Air Kerma (mGy): 14 EXAM: Insertion of a tunneled hemodialysis catheter with sonographic and fluoroscopic guidance and conscious sedation; CPT: 64192, 00632, 26324, 62540; INFORMATION: End-stage renal disease; TECHNIQUE AND FINDINGS: Conscious sedation start time: 1024 hours; completion time: 1100 hours; Under physician supervision 2 mg of Versed and 50 mcg of fentanyl were administered intravenously for sedation. The patient's heart rate, blood pressure and pulse oximetry were continuously monitored by a trained registered nurse. Physician bbtf-tc-ypkh sedation time was 36 minutes. Benefits and [...] usual st erile fashion and a 15 Spanish tunneled hemodialysis catheter was inserted and positioned [...] Signed Report (CONTINUED ) Name: ZACH GUZMAN [facility] SP D OB: 1970 Age/S: 49 / M [address] Unit #: [id number] Loc: [place] [address] Phys: Oumar Green MD Acct: [id number] Dis Date: Status: ADM IN PHONE #: [phone] Exam Date: 08/24/2019 1100 FAX #: Reason: EXAMS: CPT CODE: [id number] SP FLUORO GUID CTRL ACC DEV 16402 Fluoro Time: 57 DAP (Gy m2): 5.2 Air Kerma (mGy): 14 <Continued> CAK : 13 mGy DAP : 5260 mGy sq cm Location code: [facility] at 1323 Reported and signed by: Melquiades Lane M.D. CC: Shabbir Duncan MD; Keny Green Technologist: Saleem Benito RT(R) Trnscb Date/Time: 08/25/2019 (1323) t.GRW Orig Print D/T: S: 08/25/2019 (0362) PAGE 2 Signed Report GLUBED 2019-08-25 11:13:00* Test Item Value Reference Range Interpretation Comments GLUBED (test code = GLUBED) 222 mg/dL 74-106 H Performed by certified round corner cutter operator at [facility] [id number] 07:34:00* Test Item Value Reference Range Interpretation Comments GLUBED (test code = GLUBED) 162 mg/dL 74-106 H Performed by certified round corner cutter operator at [facility] AB HEPATITIS B [id number] 07:12:00* Test Item Value Reference Range Interpretation Comments AB HEPATITIS B SURFACE (test code = HBSAB) Non Reactive () Non Reactive: Inconsistent with immunity, less than 10 mIU/mL Reactive: Consistent with immunity, greater than 9.9 mIU/mLPerformed At: [facility] [address] [id number] Kyle L MD Ph:[phone] HEPATITIS B CORE ANTIBODY,[id number] 07:12:00* Test Item Value Reference Range Interpretation Comments HEPATITIS B CORE ANTIBODY,TOT (test code = HBCAB) Negative Nega tive Performed At: [facility] [address] [id number] Kyle L MD Ph:[phone] RENAL FUNCTION [id number] 06:24:00* Test Item Value Reference Range Interpretation [...] code = FESAT) 26.24 % 13-45 N [id number] 06:24:00* Test Item Value Reference Range Interpretation Comments FERRITIN (test code = LEONARDO) 287 ng/mL 8-388 N RENAL FUNCTION [id number] 06:09:00* Test Item Value Reference Range Interpretation [...] SATURATION (test code = FESAT) % 13-45 [id number] 06:09:00* Test Item Value Reference Range Interpretation Comments FERRITIN (test code = LEONARDO) ng/mL 8-388 CBC W/AUTO [id number] 05:48:00* Test Item Value Reference Range Interpretation [...] DIFF REQUIRED (test code = MDIFF) NO [id number] 20:00:00* Test Item Value Reference Range Interpretation Comments GLUBED (test code = GLUBED) 118 mg/dL 74-106 H Performed by certified round corner cutter operator at [facility] [id number] 14:16:00* Test Item Value Reference Range Interpretation Comments TROPONIN-I (test code = TROPI) <0.015 ng/mL 0-0.045 N COMMENTS TO VICE PRESIDENT OF [employer]: COLLECT 3 HOURS AFTER PREVIOUS [id number] 12:15:00* Test Item Value Reference Range Interpretation Comments GLUBED (test code = GLUBED) 81 mg/dL 74-106 N Performed by certified round corner cutter operator at [facility] - XR CHEST 1 [id number] 11:30:00 FAX: Shabbir Chopra [phone] [place]: B St: ADM FAX: Keny Hairston [facility] [phone] Name: ZACH GUZMAN [facility] : 1970 Age/S: 49/M [address] Unit #: [id number] Loc: V.[address] [place] [address] Phys: Melquiades Lane MD Acct: [id number] Dis Date: Status: ADM IN PHONE #: [phone] Exam Date: 08/24/2019 1108 FAX #: [phone] Reason: ESRD; [facility]; EXAMS: CPT CODE: [id number] XR CHEST 1 V 23713 REASON FOR EXAM: ESRD; [facility]; Exam [...] the proximal SVC. Lungs are clear. Location: [facility] at 1130 Reported and signed by: Samuel Loredo MD CC: Shabbir Duncan MD; Hazel Geren Technologist: Lidia REIS(R); Malinda Patel(R) Trnscrd Date/Time/By: 08/24/2019 (7270) : By: MaureenRR31 Orig Print D/T: S: 08/24/2019 (1134) PAGE 1 Signed Report [id number] 10:08:00* Test Item Value Reference Range Interpretation Comments PHOSPHORUS (test code = PHOS) 8.1 mg/dL 2.5-4.9 H BASIC METABOLIC [id number] 09:47:00* Test Item Value Reference Range Interpretation [...] mg/dL 8.5-10.1 LL Res ults called to [id number] by VRogerLABELICEO 08/24/19 0945Critical results verified and read back by Nurse? YES PROTHROMBIN [id number] 08:51:00* Test Item Value Reference Range Interpretation [...] (2.5-3.5) IS PATIENT ON ANTICOAGULANTS? NTHROMBOPLASTIN TIME [id number] 08:51:00* Test Item Value Reference Range Interpretation Comments THROMBOPLASTIN TIME PARTIAL (test code = PTT) 32.6 seconds 25.0-36. 5 N IS PATIENT ON ANTICOAGULANTS? NBASIC METABOLIC [id number] 08:49:00* Test Item Value Reference Range Interpretation [...] code = CA) mg/dL 8.5-10.1 CBC W/AUTO [id number] 08:14:00* Test Item Value Reference Range Interpretation [...] DIFF REQUIRED (test code = MDIFF) NO [id number] 07:32:00* Test Item Value Reference Range Interpretation Comments GLUBED (test code = GLUBED) 91 mg/dL 74-106 N Performed by certified round corner cutter operator at [facility] [id number] 07:32:00* Test Item Value Reference Range Interpretation Comments GLUBED (test code = GLUBED) 52 mg/dL 74-106 L Performed by certified round corner cutter operator at [facility] AG HEPAT B [id number] 05:31:00* Test Item Value Reference Range Interpretation Comments AG HEPAT B SURF (test code = HBSAG) Nonreactive Index Nonreactive [id number] 02:00:00* Test Item Value Reference Range Interpretation Comments TROPONIN-I (test code = TROPI) <0.015 ng/mL 0-0.045 N COMMENTS TO VICE PRESIDENT OF [employer]: COLLECT 3 HOURS AFTER PREVIOUS [id number] 01:50:00* Test Item Value Reference Range Interpretation Comments POTASSIUM (test code = K) 5.2 mmol/L 3.5-5.1 H [id number] 23:23:00* Test Item Value Reference Range Interpretation Comments GLUBED (test code = GLUBED) 145 mg/dL 74-106 H Performed by certified round corner cutter operator at [facility] [id number] 20:37:00* Test Item Value Reference Range Interpretation Comments GLUBED (test code = GLUBED) 48 mg/dL 74-106 LL Performed by certified round corner cutter operator at [facility])Notified Nurse~ [id number] 20:37:00* Test Item Value Reference Range Interpretation Comments GLUBED (test code = GLUBED) 40 mg/dL 74-106 LL Performed by certified round corner cutter operator at [facility]Notified Nurse~ BASIC METABOLIC [id number] 17:18:00* Test Item Value Reference Range Interpretation Comments SODIUM (test code = NA) 144 mmol/L 136-145 N POTASSIUM (test code = K) 6.2 mmol/L 3.5-5.1 HH Re sults called to [id number] by V.LAB.KP1 08/23/19 0658Critical results verified and read back by Nurse? [...] mg/dL 8.5-10.1 LL Res ults called to AKX5329 by VDynisLAB.KP1 08/23/19 1717Critical results verified and read back by Nurse? Y [id number] 17:18:00* Test Item Value Reference Range Interpretation Comments TROPONIN-I (test code = TROPI) <0.015 ng/mL 0-0.045 N [id number] 16:52:00* Test Item Value Reference Range Interpretation Comments MAGNESIUM (test code = MAG) 2.1 mg/dL 1.8-2.4 N CBC W/O [id number] 16:29:00* Test Item Value Reference Range Interpretation [...] fL 6.7-11.0 N - XR CHEST 1 [id number] 15:45:00 FAX: Jose Daniel Godwin MD [place]: B St: REG FAX: Y Shabbir Duncan [phone] Name: REGINA NUNEZZACH REYNOSO [facility] : 1970 Age/S: 49/M [address] Unit #: [id number] Loc: [place] [address] Phys: Jose Daniel Godwin MD Acct: [id number] Dis Date: Status: REG ER PHONE #: [phone] Exam Date: 08/23/2019 1543 FAX #: [phone] Reason: CHEST PAIN EXAMS: CPT CODE: [id number] XR CHEST 1 V 19512 REASON FOR EXAM: CHEST PAIN EXAM ORDER DATE: 08/23/2019 3:35 PM Ordering: Jose Daniel Godwin MD Attending:Jose Daniel Godwin MD Location:[facility] PROCEDURE: - XR CHEST 1 V COMPARISON: 04/12/2019 FINDINGS: Portable AP frontal view of the chest obtained at 3:42 PM shows clear lungs without evidence of consolidation. There is no evidence of effusion. The heart size is within normal limits. Pulmonary vasculatures are unremarkable. IMPRESSION: No active disease. at 8801 Reported and signed by: Ralf Jamison M.D. CC: Jose Daniel Godwin MD; Shabbir Duncan MD Technologist: DENNIS KEITA RDAK(AB,PHOTO PRODUCER) Trnscrd Date/Time/By: 08/23/2019 (6338) : By: Junior Orig Print D/T: S: 08/23/2019 (1102) PAGE 1 Signed Report COMPREHENSIVE METABOLIC [id number] 15:05:00* Test Item Value Reference Range Interpretation [...] due to change in reagent. COMPREHENSIVE METABOLIC [id number] 14:59:00* Test Item Value Reference Range Interpretation [...] code = ALKP) IUnit/L 45-117 CBC W/AUTO [id number] 14:53:00* Test Item Value Reference Range Interpretation [...] NRBC#) 0.00 K/mm3 0.0-0.1 N CBC W/AUTO [id number] 20:25:00* Test Item Value Reference Range Interpretation [...] DIFF REQUIRED (test code = MDIFF) NO [id number] 21:51:00* Test Item Value Reference Range Interpretation Comments GLUBED (test code = GLUBED) 185 mg/dL 74-106 H Performed by certified round corner cutter operator at [facility] [id number] 12:15:00* Test Item Value Reference Range Interpretation Comments GLUBED (test code = GLUBED) 130 mg/dL 74-106 H Performed by certified round corner cutter operator at [facility] BASIC METABOLIC [id number] 10:52:00* Test Item Value Reference Range Interpretation [...] CA) 8.1 mg/dL 8.5-10.1 L CBC W/AUTO [id number] 10:16:00* Test Item Value Reference Range Interpretation [...] DIFF REQUIRED (test code = MDIFF) NO [id number] 08:35:00* Test Item Value Reference Range Interpretation Comments GLUBED (test code = GLUBED) 199 mg/dL 74-106 H Performed by certified round corner cutter operator at [facility] AG HEPAT B [id number] 22:13:00* Test Item Value Reference Range Interpretation Comments AG HEPAT B SURF (test code = HBSAG) Nonreactive Index Nonreactive [id number] 19:36:00* Test Item Value Reference Range Interpretation Comments GLUBED (test code = GLUBED) 214 mg/dL 74-106 H Performed by certified round corner cutter operator at [facility] UR CREATININE CLEARANCE [id number] 19:11:00* Test Item Value Reference Range Interpretation Comments CREATININE CLEARANCE RESULT (test code = CREATCLR) 24 mL/min 100 -120 L CREATININE (test code = CREAT) 5.90 mg/dL 0.7-1.3 H UR CREATININE RANDOM (test code = CREATU) 57.0 mg/dL 30-125 N UR VOLUME 24HR (test code = VOL) 3525 mL/24hrs 8107-9037 VOLUME- 3525VOLUME CAME FROM 2 CONTAINERSUR CREATININE CLEARANCE [id number] 18:55:00* Test Item Value Reference Range Interpretation Comments CREATININE CLEARANCE RESULT (test code = CREATCLR) mL/min 100 -120 CREATININE (test code = CREAT) mg/dL 0.7-1.3 UR CREATININE RANDOM (test code = CREATU) mg/dL 30-125 UR VOLUME 24HR (test code = VOL) 3525 mL/24hrs 0512-4612 VOLUME- 3525VOLUME CAME FROM 2 [id number] 17:51:00* Test Item Value Reference Range Interpretation Comments GLUBED (test code = GLUBED) 225 mg/dL 74-106 H Performed by certified round corner cutter operator at [facility] [id number] 15:58:00* Test Item Value Reference Range Interpretation Comments GLUBED (test code = GLUBED) 218 mg/dL 74-106 H Performed by certified round corner cutter operator at [facility] [id number] 14:53:00* Test Item Value Reference Range Interpretation Comments GLUBED (test code = GLUBED) 153 mg/dL 74-106 H Performed by certified round corner cutter operator at [facility] [id number] 11:11:00* Test Item Value Reference Range Interpretation Comments GLUBED (test code = GLUBED) 136 mg/dL 74-106 H Performed by certified round corner cutter operator at [facility] [id number] 07:48:00* Test Item Value Reference Range Interpretation Comments GLUBED (test code = GLUBED) 132 mg/dL 74-106 H Performed by certified round corner cutter operator at [facility] COMPREHENSIVE METABOLIC [id number] 05:55:00* Test Item Value Reference Range Interpretation [...] due to change in reagent. COMPREHENSIVE METABOLIC [id number] 05:35:00* Test Item Value Reference Range Interpretation [...] code = ALKP) IUnit/L 45-117 CBC W/AUTO [id number] 05:04:00* Test Item Value Reference Range Interpretation [...] code = NRBC#) 0.00 K/mm3 0.0-0.1 N [id number] 19:56:00* Test Item Value Reference Range Interpretation Comments GLUBED (test code = GLUBED) 151 mg/dL 74-106 H Performed by certified round corner cutter operator at [facility] TROPONIN I [id number] 12:57:00* Test Item Value Reference Range Interpretation [...] be valid only if similarmethodology is used. [id number] 12:23:00* Test Item Value Reference Range Interpretation Comments GLUBED (test code = GLUBED) 46 mg/dL 74-106 LL Performed by certified round corner cutter operator at [facility]Doctor Notified~ - CT ABD PELVIS W/O [id number] 11:51:00 Name: ZACH GUZMAN [facility] : 1970 Age/S: 49 / M [address] [facility] Unit #: [id number] Loc: [place] [address] Phys: Keny Green MD Acct: [id number] Dis Date: Status: ADM IN PHONE #: [phone] Exam Date: 04/12/2019 1031 FAX #: [phone] Reason: RENAL FAILURE EXAMS: CPT CODE: [id number] CT ABD PELVIS W/O CONT 89837 HISTORY: Renal failure. COMPARISON: September 11, 2015 [...] 1 Signed Report (CONTINUED) Name: ZACH GUZMAN [facility] : 1970 Age/S: 49 / M [address] [facility] Unit #: [id number] Loc: [place] [address] Phys: Keny Green MD Acct: [id number] Dis Date: Status: ADM IN PHONE #: [phone] Exam Date: 04/12/2019 1031 FAX #: [phone] Reason: RENAL FAIL URE EXAMS: CPT CODE: [id number] CT ABD PELVIS W/O CONT 45972 <Continued> at 1151 Reported and signed by: Sourav Vail M.D. CC: Shabbir Duncan MD; Keny Green Technologist:Yoni Sun RT(R),(MR),(CT) CTDI: DLP: Trnscb Date/Time: 04/12/2019 (2578) t.SDR.TH4 Orig Print D/T: S: 04/12/2019 (2879) PAGE 2 Signed Report VITAMIN B12 2019-04-12 11:18:00* Test Item Value Reference Range Interpretation Comments VITAMIN B12 (test code = VITB12) 431 pg/mL 193-986 N FOLIC [id number] 11:18:00* Test Item Value Reference Range Interpretation Comments FOLIC ACID (test code = FOL) 22.0 ng/mL 3.10-17.50 H THYROID PROFILE [id number] 11:18:00* Test Item Value Reference Range Interpretation [...] 5.5 mIU/mL HYPER : < 0.35 mIU/mL [id number] 11:14:00* Test Item Value Reference Range Interpretation Comments GLUBED (test code = GLUBED) 138 mg/dL 74-106 H Performed by certified round corner cutter operator at [facility] FE W/TOTAL IRON BINDING CAP.2019-04-12 10:48:00* Test Item Value Reference Range Interpretation Comments SERUM IRON (test code = IRON) 70 ug/dL 50-175 N TOTAL IRON BINDING CAPACITY (test code = TIBC) 262 mcg/dL 250-450 N IRON SATURATION (test code = FESAT) 26.72 % 13-45 N [id number] 10:48:00* Test Item Value Reference Range Interpretation Comments GLYCOSYLATED HEMOGLOBIN (HA1C) (test code = GLYHGB) 6.2 % HbA1 4. 8-6.0 H ESTIMATED AVERAGE GLUCOSE (test code = EAG) 131 MG/DL [id number] 10:45:00* Test Item Value Reference Range Interpretation Comments CKMB (test code = CKMBT) 1.8 ng/mL 0-6.0 N - US RETROPERITONEAL [id number] 10:10:00 Name: REGINA NUNEZJAYDEN [facility] : 1970 Age/S: 49 / M [address] [facility] Unit #: [id number] Loc: [place] [address] Phys: Woodrow Carmichael [employer]ESSIONAL Acct: [id number] Dis Date: Status: ADM IN PHONE #: [phone] Exam Date: 04/12/2019929 FAX #: [phone] Reason: FLANK- RENAL FAILURE EXAMS: CPT CODE: [id number] US RETROPERITONEAL COM 37345 HISTORY: Flank renal failure. COMPARISON: CT scan [...] RAMOS RT(R),RDMS Trn scb Date/Time: 04/12/2019 (1010) t.DANIELR.TH4 Orig Print D/T : S: 04/12/2019 (5296) Probe: PAGE 1 Signed Report CBC W/O [id number] 07:51:00 * Test Item Value Reference Range [...] MPV) 11.5 fL 6.7-11.0 H BASIC METABOLIC [id number] 07:43:00* Test Item Value Reference Range Interpretation [...] code = CA) 7.8 mg/dL 8.5-10.1 L [id number] 07:43:00* Test Item Value Reference Range Interpretation Comments TROPONIN-I (test code = TROPI) <0.015 ng/mL 0-0.045 N BASIC METABOLIC [id number] 07:33:00* Test Item Value Reference Range Interpretation [...] code = CA) 7.8 mg/dL 8.5-10.1 L [id number] 07:33:00* Test Item Value Reference Range Interpretation Comments TROPONIN-I (test code = TROPI) ng/mL 0-0.045 - XR CHEST 1 [id number] 07:32:00 FAX: Wily Bustillo MD [phone] [place]: B : [facility] FAX: Woodrow Carmichael NP [phone] Name: ZACH UGZMAN [facility] : 1970 Age/S: 49/M [address] Unit #: [id number] Loc: [place] [address] Phys: Woodrow Carmichael NP Acct: [id number] Dis Date: Status: REG ER PHONE #: [phone] Exam Date: 04/12/2019721 FAX #: [phone] Reason: CHEST PAIN EXAMS: CPT CODE: [id number] XR CHEST 1 V 00852 HISTORY: CHEST PAIN TECHNIQUE: AP chest x-ray [...] Date/ Time/By: 04/12/2019 (0732) : By: MaureenLDP1 [facility] Print D/T: S: 04/12/20 19 (0736) PAGE 1 Signed Report TROPONIN I [id number] 07:18:00* Test Item Value Reference Range Interpretation [...]
--- NOTE | 2020-05-05 17:21 | Diagnostic Imaging Report ---
EXAMINATION: CHEST SINGLE (PORTABLE) INDICATION: Fever. Cough. ^covid ^[id number] ^[id number] COMPARISON: None FINDINGS: TUBES and LINES: None. LUNGS: There is mild prominence of the central pulmonary vasculature, consistent with pulmonary venous congestion. Patchy density in the lower lobes, right greater than left. PLEURA: No pleural effusion or pneumothorax. HEART AND MEDIASTINUM: Cardiac size is mildly enlarged. BONES AND SOFT TISSUES: No acute osseous lesion. Soft tissues are unremarkable. UPPER ABDOMEN: No free air under the diaphragm. IMPRESSION: Findings consistent with bilateral pulmonary venous congestion and pulmonary edema. Superimposed infection including atypical/viral is likely given provided history of fever. Signed by: Dr. Polo Cramer M.D. on 05/05/2020 5:18 PM
--- NOTE | 2020-05-05 18:32 | Emergency Department Note ---
History of Present Illnes History of Present Illness Chief Complaint: COVID PUI History of Present Illness This is a 50 year old male c/o feeling bad with fever at home of 101. Historian: Patient Arrival Mode: Car Crystal Report Developer Required: No Onset (how long ago): day(s) Radiation: Reports non-radiation Severity: mild Onset quality: sudden Timing of current episode: intermittent Progression: improving Chronicity: new Context: Denies recent illness Relieving factors: none Exacerbating factors: none Associated symptoms: Reports denies other symptoms Treatments prior to arrival: none Past Medical/Family History Physician Review I have reviewed the patient's past medical and family history. Any updates have been documented here. 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 Social History Smoking Cessation: Never Smoker Counseling Performed: No Alcohol Use: None Any Illegal Drug Use: No Physically hurt or threatened: No Family History Family history of heart diseas: No Other Last Tetanus: 2014 Any Pre-Existing Lines (PICC,: Yes Review of Systems Review of Systems Constitutional: Reports as per HPI, Reports fever EENTM: Reports no symptoms Cardiovascular: Reports no symptoms Respiratory: Reports no symptoms Gastrointestinal: Reports no symptoms Genitourinary: Reports no symptoms Musculoskeletal: Reports no symptoms Integumentary: Reports no symptoms Neurological: Reports no symptoms Psychological: Reports no symptoms Endocrine: Reports no symptoms Hematological/Lymphatic: Reports no symptoms Physical Exam Related Data Allergies: Coded Allergies: No Known Drug Allergies (Verified Allergy, 05/04/16) Triage Vital Signs Vital Signs Date Time Temp Pulse Resp B/P (MAP) Pulse Ox O2 Delivery O2 Flow Rate FiO2 05/05/20 15:18 100.2 80 18 174/73 97 Room Air Vital signs reviewed: Yes Physical Exam CONSTITUTIONAL Constitutional: Present well-developed, Present well-nourished HENT HENT: Present normocephalic, Present atraumatic, Present oropharynx clear/moist, Present nose normal HENT L/R: Present left ext ear normal, Present right ext ear normal EYES Eyes: Reports PERRL, Reports conjunctivae normal NECK Neck: Present ROM normal PULMONARY Pulmonary: Present effort normal, Present rales (MILD BIBASILAR RALES) CARDIOVASCULAR Cardiovascular: Present regular rhythm, Present heart sounds normal, Present capillary refill normal, Present normal rate GASTROINTESTINAL Abdominal: Present soft, Present nontender, Present bowel sounds normal GENITOURINARY Genitourinary: Present exam deferred SKIN Skin: Present warm, Present dry MUSCULOSKELETAL Musculoskeletal: Present ROM normal NEUROLOGICAL Neurological: Present alert, Present oriented x 3, Present no gross motor or sensory deficits PSYCHOLOGICAL Psychological: Present mood/affect normal, Present judgement normal Results Laboratory Laboratory Laboratory Tests Test 05/05/20 15:35 Lab results reviewed: Yes Imaging Imaging results reviewed: Yes Assessment & Plan Medical Decision Making MDM FEVER, MILD COUGH - CHECK CXR AND COVID SWAB Reassessment Reassessment DC HOME, SELF-QUARANTINE, PRONING, F/U PCP AND HD THURSDAY, RTED PRN/SOB/ETC, TYLENOL UD, ZPACK Assessment & Plan Final Impression: (1) Fever Depart Disposition: HOME, SELF-CARE Last Vital Signs Date Time Temp Pulse Resp B/P (MAP) Pulse Ox O2 Delivery O2 Flow Rate FiO2 05/05/20 18:18 99.9 84 16 171/77 97 Room Air Home Meds Active Scripts Glimepiride (AMARYL) 2 Mg Tablet, 4 MG PO DAILY@08 for 30 Days, #30 MG 1 Refill Prov:PAPITO MEDEIROS MD 02/23/20 Hydralazine Hcl (HYDRALAZINE HCL) 25 Mg Tab, 50 MG PO TID for 30 Days, #90 TAB 1 Refill Prov:PAPITO MEDEIROS MD 02/23/20 Amlodipine Besylate (NORVASC) 5 Mg Tab, 5 MG PO BID for 30 Days, #60 TAB 1 Refill Prov:PAPITO MEDEIROS MD 02/23/20 Aspirin (ASPIRIN CHEW) 81 Mg Chew, 81 MG PO QAM for 30 Days, #30 MG 1 Refill Prov:PAPITO MEDEIROS MD 02/23/20 Famotidine (PEPCID) 20 Mg Tablet, 20 MG PO BID, #60 TAB 1 Refill Prov:SHANNA SAAVEDRA MD 05/06/16 [Aspirin] 325 MG TABEC No Conflict Check, 81 MG PO QAM, #30 2 Refills Prov:SHANNA SAAVEDRA MD 05/06/16 Reported Medications Lovastatin (LOVASTATIN) 10 Mg Tablet, PO HS 01/30/20 Nebivolol Hcl (BYSTOLIC) 10 Mg Tablet, 10 MG PO DAILY, TAB 01/30/20 BHARATHI XIAO MD May 05, 2020 18:31
== END 2020-05-05 18:51 | disposition home or self-care (01) ==
LOC: ER 15:20
DX: U07.1 COVID-19 (principal); R50.9 Fever, unspecified; R05 Cough; I12.0 Hypertensive chronic kidney disease with stage 5 chronic kidney disease or end stage renal disease; E11.22 Type 2 diabetes mellitus with diabetic chronic kidney disease; N18.6 End stage renal disease; Z99.2 Dependence on renal dialysis; I25.2 Old myocardial infarction
CPT/HCPCS: 71045; 99283; U0002

== ENCOUNTER 2020-05-07 00:59 | Emergency (ER) | payer MEDICARE, OTHER ==
[~2020-05-07] VITALS: Ht 165.1 cm; Wt 109.8 kg
[2020-05-07] MEDS ORDERED: ACETAMINOPHEN 325 MG TAB PO ONE ×2 (01:15)
--- NOTE | 2020-05-07 01:26 | Emergency Department Note ---
History of Present Illnes History of Present Illness Chief Complaint: COVID PUI History of Present Illness This is a 50 year old male was recently here at facility and diagnosed with covid-19, returns this ed visit for worsening respiratory symptoms, PT STATES STILL WITH COUGH, SOB, BODY ACHES AND FEVER LAST TOOK TYLENOL AT NOON YESTERDAY. Historian: Patient Arrival Mode: Car Onset (how long ago): day(s) (3) Location: CHEST Quality: SOB, FEVER, BODY ACHES, DRY COUGH Radiation: Reports non-radiation Severity: moderate Onset quality: gradual Duration (how long): day(s) (3) Timing of current episode: constant Progression: unchanged Chronicity: new Context: Reports recent illness (POSITIVE FOR COVID 19) Relieving factors: none Exacerbating factors: movement Associated symptoms: Reports denies other symptoms Past Medical/Family History Physician Review I have reviewed the patient's past medical and family history. Any updates have been documented here. Past Medical History Recent Fever: Yes Clinical Suspicion of Infectio: Yes New/Unexplained Change in Ment: No Past Medical History: Hypertension, Diabetes, [place], ESRD, Hemodyalisis Other Surgery: LEFT ARM FISTULA PERITONEAL DIALYSIS Social History Smoking Cessation: Never Smoker Counseling Performed: No Alcohol Use: None Any Illegal Drug Use: No Physically hurt or threatened: No Other Last Tetanus: 2014 Review of Systems Review of Systems Constitutional: Reports as per HPI EENTM: Reports no symptoms Cardiovascular: Reports no symptoms Respiratory: Reports as per HPI Gastrointestinal: Reports no symptoms Genitourinary: Reports no symptoms Musculoskeletal: Reports no symptoms Integumentary: Reports no symptoms Neurological: Reports no symptoms Psychological: Reports no symptoms Endocrine: Reports no symptoms Hematological/Lymphatic: Reports no symptoms Physical Exam Related Data Allergies: Coded Allergies: No Known Drug Allergies (Verified Allergy, Unknown, 05/07/20) Triage Vital Signs Vital Signs Date Time Temp Pulse Resp B/P (MAP) Pulse Ox O2 Delivery O2 Flow Rate FiO2 05/07/20 01:04 100.2 87 22 171/75 92 Room Air Vital signs reviewed: Yes Physical Exam CONSTITUTIONAL Constitutional: Present well-developed, Present well-nourished; Absent distressed HENT HENT: Present normocephalic, Present atraumatic, Present oropharynx clear/moist, Present nose normal HENT L/R: Present left ext ear normal, Present right ext ear normal EYES Eyes: Reports PERRL, Reports conjunctivae normal NECK Neck: Present ROM normal PULMONARY Pulmonary: Present effort normal, Present rhonchi (DIFFUSE); Absent respiratory distress CARDIOVASCULAR Cardiovascular: Present regular rhythm, Present heart sounds normal, Present capillary refill normal, Present normal rate GASTROINTESTINAL Abdominal: Present soft, Present nontender, Present bowel sounds normal GENITOURINARY Genitourinary: Present exam deferred SKIN Skin: Present warm, Present dry MUSCULOSKELETAL Musculoskeletal: Present ROM normal NEUROLOGICAL Neurological: Present alert, Present oriented x 3, Present no gross motor or sensory deficits PSYCHOLOGICAL Psychological: Present mood/affect normal, Present judgement normal Results Imaging Imaging results reviewed: Yes Assessment & Plan Medical Decision Making MDM PT WITH COVID 19 PRESENTS WITH FEVER, SOB, COUGH, SEEN HERE THURSDAY FOR SAME OXYGEN SATURATION AFTER WALKING DOWN [place] TO EXAM ROOM IS 100 5 ON ROOM AIR CXR ORDERED TO EVAL FOR WORSENING OF INFILTRATES. TYLENOL 975 MG ORDERED Assessment & Plan Final Impression: (1) COVID-19 (2) Viral pneumonia Depart Disposition: HOME, SELF-CARE Last Vital Signs Date Time Temp Pulse Resp B/P (MAP) Pulse Ox O2 Delivery O2 Flow Rate FiO2 05/07/20 01:04 100.2 87 22 171/75 92 Room Air Home Meds Active Scripts Glimepiride (AMARYL) 2 Mg Tablet, 4 MG PO DAILY@08 for 30 Days, #30 MG 1 Refill Prov:PAPITO MEDEIROS MD 02/23/20 Hydralazine Hcl (HYDRALAZINE HCL) 25 Mg Tab, 50 MG PO TID for 30 Days, #90 TAB 1 Refill Prov:PAPITO MEDEIROS MD 02/23/20 Amlodipine Besylate (NORVASC) 5 Mg Tab, 5 MG PO BID for 30 Days, #60 TAB 1 Refill Prov:PAPITO MEDEIROS MD 02/23/20 Aspirin (ASPIRIN CHEW) 81 Mg Chew, 81 MG PO QAM for 30 Days, #30 MG 1 Refill Prov:PAPITO MEDEIROS MD 02/23/20 Famotidine (PEPCID) 20 Mg Tablet, 20 MG PO BID, #60 TAB 1 Refill Prov:SHANNA SAAVEDRA MD 05/06/16 [Aspirin] 325 MG TABEC No Conflict Check, 81 MG PO QAM, #30 2 Refills Prov:SHANNA SAAVEDRA MD 05/06/16 Reported Medications Lovastatin (LOVASTATIN) 10 Mg Tablet, PO HS 01/30/20 Nebivolol Hcl (BYSTOLIC) 10 Mg Tablet, 10 MG PO DAILY, TAB 01/30/20 Medications in the ED Acetaminophen 75 mg ONCE ONCE PO ; Start 05/07/20 at 01:15; Stop 05/07/20 at 01:11; Status DC Acetaminophen 975 mg ONCE ONCE PO Last administered on 05/07/20at 01:11; Admin Dose 975 MG; Start 05/07/20 at 01:15; Stop 05/07/20 at 01:16; Status UNV AUGUSTO SIMMS MD May 07, 2020 01:26
--- OUTSIDE RECORDS SUMMARY | 2020-05-07 02:02 | XMS REPORT | Clinical Summary ---
Author Author [facility] Organization [facility] ict Address Unknown Phone Unavailable Care Team Providers Care Case Loader Operator Name Role Phone PCP Unavailable Allergies No [...] (>/= 19 yrs) Results Not on fileafter 05/07/2019 Insurance Type Payer Benefit Subscriber ID Effective Phone Address Plan / Dates Group [facility] CHOICE xxxxxxxxx 2016-P [phone] [id number] [place] [address] [facility] SELF-PAY SELF-PAY xxxxxx 2016-5 [phone] [place] [address] Guarantor Name Account Relation to Date of Phone Billin g Address Type Patient MORGAN NUNEZ Personal/F Head of 1970 [address] (Home) [place], [place] [address] (Self) Advance Directives Date Inactivated Comments Code Status Date Activated 01/22/2018 8:18 PM Full Code 01/20/2018 3:11 PM
--- OUTSIDE RECORDS SUMMARY | 2020-05-07 02:03 | XMS REPORT | Clinical Summary ---
Author Author [facility] Address Unknown Phone Unavailable Care Team Providers Care Traffic Coordinator Name Role Phone Brandon--Shabbir Langford PCP Allergies [...] 41. He will meet with our transplant service desk director for assistance with dieting and weight loss. Encounters Care Team Description Date Type Specialty Sofiya Neville RN 03/08/2020 Abstract Transplant Irwin Ashton MD ESRD (end stage renal disease) on dialys is (HCC) (Primary Dx); Encounter regarding vascular access for dialysis for end-stage renal disease (HCC) 03/07/2020 Audio - Cardiology Telemedicine Sofiya Nevlile RN ESRD (end stage renal disease) on [...] Sims MD 05/17/2019 Office Visit Transplant after 05/07/2019 Family History Medical History Relation Name Comments [...] PANEL 01/20/2021 01/20/2018 Results Not on fileafter 05/07/2019 Insurance Payer Benefit Subscriber ID Type Phone Address Plan / Group [employer] xxxxxxxxx Trans plant [facility] ONLY [facility] - [facility] xxxxxxxxx CARE COMMERCIAL HEALTHCARE INDEMNITY
--- OUTSIDE RECORDS SUMMARY | 2020-05-07 02:04 | XMS REPORT | Continuity of Care Document ---
Author Author [facility] t Organization [facility] Address [address] [place] [address] Phone Unavailable Care Team Providers Care Cvt Tech Name Role Phone MD Rosalba BURGESS PCP Rosalba XIAO Attphys Unavailable Daisha YOUSIF, Yeyo Gayle Attphys [phone] Jamin RN, Caroline Arriaza Attphys Unavailable Amos MARTÍNEZ, Starr Attphys Unavailable Codi MEDEIROS Attphys Unavailable Bethany YOUSIF, SRoger Tanner Attphys Mary YOUSIF, Joaquin Rivera Attphys [phone] Codi MEDEIROS Admphys Unavailable Payers Payer Name Policy Type Policy Number Effective Date Expiration Date S [facility] [id number] 2019 00:00 :00 [facility] Medicare A & B [id number] 2019 00:00:00 [facility] Cdc Review [id number] [facility] UNITED RESOURCES NETWK - [facility] LYxxxxxxxxxTransplants xxxxxxxxx [facility] INDEMNI TYxxxxxxxxx xxxxxxxxx [facility] Problems Condition Name Condition Details Condition Category Status Onset Date Resolution Date Last Treatment Date Treating Clinician Comments Source ESRD (end stage renal disease) on dialysis ESRD (end s tage renal disease) on dialysis Disease Active 2020-01-11 00:00:00 [facility] Hypertension Hypertension Disease Active 2019-05-17 00:00:00 Last Assessment & Plan: Blood pressure management per primary care. [facility] Diabetes mellitus Diabetes mellitus Disease Active 2019-05-17 00:00:00 Last Assessment & Plan: He will require aggressive blood glucose control per primary care. [facility] CKD (chronic kidney disease) CKD (chronic kidney disease) Disease Active 2019-05-17 00:00:00 Last Assessm ent & Plan: Chronic kidney disease secondary to HTN/DM. At this time he does not require diaylsis. [facility] Obesity Obesity Disease Active 2019-05-17 00:00:00 Last Assessment & Plan: His current BMI is 42. We will set his goal BMI at 40. He will meet with our transplant posting clerk for assistance with dieting and weight loss. [facility] LLQ pain LLQ pain Disease Active 2018-01-20 00:00:00 [facility] Acute renal failure Acute renal failure Disease Active 2018-01-20 00:00 :00 [facility] KATHLEEN (acute kidney injury) KATHLEEN (acute kidney injury) Disease Ac tive 2018-01-20 00:00:00 [facility] Diabetes mellitus type 2 in obese Diabetes mellitus type 2 in ob camilo Disease Active 2018-01-20 00:00:00 [facility] Chest pain Problem Active 2016-05-04 00:00:00 [facility] Hypertension Problem Active 2016-05-04 00:00:00 [facility] Obesity Problem Active 2016-05-04 00:00:00 [facility] Diabetes mellitus Problem Active 2016-05-04 00:00:00 [facility] Back pain Back pain Disease Active 2014-07-08 00:00:00 [facility] Cough Cough Disease Active 2014-02-06 00:00:00 [facility] Dizziness Problem Active [facility] Fever Problem Active [facility] Diarrhea Diarrhea Disease Active [facility] Hyperkalemia Hyperkalemia Disease Active [facility] Allergies, Adverse Reactions, Alerts Allergy Name Allergy Type Status Severity Reaction(s) Onset Date Inacti ve Date Treating Clinician Comments Source No Known Allergies DA Active U 2019-04-12 00:00:00 [facility] No Known Allergies DA Active U 2015-09-11 00:00:00 [facility] Family History Family Member Diagnosis Comments Start Date Stop Date Source Natural sister Diabetes [facility] Social History Social Habit Start Date Stop Date Quantity Comments Source History SDOH Alcohol Std Drinks [facility] History SDOH Alcohol Binge [facility] Sex Assigned At [facility] History SDOH Alcohol Frequency 2020-03-06 00:00:00 2020-03-06 00:00:0 0 1 [facility] Alcohol intake 2018-01-21 00:00:00 2018-01-21 00:00:00 Current drinker of alcohol (finding) [facility] Alcohol Comment 2014-07-06 00:00:00 2014-07-06 00:00:00 OCCASSIONAL [facility] Smoking Status Start Date Stop Date Source Never smoker [facility] Medications Ordered Medication Name Filled Medication Name Start Date Stop Da te Current Medication? Ordering Clinician Indication Dosage Frequency Signature (SIG) Comments Components Source amLODIPine (NORVASC) 5 MG tablet 2020-03-06 10:24:47 Yes 5mg QD Take 5 mg by mouth daily. [facility] hydroCHLOROthiazide (MICROZIDE) 12.5 mg capsule 2020-03-06 10:24 :47 Yes 12.5mg QD Take 12.5 mg by mouth every morning. [facility] lisinopriL (PRINIVIL,ZESTRIL) 40 MG tablet 2020-03-06 10:24:47 Yes 40mg Q.5D Take 40 mg by mouth 2 (two) times daily. [facility] cloNIDine (CATAPRES-TTS) 0.1 mg/24 hr patch 2019 10:24:44 2020-03-06 00:00:00 No 1{patch} Q7D Place 1 patch onto the skin on ce a week. [facility] Amlodipine Besylate (Norvasc) 5 Mg TAB Amlodipine Besylate ( Norvasc) 5 Mg TAB 2020-02-23 14:03:00 Yes 5 Twice A Day [facility] Aspirin (Aspirin Chew) 81 Mg CHEW Aspirin (Aspirin Chew) 81 Mg CHEW 2020-02-23 14:03:00 Yes 81 Every Morning C [facility] Glimepiride (Amaryl) 2 Mg TABLET Glimepiride (Amaryl) 2 Mg T ABLET 2020-02-23 14:03:00 Yes 4 Daily@08 [facility] Hydralazine Hcl Hydralazine Hcl 2020-02-23 14:03:00 Yes [address] [facility] hydrALAZINE (APRESOLINE) 50 MG tablet 2020-02-23 00:00:00 Yes 50mg Q.[id number] Take 50 mg by mouth 3 (three) times daily. [facility] acetaminophen (TYLENOL) 500 MG tablet 2019-05-17 09:42:10 Y es 500mg Take 500 mg by mouth every 6 (six) hours as needed for Pain. [facility] folic acid (FOLVITE) 1 MG tablet 2019-05-17 09:40:25 Yes 1mg QD Take 1 mg by mouth daily. [facility] glimepiride (AMARYL) 4 MG tablet 2019-05-17 09:40:24 Yes 4mg Take 4 mg by mouth every morning before breakfast. [facility] losartan (COZAAR) 50 MG tablet 2019-05-17 09:40:24 Yes 50mg QD Take 50 mg by mouth daily. [facility] sodium bicarbonate 650 MG tablet 2019-05-17 09:40:24 Yes 4{tbl} Q.5D Take 4 tablets by mouth 2 (two) times daily. [facility] cloNIDine HCl (CATAPRES) 0.1 MG tablet 2019-05-17 09:40:24 Yes .1mg Q.5D Take 0.1 mg by mouth 2 (two) times daily. [facility] aspirin 81 MG EC tablet 2019-05-17 09:40:23 Yes 81mg QD Take 81 mg by mouth daily. [facility] amLODIPine (NORVASC) 10 mg tablet 2018-01-22 18:13:21 Yes 10mg QD Take 10 mg by mouth daily. [facility] lovastatin 10 mg tablet 2018-01-22 18:13:21 Yes 40mg Take 40 mg by mouth at bedtime nightly. [facility] glimepiride (AMARYL) 1 mg tablet 2018-01-22 00:00:00 Yes KATHLEEN (acute kidney injury) 1mg QD Take 1 tablet by mouth every morning (before br eakfast). [facility] Aspirin Aspirin 2016-05-06 07:58:00 Yes 81 Every Mor arturo [facility] Famotidine (Pepcid) 20 Mg TABLET Famotidine (Pepcid) 20 Mg [facility] 2016-05-06 07:58:00 Yes 20 Twice A Day [facility] Lisinopril (Prinivil) 10 Mg TABLET Lisinopril (Prinivil) 10 Mg TABLET 2016-05-06 07:58:00 2020-01-30 00:00:00 No 10 Daily [facility] Metoprolol Tartrate (Lopressor) 25 Mg TAB Metoprolol T artrate (Lopressor) 25 Mg TAB 2016-05-06 07:58:00 2020-01-30 00:00:00 No 12.5 Ever y 12 Hours [facility] Simvastatin (Zocor) 40 Mg TABLET Simvastatin (Zocor) 40 Mg T [facility] 2016-05-06 07:58:00 2020-01-30 00:00:00 No 40 Bedtime [facility] Lovastatin Lovastatin Yes Bedtime [facility] Nebivolol Hcl (Bystolic) 10 Mg TABLET Nebivolol Hcl (Bystolic) 10 M g TABLET Yes 10 Daily [facility] Metformin Hcl Metformin Hcl 2020-01-30 00:00:00 No 500 Daily [facility] Vital Signs Vital Name Observation Time Observation Value Comments Source Weight 2020-05-05 15:18:00 242 [lb_av] [facility] BMI (Body Mass Index) 2020-05-05 15:18:00 40.3 kg/m2 [facility] Body Temperature 2020-02-23 08:05:00 97.9 [degF] [facility] BMI (Body Mass Index) 2020-02-19 21:13:00 40.3 kg/m2 [facility] Weight 2020-02-19 17:21:00 242 [lb_av] [facility] Systolic blood pressure 2020-01-11 13:27:00 178 mm[Hg] [facility] Diastolic blood pressure 2020-01-11 13:27:00 82 mm[Hg] [facility] Heart rate 2020-01-11 13:27:00 71 /min [facility] Body temperature 2020-01-11 13:27:00 37 Leanne [facility] Respiratory rate 2020-01-11 13:27:00 18 /min [facility] Body height 2020-01-11 13:27:00 165.1 cm [facility] Body weight Measured 2020-01-11 13:27:00 110.678 kg [facility] BMI 2020-01-11 13:27:00 40.60 kg/m2 [facility] Oxygen saturation in Arterial blood by Pulse oximetry 01-10 13:27:00 98 /min [facility] r Procedures Procedure Date / Time Performed Performing Clinician [facility] e Magnetic resonance imaging of brain without contrast 2020-02-22 00:00:00 [facility] Computed tomography of brain without radiopaque contrast 2020-01 00:00:00 [facility] PERFORMANCE OF URINARY FILTRATION, <6 HRS/DAY 2020-02-21 00:00:0 0 [facility] Computed tomography of chest with contrast 2020-02-19 00:00:00 [facility] AV FUSION DIRECT ANY SITE 2020-02-02 00:00:00 [facility] Plan of Care Planned Activity Planned Date Details Comments Source Future Scheduled Test 2021-01-20 00:00:00 Lipid panel (proce dure) [code = 53122051] [facility] Future Scheduled Test 2020-06-28 00:00:00 IMM Influenza Seas onal Jun to November (>/= 19 yrs) [code = IMM Influenza Seasonal Jun to November (>/= 19 yrs)] [facility] Scheduled Test 2020-05-29 00:00:00 INFLUENZA VACCINE (#1) [code = INFLUENZA VACCINE (#1)] [facility] Scheduled Test 2019-05-17 00:00:00 Hemoglobin A1c jennifer surement (procedure) [code = 39889017] [facility] Scheduled Test 2019-01-21 00:00:00 Urine screening fo r protein (procedure) [code = 442013116] [facility] Scheduled Test 2019-01-20 00:00:00 Hemoglobin A1c jennifer surement (procedure) [code = 97320816] [facility] Scheduled Test 2019-01-20 00:00:00 Urine screening fo r protein (procedure) [code = 884036098] [facility] Future Scheduled Test 1989 00:00:00 DM Foot Exam (Year ly) [code = DM Foot Exam (Yearly)] [facility] Scheduled Test 1989 00:00:00 DM Retinal Exam (Y early) [code = DM Retinal Exam (Yearly)] [facility] Scheduled Test 1981 00:00:00 DIABETIC EYE EXAM [code = DIABETIC EYE EXAM] [facility] Future Scheduled Test 1981 00:00:00 Diabetic foot exam ination (regime/therapy) [code = 796438535] [facility] Future Scheduled Test 1977 00:00:00 PNEUMOCOCCAL VACCI NE 2-64 YEARS AT RISK (1 of 3 - PCV13) [code = PNEUMOCOCCAL VACCINE 2-64 YEARS AT RISK (1 of 3 - PCV13)] [facility] Instructions COVID-19: 12/12/2019 [facility] Encounters Start Date/Time End Date/Time Encounter Type Admission Type [facility] Care Department Encounter ID Source 2018-01-21 03:35:12 Inpatient [facility] [id number] [facility] 2020-05-05 15:20:00 2020-05-05 18:51:00 Departed Emergency Room 1 BHARATHI XIAO [facility] [id number] [facility] 2020-02-21 15:05:00 2020-02-23 14:30:00 Discharged Inpatient 1 PAPITO MEDEIROS [facility] [id number] [facility] 2020-02-02 11:00:00 2020-02-02 11:00:00 Registered Surgical Day Care [facility] [id number] [facility] 2019-11-01 07:38:00 2019-11-01 07:38:00 Outpatient [id number] 2019-09-06 05:07:00 2019-09-06 05:07:00 Outpatient [id number] 2018-01-20 09:54:57 2018-01-20 09:54:57 Emergency [facility] [id number] [facility] 2018-01-20 07:54:55 2018-01-20 07:54:55 Outpatient [facility] [id number] [facility] 2018-01-20 00:00:00 2018-01-20 00:00:00 Emergency [facility] [id number] [facility] Results Test Description Test Time Test Comments Results Result Comments Source CHEST SINGLE (PORTABLE) 2020-05-05 17:15:00 [facility] [address] [address] Patient Name: ZACH GUZMAN MR #: [id number] : 1970 Age/Sex: 50/M Req #: [id number] Adm Physician: Ordered by: BHARATHI XIAO MD Report #: [id number] Location: ER Room/Bed: Procedure: [id number] DX/CHEST SINGLE (PORTABLE) Exam Date: 05/05/20 Exam Time: 1610 REPORT STATUS: Signed EXAMINATION: CHEST SINGLE (PORTABLE) INDICATION: Fever. Cough. covid [id number] COMPARISON: None FINDINGS: TUBES and LINES: None. LUNGS: There is mild prominence of the central pulmonary vasculature, consistent with pulmonary venous congestion. Patchy density in the lower lobes, right greater than left. PLEURA: No pleural effusion or pneumothorax. HEART AND MEDIASTINUM: Cardiac size is mildly enlarged. BONES AND SOFT TISSUES: No acute osseous lesion. Soft tissues are unremarkable. UPPER ABDOMEN: No free air under the diaphragm. IMPRESSION: Findings consistent wit h bilateral pulmonary venous congestion and pulmonary edema. Superimposed infection including atypical/viral is likely given provided history of fever. Signed by: Dr. Polo Gonzalez M.D. on 05/05/2020 5:18 PM Dictated By: CHA GONZALEZ MD, MD 17 Transcribed By: FLORA on 05/05/201717 COPY TO: BHARATHI XIAO MD MRI BRAIN WO 2020-02-23 07:53:[address] [address] Patient Name: ZACH GUZMAN MR #: [id number] : 1970 Age/Sex: 49/M Req #: [id number] Adm Physician: PAPITO MEDEIROS MD Ordered by: MACY ESCOBEDO MD Report #: [id number] Location: MED/SURG3 Room/Bed: [facility] Procedure: [id number] MRI/MRI BRAIN WO Exam Date: Exam Time: [...] Test Item Bedside Glucose (test code = 17451-6) 114 70-120 Meter ID: [id number] [facility] by glucometer (mass/volume)2020-02-23 07:02:00* Test Item Value Reference Range Interpretation Comments Bedside Glucose (test code = 05676-5) 114 70-120 Meter ID: [id number] [facility] automated count (number/volume)2020-02-22 08:00:00* Test Item Value Reference Range Interpretation Comments White Blood Count (test code = 6690-2) 6.56 4.8-10.8 [facility] erythrocytes automated count (number/volume)2020-02-22 08:00:00* Test Item Value Reference Range Interpretation Comments Red Blood Count (test code = 789-8) 2.94 4.3-5.7 [facility] hemoglobin measurement (moles/volume)2020-02-22 08:00:00* Test Item Value Reference Range Interpretation Comments Hemoglobin (test code = 86821-6) 8.8 14.0-18.0 [facility] CampusAutomated blood hematocrit (volume fraction)2020-02-22 08:00:00* Test Item Value Reference Range Interpretation Comments Hematocrit (test code = 4544-3) 27.3 38.2-49.6 [facility] CampusAutomated erythrocyte mean corpuscular akosoc6440-86-70 08:00:00* Test Item Value Reference Range Interpretation Comments Mean Corpuscular Volume (test code = 787-2) 92.9 81-99 [facility] CampusAutomated erythrocyte mean corpuscular hemoglobin (mass per erythrocyte)2020-02-22 08:00:00* Test Item Value Reference Range Interpretation Comments Mean Corpuscular Hemoglobin (test code = 785-6) 29.9 28-32 [facility] CampusAutomated erythrocyte mean corpuscular hemoglobin concentration measurement (mass/volume)2020-02-22 08:00:00* Test Item Value Reference Range Interpretation Comments Mean Corpuscular Hemoglobin Concent (test code = 786-4) 32.2 31-35 [facility] CampusRDW CjbMb-Yks1989-66-27 08:00:00* Test Item Value Reference Range Interpretation Comments Red Cell Distribution Width (test code = 54243-7) 15.9 11.7 -14.4 [facility] CampusAutomated blood platelet count (count/volume)2020-02-22 08:00:00* Test Item Value Reference Range Interpretation Comments Platelet Count (test code = 777-3) 159 140-360 [facility] CampusAutomated blood segmented neutrophil count as percentage of total ujeonrumey6617-03-35 08:00:00* Test Item Value Reference Range Interpretation Comments Neutrophils (%) (Auto) (test code = 70155-7) 59.8 38.7-80.0 [facility] CampusAutomated blood lymphocyte count as percentage ot total obrwbszleg4105-48-32 08:00:00* Test Item Value Reference Range Interpretation Comments Lymphocytes (%) (Auto) (test code = 736-9) 18.0 18.0-39.1 [facility] CampusAutomated blood monocyte count as percentage of total uwuwjpuvvw7154-48-55 08:00:00* Test Item Value Reference Range Interpretation Comments Monocytes (%) (Auto) (test code = 5905-5) 11.9 4.4-11.3 [facility] CampusAutformerly [facility]ed blood eosinophil count as percentage of total ovmsynhktx6092-35-82 08:00:00* Test Item Value Reference Range Interpretation Comments Eosinophils (%) (Auto) (test code = 713-8) 9.5 0.0-6.0 [facility] CampusAutomated blood basophil count as percentage of total bzjckruazi5855-59-21 08:00:00* Test Item Value Reference Range Interpretation Comments Basophils (%) (Auto) (test code = 706-2) 0.3 0.0-1.0 [facility] CampusFluoroscopic procedure less than one hour mtttjoga6483-35-60 08:00:00* Test Item Value Reference Range Interpretation Comments IM GRANULOCYTES % (test code = IM GRANULOCYTES %) 0.5 0.0- 1.0 [facility] CampusAutomated blood neutrophil count 2020-02-22 08:00:00* Test Item Value Reference Range Interpretation Comments Neutrophils # (Auto) (test code = 751-8) 3.9 2.1-6.9 [facility] CampusBlood lymphocytes count (number/volume) 2020-02-22 08:00:00* Test Item Value Reference Range Interpretation Comments Lymphocytes # (Auto) (test code = 64821-5) 1.2 1.0-3.2 [facility] CampusBlworthington medical center monocytes automated count (number/volume)2020-02-22 08:00:00* Test Item Value Reference Range Interpretation Comments Monocytes # (Auto) (test code = 742-7) 0.8 0.2-0.8 [facility] CampusAutomated blood eosinophil count 2020-02-22 08:00:00* Test Item Value Reference Range Interpretation Comments Eosinophils # (Auto) (test code = 711-2) 0.6 0.0-0.4 [facility] CampusAutomated blood basophil count (count/volume)2020-02-22 08:00:00* Test Item Value Reference Range Interpretation Comments Basophils # (Auto) (test code = 704-7) 0.0 0.0-0.1 [facility] CampusFluoroscopic procedure less than one hour yenvgqrp3202-19-34 08:00:00* Test Item Value Reference Range Interpretation Comments Absolute Immature Granulocyte (auto (nuria t code = Absolute Immature Granulocyte (auto) 0.03 0-0.1 [facility] Austinerum or plasma sodium measurement (moles/volume)2020-02-22 08:00:00* Test Item Value Reference Range Interpretation Comments Sodium Level (test code = 2951-2) 134 136-145 [facility] Austinerum or plasma potassium measurement (moles/volume)2020-02-22 08:00:00* Test Item Value Reference Range Interpretation Comments Potassium Level (test code = 2823-3) 4.4 3.5-5.1 [facility] Austinerum or plasma chloride measurement (moles/volume)2020-02-22 08:00:00* Test Item Value Reference Range Interpretation Comments Chloride Level (test code = 2075-0) 96 98-107 [facility] Austinerum or plasma carbon dioxide, total measurement (moles/volume)2020-02-22 08:00:00* Test Item Value Reference Range Interpretation Comments Carbon Dioxide Level (test code = 2028-9) 25 22-29 [facility] Austinerum or plasma anion dez9950-09-76 08:00:00* Test Item Value Reference Range Interpretation Comments Anion Gap (test code = 39030-2) 17.4 8-16 [facility] Austinerum or plasma urea nitrogen measurement (mass/volume)2020-02-22 08:00:00* Test Item Value Reference Range Interpretation Comments Blood Urea Nitrogen (test code = 3094-0) 51 7-26 [facility] Austinerum or plasma creatinine measurement (mass/volume)2020-02-22 08:00:00* Test Item Value Reference Range Interpretation Comments Creatinine (test code = 2160-0) 11.56 0.72-1.25 [facility] Austinerum or plasma urea nitrogen/creatinine mass [id number] 08:00:00* Test Item Value Reference Range Interpretation Comments BUN/Creatinine Ratio (test code = 3097-3) 4 6-25 [facility] CampusEstimated glomerular filtration rate (GFR) liulmbmhmtfzq5012-79-88 08:00:00* Test Item Value Reference Range Interpretation Comments Estimat Glomerular Filtration Rate (test code = 098630341) 5 >60 Ranges were taken from the National Kidney Disease Education Program and the [facility] Kidney Foundation literature.Reference ranges:60 or greater: Hfholw75-99 ( for 3 consecutive months): Chronic kidney disease 15 or less: Kidney failureThe [facility] CampusGlucose qlhomgumzzr1961-47-26 08:00:00* Test Item Value Reference Range Interpretation Comments Glucose Level (test code = [id number]) 108 74-118 [facility] Austinerum or plasma calcium measurement (mass/volume)2020-02-22 08:00:00* Test Item Value Reference Range Interpretation Comments Calcium Level (test code = 02367-0) 8.3 8.4-10.2 [facility] Austinerum or plasma total bilirubin measurement (mass/volume)2020-02-22 08:00:00* Test Item Value Reference Range Interpretation Comments Total Bilirubin (test code = 1975-2) 0.5 0.2-1.2 [facility] CampusFluoroscopic procedure less than one hour spihipoz8099-46-24 08:00:00* Test Item Value Reference Range Interpretation Comments Aspartate Amino Transf (AST/SGOT) (test code = Aspartate Amino Transf (AST/SGOT)) 10 5-34 [facility] Austinerum or plasma alanine aminotransferase measurement (enzymatic activity/volume)2020-02-22 08:00:00* Test Item Value Reference Range Interpretation Comments Alanine Aminotransferase (ALT/SGPT) (test code = 1742-6) 9 0-55 [facility] Austinerum or plasma protein measurement (mass/volume)2020-02-22 08:00:00* Test Item Value Reference Range Interpretation Comments Total Protein (test code = 2885-2) 6.5 6.5-8.1 [facility]um or plasma albumin measurement (mass/volume)2020-02-22 08:00:00* Test Item Value Reference Range Interpretation Comments Albumin (test code = 1751-7) 3.4 3.5-5.0 [facility] CampusPlasma globulin measurement (mass/volume) 2020-02-22 08:00:00* Test Item Value Reference Range Interpretation Comments Globulin (test code = 13954-1) 3.1 2.3-3.5 [facility] Aust[facility]um or plasma albumin/globulin mass zhpns7295-93-37 08:00:00* Test Item Value Reference Range Interpretation Comments Albumin/Globulin Ratio (test code = 1759-0) 1.1 0.8-2.0 [facility] or plasma alkaline phosphatase measurement (enzymatic activity/volume)2020-02-22 08:00:00* Test Item Value Reference Range Interpretation Comments Alkaline Phosphatase (test code = 6768-6) 48 40-150 [facility] CampusBlood leukocytes automated count (number/volume)2020-02-22 08:00:00* Test Item Value Reference Range Interpretation Comments White Blood Count (test code = 6690-2) 6.56 4.8-10.8 [facility] CampusBlood erythrocytes automated count (number/volume)2020-02-22 08:00:00* Test Item Value Reference Range Interpretation Comments Red Blood Count (test code = 789-8) 2.94 4.3-5.7 [facility] CampusBlood hemoglobin measurement (moles/volume)2020-02-22 08:00:00* Test Item Value Reference Range Interpretation Comments Hemoglobin (test code = 36007-7) 8.8 14.0-18.0 [facility] CampusAutomated blood hematocrit (volume fraction)2020-02-22 08:00:00* Test Item Value Reference Range Interpretation Comments Hematocrit (test code = 4544-3) 27.3 38.2-49.6 [facility] CampusAutomated erythrocyte mean corpuscular ogvhvz7441-82-33 08:00:00* Test Item Value Reference Range Interpretation Comments Mean Corpuscular Volume (test code = 787-2) 92.9 81-99 [facility] CampusAutomated erythrocyte mean corpuscular hemoglobin (mass per erythrocyte)2020-02-22 08:00:00* Test Item Value Reference Range Interpretation Comments Mean Corpuscular Hemoglobin (test code = 785-6) 29.9 28-32 [facility] erythrocyte mean corpuscular hemoglobin concentration measurement (mass/volume)2020-02-22 08:00:00* Test Item Value Reference Range Interpretation Comments Mean Corpuscular Hemoglobin Concent (test code = 786-4) 32.2 31-35 [facility] CampusRDW AupPr-Spi2518-70-27 08:00:00* Test Item Value Reference Range Interpretation Comments Red Cell Distribution Width (test code = 30568-2) 15.9 11.7 -14.4 [facility]ered [facility] platelet count (count/volume)2020-02-22 08:00:00* Test Item Value Reference Range Interpretation Comments Platelet Count (test code = 777-3) 159 140-360 [facility] CampusAutomated blood segmented neutrophil count as percentage of total bgelqiabnb6751-41-84 08:00:00* Test Item Value Reference Range Interpretation Comments Neutrophils (%) (Auto) (test code = 69339-6) 59.8 38.7-80.0 [facility] CampusAutformerly mcdowell hospitaled blood lymphocyte count as percentage ot total hdwjunmlcm9543-56-79 08:00:00* Test Item Value Reference Range Interpretation Comments Lymphocytes (%) (Auto) (test code = 736-9) 18.0 18.0-39.[address] [facility] CenterAutom[facility] blood monocyte count as percentage of total nuroxwitjl7484-57-14 08:00:00* Test Item Value Reference Range Interpretation Comments Monocytes (%) (Auto) (test code = 5905-5) 11.9 4.4-11.3 [facility] CampusAutomated blood eosinophil count as percentage of total sexfcmfhvi5260-45-62 08:00:00* Test Item Value Reference Range Interpretation Comments Eosinophils (%) (Auto) (test code = 713-8) 9.5 0.0-6.0 [facility] CampusAutomated blood basophil count as percentage of total pfbslmfles5805-92-54 08:00:00* Test Item Value Reference Range Interpretation Comments Basophils (%) (Auto) (test code = 706-2) 0.3 0.0-1.0 [facility] CampusFluoroscopic procedure less than one hour drmoterp2222-90-28 08:00:00* Test Item Value Reference Range Interpretation Comments IM GRANULOCYTES % (test code = IM GRANULOCYTES %) 0.5 0.0- 1.0 [facility] CampusAutomated blood neutrophil count 2020-02-22 08:00:00* Test Item Value Reference Range Interpretation Comments Neutrophils # (Auto) (test code = 751-8) 3.9 2.1-6.9 [facility] CampusBlood lymphocytes count (number/volume) 2020-02-22 08:00:00* Test Item Value Reference Range Interpretation Comments Lymphocytes # (Auto) (test code = 68721-3) 1.2 1.0-3.2 [facility] CampusBlood monocytes automated count (number/volume)2020-02-22 08:00:00* Test Item Value Reference Range Interpretation Comments Monocytes # (Auto) (test code = 742-7) 0.8 0.2-0.8 [facility] CampusAutomated blood eosinophil count 2020-02-22 08:00:00* Test Item Value Reference Range Interpretation Comments Eosinophils # (Auto) (test code = 711-2) 0.6 0.0-0.4 [facility] CampusAutomated blood basophil count (count/volume)2020-02-22 08:00:00* Test Item Value Reference Range Interpretation Comments Basophils # (Auto) (test code = 704-7) 0.0 0.0-0.1 [facility] CampusFluoroscopic procedure less than one hour tgccjkxd1557-71-95 08:00:00* Test Item Value Reference Range Interpretation Comments Absolute Immature Granulocyte (auto (nuria t code = Absolute Immature Granulocyte (auto) 0.03 0-0.1 [facility] or plasma sodium measurement (moles/volume)2020-02-22 08:00:00* Test Item Value Reference Range Interpretation Comments Sodium Level (test code = 2951-2) 134 136-145 [facility] or plasma potassium measurement (moles/volume)2020-02-22 08:00:00* Test Item Value Reference Range Interpretation Comments Potassium Level (test code = 2823-3) 4.4 3.5-5.1 [facility] or plasma chloride measurement (moles/volume)2020-02-22 08:00:00* Test Item Value Reference Range Interpretation Comments Chloride Level (test code = 2075-0) 96 98-107 [facility] or plasma carbon dioxide, total measurement (moles/volume)2020-02-22 08:00:00* Test Item Value Reference Range Interpretation Comments Carbon Dioxide Level (test code = 2028-9) 25 22-29 [facility] or plasma anion rqe0721-93-95 08:00:00* Test Item Value Reference Range Interpretation Comments Anion Gap (test code = 14685-7) 17.4 8-16 [facility] or plasma urea nitrogen measurement (mass/volume)2020-02-22 08:00:00* Test Item Value Reference Range Interpretation Comments Blood Urea Nitrogen (test code = 3094-0) 51 7-26 [facility] or plasma creatinine measurement (mass/volume)2020-02-22 08:00:00* Test Item Value Reference Range Interpretation Comments Creatinine (test code = 2160-0) 11.56 0.72-1.25 [facility] or plasma urea nitrogen/creatinine mass zoull5085-62-84 08:00:00* Test Item Value Reference Range Interpretation Comments BUN/Creatinine Ratio (test code = 3097-3) 4 6-25 [facility] CampusEstimated glomerular filtration rate (GFR) jjauzlsunjgwp2813-25-35 08:00:00* Test Item Value Reference Range Interpretation Comments Estimat Glomerular Filtration Rate (test code = 793353568) 5 >60 Ranges were taken from the National Kidney Disease Education Program and the [facility] Kidney Foundation literature.Reference ranges:60 or greater: Ipzqnr75-58 ( for 3 consecutive months): Chronic kidney disease 15 or less: Kidney failureThe [facility] of [facility] CampusGlucose wosggluwjjv1126-69-22 08:00:00* Test Item Value Reference Range Interpretation Comments Glucose Level (test code = JKK8978) 108 74-118 [facility] or plasma calcium measurement (mass/volume)2020-02-22 08:00:00* Test Item Value Reference Range Interpretation Comments Calcium Level (test code = 22976-6) 8.3 8.4-10.2 [facility] or plasma total bilirubin measurement (mass/volume)2020-02-22 08:00:00* Test Item Value Reference Range Interpretation Comments Total Bilirubin (test code = 1975-2) 0.5 0.2-1.2 [facility] CampusFluoroscopic procedure less than one hour snwqhhhv1853-92-72 08:00:00* Test Item Value Reference Range Interpretation Comments Aspartate Amino Transf (AST/SGOT) (test code = Aspartate Amino Transf (AST/SGOT)) 10 5-34 [facility] or plasma alanine aminotransferase measurement (enzymatic activity/volume)2020-02-22 08:00:00* Test Item Value Reference Range Interpretation Comments Alanine Aminotransferase (ALT/SGPT) (test code = 1742-6) 9 0-55 [facility] or plasma protein measurement (mass/volume)2020-02-22 08:00:00* Test Item Value Reference Range Interpretation Comments Total Protein (test code = 2885-2) 6.5 6.5-8.1 [facility] or plasma albumin measurement (mass/volume)2020-02-22 08:00:00* Test Item Value Reference Range Interpretation Comments Albumin (test code = 1751-7) 3.4 3.5-5.0 [facility] CampusPlasma globulin measurement (mass/volume) 2020-02-22 08:00:00* Test Item Value Reference Range Interpretation Comments Globulin (test code = 58508-7) 3.1 2.3-3.5 [facility] or plasma albumin/globulin mass soqfb7905-76-67 08:00:00* Test Item Value Reference Range Interpretation Comments Albumin/Globulin Ratio (test code = 1759-0) 1.1 0.8-2.0 [facility] or plasma alkaline phosphatase measurement (enzymatic activity/volume)2020-02-22 08:00:00* Test Item Value Reference Range Interpretation Comments Alkaline Phosphatase (test code = 6768-6) 48 40-150 [facility] CampusCT BRAIN LP2333-13-82 16:09:00 [place] [address] Patient Name: ZACH GUZMAN MR #: [id number] : 1970 Age/Sex: 49/M Req #: [id number] [facility] Physician: PAPITO MEDEIROS MD Ordered by: PAPITO MEDEIROS MD Report #: [id number] Location: [facility] Room/Bed: [facility] Procedure: [id number] CT/C T BRAIN WO Exam Date: 02/21/20 [...] Immunity 0.0 - 9.9Consistent with Immunity >9.9[facility] Hospitalerum or plasma hepatitis B virus core antibody detection by wfxevdwibsw2834-70-09 05:58:00* Test Item Value Reference Range Interpretation Comments Hepatitis B Core Total Antibody (test code = 04225-0) Negative Negative Performed at: [facility] Lab[address] [id number] Director: Stevan Valenzuela MD, Phone: [phone] [facility] Hospitalerum or plasma hepatitis B virus surface antigen detection by immunoassay 2020-02-21 05:58:00* Test Item Value Reference Range Interpretation Comments Hepatitis B Surface Antigen (test code = 5196-1) Negative Negat alexa [facility]um hepatitis B virus surface antibody assay by radioimmunoassay (units/volume)2020-02-21 05:58:00* Test Item Value Reference Range Interpretation Comments Hepatitis B Surface Antibody, Quant (test code = 5194-6) 3.2 Immunity>9.9 Status of Immunity Anti-HBs Level Inconsistent with Immunity 0.0 - 9.9Consistent with Immunity >9.9[facility] Hospitalerum or plasma hepatitis B virus core antibody detection by gbztdmdqwxh4582-06-99 05:58:00* Test Item Value Reference Range Interpretation Comments Hepatitis B Core Total Antibody (test code = 73000-3) Negative Negative Performed at: [employer] [facility] [id number] Director: Stevan Valenzuela MD, Phone: [phone] Austinerum or plasma hepatitis B virus surface antigen detection by immunoassay 2020-02-21 05:58:00* Test Item Value Reference Range Interpretation Comments Hepatitis B Surface Antigen (test code = 5196-1) Negative Negat [facility] CenterPhosphorus qenkvdyozzp8810-02-59 11:16:00 * Test Item Value Reference Range Interpretation Comments Phosphorus Level (test code = AMC7258) 5.8 2.3-4.7 [facility] or plasma creatine kinase measurement (enzymatic activity/volume)2020-02-20 11:16:00* Test Item Value Reference Range Interpretation Comments Creatine Kinase (test code = 2157-6) 57 30-200 [facility]um or plasma creatine kinase MB measurement (mass/volume)2020-02-20 11:16:00* Test Item Value Reference Range Interpretation Comments Creatine Kinase MB (test code = 57196-1) 0.80 0-5.0 [facility] CampusTroponin I measurement by highly sensitive enzyme clejkssphtu8278-68-02 11:16:00* Test Item Value Reference Range Interpretation Comments Troponin I (test code = 06040-4) 0.047 0-0.300 [facility] CampusPhosphorus crhtrfzymab1796-19-87 11:16:00 * Test Item Value Reference Range Interpretation Comments Phosphorus Level (test code = NMH6031) 5.8 2.3-4.7 [facility] or plasma creatine kinase measurement (enzymatic activity/volume)2020-02-20 11:16:00* Test Item Value Reference Range Interpretation Comments Creatine Kinase (test code = 2157-6) 57 30-200 [facility]um or plasma creatine kinase MB measurement (mass/volume)2020-02-20 11:16:00* Test Item Value Reference Range Interpretation Comments Creatine Kinase MB (test code = 31474-0) 0.80 0-5.0 [facility] CampusTroponin I measurement by highly sensitive enzyme gxvplcodgcl9988-83-46 11:16:00* Test Item Value Reference Range Interpretation Comments Troponin I (test code = 72130-6) 0.047 0-0.300 [facility] CampusCHEST SINGLE (PORTABLE)2020-02-20 09:33:00 [place] [address] Patient Name: ZACH GUZMAN MR #: [id number] : 1970 Age/Sex: 49/M Req #: [id number] Adm Physician: PAPITO MEDEIROS MD Ordered by: SUNDEEP TOMPKINS NP Report #: [id number] Location: MED/SURG3 Room/Bed: [facility] Procedure: [id number] DX/EDUARDO T SINGLE (PORTABLE) Exam Date: 02/20/20 Exam [...] COPY TO: SUNDEEP TOMPKINS NP CT CHEST Z3300-03-37 20:01:00 [place] [address] Patient Name: ZACH GUZMAN MR #: [id number] : 1970 Age/Sex: 49/M Req #: [id number] Adm Physician: PAPITO MEDEIROS MD Ordered by: SUNDEEP TOMPKINS P[employer] REPAIRER Report #: [id number] Location: [facility] Room/Bed: [place] [address] Procedure: [id number] CT/CT C HEST W Exam Date: 02/19/20 Exam Time: 1821 REPORT STATUS: Signed EXAM: CT Chest WITH [...] NP Fluoroscopic procedure less than one hour vfjtjktp8960-22-57 19:45:00* Test Item Value Reference Range Interpretation [...] complexity tests.Testing performed by [facility] [address] [place], [place] [phone] Director: Chandler Cox M.D.CLIA # [id number] [facility] Fluoroscopic procedure less than one hour lggxvixa8213-10-57 19:45:00* Test Item Value Reference Range Interpretation [...] complexity tests.Testing performed by [facility] [address] [phone] Director: Chandler Cox M.D.CLIA # [id number] [facility] Isv-zBuy0768-45-24 17:40:00* Test Item Value Reference Range Interpretation Comments B-Type Natriuretic Peptide (test code = 06485-1) 680.3 0-100 [facility] CampusBNP Tus-lIdl6131-08-24 17:40:00* Test Item Value Reference Range Interpretation Comments B-Type Natriuretic Peptide (test code = 55518-8) 680.3 0-100 [facility] CampusProthrombin time (PT) in platelet poor plasma by coagulation gxfet5297-94-11 17:30:00* Test Item Value Reference Range Interpretation Comments Prothrombin Time (test code = 5902-2) 13.6 11.9-14.5 [facility] CampusINR in Platelet poor plasma by Coagulation mfcjj1851-24-94 17:30:00* Test Item Value Reference Range Interpretation Comments Prothromb Time International Ratio (test code = 6301-6) 0.98 Oral Anticoagulant Therapy INR Values:1. Low Intensity Therapy 1.5 - 2.02 . Moderate Intensity Therapy 2.0 - 3.03. High Intensity Therapy(1) 2.5 - 3. 54. High Intensity Therapy(2) 3.0 - 4.05. Panic Value INR > 5.0 [facility] CampusActivated partial thromboplastin time (aPTT) in platelet poor plasma by coagulation iknwl4627-19-82 17:30:00* Test Item Value Reference Range Interpretation Comments Activated Partial Thromboplast Time (test code = 11473-8) 31.0 23.8-35.5 [facility] CampusUrine color lmtuyxqhojska8712-13-29 17:30:00* Test Item Value Reference Range Interpretation Comments Urine Color (test code = 5778-6) YELLOW YELLOW [facility] CampusUrine ybgsjrj7286-40-01 17:30:00* Test Item Value Reference Range Interpretation Comments Urine Clarity (test code = 65515-3) CLEAR CLEAR [facility] Austinpecific gravity of Urine by Test strip 2020-02-19 17:30:00* Test Item Value Reference Range Interpretation Comments Urine Specific [place] (test code = 5811-5) 1.020 1.010-1.02 5 [facility] CampusUrine pH measurement by automated test zptwh1495-50-05 17:30:00* Test Item Value Reference Range Interpretation Comments Urine pH (test code = 93495-4) 8.5 5-7 [facility] CampusUrine leukocyte esterase detection by jqgpside3934-48-45 17:30:00* Test Item Value Reference Range Interpretation Comments Urine Leukocyte Esterase (test code = 5799-2) TRACE NEGATIVE [facility] CampusUrine nitrite ckedavzbg2197-88-67 17:30:00* Test Item Value Reference Range Interpretation Comments Urine Nitrite (test code = 14003-9) NEGATIVE NEGATIVE [facility] CampusUrine protein measurement by test strip (mass/volume)2020-02-19 17:30:00* Test Item Value Reference Range Interpretation Comments Urine Protein (test code = 5804-0) >=300 NEGATIVE [facility] CampusUrine glucose wrxbmkvxb6137-94-01 17:30:00* Test Item Value Reference Range Interpretation Comments Urine Glucose (UA) (test code = 2349-9) 2+ NEGATIVE [facility] CampusUrine ketones detection by automated test evpfd3849-80-14 17:30:00* Test Item Value Reference Range Interpretation Comments Urine Ketones (test code = 47343-5) NEGATIVE NEGATIVE [facility] CampusUrine urobilinogen measurement by test strip (mass/volume)2020-02-19 17:30:00* Test Item Value Reference Range Interpretation Comments Urine Urobilinogen (test code = 99847-1) 0.2 0.2-1 [facility] CampusUrine total bilirubin measurement (mass/volume)2020-02-19 17:30:00* Test Item Value Reference Range Interpretation Comments Urine Bilirubin (test code = 1978-6) NEGATIVE NEGATIVE [facility] CampusUrine erythrocytes vgtmguxsu2660-34-91 17:30:00* Test Item Value Reference Range Interpretation Comments Urine Blood (test code = 76440-1) MODERATE NEGATIVE [facility] CampusAutomated urine sediment leukocyte count by microscopy (number/high power field)2020-02-19 17:30:00* Test Item Value Reference Range Interpretation Comments Urine WBC (test code = 5821-4) 21-50 0-5 [facility] CampusErythrocytes detection in urine sediment by light lgtmwagozh2162-57-75 17:30:00* Test Item Value Reference Range Interpretation Comments Urine RBC (test code = 12433-7) 0-5 0-5 [facility] CampusBacteria detection in urine sediment by light iobskwcdqu6984-96-30 17:30:00* Test Item Value Reference Range Interpretation Comments Urine Bacteria (test code = 78503-5) RARE NONE [facility] CampusEpithelial cells detection in urine sediment by light thotlpibcp4074-52-77 17:30:00* Test Item Value Reference Range Interpretation Comments Urine Epithelial Cells (test code = 30607-3) FEW NONE [facility] CampusTransitional cells detection in urine sediment by light xeugybihmd8102-94-09 17:30:00* Test Item Value Reference Range Interpretation Comments Urine Transitional Epithelial Cells (test code = 8249-5) FEW NONE [facility] CampusProthrombin time (PT) in platelet poor plasma by coagulation kqicc5064-67-39 17:30:00* Test Item Value Reference Range Interpretation Comments Prothrombin Time (test code = 5902-2) 13.6 11.9-14.5 [facility] CampusINR in Platelet poor plasma by Coagulation vqplj4358-74-93 17:30:00* Test Item Value Reference Range Interpretation Comments Prothromb Time International Ratio (test code = 6301-6) 0.98 Oral Anticoagulant Therapy INR Values:1. Low Intensity Therapy 1.5 - 2.02 . Moderate Intensity Therapy 2.0 - 3.03. High Intensity Therapy(1) 2.5 - 3. 54. High Intensity Therapy(2) 3.0 - 4.05. Panic Value INR > 5.0 [facility] CampusActivated partial thromboplastin time (aPTT) in platelet poor plasma by coagulation jarxq3865-01-90 17:30:00* Test Item Value Reference Range Interpretation Comments Activated Partial Thromboplast Time (test code = 18479-1) 31.0 23.8-35.5 [facility] CampusUrine color vfahsxabuoqhh0303-06-70 17:30:00* Test Item Value Reference Range Interpretation Comments Urine Color (test code = 5778-6) YELLOW YELLOW [facility] CampusUrine yckzeig8327-30-40 17:30:00* Test Item Value Reference Range Interpretation Comments Urine Clarity (test code = 46313-9) CLEAR CLEAR [facility] Austinpecific gravity of Urine by Test strip 2020-02-19 17:30:00* Test Item Value Reference Range Interpretation Comments Urine Specific [place] (test code = 5811-5) 1.020 1.010-1.02 5 [facility] pH measurement by automated test [id number] 17:30:00* Test Item Value Reference Range Interpretation Comments Urine pH (test code = 75146-6) 8.5 5-7 [facility] leukocyte esterase detection by aooyrzcp8953-83-08 17:30:00* Test Item Value Reference Range Interpretation Comments Urine Leukocyte Esterase (test code = 5799-2) TRACE NEGATIVE [facility] nitrite dfsesjjlm0309-76-98 17:30:00* Test Item Value Reference Range Interpretation Comments Urine Nitrite (test code = 60257-4) NEGATIVE NEGATIVE [facility] protein measurement by test strip (mass/volume)2020-02-19 17:30:00* Test Item Value Reference Range Interpretation Comments Urine Protein (test code = 5804-0) >=300 NEGATIVE [facility] glucose tttcevxba8136-29-20 17:30:00* Test Item Value Reference Range Interpretation Comments Urine Glucose (UA) (test code = 2349-9) 2+ NEGATIVE [facility] CampusUrine ketones detection by automated test woibt2777-59-23 17:30:00* Test Item Value Reference Range Interpretation Comments Urine Ketones (test code = 15877-9) NEGATIVE NEGATIVE [facility]rine urobilinogen measurement by test strip (mass/volume)2020-02-19 17:30:00* Test Item Value Reference Range Interpretation Comments Urine Urobilinogen (test code = 26819-1) 0.2 0.2-1 [facility] total bilirubin measurement (mass/volume)2020-02-19 17:30:00* Test Item Value Reference Range Interpretation Comments Urine Bilirubin (test code = 1978-6) NEGATIVE NEGATIVE [facility] erythrocytes rfmasrsqy6450-67-61 17:30:00* Test Item Value Reference Range Interpretation Comments Urine Blood (test code = 33016-5) MODERATE NEGATIVE [facility] CampusAutomated urine sediment leukocyte count by microscopy (number/high power field)2020-02-19 17:30:00* Test Item Value Reference Range Interpretation Comments Urine WBC (test code = 5821-4) 21-50 0-5 [facility] CampusErythrocytes detection in urine sediment by light glspqpjcss4273-11-18 17:30:00* Test Item Value Reference Range Interpretation Comments Urine RBC (test code = 91824-9) 0-5 0-5 [facility] CampusBacteria detection in urine sediment by light hflljqvbyv3185-01-09 17:30:00* Test Item Value Reference Range Interpretation Comments Urine Bacteria (test code = 78482-1) RARE NONE [facility] CampusEpithelial cells detection in urine sediment by light emrxwwkani8240-00-10 17:30:00* Test Item Value Reference Range Interpretation Comments Urine Epithelial Cells (test code = 85153-9) FEW NONE [facility] CampusTransitional cells detection in urine sediment by light zjnqpdqosf8745-57-91 17:30:00* Test Item Value Reference Range Interpretation Comments Urine Transitional Epithelial Cells (test code = 8249-5) FEW NONE [facility] CampusGLUBED2020-01-27 19:56:00* Test Item Value Reference Range Interpretation Comments GLUBED (test code = GLUBED) 162 mg/dL 74-106 H Performed by certified zipper sewing machine operator at [facility]3] [id number] 17:20:00* Test Item Value Reference Range Interpretation Comments GLUBED (test code = GLUBED) 138 mg/dL 74-106 H Performed by certified zipper sewing machine operator at [facility]3] BASIC METABOLIC [id number] 13:53:00* Test Item Value Reference Range Interpretation [...] CA) 7.4 mg/dL 8.5-10.1 L BASIC METABOLIC [id number] 13:48:00* Test Item Value Reference Range Interpretation [...] code = CA) mg/dL 8.5-10.1 CBC W/AUTO [id number] 13:42:00* Test Item Value Reference Range Interpretation [...] DIFF REQUIRED (test code = MDIFF) NO [id number] 11:49:00* Test Item Value Reference Range Interpretation Comments GLUBED (test code = GLUBED) 139 mg/dL 74-106 H Performed by certified zipper sewing machine operator at [facility]3] [id number] 06:20:00* Test Item Value Reference Range Interpretation Comments GLUBED (test code = GLUBED) 86 mg/dL 74-106 N Performed by certified zipper sewing machine operator at [facility]3] [id number] 20:24:00* Test Item Value Reference Range Interpretation Comments GLUBED (test code = GLUBED) 148 mg/dL 74-106 H Performed by certified zipper sewing machine operator at [facility]3] [id number] 17:03:00* Test Item Value Reference Range Interpretation Comments GLUBED (test code = GLUBED) 103 mg/dL 74-106 N Performed by certified zipper sewing machine operator at [facility]3] [id number] 13:08:00* Test Item Value Reference Range Interpretation Comments GLUBED (test code = GLUBED) 97 mg/dL 74-106 N Performed by certified zipper sewing machine operator at [facility]3] [id number] 06:50:00* Test Item Value Reference Range Interpretation Comments GLUBED (test code = GLUBED) 115 mg/dL 74-106 H Performed by certified zipper sewing machine operator at [facility]3] BASIC METABOLIC [id number] 05:20:00* Test Item Value Reference Range Interpretation [...] CA) 7.7 mg/dL 8.5-10.1 L THYROID PROFILE [id number] 05:20:00* Test Item Value Reference Range Interpretation [...] HYPER : < 0.35 mIU/mL BASIC METABOLIC [id number] 05:03:00* Test Item Value Reference Range Interpretation [...] code = CA) mg/dL 8.5-10.1 THYROID PROFILE W/[id number] 05:03:00* Test Item Value Reference Range Interpretation Comments T3 UPTAKE (test code = T3UP) % 30.0-40.0 T4 (THYROXINE) (test code = T4) ug/dL 4.5-13.9 T7 (FREE THYROXINE INDEX) (test code = T7) FTI 1.3-5.1 THYROID STIMULATING HORMONE (test code = TSH) uIU/mL 0.36-3.7 4 [id number] 04:51:00* Test Item Value Reference Range Interpretation Comments GLYCOSYLATED HEMOGLOBIN (HA1C) (test code = GLYHGB) 5.6 % HbA1 SUGGESTED DIAGNOSIS: HbA1C (%) Diabetic >6.4Prediabetes 5.7 - 6.4Normal <5.7 ESTIMATED AVERAGE GLUCOSE (test code = EAG) 114 MG/DL CBC W/AUTO [id number] 04:29:00* Test Item Value Reference Range Interpretation [...] code = NRBC#) 0.00 K/mm3 0.0-0.1 N [id number] 21:05:00* Test Item Value Reference Range Interpretation Comments GLUBED (test code = GLUBED) 169 mg/dL 74-106 H Performed by certified zipper sewing machine operator at [facility]3] - MRI BRAIN W/O [id number] 21:03:00 FAX: Shabbir Chopra [phone] [place]: B St: ADM FAX: Keny Hairston [phone] Name: ZACH GUZMAN [facility] : 1970 Age/S: 49/M [address] [facility] Unit #: [id number] Loc: [address] [place] [address] Phys: Keny Green MD Acct: [id number] Dis Date: Status: ADM IN PHONE #: [phone] Exam Date: 10/22/20192035 FAX #: [phone] Reason: RT SIDE WEAKNESS EXAMS: CPT CODE: [id number] MRI BRAIN W/O CONTRAST 05848 REASON FOR EXAM: RT SIDE WEAKNESS Exam Order Date: 10/22/2019 11:07 PM Attending MRogerD.: Keny Dominguez MD Procedure: - MRI BRAIN [...] PAGE 1 Signed Report (CONTINUED) FAX: [place] Shabbir Duncan [phone] [place]: St: [facility] FAX: Keny Hairston [phone] Name: REGINA NUNEZLESLYZoe REYNOSO [facility] : 1970 Age/S: 49 /M [address] [facility] Unit #: [id number] Loc: [address] [place] [address] Phys: Keny Green MD Acct: [id number] Dis Date: St at[facility]: ADM IN PHONE #: [phone] Exam Date : 10/22/20192035 FAX #: [phone] Reason: RT S TEQUILA WEAKNESS EXAMS: CPT CODE: [id number] MRI BRAIN W/O CONTRAST 81152 <Continued> CC: hSabbir Duncan MD; Keny Green Technologist: [place] RT(R)(MR) Trnscrd Date/Time/By: 10/22/2019 (2102) : By: AlexandraRRogerRR31 Orig Print D/T: S: 10/22/2019 (2105) PAGE 2 Signed Report [id number] 18:15:00* Test Item Value Reference Range Interpretation Comments GLUBED (test code = GLUBED) 154 mg/dL 74-106 H Performed by certified zipper sewing machine operator at [facility]3] AG HEPAT B [id number] 15:11:00* Test Item Value Reference Range Interpretation Comments AG HEPAT B SURF (test code = HBSAG) Nonreactive Index Nonreactive BASIC METABOLIC [id number] 14:49:00* Test Item Value Reference Range Interpretation [...] CA) 7.0 mg/dL 8.5-10.1 L BASIC METABOLIC [id number] 14:45:00* Test Item Value Reference Range Interpretation [...] CA) 7.0 mg/dL 8.5-10.1 L BASIC METABOLIC [id number] 14:44:00* Test Item Value Reference Range Interpretation [...] code = CA) mg/dL 8.5-10.1 CBC W/AUTO [id number] 14:12:00* Test Item Value Reference Range Interpretation [...] DIFF REQUIRED (test code = MDIFF) NO [id number] 13:15:00* Test Item Value Reference Range Interpretation Comments GLUBED (test code = GLUBED) 168 mg/dL 74-106 H Performed by certified zipper sewing machine operator at [facility]3] [id number] 06:40:00* Test Item Value Reference Range Interpretation Comments GLUBED (test code = GLUBED) 195 mg/dL 74-106 H Performed by certified zipper sewing machine operator at [facility]3] URINALYSIS [id number] 21:24:00* Test Item Value Reference Range Interpretation [...] #/LPF FEW Urine Source? Clean CatchHEPATIC FUNCTION [id number] 21:08:00* Test Item Value Reference Range Interpretation [...] reference range due to change in reagent. [id number] 21:08:00* Test Item Value Reference Range Interpretation Comments LIPASE (test code = LIP) 250 U/L 73.0-393.0 N [id number] 21:08:00* Test Item Value Reference Range Interpretation Comments TROPONIN-I (test code = TROPI) <0.015 ng/mL 0-0.045 N BASIC METABOLIC [id number] 21:03:00* Test Item Value Reference Range Interpretation [...] = CA) 7.6 mg/dL 8.5-10.1 L PROTHROMBIN [id number] 21:00:00* Test Item Value Reference Range Interpretation [...] (2.5-3.5) IS PATIENT ON ANTICOAGULANTS? NTHROMBOPLASTIN TIME [id number] 21:00:00* Test Item Value Reference Range Interpretation Comments THROMBOPLASTIN TIME PARTIAL (test code = PTT) 37.0 seconds 25.0-36. 5 H IS PATIENT ON ANTICOAGULANTS? NBASIC METABOLIC [id number] 20:57:00* Test Item Value Reference Range Interpretation [...] CA) mg/dL 8.5-10.1 - CT ABD PELVIS [id number] 20:52:00 Name: ZACH GUZMAN [facility] : 1970 Age/S: 49 / M [address] [facility] [id number] Loc: [place] [address] Phys: HungShantel DO Acct: [id number] Dis Date: Status: REG ER PHONE #: [phone] Exam Date: 10/21/20192046 FAX #: [phone] Reason: abd pain EXAMS: CPT CODE: [id number] CT ABD PELVIS W/CONT 37207 REASON FOR EXAM: abd pain EXAM ORDER [...] M.D. PAGE 1 Signed Report (CONTINUED) Name: REGINA NUNEZZACH [facility] : 1970 Age/S: 49 / M [place] [facility] Unit #: [id number] Loc: [place] [address] Phys: Shantel Persaud DO Acct: [id number] Dis Date: Status: REG ER PHONE #: [phone] Exam Date: 10/21/20192046 FAX #: [phone] Reason: abd pain EXAMS: CPT CODE: [id number] CT ABD PELVIS W/CONT 24782 < Continued> CC: Shabbir Duncan MD; Shantel Persaud DO Technologist:RT JAMES(R) CT CTDI: DLP: Trnscb Date/Time: 10/21/2019 (2051) AlexandraR.VTL Orig Print D/T: S: 10/21/2019 (2054) PAGE 2 Signed Report CBC W/AUTO [id number] 20:35:00* Test Item Value Reference Range Interpretation [...] = MDIFF) NO - CT HEAD/BRAIN W/O [id number] 20:11:00 Name: REGINA NUNEZLESLYMEHRAN [facility] : 1970 Age/S: 49 / M [address] Unit #: [id number] Loc: [place] [address] Phys: Shantel Persaud DO Acct: [id number] Dis Date: Status: REG ER PHONE #: [phone] Exam Date: 10/21/20191944 FAX #: [phone] Reason: Headache EXAMS: CPT CODE: [id number] CT HEAD/BRAIN W/O CONT 13070 REASON FOR EXAM: Headache EXAM ORDER DATE: [...] Almaraz CTDI: DLP: Trnscb Date/Time: 10/21/2019 (2010) tRAFAELR.VTL Orig Print D/T: S: 10/21/2019 (2013) PAGE 1 Signed Report [id number] 10:08:00* Test Item Value Reference Range Interpretation Comments GLUBED (test code = GLUBED) 113 mg/dL 74-106 H Performed by certified zipper sewing machine operator at [facility]3] [id number] 11:20:00* Test Item Value Reference Range Interpretation Comments GLUBED (test code = GLUBED) 234 mg/dL 74-106 H Performed by certified zipper sewing machine operator at [facility]3] BASIC METABOLIC [id number] 09:43:00* Test Item Value Reference Range Interpretation [...] CA) 7.1 mg/dL 8.5-10.1 L CBC W/O [id number] 07:59:00* Test Item Value Reference Range Interpretation [...] code = MPV) 10.2 fL 6.7-11.0 N [id number] 07:52:00* Test Item Value Reference Range Interpretation Comments GLUBED (test code = GLUBED) 153 mg/dL 74-106 H Performed by certified zipper sewing machine operator at [facility]3] [id number] 21:11:00* Test Item Value Reference Range Interpretation Comments GLUBED (test code = GLUBED) 140 mg/dL 74-106 H Performed by certified zipper sewing machine operator at [facility]3] [id number] 21:11:00* Test Item Value Reference Range Interpretation Comments GLUBED (test code = GLUBED) 336 mg/dL 74-106 H Performed by certified zipper sewing machine operator at [facility]3] [id number] 15:51:00* Test Item Value Reference Range Interpretation Comments GLUBED (test code = GLUBED) 304 mg/dL 74-106 H Performed by certified zipper sewing machine operator at [facility]3] BASIC METABOLIC [id number] 11:17:00* Test Item Value Reference Range Interpretation [...] mg/dL 8.5-10.1 LL Res ults called to [id number] by V.LAB. 08/26/19 1116Critical results verified and read back by Nurse? YES CBC W/O [id number] 10:33:00* Test Item Value Reference Range Interpretation [...] code = MPV) 11.1 fL 6.7-11.0 H [id number] 07:19:00* Test Item Value Reference Range Interpretation Comments GLUBED (test code = GLUBED) 186 mg/dL 74-106 H Performed by certified zipper sewing machine operator at [facility]3] [id number] 01:25:00* Test Item Value Reference Range Interpretation Comments GLUBED (test code = GLUBED) 301 mg/dL 74-106 H Performed by certified zipper sewing machine operator at [facility]3] [id number] 20:51:00* Test Item Value Reference Range Interpretation Comments GLUBED (test code = GLUBED) 353 mg/dL 74-106 H Performed by certified zipper sewing machine operator at [facility]3] [id number] 20:51:00* Test Item Value Reference Range Interpretation Comments GLUFANTA (test code = GLUBED) 294 mg/dL 74-106 H Performed by certified zipper sewing machine operator at [facility]3] - US GUIDANCE VASC [id number] 13:23:00 Name: ZACH GUZMAN [facility] : 1970 Age[facility]S: 49 / M [address] [facility]: [id number] Loc: [place] [address] Phys: Keny Green MD Acct: [id number] Dis Date: Status: ADM IN PHONE #: [phone] Exam Date: 08/24/2019 1100 FAX #: [phone] Reason: EXAMS: CPT CODE: [id number] US GUIDANCE VASC ACCESS 23777 Fluoro Time: DAP (Gy m2): Air Kerma (mGy): EXAM: Insertion of a tunneled hemodialysis catheter with sonographic and fluoroscopic guidance and conscious sedation; CPT: 06448, 47302, 88897, 17563; INFORMATION: End-stage renal disease; TECHNIQUE AND FINDINGS: Conscious sedation start time: 1024 hours; completion time: 1100 hours; Under physician supervision 2 mg of Versed and 50 mcg of fentanyl were administered intravenously for sedation. The patient's heart rate, blood pressure and pulse oximetry were continuously monitored by a trained registered nurse. Physician vgwi-qe-sgjr sedation time was 36 minutes. Benefits and [...] usual st erile fashion and a 15 Wolof tunneled hemodialysis catheter was inserted and positioned [...] Signed Report (CONTINUED ) Name: ZACH GUZMAN [facility] SP D OB: 1970 Age/S: 49 / M [address] Unit #: [id number] Loc: [place] [address] Phys: Oumar Green MD Acct: [id number] Dis Date: Status: ADM IN PHONE #: [phone] Exam Date: 08/24/2019 1100 FAX #: Reason: EXAMS: CPT CODE: [id number] US GUIDANCE V ASC ACCESS 87720 Fluoro Time: DAP (Gy m2): Air Kerma (mGy): <Continued> CAK : 13 mGy DAP : 5260 mGy sq cm Location code: [facility] at 1323 Reported and signed by: Melquiades Lane M.D. CC: Shabbir Duncan MD; Keny Green Technologist: Saleem Benito RT(R) Trnscb Date/Time: 08/25/2019 (1323) tNATHENGRW Orig Print D/T: S: 08/25/2019 (1326) PAGE 2 Signed Report - SP FLUORO GUID CTRL ACC [id number] 13:23:00 Name: ZACH GUZMAN [facility] : 1970 Age/S: 49 / M [address] Unit #: [id number] [place] [address] Phys: Keny Green MD Acct: [id number] Dis Date: Status: ADM IN PHONE #: [phone] Exam Date: 08/24/2019 1100 FAX #: [phone] Reason: EXAMS: CPT CODE: [id number] SP FLUORO GUID CTRL ACC DEV 24935 Fluoro Time: 57 DAP (Gy m2): 5.2 Air Kerma (mGy): 14 EXAM: Insertion of a tunneled hemodialysis catheter with sonographic and fluoroscopic guidance and conscious sedation; CPT: 87513, 46234, 40674, 55219; INFORMATION: End-stage renal disease; TECHNIQUE AND FINDINGS: Conscious sedation start time: 1024 hours; completion time: 1100 hours; Under physician supervision 2 mg of Versed and 50 mcg of fentanyl were administered intravenously for sedation. The patient's heart rate, blood pressure and pulse oximetry were continuously monitored by a trained registered nurse. Physician ddyu-hl-tipp sedation time was 36 minutes. Benefits and [...] usual st erile fashion and a 15 Wolof tunneled hemodialysis catheter was inserted and positioned [...] Signed Report (CONTINUED ) Name: ZACH GUZMAN [facility] SP D OB: 1970 Age/S: 49 / M [address] Unit #: [id number] Loc: [place] [address] Phys: Oumar Green MD Acct: [id number] Dis Date: Status: ADM IN PHONE #: [phone] Exam Date: 08/24/2019 1100 FAX #: [phone] Reason: EXAMS: CPT CODE: [id number] SP FLUORO GUID CTRL ACC DEV 90926 Fluoro Time: 57 DAP (Gy m2): 5.2 Air Kerma (mGy): 14 <Continued> CAK : 13 mGy DAP : 5260 mGy sq cm Location code: [facility] at 1323 Reported and signed by: Melquiades Lane M.D. CC: Shabbir Duncan MD; Keny Green Technologist: Saleem Benito RT(R) Trnscb Date/Time: 08/25/2019 (5333) tPENG Orig Print D/T: S: 08/25/2019 (6814) PAGE 2 Signed Report GLUBED 2019-08-25 11:13:00* Test Item Value Reference Range Interpretation Comments GLUBED (test code = GLUBED) 222 mg/dL 74-106 H Performed by certified zipper sewing machine operator at [facility]3] [id number] 07:34:00* Test Item Value Reference Range Interpretation Comments GLUBED (test code = GLUBED) 162 mg/dL 74-106 H Performed by certified zipper sewing machine operator at [facility]3] AB HEPATITIS B [id number] 07:12:00* Test Item Value Reference Range Interpretation Comments AB HEPATITIS B SURFACE (test code = HBSAB) Non Reactive () Non Reactive: Inconsistent with immunity, less than 10 mIU/mL Reactive: Consistent with immunity, greater than 9.9 mIU/mLPerformed At: [facility] [id number] Kyle L MD Ph:[phone] HEPATITIS B CORE ANTIBODY,[id number] 07:12:00* Test Item Value Reference Range Interpretation Comments HEPATITIS B CORE ANTIBODY,TOT (test code = HBCAB) Negative Nega tive Performed At: [facility] [address] [place], [place] [id number] Stevan Sloan MD Ph:[phone] RENAL FUNCTION [id number] 06:24:00* Test Item Value Reference Range Interpretation [...] code = FESAT) 26.24 % 13-45 N [id number] 06:24:00* Test Item Value Reference Range Interpretation Comments FERRITIN (test code = LEONARDO) 287 ng/mL 8-388 N RENAL FUNCTION [id number] 06:09:00* Test Item Value Reference Range Interpretation [...] SATURATION (test code = FESAT) % 13-45 [id number] 06:09:00* Test Item Value Reference Range Interpretation Comments FERRITIN (test code = LEONARDO) ng/mL 8-388 CBC W/AUTO [id number] 05:48:00* Test Item Value Reference Range Interpretation [...] DIFF REQUIRED (test code = MDIFF) NO [id number] 20:00:00* Test Item Value Reference Range Interpretation Comments GLUBED (test code = GLUBED) 118 mg/dL 74-106 H Performed by certified zipper sewing machine operator at [facility]3] [id number] 14:16:00* Test Item Value Reference Range Interpretation Comments TROPONIN-I (test code = TROPI) <0.015 ng/mL 0-0.045 N COMMENTS TO GROUP ACCOUNT DIRECTOR: COLLECT 3 HOURS AFTER PREVIOUS [id number] 12:15:00* Test Item Value Reference Range Interpretation Comments GLUBED (test code = GLUBED) 81 mg/dL 74-106 N Performed by certified zipper sewing machine operator at [facility]3] - XR CHEST 1 [id number] 11:30:00 FAX: Shabbir Chopra [phone] [place]: B St: ADM FAX: Keny Hairston [facility] [phone] Name: ZACH GUZMAN [facility] : 1970 Age/S: 49/M [address] [facility] Unit #: [id number] Loc: V.[address] [place] [address] Phys: Melquiades Lane MD Acct: [id number] Dis Date: Status: ADM IN PHONE #: [phone] Exam Date: 08/24/2019 1109 FAX #: [phone] Reason: ESRD; [facility]; EXAMS: CPT CODE: [id number] XR CHEST 1 V 14594 REASON FOR EXAM: ESRD; [facility]; Exam [...] the proximal SVC. Lungs are clear. Location: [facility] at 1130 Reported and signed by: Samuel Loredo MD CC: Shabbir Duncan MD; [place] Technologist: Lidia REIS(R); Malinda Patel(R) Trnmtrd Date/Time/By: 08/24/2019 (1130) : By: MaureenRR31 Orig Print D/T: S: 08/24/2019 (9412) PAGE 1 Signed Report [id number] 10:08:00* Test Item Value Reference Range Interpretation Comments PHOSPHORUS (test code = PHOS) 8.1 mg/dL 2.5-4.9 H BASIC METABOLIC [id number] 09:47:00* Test Item Value Reference Range Interpretation [...] mg/dL 8.5-10.1 LL Res ults called to [id number] by XIMENA 08/24/19 0945Critical results verified and read back by Nurse? YES PROTHROMBIN [id number] 08:51:00* Test Item Value Reference Range Interpretation [...] (2.5-3.5) IS PATIENT ON ANTICOAGULANTS? NTHROMBOPLASTIN TIME [id number] 08:51:00* Test Item Value Reference Range Interpretation Comments THROMBOPLASTIN TIME PARTIAL (test code = PTT) 32.6 seconds 25.0-36. 5 N IS PATIENT ON ANTICOAGULANTS? NBASIC METABOLIC [id number] 08:49:00* Test Item Value Reference Range Interpretation [...] code = CA) mg/dL 8.5-10.1 CBC W/AUTO [id number] 08:14:00* Test Item Value Reference Range Interpretation [...] DIFF REQUIRED (test code = MDIFF) NO [id number] 07:32:00* Test Item Value Reference Range Interpretation Comments GLUBED (test code = GLUBED) 91 mg/dL 74-106 N Performed by certified zipper sewing machine operator at [facility]3] [id number] 07:32:00* Test Item Value Reference Range Interpretation Comments GLUBED (test code = GLUBED) 52 mg/dL 74-106 L Performed by certified zipper sewing machine operator at [facility]3] AG HEPAT B [id number] 05:31:00* Test Item Value Reference Range Interpretation Comments AG HEPAT B SURF (test code = HBSAG) Nonreactive Index Nonreactive [id number] 02:00:00* Test Item Value Reference Range Interpretation Comments TROPONIN-I (test code = TROPI) <0.015 ng/mL 0-0.045 N COMMENTS TO GROUP ACCOUNT DIRECTOR: COLLECT 3 HOURS AFTER PREVIOUS [id number] 01:50:00* Test Item Value Reference Range Interpretation Comments POTASSIUM (test code = K) 5.2 mmol/L 3.5-5.1 H [id number] 23:23:00* Test Item Value Reference Range Interpretation Comments GLUBED (test code = GLUBED) 145 mg/dL 74-106 H Performed by certified zipper sewing machine operator at [facility]3] [id number] 20:37:00* Test Item Value Reference Range Interpretation Comments GLUBED (test code = GLUBED) 48 mg/dL 74-106 LL Performed by certified zipper sewing machine operator at [facility])[3]Notified Nurse~ [id number] 20:37:00* Test Item Value Reference Range Interpretation Comments GLUBED (test code = GLUBED) 40 mg/dL 74-106 LL Performed by certified zipper sewing machine operator at [facility]3]Notified Nurse~ BASIC METABOLIC [id number] 17:18:00* Test Item Value Reference Range Interpretation Comments SODIUM (test code = NA) 144 mmol/L 136-145 N POTASSIUM (test code = K) 6.2 mmol/L 3.5-5.1 [facility] sults called to [id number] by V.LAB.KP1 08/23/19 1717Critical results verified and read back [...] mg/dL 8.5-10.1 LL Res ults called to [place] [id number] by V.LAB.KP1 08/23/19 1717Critical results verified and read back by Nurse? Y [id number] 17:18:00* Test Item Value Reference Range Interpretation Comments TROPONIN-I (test code = TROPI) <0.015 ng/mL 0-0.045 N [id number] 16:52:00* Test Item Value Reference Range Interpretation Comments MAGNESIUM (test code = MAG) 2.1 mg/dL 1.8-2.4 N CBC W/O [id number] 16:29:00* Test Item Value Reference Range Interpretation [...] fL 6.7-11.0 N - XR CHEST 1 [id number] 15:45:00 FAX: Jose Daniel Godwin MD [place]: B St: REG FAX: Shabbir Chopra [phone] Name: ZACH GUZMAN [facility] : 1970 Age/S: 49/M [address] [facility] [facility] Unit #: [id number] Loc: [place] [address] Phys: Jose Daniel Godwin MD Acct: [id number] Dis Date: Status: REG ER PHONE #: [phone] Exam Date: 08/23/2019 1543 FAX #: [phone] Reason: CHEST PAIN EXAMS: CPT CODE: [id number] XR CHEST 1 V 92879 REASON FOR EXAM: CHEST PAIN EXAM ORDER DATE: 08/23/2019 3:35 PM Ordering: Jose Daniel Godwin MD Attending:Jose Daniel Godwin MD Location:[facility] PROCEDURE: - XR CHEST 1 V COMPARISON: 04/12/2019 FINDINGS: Portable AP frontal view of the chest obtained at 3:42 PM shows clear lungs without evidence of consolidation. There is no evidence of effusion. The heart size is within normal limits. Pulmonary vasculatures are unremarkable. IMPRESSION: No active disease. at 5570 Reported and signed by: Ralf Jamison M.D. CC: Jose Daniel Godwin MD; Shabbir Duncan MD Technologist: DENNIS KEITA [facility](AB,CASINO DUTY MANAGER) Trnscrd Date/Time/By: 08/23/2019 (9777) : By: Junior Orig Print D/T: S: 08/23/2019 (0365) PAGE 1 Signed Report COMPREHENSIVE METABOLIC [id number] 15:05:00* Test Item Value Reference Range Interpretation [...] due to change in reagent. COMPREHENSIVE METABOLIC [id number] 14:59:00* Test Item Value Reference Range Interpretation [...] code = ALKP) IUnit/L 45-117 CBC W/AUTO [id number] 14:53:00* Test Item Value Reference Range Interpretation [...] NRBC#) 0.00 K/mm3 0.0-0.1 N CBC W/AUTO [id number] 20:25:00* Test Item Value Reference Range Interpretation [...] DIFF REQUIRED (test code = MDIFF) NO [id number] 21:51:00* Test Item Value Reference Range Interpretation Comments GLUBED (test code = GLUBED) 185 mg/dL 74-106 H Performed by certified zipper sewing machine operator at [facility]3] [id number] 12:15:00* Test Item Value Reference Range Interpretation Comments GLUBED (test code = GLUBED) 130 mg/dL 74-106 H Performed by certified zipper sewing machine operator at [facility]3] BASIC METABOLIC [id number] 10:52:00* Test Item Value Reference Range Interpretation [...] CA) 8.1 mg/dL 8.5-10.1 L CBC W/AUTO [id number] 10:16:00* Test Item Value Reference Range Interpretation [...] DIFF REQUIRED (test code = MDIFF) NO [id number] 08:35:00* Test Item Value Reference Range Interpretation Comments GLUBED (test code = GLUBED) 199 mg/dL 74-106 H Performed by certified zipper sewing machine operator at [facility]3] AG HEPAT B [id number] 22:13:00* Test Item Value Reference Range Interpretation Comments AG HEPAT B SURF (test code = HBSAG) Nonreactive Index Nonreactive [id number] 19:36:00* Test Item Value Reference Range Interpretation Comments GLUBED (test code = GLUBED) 214 mg/dL 74-106 H Performed by certified zipper sewing machine operator at [facility]3] UR CREATININE CLEARANCE [id number] 19:11:00* Test Item Value Reference Range Interpretation Comments CREATININE CLEARANCE RESULT (test code = CREATCLR) 24 mL/min 100 -120 L CREATININE (test code = CREAT) 5.90 mg/dL 0.7-1.3 H UR CREATININE RANDOM (test code = CREATU) 57.0 mg/dL 30-125 N UR VOLUME 24HR (test code = VOL) 3525 mL/24hrs 5723-5377 VOLUME- 3525VOLUME CAME FROM 2 CONTAINERSUR CREATININE CLEARANCE [id number] 18:55:00* Test Item Value Reference Range Interpretation Comments CREATININE CLEARANCE RESULT (test code = CREATCLR) mL/min 100 -120 CREATININE (test code = CREAT) mg/dL 0.7-1.3 UR CREATININE RANDOM (test code = CREATU) mg/dL 30-125 UR VOLUME 24HR (test code = VOL) 3525 mL/24hrs 6161-6053 VOLUME- 3525VOLUME CAME FROM 2 [id number] 17:51:00* Test Item Value Reference Range Interpretation Comments GLUBED (test code = GLUBED) 225 mg/dL 74-106 H Performed by certified zipper sewing machine operator at [facility]3] [id number] 15:58:00* Test Item Value Reference Range Interpretation Comments GLUBED (test code = GLUBED) 218 mg/dL 74-106 H Performed by certified zipper sewing machine operator at [facility]3] [id number] 14:53:00* Test Item Value Reference Range Interpretation Comments GLUBED (test code = GLUBED) 153 mg/dL 74-106 H Performed by certified zipper sewing machine operator at [facility]3] [id number] 11:11:00* Test Item Value Reference Range Interpretation Comments GLUBED (test code = GLUBED) 136 mg/dL 74-106 H Performed by certified zipper sewing machine operator at [facility]3] [id number] 07:48:00* Test Item Value Reference Range Interpretation Comments GLUBED (test code = GLUBED) 132 mg/dL 74-106 H Performed by certified zipper sewing machine operator at [facility]3] COMPREHENSIVE METABOLIC [id number] 05:55:00* Test Item Value Reference Range Interpretation [...] due to change in reagent. COMPREHENSIVE METABOLIC [id number] 05:35:00* Test Item Value Reference Range Interpretation [...] code = ALKP) IUnit/L 45-117 CBC W/AUTO [id number] 05:04:00* Test Item Value Reference Range Interpretation [...] code = NRBC#) 0.00 K/mm3 0.0-0.1 N [id number] 19:56:00* Test Item Value Reference Range Interpretation Comments GLUBED (test code = GLUBED) 151 mg/dL 74-106 H Performed by certified zipper sewing machine operator at [facility]3] TROPONIN I [id number] 12:57:00* Test Item Value Reference Range Interpretation [...] be valid only if similarmethodology is used. [id number] 12:23:00* Test Item Value Reference Range Interpretation Comments GLUBED (test code = GLUBED) 46 mg/dL 74-106 LL Performed by certified zipper sewing machine operator at [facility]3]Doctor Notified~ - CT ABD PELVIS W/O [id number] 11:51:00 Name: ZACH UGZMAN [facility] : 1970 Age/S: 49 / M [address] Unit #: [id number] Loc: [place] [address] Phys: Keny Green MD Acct: [id number] Dis Date: Status: ADM IN PHONE #: [phone] Exam Date: 04/12/2019 1031 FAX #: [phone] Reason: RENAL FAILURE EXAMS: CPT CODE: [id number] CT ABD PELVIS W/O CONT 17545 HISTORY: Renal failure. COMPARISON: September 11, 2015 [...] 1 Signed Report (CONTINUED) Name: ZACH GUZMAN [facility] : 1970 Age/S: 49 / M [address] Unit #: [id number] Loc: [place] [address] Phys: Keny Green MD Acct: [id number] Dis Date: Status: ADM IN PHONE #: [phone] Exam Date: 04/12/2019 1031 FAX #: [phone] Reason: RENAL FAIL URE EXAMS: CPT CODE: [id number] CT ABD PELVIS W/O CONT 62429 <Continued> at 1151 Reported and signed by: Sourav Vail M.D. CC: Shabbir Duncan MD; Keny Green Technologist:Yoni Sun RT(R),(MR),(CT) CTDI: DLP: Trnscb Date/Time: 04/12/2019 (1801) [email or web address] Orig Print D/T: S: 04/12/2019 (7678) PAGE 2 Signed Report VITAMIN B12 2019-04-12 11:18:00* Test Item Value Reference Range Interpretation Comments VITAMIN B12 (test code = VITB12) 431 pg/mL 193-986 N FOLIC [id number] 11:18:00* Test Item Value Reference Range Interpretation Comments FOLIC ACID (test code = FOL) 22.0 ng/mL 3.10-17.50 H THYROID PROFILE [id number] 11:18:00* Test Item Value Reference Range Interpretation [...] 5.5 mIU/mL HYPER : < 0.35 mIU/mL [id number] 11:14:00* Test Item Value Reference Range Interpretation Comments GLUBED (test code = GLUBED) 138 mg/dL 74-106 H Performed by certified zipper sewing machine operator at [facility]3] FE W/TOTAL IRON BINDING CAP.2019-04-12 10:48:00* Test Item Value Reference Range Interpretation Comments SERUM IRON (test code = IRON) 70 ug/dL 50-175 N TOTAL IRON BINDING CAPACITY (test code = TIBC) 262 mcg/dL 250-450 N IRON SATURATION (test code = FESAT) 26.72 % 13-45 N [id number] 10:48:00* Test Item Value Reference Range Interpretation Comments GLYCOSYLATED HEMOGLOBIN (HA1C) (test code = GLYHGB) 6.2 % HbA1 4. 8-6.0 H ESTIMATED AVERAGE GLUCOSE (test code = EAG) 131 MG/DL [id number] 10:45:00* Test Item Value Reference Range Interpretation Comments CKMB (test code = CKMBT) 1.8 ng/mL 0-6.0 N - US RETROPERITONEAL [id number] 10:10:00 Name: ZACH GUZMAN [facility] : 1970 Age/S: 49 / M [address] [facility] Unit #: [id number] Loc: [place] [address] Phys: Woodrow Carmichael PIPE STEM REPAIRER Acct: [id number] Dis Date: Status: ADM IN PHONE #: [phone] Exam Date: 04/12/2019929 FAX #: [phone] Reason: FLANK- RENAL FAILURE EXAMS: CPT CODE: [id number] US RETROPERITONEAL COM 04055 HISTORY: Flank renal failure. COMPARISON: CT scan [...] RAMOS RT(R),RDMS Trn scb Date/Time: 04/12/2019 (1010) [email or web address] Orig Print D/T : S: 04/12/2019 (1014) Probe: PAGE 1 Signed Report CBC W/O [id number] 07:51:00 * Test Item Value Reference Range [...] MPV) 11.5 fL 6.7-11.0 H BASIC METABOLIC [id number] 07:43:00* Test Item Value Reference Range Interpretation [...] code = CA) 7.8 mg/dL 8.5-10.1 L [id number] 07:43:00* Test Item Value Reference Range Interpretation Comments TROPONIN-I (test code = TROPI) <0.015 ng/mL 0-0.045 N BASIC METABOLIC [id number] 07:33:00* Test Item Value Reference Range Interpretation [...] code = CA) 7.8 mg/dL 8.5-10.1 L [id number] 07:33:00* Test Item Value Reference Range Interpretation Comments TROPONIN-I (test code = TROPI) ng/mL 0-0.045 - XR CHEST 1 [id number] 07:32:00 FAX: Wily Bustillo MD [phone] [place]: [address] St: [facility] FAX: Woodrow Carmichael NP [phone] Name: ZACH GUZMAN [facility] : 1970 Age/S: 49/M [address] [facility] Unit #: [id number] Loc: [place] [address] Phys: Woodrow Carmichael NP Acct: [id number] Dis Date: Status: REG ER PHONE #: [phone] Exam Date: 04/12/2019721 FAX #: [phone] Reason: CHEST PAIN EXAMS: CPT CODE: [id number] XR CHEST 1 V 30832 HISTORY: CHEST PAIN TECHNIQUE: AP chest x-ray COMPARISON: None FINDINGS: No airspace consolidation or pleural effusion. Normal heart size. Mediastinal silhouette is unremarkable. Visualized osseous structures are grossly intact. IMPRESSION: No radiographic evidence of acute cardiopulmonary process. at 0732 Reported and signed by: Judy Addison D.O. CC: Wily Bustillo MD; Woodrow Carmichael NP chnologist: Vidya Patel([place]) Trnscrd Date/ Time/By: 04/12/2019 (0732) : By: [email or web address] Orig Print D/T: S: 04/12/20 19 (0709) PAGE 1 Signed Report TROPONIN I [id number] 07:18:00* Test Item Value Reference Range Interpretation [...]
--- NOTE | 2020-05-07 02:23 | Diagnostic Imaging Report ---
EXAMINATION: CHEST SINGLE (PORTABLE) INDICATION: ^Y ^SOB, COVID + ^Y COMPARISON: Radiograph from May 05, 2020 FINDINGS: Stable cardiomegaly. The pulmonary vasculature is distended and indistinct. Similar interstitial and patchy opacities bilaterally. No sizable pleural effusions. No pneumothorax. IMPRESSION: Pulmonary edema is favored, although multifocal pneumonia could be considered. No significant change from May 05, 2020. Signed by: Keny Nguyen MD on 05/07/2020 2:20 AM
[2020-05-07 02:38] VITALS: BP 168/72
== END 2020-05-07 02:53 | disposition home or self-care (01) ==
LOC: ER 01:06
DX: U07.1 COVID-19 (principal); J12.9 Viral pneumonia, unspecified; R50.9 Fever, unspecified; R05 Cough; R06.02 Shortness of breath; I12.0 Hypertensive chronic kidney disease with stage 5 chronic kidney disease or end stage renal disease; E11.22 Type 2 diabetes mellitus with diabetic chronic kidney disease; N18.6 End stage renal disease; Z99.2 Dependence on renal dialysis
CPT/HCPCS: 71045; 99283